=== PATIENT | male | born 1935 | race Caucasian/White ===

== ENCOUNTER → 2017-09-14 09:08 | Outpatient (CLI) | payer MEDICARE, OTHER, SELFPAY ==
[2017-09-14 12:32] LABS: Absolute Lymphocyte Count 1.02 X10^3/ul (0.83-4.51); Absolute Neutrophil Count 4.7 X10^3/uL (2.0-7.7); Basophil# 0.04 X10^3/uL; Basophil% 0.6 % (0-1); Eosinophils% 4.5 % (0-5); Hemoglobin 13.1 g/dl (13.0-16.5); Lymphocyte # 1.02 X10^3/ul (4.0); Lymphocyte % 15.4 % (19-41); Mean Corpuscular Hgb 29.2 pg (27.0-32.0); Mean Corpuscular Volume 91.5 fL (80-94); Mean Platelet Vol. 11.8 fl (6.2-12.0); Monocyte# 0.57 X10^3/uL; Monocyte% 8.6 % (0-10); Neutrophil # 4.66 X10^3/uL (2.7-7.7); Neutrophil % 70.4 % (47-70); Platelet Count 164 K/mm3 (150-450); RBC Distribution Width CV 13.8 % (11.6-14.6); RBC Distribution Width SD 45.5 fl (35.1-43.9); Red Blood Count 4.48 M/mm3 (4.6-6.2); White Blood Count 6.6 K/mm3 (4.4-11.0)
[2017-09-14 12:39] LABS: POSITIVE COUNT NO; POSITIVE DIFFERENTIAL NO; POSITIVE MORPHOLOGY NO
[2017-09-14 12:58] LABS: ALB/GLOB Ratio 0.7 RATIO (0.9-2.4); AST(SGOT) 35 U/L (15-37); Alanine Aminotransfer ALT/SGPT 51 U/L (16-61); Albumin, Serum 2.9 g/dL (3.2-5.0); Alkaline Phosphatase 106 U/L (45-117); Anion Gap 9 (5-15); BUN 34 mg/dL (7-18); BUN/Creat Ratio 14.2 RATIO (10-20); Calcium,Total 8.3 mg/dL (8.5-10.1); Chloride 104 mmol/L (98-107); EST Glomerular Filtration Rate 28 mL/min (>60); Est Glom Filt Rate - Afr Amer 34 mL/min (>60); Glucose 252 mg/dL (70-110); Potassium 4.8 mmol/L (3.5-5.1); Protein, Total 6.9 g/dL (6.4-8.2); Sodium Level 138 mmol/L (136-145); Thyroid Stim Hormone (TSH) 2.48 uIU/mL (0.358-3.74)
== END ==
PROVIDERS: Family Provider Family Medicine Geriatric Medicine; PCP Family Medicine Geriatric Medicine; Visit Provider Family Medicine Geriatric Medicine
DX: I10 Essential (primary) hypertension (principal); E11.9 Type 2 diabetes mellitus without complications
CPT/HCPCS: 36415; 80053; 84443; 85025

== ENCOUNTER → 2017-09-30 10:36 | Outpatient (CLI) | payer MEDICARE, OTHER, SELFPAY ==
[2017-09-30 11:53] LABS: Hematocrit 41.4 % (40-54); Hemoglobin 13.2 g/dl (13.0-16.5); Mean Corp Hgb Conc 31.9 g/gl (32-36); Mean Corpuscular Hgb 29.3 pg (27.0-32.0); Mean Platelet Vol. 11.4 fl (6.2-12.0); Platelet Count 185 K/mm3 (150-450); RBC Distribution Width CV 14.2 % (11.6-14.6); RBC Distribution Width SD 47.1 fl (35.1-43.9); White Blood Count 9.8 K/mm3 (4.4-11.0)
[2017-09-30 11:54] LABS: Scan Indicated on CBC? Y/N NO
[2017-09-30 12:10] LABS: Protein, Urine (Random) 325.9 mg/dL (<11.9); Protein:Creat Ratio 4227 mg/g CRE (0-200)
[2017-09-30 12:18] LABS: BUN 33 mg/dL (7-18); BUN/Creat Ratio 12.2 RATIO (10-20); Calcium,Total 8.9 mg/dL (8.5-10.1); Creatinine, Serum 2.71 mg/dL (0.70-1.30); EST Glomerular Filtration Rate 24 mL/min (>60); Est Glom Filt Rate - Afr Amer 29 mL/min (>60); Glucose 94 mg/dL (74-106); Phosphorus 3.7 mg/dL (2.5-4.9); Potassium 4.6 mmol/L (3.5-5.1); Sodium Level 140 mmol/L (136-145)
[2017-09-30 12:19] LABS: Chloride 106 mmol/L (98-107)
[2017-09-30 12:26] LABS: PTHIN 159.9 pg/mL (18.4-80.1)
== END ==
PROVIDERS: Family Provider Family Medicine Geriatric Medicine; PCP Family Medicine Geriatric Medicine; Visit Provider Internal Medicine Nephrology
DX: E11.22 Type 2 diabetes mellitus with diabetic chronic kidney disease (principal); N18.3 Chronic kidney disease, stage 3 (moderate); N25.81 Secondary hyperparathyroidism of renal origin
CPT/HCPCS: 36415; 80069; 82570; 83970; 84156; 85027

== ENCOUNTER → 2017-10-26 13:15 | Outpatient (CLI) | payer MEDICARE, OTHER, SELFPAY ==
--- NOTE | 2017-10-26 13:17 | CT_ITS ---
STUDY: CT ABDOMEN AND PELVIS WITHOUT CONTRAST REASON FOR EXAM: Male, 81 years old. KIDNEY CA-PARTIAL NEPHRECTOMY, CHECK UP, NOT HAVING ANY PROBLEMS, SURG-CARLITO, APPY,DB RADIATION DOSAGE (If Supplied By Facility): CTDIvol = ( 14.21 ) mGy, DLP = ( 700.56 ) mGycm TECHNIQUE: Transaxial images were obtained from the dome of the diaphragm to the symphysis pubis without oral contrast, and without intravenous contrast. Sagittal and coronal images were reconstructed. COMPARISON: 01/23/2017 FINDINGS: Right calcified pleural plaques. The visualized portions of the heart are within normal limits. Normal liver. There are surgical clips in the gallbladder fossa consistent with a prior cholecystectomy. Normal spleen. Normal pancreas. Stable partially calcified right adrenal mass. Stable hypodensity of the inferior and mid right kidney. Stable hypodensity of the left kidney. There is an isodense exophytic mass of the mid right kidney. This measures 24 x 19 mm the image demonstrates mild peripheral hyperdensity. There is a small hiatal hernia. Normal small intestine. There are multiple colonic diverticula consistent with diverticulosis. There is non-visualization of the appendix. There are calcifications of the abdominal aorta and vascular structures. This is consistent for atherosclerotic disease. There is no abdominal aortic aneurysm. There is an IVC filter in place. Subcentimeter mesenteric lymph nodes. There is a urinary bladder diverticulum on the right side. There are prostatic calcifications. Degenerative findings of the hips. Loss of intervertebral disc height at L5-S1. Vacuum disc phenomenon at L5-S1. There are bilateral inguinal hernias containing fat. There is no bowel involvement. There is no incarceration. There is no findings suggesting that this is causing a bowel obstruction. There are degenerative changes of the osseous structures. CT/Abdomen/Pelvis without Cont IMPRESSION: Stable bilateral renal cysts. Stable exophytic mass of the right kidney. Cholecystectomy. There are multiple diverticuli of the colon. There is diverticulosis but no radiographic signs for diverticulitis. Stable urinary bladder diverticula. Other findings as above. Electronically Signed: Jesu Cullen MD at 19:04 EDT , Service support ,
== END ==
PROVIDERS: Family Provider Family Medicine Geriatric Medicine; PCP Family Medicine Geriatric Medicine; Visit Provider Internal Medicine Medical Oncology
DX: Z85.528 Personal history of other malignant neoplasm of kidney (principal)
CPT/HCPCS: 74176

== ENCOUNTER → 2017-12-03 10:35 | Outpatient (CLI) | payer MEDICARE, OTHER, SELFPAY ==
--- NOTE | 2017-12-03 11:00 | RAD_ITS ---
STUDY: X-RAY - ABDOMEN/PELVIS REASON FOR EXAM: Male, 82 years old. Abdominal distention. TECHNIQUE: AP supine and upright views of the abdomen and pelvis. COMPARISON: Comparison is made with prior CT scan and abdomen dated October 26, 2017. FINDINGS: Blunting of the right costophrenic angle with the right basilar infiltrate. Increased markings at the left lung base. There is an unremarkable bowel gas pattern. There is no demonstrated free abdominal air. Surgical clips are seen in the right upper quadrant most likely centered to prior cholecystectomy. A filter is seen within the inferior vena cava. Normal soft tissue structures. There are diffuse degenerative changes of the visualized lumbar spine. RAD/Abd Inc Decub and/or Erect IMPRESSION: No acute abdominal findings. Electronically Signed: Yg Martinez MD at 12:36 EDT Tel [phone], Service support ,
[2017-12-03 13:57] LABS: Absolute Lymphocyte Count 1.04 X10^3/ul (0.83-4.51); Absolute Neutrophil Count 6.4 X10^3/uL (2.0-7.7); Basophil# 0.03 X10^3/uL; Basophil% 0.4 % (0-1); Eosinophil# 0.26 X10^3/uL; Eosinophils% 3.1 % (0-5); Hematocrit 40.5 % (40-54); Hemoglobin 12.5 g/dl (13.0-16.5); Lymphocyte # 1.04 X10^3/ul (4.0); Lymphocyte % 12.2 % (19-41); Mean Corp Hgb Conc 30.9 g/gl (32-36); Mean Corpuscular Hgb 29.3 pg (27.0-32.0); Mean Corpuscular Volume 94.8 fL (80-94); Mean Platelet Vol. 12.1 fl (6.2-12.0); Monocyte# 0.72 X10^3/uL; Monocyte% 8.5 % (0-10); Neutrophil # 6.43 X10^3/uL (2.7-7.7); Neutrophil % 75.4 % (47-70); Platelet Count 183 K/mm3 (150-450); RBC Distribution Width CV 15.4 % (11.6-14.6); RBC Distribution Width SD 51.7 fl (35.1-43.9); Red Blood Count 4.27 M/mm3 (4.6-6.2); White Blood Count 8.5 K/mm3 (4.4-11.0)
[2017-12-03 13:58] LABS: POSITIVE COUNT NO; POSITIVE DIFFERENTIAL NO; POSITIVE MORPHOLOGY NO
[2017-12-03 14:18] LABS: ALB/GLOB Ratio 0.6 RATIO (0.9-2.4); AST(SGOT) 36 U/L (15-37); Alanine Aminotransfer ALT/SGPT 42 U/L (16-61); Albumin, Serum 2.8 g/dL (3.2-5.0); Alkaline Phosphatase 102 U/L (45-117); Anion Gap 7 (5-15); BUN 28 mg/dL (7-18); BUN/Creat Ratio 10.5 RATIO (10-20); Calcium,Total 8.5 mg/dL (8.5-10.1); Chloride 106 mmol/L (98-107); Creatinine, Serum 2.66 mg/dL (0.70-1.30); EST Glomerular Filtration Rate 25 mL/min (>60); Est Glom Filt Rate - Afr Amer 30 mL/min (>60); Globulin 4.5 g/dL (2.2-4.2); Glucose 146 mg/dL (74-106); Potassium 5.7 mmol/L (3.5-5.1); Protein, Total 7.3 g/dL (6.4-8.2); Sodium Level 141 mmol/L (136-145); Thyroid Stim Hormone (TSH) 2.24 uIU/mL (0.358-3.74)
[2017-12-04 10:03] LABS: Vitamin D,25 Hydroxy 22.3 ng/mL (29.95-100.01)
== END ==
LOC: POLAB3 10:37 → RAD 10:59
PROVIDERS: Family Provider Family Medicine Geriatric Medicine; PCP Family Medicine Geriatric Medicine; Visit Provider Family Medicine Geriatric Medicine
DX: E11.9 Type 2 diabetes mellitus without complications (principal); E55.9 Vitamin D deficiency, unspecified; I10 Essential (primary) hypertension; K59.00 Constipation, unspecified
CPT/HCPCS: 36415; 74019; 80053; 82306; 84443; 85025

== ENCOUNTER → 2017-12-04 14:32 | Outpatient (CLI) | payer MEDICARE, OTHER, SELFPAY ==
--- NOTE | 2017-12-04 14:33 | RAD_ITS ---
STUDY: X-RAY CHEST REASON FOR EXAM: Male, 82 years old. Shortness of breath one month TECHNIQUE: PA and lateral views of the chest. COMPARISON: July 22, 2017 chest x-ray CTs chest January 29, 2018. FINDINGS: Is an overall pattern of lucency or air trapping and areas of interseptal thickening similar to the prior study. There is no demonstrated pleural abnormality. There is left apical scarring and/or thickening stable since prior study. Sternal cerclage wires are present from a prior sternotomy. Is mild cardiac enlargement. Normal mediastinum and cass. Normal visualized pulmonary arteries. There is atherosclerotic calcification of the aortic arch with tortuosity. There are diffuse degenerative changes of the visualized thoracic spine. Normal visualized ribs, clavicles, and shoulders. There is no demonstrated abnormality of the visualized soft tissue structures of the upper abdomen. RAD/Chest PA and Lateral IMPRESSION: There is increased AP diameter of the chest, probable air trapping and interstitial prominence suggesting possible underlying chronic lung disease. There is left apical thickening similar to prior studies. Recommend consideration for follow-up dedicated CT scan of the chest without contrast for calcification. Status post sternotomy. Electronically Signed: Ifeoma Mcgarry MD at 16:54 EDT Tel , Service support ,
== END ==
PROVIDERS: Family Provider Family Medicine Geriatric Medicine; PCP Family Medicine Geriatric Medicine; Visit Provider Family Medicine Geriatric Medicine
DX: R06.02 Shortness of breath (principal)
CPT/HCPCS: 71046

== ENCOUNTER → 2017-12-07 11:08 | Outpatient (CLI) | payer MEDICARE, OTHER, SELFPAY ==
[2017-12-07 12:17] LABS: Anion Gap 8 (5-15); BUN 31 mg/dL (7-18); BUN/Creat Ratio 10.4 RATIO (10-20); Calcium,Total 8.1 mg/dL (8.5-10.1); Chloride 106 mmol/L (98-107); Creatinine, Serum 2.98 mg/dL (0.70-1.30); EST Glomerular Filtration Rate 22 mL/min (>60); Est Glom Filt Rate - Afr Amer 26 mL/min (>60); Glucose 195 mg/dL (74-106); Potassium 4.7 mmol/L (3.5-5.1); Sodium Level 142 mmol/L (136-145)
== END ==
PROVIDERS: Family Provider Family Medicine Geriatric Medicine; PCP Family Medicine Geriatric Medicine; Visit Provider Family Medicine Geriatric Medicine
DX: E87.6 Hypokalemia (principal)
CPT/HCPCS: 36415; 80048

== ENCOUNTER → 2017-12-14 12:20 | Outpatient (CLI) | payer MEDICARE, OTHER, SELFPAY ==
[2017-12-14 13:59] LABS: BNP,B-Type NATRIURETIC PEPTIDE 305.9 pg/mL (0-100)
== END ==
PROVIDERS: Family Provider Family Medicine Geriatric Medicine; PCP Family Medicine Geriatric Medicine; Visit Provider Nurse Practitioner Family
DX: R06.02 Shortness of breath (principal); I48.92 Unspecified atrial flutter
CPT/HCPCS: 36415; 83880

== ENCOUNTER → 2018-01-07 10:36 | Outpatient (CLI) | payer MEDICARE, OTHER, SELFPAY ==
[2018-01-07 13:04] LABS: Hematocrit 38.2 % (40-54); Hemoglobin 12.2 g/dl (13.0-16.5); Mean Corp Hgb Conc 31.9 g/gl (32-36); Mean Corpuscular Hgb 29.5 pg (27.0-32.0); Mean Corpuscular Volume 92.5 fL (80-94); Mean Platelet Vol. 12.3 fl (6.2-12.0); Platelet Count 164 K/mm3 (150-450); RBC Distribution Width CV 14.9 % (11.6-14.6); RBC Distribution Width SD 48.6 fl (35.1-43.9); Red Blood Count 4.13 M/mm3 (4.6-6.2); White Blood Count 7.2 K/mm3 (4.4-11.0)
[2018-01-07 13:05] LABS: Scan Indicated on CBC? Y/N NO
[2018-01-07 13:09] LABS: Albumin, Serum 2.9 g/dL (3.2-5.0); BUN 39 mg/dL (7-18); BUN/Creat Ratio 14.2 RATIO (10-20); Calcium,Total 8.2 mg/dL (8.5-10.1); Chloride 107 mmol/L (98-107); Creatinine, Serum 2.74 mg/dL (0.70-1.30); EST Glomerular Filtration Rate 24 mL/min (>60); Est Glom Filt Rate - Afr Amer 29 mL/min (>60); Glucose 90 mg/dL (74-106); Phosphorus 3.5 mg/dL (2.5-4.9); Potassium 4.5 mmol/L (3.5-5.1); Sodium Level 141 mmol/L (136-145)
[2018-01-08 10:40] LABS: PTHIN 156.9 pg/mL (18.4-80.1)
== END ==
PROVIDERS: Family Provider Family Medicine Geriatric Medicine; PCP Family Medicine Geriatric Medicine; Visit Provider Internal Medicine Nephrology
DX: N18.4 Chronic kidney disease, stage 4 (severe) (principal); N25.81 Secondary hyperparathyroidism of renal origin
CPT/HCPCS: 36415; 80069; 83970; 85027

== ENCOUNTER → 2018-02-02 10:30 | Outpatient (CLI) | payer MEDICARE, OTHER, SELFPAY ==
[2018-02-02 12:41] LABS: BUN 50 mg/dL (7-18); BUN/Creat Ratio 16.1 RATIO (10-20); Calcium,Total 8.7 mg/dL (8.5-10.1); Chloride 108 mmol/L (98-107); Creatinine, Serum 3.11 mg/dL (0.70-1.30); EST Glomerular Filtration Rate 21 mL/min (>60); Est Glom Filt Rate - Afr Amer 25 mL/min (>60); Glucose 161 mg/dL (74-106); Phosphorus 3.8 mg/dL (2.5-4.9); Sodium Level 141 mmol/L (136-145)
== END ==
PROVIDERS: Family Provider Family Medicine Geriatric Medicine; PCP Family Medicine Geriatric Medicine; Visit Provider Internal Medicine Nephrology
DX: I12.9 Hypertensive chronic kidney disease with stage 1 through stage 4 chronic kidney disease, or unspecified chronic kidney disease (principal); N18.4 Chronic kidney disease, stage 4 (severe); N25.81 Secondary hyperparathyroidism of renal origin
CPT/HCPCS: 36415; 80069

== ENCOUNTER 2018-02-10 12:44 | Emergency (ER) | payer MEDICARE, OTHER, SELFPAY ==
[2018-02-10 12:47] VITALS: BP 164/74; PULSE 55; RESP 18; TEMP 35.9; O2SAT 95; O2SAT 99; BMI 27.3
[2018-02-10 13:10] LABS: Bedside Glucose 61 mg/dL (70-110)
--- NOTE | 2018-02-10 13:16 | EKG12_ITS ---
Test Reason : FALL Blood Pressure : / mmHG Vent. Rate : 057 BPM Atrial Rate : 060 BPM P-R Int : 000 ms QRS Dur : 150 ms QT Int : 504 ms P-R-T Axes : 000 -05 012 degrees QTc Int : 490 ms Sinus Bradycardia Right bundle branch block Abnormal ECG Confirmed by PRERNA SANCHEZ, ZULAY ([id number]), assistant film editor FRANKO DANIEL ([id number]) on 02/12/2018 9:16:23 AM Referred By: Sandy Lopez Confirmed By:ZULAY GRAFF MD
--- NOTE | 2018-02-10 13:16 | CT_ITS ---
STUDY: CT BRAIN WITHOUT CONTRAST REASON FOR EXAM: Male, 82 years old. Headache, syncope after a fall RADIATION DOSAGE (If Supplied By Facility): CTDIvol = ( 44.99 ) mGy, DLP = ( 796.11 ) mGycm TECHNIQUE: Transaxial CT imaging of the brain was performed without administration of intravenous contrast material. Individualized dose optimization techniques were used for this CT. COMPARISON: 04/16/2017 FINDINGS: Normal soft tissue structures. Normal calvarium. There is mild cerebral atrophy with widening of the extra-axial spaces and ventricular dilatation. There are areas of decreased attenuation within the white matter tracts of the supratentorial brain, consistent with microvascular disease changes. Normal basal ganglia and thalami. Normal brainstem. Normal cerebellum. There is no intracranial hemorrhage. There are no findings of an acute ischemic infarction. Normal visualized paranasal sinuses. CT/Brain/Head without Contrast IMPRESSION: Chronic involutional changes of the brain. No acute hemorrhage or significant interval change Electronically Signed: José Miguel Clarke MD at 14:25 EDT , Service support ,
--- NOTE | 2018-02-10 13:16 | RAD_ITS ---
STUDY: X-RAY CHEST REASON FOR EXAM: Male, 82 years old. Chest pain after a fall TECHNIQUE: Single AP portable view of the chest. COMPARISON: 12/04/2017 FINDINGS: EKG leads overlie the chest Lungs are hyperexpanded with chronic interstitial changes, no superimposed acute pulmonary process. There is no demonstrated pleural abnormality. Sternal cerclage wires and vascular clips are present from a prior sternotomy and coronary artery bypass graft procedure (CABG). Normal mediastinum and cass. Normal visualized pulmonary arteries. Normal visualized aortic arch and descending thoracic aorta. There are diffuse degenerative changes of the visualized thoracic spine. There is degenerative osteoarthritis of the bilateral shoulders. There is no demonstrated abnormality of the visualized soft tissue structures of the upper abdomen. RAD/Chest 1 View (Portable) IMPRESSION: Hyperexpanded lungs with chronic interstitial changes, no superimposed acute pulmonary process Electronically Signed: José Miguel Clarke MD at 14:29 EDT , Service support ,
--- NOTE | 2018-02-10 13:18 | RAD_ITS ---
STUDY: X-RAY - LEFT KNEE REASON FOR EXAM: Male, 82 years old. Pain after a fall TECHNIQUE: 4 view(s) of the knee. COMPARISON: None. FINDINGS: Normal visualized distal femur. Normal visualized proximal tibia and fibula. Normal proximal tibiofibular articulation. There is mild degenerative arthrosis of the medial femorotibial compartment. There is mild degenerative arthrosis of the lateral femorotibial compartment. There is mild degenerative arthrosis of the patellofemoral articulation. There is a lucency at the junction of the patellar tendon spur and the patella but no associated soft tissue swelling to suspect this is acute injury. There are atherosclerotic calcifications. RAD/Knee 4 or More Views IMPRESSION: Degenerative arthrosis. Electronically Signed: José Miguel Clarke MD at 14:31 EDT , Service support ,
--- NOTE | 2018-02-10 13:18 | CT_ITS ---
STUDY: CT CERVICAL SPINE WITHOUT CONTRAST REASON FOR EXAM: Male, 82 years old. Headache and neck pain after a fall RADIATION DOSAGE (If Supplied By Facility): CTDIvol = ( 12.32 ) mGy, DLP = ( 231.78 ) mGycm TECHNIQUE: High resolution transaxial imaging was performed without contrast material. Sagittal and coronal images were reconstructed. Individualized dose optimization techniques were used for this CT. COMPARISON: None FINDINGS: Normal craniovertebral junction. Normal anterior atlantoaxial articulation. Normal odontoid process. Normal cervical lordosis. Bones are demineralized with sclerotic, spondylitic endplate changes. There is anatomic alignment of the cervical spine. No demonstrated fracture. There is intervertebral disc space narrowing throughout the C-spine, most pronounced at C5-6. No central canal stenosis, there is bilateral foraminal narrowing throughout the C-spine. Normal visualized soft tissue structures. No upper rib fracture or pneumothorax. CT/Spine Cervical without Contras IMPRESSION: Multilevel degenerative changes, as described above. Electronically Signed: José Miguel Clarke MD at 14:24 EDT , Service support ,
--- NOTE | 2018-02-10 13:22 | ED.VISSUMM ---
- ER Visit Summary Date of Service: 02/10/18 Chief Complaint: Fall History of Present Illness: The patient is a 82 M who fell yesterday at home and early this morning. He thinks he falls because his blood sugar gets too low. Patient does not remember the fall. He is not sure if he lost consciousness. His daughter brings him in today after he called her this morning. Patient denies headache. His only pain complaint is mild left knee pain. He is currently on Coumadin. Physical Examination: Blood pressure is 164/74, temperature 96.6, heart rate 55, respiratory rate 18, pulse ox 99% on room air. Patient sitting upright in bed. He is alert and talkative. Head neck examination reveals an abrasion on the nasal bridge. He has ecchymosis to the right maxilla without bony tenderness. There is no C-spine tenderness. Heart is regular rate and rhythm with a 3/6 murmur. Lung sounds are clear. Chest wall is nontender. Abdomen is soft and nontender. Upper extremity examination was multiple skin tears to the bilateral forearms. There is no bony tenderness he has full range of motion. Lower extremity examination reveals mild tenderness around the left knee with early ecchymosis. No significant joint effusion is noted. Neuro exam is appropriate. Test Results: Chest x-ray reveals hyperexpansion with no acute process. Left knee x-ray show degenerative arthrosis. CT the head shows chronic involutional changes. CT the C-spine shows multilevel degenerative changes. EKG is sinus at 57 with a right bundle branch block. No acute ST change. CBC is normal. Chemistry studies reveal a potassium of 5.3 with moderate hemolysis. BUN is 37 and creatinine is 2.72 which is consistent with his baseline. Glucose is 67. INR is 2.8. CK is 252. Emergency Department Course and Treatment: His fingerstick blood sugar was 61 on his arrival here. He was given half amp of D50. Wounds were cleansed and dressed. At this time patient is refusing hospital admission. I spoke with his primary care physician. Patient is to cut his Levemir in half at bedtime, from 32 units down to 16 units. He is to stop the sliding scale NovoLog. Dr. Garcia would like to see him in the office at 9:00 tomorrow morning. Treatment Plan: [] Disposition: Discharge Impression: 1. Falls 2. Skin tears This note was generated with [employer] dictation software. It may contain incorrect words, spelling, and punctuation that were not noted in review of the chart prior to signing ED Disposition - Plan for ED Patient: Chief Complaint: Fall Referrals: Jose Raul Garcia Chi, MD [Primary Care Provider] -
[2018-02-10] MEDS: Dextrose 50%-Water 25 GM/50 ML DISP.SYRIN IV (13:37)
[2018-02-10] MEDS: 0.9% Normal Saline 1,000 ML 15 ML IV (13:37)
[2018-02-10 13:39] LABS: Absolute Lymphocyte Count 1.02 X10^3/ul (0.83-4.51); Absolute Neutrophil Count 9.1 X10^3/uL (2.0-7.7); Basophil# 0.02 X10^3/uL; Basophil% 0.2 % (0-1); Eosinophil# 0.03 X10^3/uL; Eosinophils% 0.3 % (0-5); Hematocrit 44.1 % (40-54); Hemoglobin 14.1 g/dl (13.0-16.5); Lymphocyte # 1.02 X10^3/ul (4.0); Lymphocyte % 9.5 % (19-41); Mean Corpuscular Volume 90.7 fL (80-94); Mean Platelet Vol. 11.4 fl (6.2-12.0); Monocyte# 0.55 X10^3/uL; Monocyte% 5.1 % (0-10); Neutrophil # 9.12 X10^3/uL (2.7-7.7); Neutrophil % 84.7 % (47-70); Platelet Count 211 K/mm3 (150-450); RBC Distribution Width CV 14.6 % (11.6-14.6); RBC Distribution Width SD 48.4 fl (35.1-43.9); Red Blood Count 4.86 M/mm3 (4.6-6.2); White Blood Count 10.8 K/mm3 (4.4-11.0)
[2018-02-10 13:41] LABS: POSITIVE COUNT NO; POSITIVE DIFFERENTIAL NO; POSITIVE MORPHOLOGY NO
[2018-02-10 13:42] LABS: International Normalized Ratio 2.8; Prothrombin Time (Protime)PT. 29.3 SECONDS (11.7-14.9)
[2018-02-10 13:57] LABS: CPK Total, Creatine Kinase 252 U/L (39-308)
[2018-02-10 14:07] LABS: Anion Gap 8 (5-15); BUN 37 mg/dL (7-18); BUN/Creat Ratio 13.6 RATIO (10-20); Chloride 107 mmol/L (98-107); Creatinine, Serum 2.72 mg/dL (0.70-1.30); EST Glomerular Filtration Rate 24 mL/min (>60); Est Glom Filt Rate - Afr Amer 29 mL/min (>60); Estimated Creatinine Clearance 20.26 ml/min; Glucose 67 mg/dL (74-106); Potassium 5.3 mmol/L (3.5-5.1); Sodium Level 142 mmol/L (136-145)
[2018-02-10 14:51] LABS: Bedside Glucose 124 mg/dL (70-110)
[2018-02-10 15:24] VITALS: BP 152/66; PULSE 58; RESP 24; O2SAT 94
--- NOTE | 2018-02-10 15:40 | ED.DEP ---
ED Disposition - Plan for ED Patient: Disposition: Home or Assisted Living Chief Complaint: Fall Instructions: ED Mechanical Fall, ED Avulsion Dermal Referrals: Jose Raul Garcia Chi, MD [Primary Care Provider] - Additional Instructions: Decrease your Levemir from 32u to 16u. Stop your NovaLog. Dr Garcia would like to see you in the office at 9am tomorrow morning.
== END 2018-02-10 15:56 | disposition home or self-care (01) ==
PROVIDERS: Emergency Provider Emergency Medicine; Family Provider Family Medicine Geriatric Medicine; PCP Family Medicine Geriatric Medicine
DX: S51.812A Laceration without foreign body of left forearm, initial encounter (principal); S51.811A Laceration without foreign body of right forearm, initial encounter; W19.XXXA Unspecified fall, initial encounter; Y92.009 Unspecified place in unspecified non-institutional (private) residence as the place of occurrence of the external cause; Y93.9 Activity, unspecified; M25.562 Pain in left knee; E11.649 Type 2 diabetes mellitus with hypoglycemia without coma; K21.9 Gastro-esophageal reflux disease without esophagitis; I10 Essential (primary) hypertension; E78.00 Pure hypercholesterolemia, unspecified; I47.1 Supraventricular tachycardia; I48.0 Paroxysmal atrial fibrillation; I45.10 Unspecified right bundle-branch block; Z79.4 Long term (current) use of insulin; Z79.01 Long term (current) use of anticoagulants; Z79.899 Other long term (current) drug therapy; Z86.718 Personal history of other venous thrombosis and embolism
CPT/HCPCS: 70450; 71045; 72125; 73564; 80048; 82550; 82962; 85025; 85610; 93005; 96374; 99284; J7030; A4216

== ENCOUNTER → 2018-03-30 07:09 | Outpatient (CLI) | payer MEDICARE, OTHER, SELFPAY ==
[2018-03-30 09:01] LABS: Hematocrit 42.5 % (40-54); Hemoglobin 13.3 g/dl (13.0-16.5); Mean Corp Hgb Conc 31.3 g/gl (32-36); Mean Corpuscular Hgb 28.5 pg (27.0-32.0); Mean Corpuscular Volume 91.2 fL (80-94); Mean Platelet Vol. 11.7 fl (6.2-12.0); Platelet Count 196 K/mm3 (150-450); RBC Distribution Width SD 50.1 fl (35.1-43.9); Red Blood Count 4.66 M/mm3 (4.6-6.2)
[2018-03-30 09:02] LABS: Scan Indicated on CBC? Y/N NO
[2018-03-30 09:23] LABS: Albumin, Serum 2.9 g/dL (3.2-5.0); BUN 53 mg/dL (7-18); BUN/Creat Ratio 17.1 RATIO (10-20); Calcium,Total 8.7 mg/dL (8.5-10.1); Chloride 106 mmol/L (98-107); EST Glomerular Filtration Rate 21 mL/min (>60); Est Glom Filt Rate - Afr Amer 25 mL/min (>60); Glucose 90 mg/dL (74-106); Phosphorus 3.8 mg/dL (2.5-4.9); Potassium 4.9 mmol/L (3.5-5.1); Sodium Level 140 mmol/L (136-145)
--- NOTE | 2018-03-30 10:54 | PFT ---
INTRODUCTION: The patient is an 82-year-old male that presents for pulmonary function testing secondary to a diagnosis of dyspnea. Respiratory therapy reports good patient effort. Bronchodilators were used during testing. INTERPRETATION: Forced expiration spirometry demonstrates the presence of a moderately severe large airways obstructive ventilatory defect. There was no significant response to aerosolized bronchodilators. Spirograms of good quality and do not plateau indicating slow emptying of the lungs. The respiratory flow volume loop reveals decreased expiratory flow rates at all lung volumes consistent with airways obstruction. Body plethysmography was performed and reveals a decreased TLC to 3.45 L, 61% of predicted, indicative of a moderate restrictive ventilatory impairment. The remainder of the lung volumes are symmetrically reduced. Diffusing capacity by single breath CO is moderately reduced at 52% of predicted. When compared to previous pulmonary function studies dated January 2017, there has been a 13% reduction in the patient's FEV1, along with a significant decline in TLC and DLCO. IMPRESSION: These pulmonary function studies demonstrate the presence of an irreversible moderately severe mixed ventilatory defect with an associated moderate reduction in diffusing capacity. There has been worsening in the patient's PFTs since they were last completed in January 2017, as noted above. Clinical correlation is recommended.
[2018-03-31 08:31] LABS: PTHIN 137.5 pg/mL (18.4-80.1)
== END ==
PROVIDERS: Internal Medicine Nephrology; Family Provider Family Medicine Geriatric Medicine; PCP Family Medicine Geriatric Medicine; Visit Provider Physician Assistant Medical
DX: I48.0 Paroxysmal atrial fibrillation (principal); R06.00 Dyspnea, unspecified; I12.9 Hypertensive chronic kidney disease with stage 1 through stage 4 chronic kidney disease, or unspecified chronic kidney disease; N18.4 Chronic kidney disease, stage 4 (severe); N25.81 Secondary hyperparathyroidism of renal origin
CPT/HCPCS: 36415; 80069; 83970; 85027; 94060; 94726; 94729

== ENCOUNTER → 2018-04-28 13:52 | Outpatient (CLI) | payer MEDICARE, OTHER, SELFPAY ==
[2018-04-01 14:26] VITALS: BP 153/70; PULSE 62; RESP 18; TEMP 36.8; O2SAT 93; BMI 27.3
== END ==
PROVIDERS: Family Provider Family Medicine Geriatric Medicine; PCP Family Medicine Geriatric Medicine; Visit Provider Surgery
DX: Z01.810 Encounter for preprocedural cardiovascular examination (principal)
CPT/HCPCS: 93005

== ENCOUNTER → 2018-06-02 12:02 | Outpatient (CLI) | payer MEDICARE, OTHER, SELFPAY ==
[2018-06-02 17:05] LABS: Hematocrit 39.7 % (40-54); Hemoglobin 12.4 g/dl (13.0-16.5); Mean Corp Hgb Conc 31.2 g/gl (32-36); Mean Corpuscular Hgb 29.3 pg (27.0-32.0); Mean Corpuscular Volume 93.9 fL (80-94); Mean Platelet Vol. 12.3 fl (6.2-12.0); Platelet Count 196 K/mm3 (150-450); RBC Distribution Width CV 15.9 % (11.6-14.6); RBC Distribution Width SD 53.2 fl (35.1-43.9); Red Blood Count 4.23 M/mm3 (4.6-6.2); White Blood Count 8.9 K/mm3 (4.4-11.0)
[2018-06-02 17:07] LABS: Albumin, Serum 2.7 g/dL (3.2-5.0); BUN 38 mg/dL (7-18); BUN/Creat Ratio 12.8 RATIO (10-20); Calcium,Total 8.6 mg/dL (8.5-10.1); Chloride 107 mmol/L (98-107); Creatinine, Serum 2.97 mg/dL (0.70-1.30); EST Glomerular Filtration Rate 22 mL/min (>60); Est Glom Filt Rate - Afr Amer 26 mL/min (>60); Glucose 99 mg/dL (74-106); Phosphorus 3.8 mg/dL (2.5-4.9); Potassium 4.5 mmol/L (3.5-5.1); Sodium Level 142 mmol/L (136-145)
[2018-06-02 17:17] LABS: PTHIN 141.9 pg/mL (18.4-80.1)
[2018-06-02 17:24] LABS: Scan Indicated on CBC? Y/N NO
== END ==
PROVIDERS: Family Provider Family Medicine Geriatric Medicine; PCP Family Medicine Geriatric Medicine; Visit Provider Internal Medicine Nephrology
DX: N18.4 Chronic kidney disease, stage 4 (severe) (principal); D63.8 Anemia in other chronic diseases classified elsewhere; N25.81 Secondary hyperparathyroidism of renal origin
CPT/HCPCS: 36415; 80069; 83970; 85027

== ENCOUNTER → 2018-06-10 07:51 | Outpatient (CLI) | payer MEDICARE, OTHER, SELFPAY ==
--- NOTE | 2018-06-10 07:54 | US_ITS ---
STUDY: RENAL ULTRASOUND - COMPLETE REASON FOR EXAM: Male, 82 years old. Right flank pain. History of right renal cancer. TECHNIQUE: Ultrasound evaluation of the kidneys was performed with real-time and static june-scale imaging. COMPARISON: CT scan 10/26/2017. FINDINGS: RIGHT KIDNEY: Normal location of the right kidney, which is normal in size. The right kidney measures 10.7 x 4.5 x 5.5 cm. There is a normal cortex of the right kidney. The renal cortex measures 1.5 cm. There is a 2 cm lateral cyst. There is a 2.3 cm inferior pole cyst. There is a mid renal irregular area of heterogeneous density with a few calcifications. This corresponds to the abnormality on CT scan and could be residual or recurrent neoplasm. Better evaluation with contrast CT scan recommended. There is no right hydronephrosis. DISTAL RIGHT URETER: There is non-visualization of the distal right ureter. There is no demonstrated right ureterovesical junction calculus. There is no demonstrated right ureteral jet. LEFT KIDNEY: Normal location of the left kidney, which is normal in size. The left kidney measures 12.5 x 5.0 x 5.8 cm. There is a normal cortex of the left kidney. The renal cortex measures 1.3 cm. There is a 4.6 cm upper pole cyst. There is a 1.3 cm lower pole cyst. There are no left renal calculi. There is no left hydronephrosis. DISTAL LEFT URETER: There is non-visualization of the distal left ureter. There is no demonstrated left ureterovesical junction calculus. There is a visualized left ureteral jet. BLADDER: The distended urinary bladder has a volume of 156 ml. There is a normal wall thickness of the distended urinary bladder. There is no demonstrated mass within the urinary bladder. There are no demonstrated bladder calculi. Mass effect in the undersurface of the bladder is most likely from enlarged prostate. US/Kidney and Bladder IMPRESSION: Several bilateral renal cysts. Abnormal appearance of the kidney where there is a previous cancer. Cannot exclude recurrent or residual neoplasm. Contrast CT would be better evaluation of this patient. Prostate enlarged. Electronically Signed: Wes Oakes MD at 17:08 EDT , Service support ,
== END ==
PROVIDERS: Family Provider Family Medicine Geriatric Medicine; PCP Family Medicine Geriatric Medicine; Referring Provider Internal Medicine Nephrology; Visit Provider Internal Medicine Nephrology
DX: R10.9 Unspecified abdominal pain (principal)
CPT/HCPCS: 76770

== ENCOUNTER 2018-06-14 10:32 | Emergency (ER) | payer MEDICARE, OTHER, SELFPAY ==
[2018-06-14 10:33] VITALS: BP 207/82; PULSE 62; RESP 18; TEMP 36.6; O2SAT 95; BMI 27.3
--- NOTE | 2018-06-14 10:50 | ED.VISSUMM ---
- ER Visit Summary Date of Service: 06/14/18 Chief Complaint: Hypoglycemia History of Present Illness: The patient is a 82 M who states that last night his blood sugar was elevated so he took extra Levemir. Reportedly this morning he was wandering around his house can used which caused his house alarm to go off and the police were dispatched to his house. They called EMS. Prior to EMS arrival it had some orange juice. Their initial PTT was 45. They gave oral glucose and a half amp of D50. Now his blood sugars over 200 and he is feeling better. He did not take his morning blood pressure medications. He has not yet had any breakfast and states he is otherwise feeling okay. Physical Examination: otherwise vital signs are stable Gen: Well-nourished well-developed Head: Normocephalic atraumatic Eyes: Perrl EOMI right eye conjunctiva injected with matting of eyelids and weeping (this is chronic for the patient close ( ENT: TMs clear no rhinorrhea moist mucous membranes Neck: Supple no lymphadenopathy no JVD nontender CVS: Regular rate rhythm no murmurs normal S1-S2 Respiratory: No distress clear to auscultation bilaterally chest nontender Abdomen: Soft nontender nondistended normal bowel sounds no masses Back: Nontender Extremity: Nontender no edema Skin: Normal color no rash Neuro: alert orientated ?3 CN II-XII intact normal strength sensation reflexes gait cerebellar Psych: Normal affect normal mood Test Results: Basic labs show no acute. Creatinine 2.66 unchanged from baseline. Emergency Department Course and Treatment: Patient had every hour blood sugars have remained stable. He has eaten and feels at his baseline. He will be discharged home to follow-up with his doctor monitoring of blood sugar closely today. Impression: 1. Diabetic hypoglycemia This note was generated with [employer] dictation software. It may contain incorrect words, spelling, and punctuation that were not noted in review of the chart prior to signing ED Disposition - Plan for ED Patient: Disposition: Home or Assisted Living Chief Complaint: Hypoglycemia Instructions: ED Diabetes Hypoglycemia Insulin React Referrals: Jose Raul Garcia Chi, MD [Primary Care Provider] - 1 Week Additional Instructions: Please closely monitor your blood sugar today.
[2018-06-14 10:56] LABS: Bedside Glucose 138 mg/dL (70-110)
[2018-06-14 11:09] LABS: Absolute Lymphocyte Count 0.95 X10^3/ul (0.83-4.51); Absolute Neutrophil Count 8.1 X10^3/uL (2.0-7.7); Basophil# 0.06 X10^3/uL; Basophil% 0.6 % (0-1); Eosinophil# 0.11 X10^3/uL; Eosinophils% 1.1 % (0-5); Hematocrit 41.4 % (40-54); Hemoglobin 13.4 g/dl (13.0-16.5); Lymphocyte # 0.95 X10^3/ul (4.0); Lymphocyte % 9.8 % (19-41); Mean Corp Hgb Conc 32.4 g/gl (32-36); Mean Corpuscular Hgb 29.9 pg (27.0-32.0); Mean Corpuscular Volume 92.4 fL (80-94); Mean Platelet Vol. 11.3 fl (6.2-12.0); Monocyte# 0.52 X10^3/uL; Monocyte% 5.3 % (0-10); Neutrophil # 8.06 X10^3/uL (2.7-7.7); Neutrophil % 82.9 % (47-70); POSITIVE COUNT NO; POSITIVE DIFFERENTIAL NO; POSITIVE MORPHOLOGY NO; Platelet Count 169 K/mm3 (150-450); RBC Distribution Width CV 15.1 % (11.6-14.6); RBC Distribution Width SD 49.3 fl (35.1-43.9); Red Blood Count 4.48 M/mm3 (4.6-6.2); White Blood Count 9.7 K/mm3 (4.4-11.0)
[2018-06-14 11:14] LABS: International Normalized Ratio 1.8; Prothrombin Time (Protime)PT. 21.3 SECONDS (11.7-14.9)
[2018-06-14 11:23] LABS: ALB/GLOB Ratio 0.6 RATIO (0.9-2.4); AST(SGOT) 52 U/L (15-37); Alanine Aminotransfer ALT/SGPT 52 U/L (16-61); Albumin, Serum 2.8 g/dL (3.2-5.0); Alkaline Phosphatase 121 U/L (45-117); Anion Gap 5 (5-15); BUN 39 mg/dL (7-18); BUN/Creat Ratio 14.7 RATIO (10-20); Calcium,Total 8.6 mg/dL (8.5-10.1); Chloride 107 mmol/L (98-107); Creatinine, Serum 2.66 mg/dL (0.70-1.30); EST Glomerular Filtration Rate 25 mL/min (>60); Est Glom Filt Rate - Afr Amer 30 mL/min (>60); Estimated Creatinine Clearance 20.02 ml/min; Globulin 4.6 g/dL (2.2-4.2); Glucose 130 mg/dL (74-106); Lipase 189 U/L (73-393); Potassium 4.3 mmol/L (3.5-5.1); Protein, Total 7.4 g/dL (6.4-8.2); Sodium Level 139 mmol/L (136-145)
[2018-06-14] MEDS: Isosorbide Mononitrate 30 MG Tablet PO (11:27)
[2018-06-14] MEDS: Metoprolol Tartrate 100 MG Tablet 150 MG PO (11:27)
[2018-06-14 11:44] VITALS: BP 183/52; PULSE 61; RESP 18; O2SAT 92
[2018-06-14 12:25] LABS: Bedside Glucose 126 mg/dL (70-110)
[2018-06-14 12:53] VITALS: BP 108/77; PULSE 59; RESP 16; O2SAT 97
== END 2018-06-14 12:54 | disposition home or self-care (01) ==
PROVIDERS: Emergency Provider Emergency Medicine; Family Provider Family Medicine Geriatric Medicine; PCP Family Medicine Geriatric Medicine
DX: E11.649 Type 2 diabetes mellitus with hypoglycemia without coma (principal); I12.9 Hypertensive chronic kidney disease with stage 1 through stage 4 chronic kidney disease, or unspecified chronic kidney disease; E11.22 Type 2 diabetes mellitus with diabetic chronic kidney disease; N18.4 Chronic kidney disease, stage 4 (severe); E78.00 Pure hypercholesterolemia, unspecified; I48.91 Unspecified atrial fibrillation; Z79.4 Long term (current) use of insulin; Z79.01 Long term (current) use of anticoagulants; Z79.899 Other long term (current) drug therapy
CPT/HCPCS: 80053; 82962; 83690; 85025; 85610; 99285; A4216

== ENCOUNTER → 2018-06-23 11:19 | Outpatient (CLI) | payer MEDICARE, OTHER, SELFPAY ==
[2018-06-23 12:37] LABS: Absolute Lymphocyte Count 1.17 X10^3/ul (0.83-4.51); Absolute Neutrophil Count 5.8 X10^3/uL (2.0-7.7); Basophil# 0.06 X10^3/uL; Basophil% 0.8 % (0-1); Eosinophil# 0.24 X10^3/uL; Hematocrit 40.6 % (40-54); Hemoglobin 12.5 g/dl (13.0-16.5); Lymphocyte # 1.17 X10^3/ul (4.0); Lymphocyte % 14.8 % (19-41); Mean Corp Hgb Conc 30.8 g/gl (32-36); Mean Corpuscular Hgb 29.3 pg (27.0-32.0); Mean Corpuscular Volume 95.1 fL (80-94); Mean Platelet Vol. 12.2 fl (6.2-12.0); Monocyte% 7.6 % (0-10); Neutrophil # 5.81 X10^3/uL (2.7-7.7); Neutrophil % 73.5 % (47-70); Platelet Count 184 K/mm3 (150-450); RBC Distribution Width CV 14.9 % (11.6-14.6); RBC Distribution Width SD 50.1 fl (35.1-43.9); Red Blood Count 4.27 M/mm3 (4.6-6.2); White Blood Count 7.9 K/mm3 (4.4-11.0)
[2018-06-23 12:38] LABS: POSITIVE COUNT NO; POSITIVE DIFFERENTIAL NO; POSITIVE MORPHOLOGY NO
[2018-06-23 12:55] LABS: Vitamin D,25 Hydroxy 23.8 ng/mL (29.95-100.01)
[2018-06-23 13:10] LABS: ALB/GLOB Ratio 0.6 RATIO (0.9-2.4); AST(SGOT) 45 U/L (15-37); Alanine Aminotransfer ALT/SGPT 50 U/L (16-61); Albumin, Serum 2.6 g/dL (3.2-5.0); Alkaline Phosphatase 110 U/L (45-117); Anion Gap 8 (5-15); BUN 40 mg/dL (7-18); BUN/Creat Ratio 13.4 RATIO (10-20); Calcium,Total 8.6 mg/dL (8.5-10.1); Chloride 106 mmol/L (98-107); Creatinine, Serum 2.98 mg/dL (0.70-1.30); EST Glomerular Filtration Rate 22 mL/min (>60); Est Glom Filt Rate - Afr Amer 26 mL/min (>60); Globulin 4.2 g/dL (2.2-4.2); Glucose 144 mg/dL (74-106); Protein, Total 6.8 g/dL (6.4-8.2); Sodium Level 140 mmol/L (136-145); Thyroid Stim Hormone (TSH) 3.38 uIU/mL (0.358-3.74)
== END ==
PROVIDERS: Family Provider Family Medicine Geriatric Medicine; PCP Family Medicine Geriatric Medicine; Visit Provider Family Medicine Geriatric Medicine
DX: E11.9 Type 2 diabetes mellitus without complications (principal); E55.9 Vitamin D deficiency, unspecified; I10 Essential (primary) hypertension
CPT/HCPCS: 36415; 80053; 82306; 84443; 85025

== ENCOUNTER → 2018-06-25 10:33 | Outpatient (CLI) | payer MEDICARE, OTHER, SELFPAY ==
[2018-06-25 12:33] LABS: Anion Gap 7 (5-15); BUN 39 mg/dL (7-18); Calcium,Total 8.3 mg/dL (8.5-10.1); Chloride 105 mmol/L (98-107); EST Glomerular Filtration Rate 21 mL/min (>60); Est Glom Filt Rate - Afr Amer 26 mL/min (>60); Glucose 139 mg/dL (74-106); Potassium 4.4 mmol/L (3.5-5.1); Sodium Level 140 mmol/L (136-145)
== END ==
PROVIDERS: Family Provider Family Medicine Geriatric Medicine; PCP Family Medicine Geriatric Medicine; Visit Provider Family Medicine Geriatric Medicine
DX: E87.5 Hyperkalemia (principal)
CPT/HCPCS: 36415; 80048

== ENCOUNTER → 2018-08-04 10:55 | Outpatient (CLI) | payer MEDICARE, OTHER, SELFPAY ==
[2018-07-06 11:03] VITALS: BMI 28.0
[2018-08-04 11:29] LABS: Hematocrit 38.4 % (40-54); Hemoglobin 12.1 g/dl (13.0-16.5); Mean Corp Hgb Conc 31.5 g/gl (32-36); Mean Platelet Vol. 11.8 fl (6.2-12.0); Platelet Count 169 K/mm3 (150-450); RBC Distribution Width CV 14.2 % (11.6-14.6); RBC Distribution Width SD 47.4 fl (35.1-43.9); Red Blood Count 4.04 M/mm3 (4.6-6.2); White Blood Count 8.1 K/mm3 (4.4-11.0)
[2018-08-04 11:36] LABS: Scan Indicated on CBC? Y/N NO
[2018-08-04 12:01] LABS: Albumin, Serum 2.6 g/dL (3.2-5.0); BUN 35 mg/dL (7-18); BUN/Creat Ratio 12.1 RATIO (10-20); Calcium,Total 8.3 mg/dL (8.5-10.1); Chloride 105 mmol/L (98-107); Creatinine, Serum 2.89 mg/dL (0.70-1.30); EST Glomerular Filtration Rate 22 mL/min (>60); Est Glom Filt Rate - Afr Amer 27 mL/min (>60); Glucose 268 mg/dL (74-106); Phosphorus 3.3 mg/dL (2.5-4.9); Sodium Level 138 mmol/L (136-145)
[2018-08-04 12:08] LABS: PTHIN 146.2 pg/mL (18.4-80.1)
--- OUTSIDE RECORDS SUMMARY | 2018-11-05 14:59 | XMS RPT_ITS ---
:1935 Author Organization [place] Support Name Relationship Address Phone OLIVA WILSON Unavailable [address] + [address] [place] [address] R Unavailable Unavailable Unavailable SHINSKY, KEVIN Unavailable [address] + [address] OLIVA Unavailable [address] + [address] [place] [address] R Unavailable Unavailable Unavailable SHINSKY, KEVIN Unavailable [address] + [address] OL[address] Unavailable [address] + [address] [facility] [address] R Unavailable Unavailable Unavailable SHINSKY, KEVIN Unavailable [address] + [place] [address] ROSMERY OLIVA Unavailable [address] + [address] [facility] [address] R Unavailable Unavailable Unavailable SHINSKY, KEVIN Unavailable [address] + [place] [address] KATIE OLIVA Unavailable [address] + [address] [facility] [address] R Unavailable Unavailable Unavailable SHINSKY, KEVIN Unavailable [address] + [place] [address] KATIE OLIVA Unavailable [address] + [address] [facility] [address] R Unavailable Unavailable Unavailable SHINSKY, KEVIN Unavailable [address] + [place] [id number] KATIE OLIVA Unavailable [address] + [address] [facility] [address] R Unavailable Unavailable Unavailable SHINSKY, KEVIN Unavailable [address] + [place] [address] GEIB, OLIVA Unavailable [address] + [address] [place] [address] R Unavailable Unavailable Unavailable SHINSKY, KEVIN Unavailable [address] + [place] [address] R Unavailable Unavailable Unavailable SHINSKY, KEVIN Unavailable [address] + [place] [address] R Unavailable Unavailable Unavailable SHINSKY, KEVIN Unavailable [address] + [place] [address] GEIB, ANNA Unavailable Unavailable + R Unavailable Unavailable Unavailable SHINSKY, KEVIN Unavailable [address] + [place] [address] R Unavailable Unavailable Unavailable SHINSKY, KEVIN Unavailable [address] + [place] [address] R Unavailable Unavailable Unavailable SHINSKY, KEVIN Unavailable [address] + [place] [address] R Unavailable Unavailable Unavailable SHINSKY, KEVIN Unavailable [address] + [place] [address] R Unavailable Unavailable Unavailable SHINSKY, KEVIN Unavailable [address] + [place] [address] GEIB, ANNA Unavailable Unavailable + GEIB, OLIVA Unavailable Unavailable + GEIB, OLIVA Unavailable Unavailable + R Unavailable Unavailable Unavailable SHINSKY, KEVIN Unavailable [address] + [place] [address] R Unavailable Unavailable Unavailable SHINSKY, KEVIN Unavailable [address] + [place] [address] R Unavailable Unavailable Unavailable SHINSKY, KEVIN Unavailable [address] + [place] [address] R Unavailable Unavailable Unavailable SHINSKY, KEVIN Unavailable [address] + [place] [address] R Unavailable Unavailable Unavailable SHINSKY, KEVIN Unavailable [address] + [place] [address] R Unavailable Unavailable Unavailable SHINSKY, KEVIN Unavailable [address] + [facility] [place] [address] R Unavailable Unavailable Unavailable SHINSKY, KEVIN Unavailable Unavailable + [facility] [place] [address] R Unavailable Unavailable Unavailable SHINSKY, KEVIN Unavailable . + [place] [address] R Unavailable Unavailable Unavailable SHINSKY, KEVIN Unavailable . + [place] [address] R Unavailable Unavailable Unavailable SHINSKY, KEVIN Unavailable . + [place] [address] R Unavailable Unavailable Unavailable SHINSKY, KEVIN Unavailable . + [place] [address] R Unavailable Unavailable Unavailable SHINSKY, KEVIN Unavailable Unavailable + [place] [address] R Unavailable Unavailable Unavailable SHINSKY, KEVIN Unavailable Unavailable + [place] [address] R Unavailable Unavailable Unavailable SHINSKY, KEVIN Unavailable Unavailable + [place] [address] R Unavailable Unavailable Unavailable SHINSKY, KEVIN Unavailable Unavailable + [place] [address] R Unavailable Unavailable Unavailable SHINSKY, KEVIN Unavailable Unavailable + [place] [address] R Unavailable Unavailable Unavailable SHINSKY, KEVIN Unavailable Unavailable + [facility] [place] [address] R Unavailable Unavailable Unavailable SHINSKY, KEVIN Unavailable Unavailable + [facility] [place] [address] R Unavailable Unavailable Unavailable SHINSKY, KEVIN Unavailable Unavailable + R Unavailable Unavailable Unavailable SHINSKY, KEVIN Unavailable Unavailable + R Unavailable Unavailable Unavailable SHINSKY, KEVIN Unavailable NA + [place], [place] R Unavailable Unavailable Unavailable SHINSKY, KEVIN Unavailable NA + [place], [place] Care Team Providers Name Role Phone [facility]), Jose Raul Chi Primary Care Unavailable Sandy Lopez Attending Unavailable Sandy Lopez Attending Unavailable Jose, Jose Raul Chi Primary Care Unavailable Florencia Smith Attending Unavailable Zia Salas Attending Unavailable Jose, Jose Raul Chi Primary Care Unavailable PraZia goodman Referring Unavailable Jose, Jose Raul Chi Attending Unavailable Jose, Jose Raul Chi Primary Care Unavailable Sandy Lopez Attending Unavailable John, Sandy Referring Unavailable Jose, Jose Raul Chi Primary Care Unavailable Sandy Lopez Attending Unavailable Jose, Jose Raul Chi Primary Care Unavailable Pramaxine, Zia Attending Unavailable Prah, Zia Referring Unavailable Jose, Jose Raul Chi Primary Care Unavailable Zia Salas Consulting Unavailable Florencia Smith Attending Unavailable Pramaxine, Zia Attending Unavailable Prah, Zia Referring Unavailable Jose, Jose Raul Chi Primary Care Unavailable Pramaxine, Zia Attending Unavailable Jose, Jose Raul Chi Primary Care Unavailable Prah, Zia Consulting Unavailable Jose, Jose Raul Chi Attending Unavailable Jose, Jose Raul Chi Primary Care Unavailable Jose, Jose Raul Chi Attending Unavailable Jose, Jose Raul Chi Primary Care Unavailable Jose, Jose Raul Chi Attending Unavailable Jose, Jose Raul Chi Referring Unavailable Jose, Jose Raul Chi Primary Care Unavailable Shelley Sanchez Attending Unavailable RoofTorsten H Attending Unavailable Jose, Jose Raul Chi Referring Unavailable Jose, Jose Raul Chi Primary Care Unavailable RoofTorsten H Attending Unavailable Roof, Otrsten H Referring Unavailable Jose, Jose Raul Chi Primary Care Unavailable Sandy Lopez Attending Unavailable Jose, Jose Raul Chi Primary Care Unavailable JohnSandy Attending Unavailable Jose, Jose Raul Chi Primary Care Unavailable John, Sandy Referring Unavailable Jose, Jose Raul Chi Primary Care Unavailable Leanne Genao Attending Unavailable Florencia Smith Attending Unavailable Florencia Ro Attending Unavailable Jose, Jose Raul Chi Referring Unavailable Jose, Jose Raul Chi Primary Care Unavailable Florencia Ro Attending Unavailable Florencia Ro Referring Unavailable Jose, Jose Raul Chi Primary Care Unavailable John Sandy Consulting Unavailable Carolbul Anthony Attending Unavailable Jose, Jose Raul Chi Referring Unavailable Jose, Jose Raul Chi Primary Care Unavailable Cebul Anthony Attending Unavailable Cebul, Anthony Referring Unavailable Jose, Jose Raul Chi Primary Care Unavailable Cebul Anthony Attending Unavailable Cebul, Anthony Referring Unavailable Jose, Jose Raul Chi Primary Care Unavailable Florencia Ro Attending Unavailable Jose, Jose Raul Chi Referring Unavailable Jose, Jose Raul Chi Primary Care Unavailable Mekhi Lopezine Attending Unavailable Jose, Jose Raul Chi Primary Care Unavailable Laurie Robertson PA-C Attending Unavailable Jose, Jose Raul Chi Referring Unavailable Genaro Nichole D.O. Attending Unavailable Florencia Ro Referring Unavailable Paco Proctor Attending Unavailable Cebul, Anthony Referring Unavailable Sandy Lopez Attending Unavailable Jose, Jose Raul Chi Primary Care Unavailable Sandy Lopez Attending Unavailable John, Sandy Referring Unavailable Jose, Jose Raul Chi Primary Care Unavailable Jose, Jose Raul Chi Primary Care Unavailable Ronen De La Vega Attending Unavailable Jose, Jose Raul Chi Attending Unavailable Jose, Jose Raul Chi Primary Care Unavailable Jose, Jose Raul Chi Attending Unavailable Jose, Jose Raul Chi Primary Care Unavailable Florencia Ro Attending Unavailable Jose, Jose Raul Chi Referring Unavailable Sujata Shaw Admitting Unavailable Sujata Shaw Attending Unavailable SUJATA SHAW RAVEN Attending Unavailable HICKEY SUJATA RAVEN Referring Unavailable JOSE, JOSE RAUL CHI Primary Care Unavailable SUMIT CARDOZO Attending Unavailable JOSE, JOSE RAUL-CHI Referring Unavailable JOSE, JOSE RAUL-CHI Primary Care Unavailable HISTORICAL, PROVIDER Attending Unavailable JOSE, JOSE RAUL-CHI Primary Care Unavailable PROBLEMS PROBLEMS DATE TYPE CONDITION / CODE ATTENDING STATUS SOURCE Unknown R06.02 - Shortness of Ro, Active [place] [facility] breath / R06.02(ICD-10) [facility] Repository Unknown I48.0 - Paroxysmal Ro, Active [facility] [facility] atrial fibrillation / [facility] I48.0(ICD-10) Hospital Repository Unknown E87.5 - Hyperkalemia / Jose, Jose Raul Chi Active [place] [facility] E87.5(ICD-10) [facility] Hospital Repository Unknown I45.10 - Unspecified Esthela, Paco Active [place] [facility] right bundle-branch Community block / I45.10(ICD-10) Hospital Repository Unknown R94.31 - Abnormal Esthela, Dunnell Active [place] [facility] electrocardiogram [ECG] [facility] [EKG] / R94.31(ICD-10) Hospital Repository Admitting Tetralogy of Fallot / SUJATA SHAW Active [facility] 8 diagnosis Q21.3(ICD-10) [facility] Repository Unknown N25.81 - 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 Community R06.00(ICD-10) Hospital Repository Unknown Z01.818 - Encounter for Anthony Gloria Active [place] [facility] other preprocedural Community examination / Hospital Z01.818(ICD-10) Repository Unknown N18.4 - Chronic kidney Sandy Lopez Active [place] 8 disease, stage 4 Community (severe) / N18.4(ICD-10) Hospital Repository Unknown I12.9 - Hypertensive Sandy Lopez Active [place] [facility] chronic kidney disease Community with stage 1 through Hospital stage 4 chronic kidney Repository disease, or unspecified chronic kidney disease / I12.9(ICD-10) Unknown I48.92 - Unspecified Torsten Tsai Active [place] [facility] atrial flutter / [facility] I48.92(ICD-10) Hospital Repository Unknown E87.6 - Hypokalemia / Jose, Jose Raul Chi Active [place] [facility] E87.6(ICD-10) [facility] Hospital Repository Unknown E11.9 - Type 2 diabetes Jose, Jose Raul Chi Active [place] 8 mellitus without Community complications / Hospital E11.9(ICD-10) Repository Unknown E55.9 - Vitamin D Jose, Jose Raul Chi Active [place] 8 deficiency, unspecified Community / E55.9(ICD-10) Hospital Repository Unknown Z85.528 - Personal Zia Salas Active [place] [facility] history of other Community malignant neoplasm of Hospital kidney / Z85.528(ICD-10) Repository Unknown N18.3 - Chronic kidney Sandy Lopez Active [place] 8 disease, stage 3 Community (moderate) / Hospital N18.3(ICD-10) Repository Unknown E11.22 - Type 2 diabetes Sandy Lopez Active [place] 8 mellitus with diabetic Community chronic kidney disease / Hospital E11.22(ICD-10) Repository Unknown I10 - Essential Jose, Jose Raul Chi Active [place] [facility] (primary) hypertension / Community I10(ICD-10) Hospital Repository PROCEDURES PROCEDURES No Procedure Records FoundRESULTS RESULTS CBC-COMPLETE BLOOD CNT Collected: 08/04/2018 Status: F Source: [facility] NO DIFF 10:58 AM [facility] HOSPITAL REPOSITORY TYPE CODE TESTS RESULT OUT OF RANGE REFERENCE UNITS LAB L100.1000 4.4-11.0 K/mm3 Normal WBC 8.1 LAB L100.1200 4.6-6.2 M/mm3 Low RBC 4.04 LAB L100.1300 13.0-16.5 g/dl Low HGB 12.1 LAB L100.1400 40-54 % Low HCT 38.4 LAB L100.1500 80-94 fL High MCV 95.0 LAB L100.1600 27.0-32.0 pg Normal MCH 30.0 LAB L100.1700 32-36 g/gl Low MCHC 31.5 LAB L100.1810 11.6-14.6 % Normal RDW CV 14.2 LAB L100.1820 35.1-43.9 fl High RDW SD 47.4 LAB L100.1900 150-450 K/mm3 Normal PLT 169 LAB L100.2000 6.2-12.0 fl Normal MPV 11.8 Performed By: #### L100.0500 #### [facility] [address] [place], [address] RENAL PROFILE Collected: 08/04/2018 Status: F Source: [place] 10:58 AM [facility] REPOSITORY TYPE CODE TESTS RESULT OUT OF RANGE REFERENCE UNITS LAB L501.0100 74-106 mg/dL High GLU 268 Result Comment: Glucose result greater than or equal to 200 mg/dL suggests DIABETES MELLITUS per A.D.A. criteria. Please note revised GLUCOSE reference range effective 2017. LAB L501.1000 7-18 mg/dL High BUN 35 LAB L501.1100 0.70-1.30 mg/dL High CREAT,SERUM 2.89 Result Comment: The validity of the calculated GFR AND GFRAA in patients over 70 years has not been determined. Clinical correlation is essential. LAB L501.1110 >60 mL/min Low EST GFR 22 Result Comment: Non- GFR Calc LAB L501.1115 >60 mL/min Low EST GFR - AA 27 Result Comment: GFR Calc LAB L501.1300 10-20 RATIO Normal BUN/CRE 12.1 LAB L501.1800 3.2-5.0 g/dL Low ALB 2.6 LAB L501.2200 8.5-10.1 mg/dL Low CA 8.3 LAB L501.2300 2.5-4.9 mg/dL Normal PHOS 3.3 LAB L501.5300 136-145 mmol/L NA Normal 138 LAB L501.5600 3.5-5.1 mmol/L K Normal 5.0 LAB L501.5900 98-107 mmol/L CL Normal 105 LAB L501.6100 21.0-32.0 mmol/L Normal CO2 24.0 Performed By: #### L500.3600 #### [facility] [address] [place], [address] PTHIN Collected: 08/04/2018 Status: F Source: [facility] 10:58 AM [facility] REPOSITORY TYPE CODE TESTS RESULT OUT OF RANGE REFERENCE UNITS LAB L509.1000 18.4-80.1 pg/mL High PTHIN 146.2 Performed By: #### L509.1000 #### [facility] [address] [place], [address] CARDIOLOGY VISIT Observed: 07/06/2018 Status: F Source: [facility] REPORT 2:28 PM [facility] REPOSITORY [facility] [address] [place] [address] OFFICE VISIT Date of Service: 07/06/18 MR#: [id number] Acct: [id number] Name: EVERETTE WILSON Rep #: [id number] : 1935 Provider: Florencia Ro Age/Sex: 82/M Location: [facility] Status: Signed HPI HPI Details: EVERETTE WILSON, is a 82 M who presents to the office today for a cardiovascular outpatient follow-up. He has a history of tetralogy of Fallot status post repair, atrial fibrillation/flutter status post synchronized biphasic DC cardioversion, hypertension, and a history of underlying thrombo-embolic disease with DVT. Over the summer he was concerned about his shortness of breath and fatigue. He was started on isosorbide. Isosorbide did help with his shortness of breath. Pulmonary function tests did demonstrate the presence of an irreversible moderately severe mixed ventilatory defect with an associated moderate reduction in diffusing capacity. There has been worsening in the patient's PFTs since they were last completed in January 2017, as noted above. Patient was also recently at the cyber security analyst's office at [facility] which follows his tetralogy of flow. The cyber security analyst down there stated that he could follow-up with him on an as- needed basis. He is also in the process of talking about dialysis. He does have an upcoming appointment for an AV fistula however 1 he was at his surgeon's office at [facility] that follows him for his tetralogy of flow had recommended that he undergo peritoneal dialysis instead of hemodialysis. His welding equipment repairer is currently following his renal function closely. Pt feels that since being on the Imdur this has helped his SOB. He does not have any chest pain/heaviness. He does not have any palpitations. He does not have any lightheadedness/dizziness. He does not have any near syncope/syncope. He does not have any palpitations that he is aware of. He does occasionally have edema. Intake Vital Signs07/06/18 Height 5 ft 7 in 07/06/18 Weight: 179 lb 07/06/18 Body Mass Index (BMI) 28.0 07/06/18 Blood Pressure 162/60 H Intake Visit Reasons: 3 M Ride Mechanic Required: No Accompanied by: None Is patient in pain?: No Allergies No Known Allergies Allergy (Verified 07/06/18 11:09) Medications Cholecalciferol (Vitamin D3) [Vitamin D3] 2,000 unit PO DAILY 04/01/17 [History Confirmed 07/06/18] Magnesium Oxide [Magnesium] 400 mg PO DAILY 04/01/17 [History Confirmed 07/06/18] lactobacillus combination no.8 3 billion cell capsule 3,000 mmu cells PO QDAY 08/27/17 [History Confirmed 07/06/18] psyllium husk 0.52 gram capsule 0.52 g PO QDAY 08/27/17 [History Confirmed 07/06/18] amlodipine 5 mg tablet 5 mg PO QDAY #30 tab 08/31/17 [Rx Confirmed 07/06/18] coenzyme Q10 100 mg capsule 100 mg PO .3Xweek cap 10/08/17 [History Confirmed 07/06/18] linagliptin 5 mg tablet 5 mg PO QDAY 10/08/17 [History Confirmed 07/06/18] metoprolol tartrate 100 mg tablet 150 mg PO BID #270 tab 10/26/17 [Rx Confirmed 07/06/18] Insulin Detemir [Levemir] 16 unit SQ QHS 04/01/18 [History Confirmed 07/06/18] amiodarone 200 mg tablet 200 mg PO QDAY tab 04/01/18 [History Confirmed 07/06/18] Isosorbide Mononitrate [Isosorbide Mononitrate ER] 30 mg PO DAILY 06/14/18 [History Confirmed 07/06/18] warfarin 4 mg tablet 4 mg PO DAILY tab 07/06/18 [History Confirmed 07/06/18] Ejection fraction %: 55 to 59 PFSH Medical History Chronic renal insufficiency, stage IV (severe) (Acute) SVT (supraventricular tachycardia) (Acute) Right bundle branch block (Acute) Aortic root dilatation (Acute) Paroxysmal atrial fibrillation (Acute) Type II diabetes mellitus (Chronic) Hyperlipidemia (Chronic) Hypertension (Chronic) Fallot tetralogy (Chronic) Atrial fibrillation and flutter (Acute) History of DVT (deep vein thrombosis) (Acute) Hyperkalemia (Acute) Palpitations (Acute) GERD (gastroesophageal reflux disease) (Chronic) Neuropathy (Chronic) Renal cell carcinoma (Chronic) Renal insufficiency (Chronic) Vitamin D deficiency (Chronic) Anemia (Inactive) Hypomagnesemia (Inactive) Surgical History History of partial nephrectomy (Chronic) H/O superior vena cava filter placement (Resolved) History of cholecystectomy (Resolved) History of ventricular septal defect repair (Resolved) Hx of appendectomy (Resolved) Family History Brother Cancer Sister Cancer Sister Hypertension Diabetes Brother Cancer Social History Smoking Status: Never smoker alcohol intake: never substance use type: does not use caffeine: Yes Type: coffee Number of servings: 2 what type of physical activity do you participate in: none seatbelt use: always do you feel safe at home: Yes ROS Const Const: Positive for fatigue (improved); negative for weakness, fever(s) or headache(s) Eyes Eyes: Negative for blind spots, loss of peripheral vision or transient loss of vision ENT ENT: Negative for headache(s) Cardio Chest Pain: No Edema: Bilateral Muscle aches with walking: None Resp Respiratory: Positive for SOB with activity (improved); negative for SOB at rest or SOB orthopnea\SOB lying down GI GI: Negative nausea, vomiting, heartburn or vomiting blood/hematemesis : Negative for hematuria Musc Musc: Negative for muscle aches/ myalgia Neuro Neuro: Negative for weakness or headache(s) Anup Hematologic/Lymphatic: Negative for easy bleeding Endo Endo: Positive for fatigue (improved) Cardiology Exam Const Appearance: cooperative, healthy appearing, comfortable, no acute distress, well developed and well groomed Nutritional Appearance: overweight Orientation: alert, awake and oriented x3 Head Head: normal to inspection, normocephalic and atraumatic Ears: hearing grossly normal bilaterally Nose: external nose normal Face and Sinus: face symmetric Mouth: oral mucosae normal Eyes General: appearance normal, both eyes and all related structures Eyelids: eyelids normal Conjunctivae: conjunctivae normal Pupils: PERRL EOM: EOM intact bilaterally Neck Neck: normal visual inspection and full ROM Carotids: normal carotid upstroke Chest Chest inspection: normal inspection of the chest and symmetric chest movement Auscultation: Bilateral: Clear to Auscultation Cardio Palpation: normal PMI Rate: regular rate Rhythm: regular rhythm Heart sounds: S1 normal and S2 normal Murmur: Grade 2/6, soft, mid systolic, LLSB, LVOT and mid diastolic GI GI: normal to inspection, soft, no hepatosplenomegaly and bowel sounds present Skin Skin: no rashes or lesions noted Extremities Pulses: Normal: Right Radial Pulse, Left Radial Pulse Bruits: Positive: Right Radial Bruit, Left Radial Bruit Lower Extremity Edema: +2: Bilateral Psych Psychological: normal affect Supplemental Info Echocardiogram was performed on 01/01/2017 at [facility]. His LVEF was normal at 55%, there was mildly dilated right ventricle with mild global right ventricular systolic dysfunction, mild left atrial enlargement, mild MR, mild to moderate TR, mild AI, mild TR, borderline enlarged aortic root, and an estimated RV systolic pressure of 33 mmHg. He also had an area near the basal interventricular septum appearing compatible with an overriding aorta compatible with Tetralogy of Fallot repair. His last stress test available for review was from 11/27/2001 at [facility]. At that time his myocardial perfusion study demonstrated no evidence of myocardial ischemia. His gated LVEF was 55%. Assessment AND Plan 1. Fallot tetralogy Q21.3 S/P repair; Plan We will continue to follow closely. He is established with specialist at [facility] that he follows up with an as-needed basis 2. Essential hypertension I10 Plan Blood pressure is well controlled on current medications, we do not recommend any changes at this time. 3. Paroxysmal atrial fibrillation I48.0 Plan Patient's pulmonary function test did demonstrate a decrease in his DLCO. Patient is on amiodarone. However hesitant to decrease or discontinue his amiodarone as patient was very symptomatic when he was in atrial fibrillation. For now will not make any adjustments. He will continue with his amiodarone, beta-mandy and Coumadin. Would like to repeat his pulmonary function test in 6 months. If his pulmonary function tests have worsened will then reconsider decreasing his amiodarone. Orders Orders: 4. Chronic renal insufficiency, stage IV (severe) N18.4 Plan Patient is in the process of being considered for dialysis. He is either considering an AV fistula or peritoneal dialysis. This is being discussed closely with Dr. Nicole, specialist at [facility], primary care doctor and welding equipment repairer. Plan Detail Other Orders Orders: Additional Comments Thank you for allowing us to participate in patient's plan of care, if you have any questions please do not hesitate to call. This note was generated using a voice recognition system and there may be incorrect words, spelling or punctuation errors that were not noted when reviewing the office note prior to saving. Follow Up 3 Months (MMM) Coding Level of Care Code Off vis,est,level 3 Diagnoses Fallot tetralogy Q21.3 Essential hypertension I10 Hypertension type: essential hypertension Paroxysmal atrial fibrillation I48.0 Chronic renal insufficiency, stage IV (severe) N18.4 Coding Level of Care Code Off vis,est,level 3 Diagnoses Fallot tetralogy Q21.3 Essential hypertension I10 Hypertension type: essential hypertension Paroxysmal atrial fibrillation I48.0 Chronic renal insufficiency, stage IV (severe) N18.4 07/06/18 1888 <Electronically signed by Florencia WAYNE> Date Florencia WAYNE Cosigner Signature: Date (if applicable) CC: Jose Raul Garcia MD BASIC METABOLIC Collected: 06/25/2018 Status: F Source: [facility] PROFILE (BMP) 10:34 AM [facility] REPOSITORY TYPE CODE TESTS RESULT OUT OF RANGE REFERENCE UNITS LAB L501.0100 74-106 mg/dL High GLU 139 Result Comment: Fasting Glucose result greater than or equal to 126 mg/dL suggests DIABETES MELLITUS per A.D.A. criteria. Please note revised GLUCOSE reference range effective 2017. LAB L501.1000 7-18 mg/dL High BUN 39 LAB L501.1100 0.70-1.30 mg/dL High CREAT,SERUM 3.00 Result Comment: The validity of the calculated GFR AND GFRAA in patients over 70 years has not been determined. Clinical correlation is essential. LAB L501.1110 >60 mL/min Low EST GFR 21 Result Comment: Non- GFR Calc LAB L501.1115 >60 mL/min Low EST GFR - AA 26 Result Comment: GFR Calc LAB L501.1300 10-20 RATIO Normal BUN/CRE 13.0 LAB L501.2200 8.5-10.1 mg/dL Low CA 8.3 LAB L501.5300 136-145 mmol/L NA Normal 140 LAB L501.5600 3.5-5.1 mmol/L K Normal 4.4 LAB L501.5900 98-107 mmol/L CL Normal 105 LAB L501.6100 21.0-32.0 mmol/L Normal CO2 28.0 LAB L501.6200 5-15 Normal GAP 7 Performed By: #### L500.2500 #### [facility] [address] [place], [address] CBC W/DIFF, AUTOMATED Collected: 06/23/2018 Status: F Source: INEZ 11:20 AM [facility] REPOSITORY TYPE CODE TESTS RESULT OUT OF RANGE REFERENCE UNITS LAB L100.1000 4.4-11.0 K/mm3 Normal WBC 7.9 LAB L100.1200 4.6-6.2 M/mm3 Low RBC 4.27 LAB L100.1300 13.0-16.5 g/dl Low HGB 12.5 LAB L100.1400 40-54 % Normal HCT 40.6 LAB L100.1500 80-94 fL High MCV 95.1 LAB L100.1600 27.0-32.0 pg Normal MCH 29.3 LAB L100.1700 32-36 g/gl Low MCHC 30.8 LAB L100.1810 11.6-14.6 % High RDW CV 14.9 LAB L100.1820 35.1-43.9 fl High RDW SD 50.1 LAB L100.1900 150-450 K/mm3 Normal PLT 184 LAB L100.2000 6.2-12.0 fl High MPV 12.2 LAB L100.2100 47-70 % High NEUT% 73.5 LAB L100.2200 19-41 % Low LY% 14.8 LAB L100.2300 0-10 % Normal MONO% 7.6 LAB L100.2400 0-5 % Normal EO% 3.0 LAB L100.2500 0-1 % Normal BASO% 0.8 LAB L100.2550 0.0-0.9 % Normal IM GRAN % 0.300 Result Comment: IG% - Immature Granulocytes (promyelocytes, myelocytes and metamyelocytes) > 1% indicates that a LEFT SHIFT is Present. LAB L100.2620 2.0-7.7 X10 3/uL Normal Absolute Neut 5.8 LAB L100.2720 0.83-4.51 X10 3/ul Normal Absolute Lymph 1.17 Performed By: #### L100.0100 #### [facility] [address] [place] [address], [id number] VITAMIN D,25 HYDROXY Collected: 06/23/2018 Status: F Source: INEZ 11:20 AM [facility] REPOSITORY TYPE CODE TESTS RESULT OUT OF REFERENCE UNITS RANGE LAB L506.1000 29.95-100.01 ng/mL Low Vitamin D 23.8 25-OH Result Comment: Vitamin D 25(OH) Status Range Deficiency <20 ng/mL (50nmol/L) Insuffciency 20 - 30 ng/mL (50 - 75 nmol/L) Sufficiency 30 - 100 ng/mL (75 - 250 nmol/L) Toxicity >100 ng/mL (>250 nmol/L) Performed By: #### L506.1000 #### [facility] [place], [address] COMPREHENSIVE METABOLIC Collected: 06/23/2018 Status: F Source: INEZ [facility] 11:20 AM [facility] REPOSITORY TYPE CODE TESTS RESULT OUT OF RANGE REFERENCE UNITS LAB L501.0100 74-106 mg/dL High GLU 144 Result Comment: Fasting Glucose result greater than or equal to 126 mg/dL suggests DIABETES MELLITUS per A.D.A. criteria. Please note revised GLUCOSE reference range effective 2017. LAB L501.1000 7-18 mg/dL High BUN 40 LAB L501.1100 0.70-1.30 mg/dL High CREAT,SERUM 2.98 Result Comment: The validity of the calculated GFR AND GFRAA in patients over 70 years has not been determined. Clinical correlation is essential. LAB L501.1110 >60 mL/min Low EST GFR 22 Result Comment: Non- GFR Calc LAB L501.1115 >60 mL/min Low EST GFR - AA 26 Result Comment: GFR Calc LAB L501.1300 10-20 RATIO Normal BUN/CRE 13.4 LAB L501.1500 6.4-8.2 g/dL T Normal PROT 6.8 LAB L501.1800 3.2-5.0 g/dL Low ALB 2.6 LAB L501.1950 2.2-4.2 g/dL Normal GLOB 4.2 LAB L501.2000 0.9-2.4 RATIO Low A/G 0.6 LAB L501.2200 8.5-10.1 mg/dL CA Normal 8.6 LAB L501.4100 15-37 U/L High AST 45 LAB L501.4305 45-117 U/L Normal ALK P 110 LAB L501.4405 16-61 U/L Normal ALT 50 LAB L501.4600 0.20-1.00 mg/dL T Normal BILI 0.60 LAB L501.5300 136-145 mmol/L NA Normal 140 LAB L501.5600 3.5-5.1 mmol/L High K alert 6.0 LAB L501.5900 98-107 mmol/L CL Normal 106 LAB L501.6100 21.0-32.0 mmol/L Normal CO2 26.0 LAB L501.6200 5-15 Normal GAP 8 Performed By: #### L500.4050, L501.9520 #### [facility] [address] [place], [address] THYROID STIM HORMONE Collected: 06/23/2018 Status: F Source: INEZ (TSH) 11:20 AM [facility] REPOSITORY TYPE CODE TESTS RESULT OUT OF RANGE REFERENCE UNITS LAB L501.9520 0.358-3.74 uIU/mL Normal TSH 3.38 Performed By: #### L500.4050, L501.9520 #### [facility] [address] [place], [address] EMERGENCY DEPARTMENT Observed: 06/14/2018 Status: F Source: INEZ SUMMARY 3:58 PM [facility] REPOSITORY [facility] Medical Records Department [address] [facility] [place] [address] Emergency Department Summary 06/14/18 1050 MR#: [id number] Acct: [id number] Name: EVERETTE WILSON Rep #: [id number] : 1935 82 From: Ronen De La Vega DO PCP: Jose SANCHEZ,Jose Raul [facility] Status: DEP ER - ER Visit Summary Date of Service: 06/14/18 Chief Complaint: Hypoglycemia History of Present Illness: The patient is a 82 M who states that last night his blood sugar was elevated so he took extra Levemir. Reportedly this morning he was wandering around his house can used which caused his house alarm to go off and the police were dispatched to his house. They called EMS. Prior to EMS arrival it had some orange juice. Their initial PTT was 45. They gave oral glucose and a half amp of D50. Now his blood sugars over 200 and he is feeling better. He did not take his morning blood pressure medications. He has not yet had any breakfast and states he is otherwise feeling okay. Physical Examination: otherwise vital signs are stable Gen: Well-nourished well-developed Head: Normocephalic atraumatic Eyes: Perrl EOMI right eye conjunctiva injected with matting of eyelids and weeping (this is chronic for the patient close ( ENT: TMs clear no rhinorrhea moist mucous membranes Neck: Supple no lymphadenopathy no JVD nontender CVS: Regular rate rhythm no murmurs normal S1-S2 Respiratory: No distress clear to auscultation bilaterally chest nontender Abdomen: Soft nontender nondistended normal bowel sounds no masses Back: Nontender Extremity: Nontender no edema Skin: Normal color no rash Neuro: alert orientated 3 CN II-XII intact normal strength sensation reflexes gait cerebellar Psych: Normal affect normal mood Test Results: Basic labs show no acute. Creatinine 2.66 unchanged from baseline. Emergency Department Course and Treatment: Patient had every hour blood sugars have remained stable. He has eaten and feels at his baseline. He will be discharged home to follow-up with his doctor monitoring of blood sugar closely today. Impression: 1. Diabetic hypoglycemia This note was generated with Mowdo dictation software. It may contain incorrect words, spelling, and punctuation that were not noted in review of the chart prior to signing ED Disposition - Plan for ED Patient: Disposition: Home or Assisted Living Chief Complaint: Hypoglycemia Instructions: ED Diabetes Hypoglycemia Insulin React Referrals: Jose Raul Garcia Chi, MD [Primary Care Provider] - 1 Week Additional Instructions: Please closely monitor your blood sugar today. What to do if you have Problems For any increased pain, shortness of breath, bleeding, nausea or vomiting, chest pain, or any unexpected problems, contact your Primary Care Provider. Call [facility] ([phone]) or report to the closest Emergency Room. Call 911 if necessary. 06/14/18 0500 <Electronically signed by Ronen De La Vega DO> Date Ronen De La Vega DO Cosigner Signature (If Indicated): Date CC: Jose Raul Garcia MD BEDSIDE GLUCOSE Collected: 06/14/2018 Status: F Source: INEZ 12:22 PM [facility] REPOSITORY TYPE CODE TESTS RESULT OUT OF REFERENCE UNITS RANGE LAB L501.080 70-110 mg/dL High BEDSIDE GLU 126 Result Comment: MANAGEMENT OF PATIENT CARE PER NURSING PROTOCOL Performed By: #### L501.080 #### [facility] Point of Care [address] [place] [address] CBC W/DIFF, AUTOMATED Collected: 06/14/2018 Status: F Source: OLEAN 10:58 AM [facility] REPOSITORY TYPE CODE TESTS RESULT OUT OF RANGE REFERENCE UNITS LAB L100.1000 4.4-11.0 K/mm3 Normal WBC 9.7 LAB L100.1200 4.6-6.2 M/mm3 Low RBC 4.48 LAB L100.1300 13.0-16.5 g/dl Normal HGB 13.4 LAB L100.1400 40-54 % Normal HCT 41.4 LAB L100.1500 80-94 fL Normal MCV 92.4 LAB L100.1600 27.0-32.0 pg Normal MCH 29.9 LAB L100.1700 32-36 g/gl Normal MCHC 32.4 LAB L100.1810 11.6-14.6 % High RDW CV 15.1 LAB L100.1820 35.1-43.9 fl High RDW SD 49.3 LAB L100.1900 150-450 K/mm3 Normal PLT 169 LAB L100.2000 6.2-12.0 fl Normal MPV 11.3 LAB L100.2100 47-70 % High NEUT% 82.9 LAB L100.2200 19-41 % Low LY% 9.8 LAB L100.2300 0-10 % Normal MONO% 5.3 LAB L100.2400 0-5 % Normal EO% 1.1 LAB L100.2500 0-1 % Normal BASO% 0.6 LAB L100.2550 0.0-0.9 % Normal IM GRAN % 0.300 Result Comment: IG% - Immature Granulocytes (promyelocytes, myelocytes and metamyelocytes) > 1% indicates that a LEFT SHIFT is Present. LAB L100.2620 2.0-7.7 X10 3/uL High Absolute Neut 8.1 LAB L100.2720 0.83-4.51 X10 3/ul Normal Absolute Lymph 0.95 Performed By: #### L100.0100 #### [facility] [address] [place], [address] PROTHROMBIN TIME W/INR Collected: 06/14/2018 Status: F Source: INEZ 10:58 AM [facility] REPOSITORY TYPE CODE TESTS RESULT OUT OF RANGE REFERENCE UNITS LAB L300.4150 11.7-14.9 SECONDS High PROTIME 21.3 LAB L300.4200 Normal INR 1.8 Performed By: #### L300.3900 #### [facility] [address] [place], [address] COMPREHENSIVE METABOLIC Collected: 06/14/2018 Status: F Source: INEZ [facility] 10:58 AM [facility] REPOSITORY TYPE CODE TESTS RESULT OUT OF RANGE REFERENCE UNITS LAB L501.0100 74-106 mg/dL High GLU 130 Result Comment: Fasting Glucose result greater than or equal to 126 mg/dL suggests DIABETES MELLITUS per A.D.A. criteria. Please note revised GLUCOSE reference range effective 2017. LAB L501.1000 7-18 mg/dL High BUN 39 LAB L501.1100 0.70-1.30 mg/dL High CREAT,SERUM 2.66 Result Comment: The validity of the calculated GFR AND GFRAA in patients over 70 years has not been determined. Clinical correlation is essential. LAB L501.1110 >60 mL/min Low EST GFR 25 Result Comment: Non- GFR Calc LAB L501.1115 >60 mL/min Low EST GFR - AA 30 Result Comment: GFR Calc LAB L501.1255 ml/min Normal Estimated CRCL 20.02 LAB L501.1300 10-20 RATIO Normal BUN/CRE 14.7 LAB L501.1500 6.4-8. g/dL Normal 2 T PROT 7.4 LAB L501.1800 3.2-5. g/dL Low 0 ALB 2.8 LAB L501.1950 2.2-4. g/dL High 2 GLOB 4.6 LAB L501.2000 0.9-2. RATIO Low 4 A/G 0.6 LAB L501.2200 8.5-10 mg/dL Normal .1 CA 8.6 LAB L501.4100 15-37 U/L High AST 52 LAB L501.4305 45-117 U/L High ALK P 121 LAB L501.4405 16-61 U/L Normal ALT 52 LAB L501.4600 0.20-1 mg/dL Normal .00 T BILI 0.40 LAB L501.5300 136-14 mmol/L Normal 5 NA 139 LAB L501.5600 3.5-5. mmol/L Normal 1 K 4.3 LAB L501.5900 98-107 mmol/L Normal CL 107 LAB L501.6100 21.0-3 mmol/L Normal 2.0 CO2 27.0 LAB L501.6200 5-15 Normal GAP 5 Performed By: #### L500.4050, L501.2450 #### [facility] [address] [place], [address] LIPASE Collected: 06/14/2018 Status: F Source: OLEAN 10:58 AM [facility] REPOSITORY TYPE CODE TESTS RESULT OUT OF RANGE REFERENCE UNITS LAB L501.2450 73-393 U/L Normal LIPASE 189 Performed By: #### L500.4050, L501.2450 #### [facility] [address] [place], [address] BEDSIDE GLUCOSE Collected: 06/14/2018 Status: F Source: OLEAN 10:47 AM [facility] REPOSITORY TYPE CODE TESTS RESULT OUT OF REFERENCE UNITS RANGE LAB L501.080 70-110 mg/dL High BEDSIDE GLU 138 Result Comment: MANAGEMENT OF PATIENT CARE PER NURSING PROTOCOL Performed By: #### L501.080 #### [facility] Point of Care [address] [facility] [place] [address] KIDNEY AND BLADDER Observed: 06/10/2018 Status: F Source: OLEAN 7:54 AM [facility] REPOSITORY [facility] Imaging Services [address] [place] [address] Kidney and Bladder MR#: [id number] Acct: [id number] Name: EVERETTE WILSON Rep #: [id number] : 1935 M 82 From: Wes Oakes MD PCP: Jose SANCHEZ,Jose Raul Aponte Status: REG CLI Study: Kidney and Bladder Date of Exam: 06/10/18 Exam# [id number] Ordering Dr: Sandy Lopez DO STUDY: RENAL ULTRASOUND - COMPLETE REASON FOR EXAM: Male, 82 years old. Right flank pain. History of right renal cancer. TECHNIQUE: Ultrasound evaluation of the kidneys was performed with real-time and static june-scale imaging. COMPARISON: CT scan 10/26/2017. FINDINGS: RIGHT KIDNEY: Normal location of the right kidney, which is normal in size. The right kidney measures 10.7 x 4.5 x 5.5 cm. There is a normal cortex of the right kidney. The renal cortex measures 1.5 cm. There is a 2 cm lateral cyst. There is a 2.3 cm inferior pole cyst. There is a mid renal irregular area of heterogeneous density with a few calcifications. This corresponds to the abnormality on CT scan and could be residual or recurrent neoplasm. Better evaluation with contrast CT scan recommended. There is no right hydronephrosis. DISTAL RIGHT URETER: There is non-visualization of the distal right ureter. There is no demonstrated right ureterovesical junction calculus. There is no demonstrated right ureteral jet. LEFT KIDNEY: Normal location of the left kidney, which is normal in size. The left kidney measures 12.5 x 5.0 x 5.8 cm. There is a normal cortex of the left kidney. The renal cortex measures 1.3 cm. There is a 4.6 cm upper pole cyst. There is a 1.3 cm lower pole cyst. There are no left renal calculi. There is no left hydronephrosis. DISTAL LEFT URETER: There is non-visualization of the distal left ureter. There is no demonstrated left ureterovesical junction calculus. There is a visualized left ureteral jet. BLADDER: The distended urinary bladder has a volume of 156 ml. There is a normal wall thickness of the distended urinary bladder. There is no demonstrated mass within the urinary bladder. There are no demonstrated bladder calculi. Mass effect in the undersurface of the bladder is most likely from enlarged prostate. US/Kidney and Bladder IMPRESSION: Several bilateral renal cysts. Abnormal appearance of the kidney where there is a previous cancer. Cannot exclude recurrent or residual neoplasm. Contrast CT would be better evaluation of this patient. Prostate enlarged. Electronically Signed: Wes Oakes MD at 17:08 EDT , Service support , CC: Sandy Lopez DO; Jose Raul Garcia MD City Planning Teacher: Signed RENAL PROFILE Collected: 06/02/2018 Status: F Source: INEZ 12:04 PM [facility] REPOSITORY TYPE CODE TESTS RESULT OUT OF RANGE REFERENCE UNITS LAB L501.0100 74-106 mg/dL Normal GLU 99 Result Comment: Please note revised GLUCOSE reference range effective 2017. LAB L501.1000 7-18 mg/dL High BUN 38 LAB L501.1100 0.70-1.30 mg/dL High CREAT,SERUM 2.97 Result Comment: The validity of the calculated GFR AND GFRAA in patients over 70 years has not been determined. Clinical correlation is essential. LAB L501.1110 >60 mL/min Low EST GFR 22 Result Comment: Non- GFR Calc LAB L501.1115 >60 mL/min Low EST GFR - AA 26 Result Comment: GFR Calc LAB L501.1300 10-20 RATIO Normal BUN/CRE 12.8 LAB L501.1800 3.2-5.0 g/dL Low ALB 2.7 LAB L501.2200 8.5-10.1 mg/dL CA Normal 8.6 LAB L501.2300 2.5-4.9 mg/dL Normal PHOS 3.8 LAB L501.5300 136-145 mmol/L NA Normal 142 LAB L501.5600 3.5-5.1 mmol/L K Normal 4.5 LAB L501.5900 98-107 mmol/L CL Normal 107 LAB L501.6100 21.0-32.0 mmol/L Normal CO2 25.0 Performed By: #### L500.3600 #### [facility] [address] [place], [place], [address] PTHIN Collected: 06/02/2018 Status: F Source: INEZ 12:04 PM [facility] REPOSITORY TYPE CODE TESTS RESULT OUT OF RANGE REFERENCE UNITS LAB L509.1000 18.4-80.1 pg/mL High PTHIN 141.9 Performed By: #### L509.1000 #### [facility] [address] [place], [address] CBC-COMPLETE BLOOD CNT Collected: 06/02/2018 Status: F Source: INEZ NO DIFF 12:04 PM [facility] REPOSITORY TYPE CODE TESTS RESULT OUT OF RANGE REFERENCE UNITS LAB L100.1000 4.4-11.0 K/mm3 Normal WBC 8.9 LAB L100.1200 4.6-6.2 M/mm3 Low RBC 4.23 LAB L100.1300 13.0-16.5 g/dl Low HGB 12.4 LAB L100.1400 40-54 % Low HCT 39.7 LAB L100.1500 80-94 fL Normal MCV 93.9 LAB L100.1600 27.0-32.0 pg Normal MCH 29.3 LAB L100.1700 32-36 g/gl Low MCHC 31.2 LAB L100.1810 11.6-14.6 % High RDW CV 15.9 LAB L100.1820 35.1-43.9 fl High RDW SD 53.2 LAB L100.1900 150-450 K/mm3 Normal PLT 196 LAB L100.2000 6.2-12.0 fl High MPV 12.3 Performed By: #### L100.0500 #### [facility] [address] [place], [address] SURGERY VISIT REPORT Observed: 04/07/2018 Status: F Source: INEZ 1:32 PM [facility] REPOSITORY [facility] [address] [place] [address] OFFICE VISIT Date of Service: 04/06/18 MR#: [id number] Acct: [id number] Name: EVERETTE WILSON Rep #: [id number] : 1935 Provider: Laurie Robertson PA-C Age/Sex: 82/M Location: [facility] Status: Signed Intake Vital Signs04/06/18 Height 5 ft 7 in 04/06/18 Weight: 175 lb Intake Visit Reasons: Discuss PD caths Chief Complaint: fistula placement Ride Mechanic Required: No Is patient in pain?: No Allergies No Known Allergies Allergy (Verified 04/06/18 15:02) Medications Warfarin [Coumadin (PBKC)] 4 mg PO DAILY 12/10/16 [History Confirmed 04/06/18] Cholecalciferol (Vitamin D3) [Vitamin D3] 2,000 unit PO DAILY 04/01/17 [History Confirmed 04/06/18] Magnesium Oxide [Magnesium] 400 mg PO DAILY 04/01/17 [History Confirmed 04/06/18] calcitriol 0.25 mcg capsule 0.25 mcg PO QDAY 08/06/17 [History Confirmed 04/06/18] lactobacillus combination no.8 3 billion cell capsule 3,000 mmu cells PO QDAY 08/27/17 [History Confirmed 04/06/18] psyllium husk 0.52 gram capsule 0.52 g PO QDAY 08/27/17 [History Confirmed 04/06/18] vit C,E,zinc,copper-gajrd2i 250 mg-lutein 5 mg-zeaxanthin 1 mg capsule 1 cap PO QDAY ea 08/27/17 [History Confirmed 04/06/18] amlodipine 5 mg tablet 5 mg PO QDAY #30 tab 08/31/17 [Rx Confirmed 04/06/18] coenzyme Q10 100 mg capsule 100 mg PO .3Xweek cap 10/08/17 [History Confirmed 04/06/18] linagliptin 5 mg tablet 5 mg PO QDAY 10/08/17 [History Confirmed 04/06/18] metoprolol tartrate 100 mg tablet 150 mg PO BID #270 tab 10/26/17 [Rx Confirmed 04/06/18] Furosemide [Lasix] 20 mg PO QODAY 02/10/18 [History Confirmed 04/06/18] Insulin Detemir [Levemir] 16 unit SQ QHS 04/01/18 [History Confirmed 04/06/18] amiodarone 200 mg tablet 200 mg PO QDAY tab 04/01/18 [History Confirmed 04/06/18] [facility] Medical History Chronic renal insufficiency, stage IV (severe) (Acute) SVT (supraventricular tachycardia) (Acute) Right bundle branch block (Acute) Aortic root dilatation (Acute) Paroxysmal atrial fibrillation (Acute) Type II diabetes mellitus (Chronic) Hyperlipidemia (Chronic) Hypertension (Chronic) Fallot tetralogy (Chronic) Atrial fibrillation and flutter (Acute) History of DVT (deep vein thrombosis) (Acute) Hyperkalemia (Acute) Palpitations (Acute) GERD (gastroesophageal reflux disease) (Chronic) Neuropathy (Chronic) Renal cell carcinoma (Chronic) Renal insufficiency (Chronic) Vitamin D deficiency (Chronic) Anemia (Inactive) Hypomagnesemia (Inactive) Surgical History History of partial nephrectomy (Chronic) H/O superior vena cava filter placement (Resolved) History of cholecystectomy (Resolved) History of ventricular septal defect repair (Resolved) Hx of appendectomy (Resolved) Family History Brother Cancer Sister Cancer Sister Hypertension Diabetes Social History Smoking Status: Never smoker alcohol intake: never substance use type: does not use caffeine: Yes Type: coffee Number of servings: 2 what type of physical activity do you participate in: none seatbelt use: always do you feel safe at home: Yes HPI HPI HPI: EVERETTE WILSON, is a 82 M I am following for stage IV renal failure. Patient is electively scheduled for a right radial to cephalic arteriovenous fistula creation with Dr. Gloria on 04/08. Patient had an appointment with his construction driller who has recommended peritoneal dialysis catheters would be of better benefit with patient's current cardiac condition. Patient does have a history of Fallot tetralogy. Patient also has a history of renal cell carcinoma for which he has had a right partial nephrectomy by Dr. Whitfield. Other abdominal surgeries include appendectomy and cholecystectomy. Patient stated he has had home dialysis education for which he is interested in pursuing. Patient has also discussed this decision with Dr. Lopez, nephrology and Dr. Nicole, cyber security analyst. Patient is currently on Coumadin. His INR is 1.4 today. Patient's previous history per Dr. Gloria: EVERETTE WILSON, is a 82 M who presents to the office today for surgical consultation regarding arterial venous hemodialysis fistula placement for hemodialysis. Very complex individual. He states that he has had repair of tetralogy of flow. He has had problems with diabetes and atrial fibrillation and diverticulosis and GERD and hypertension hyperlipidemia. He has undergone cardiac surgery there has been involvement according to him of his left subclavian vessels. He is right arm dominant. He has had coronary bypass surgery as well. He has got an IVC filter in place. He is on chronic Coumadin anticoagulation. Antihypertensives as well as amiodarone. He has not yet had a upper extremity venous duplex exam. However he does enjoy a satisfying quality of life. Drs include Megan Garcia, John, and Corey The patient is referred for surgical consultation by Dr. Sandy Lopez and a written copy of my surgical consult recommendations will be returned to her ROS General General: Yes fatigue; no weight change, appetite, colon cancer, breast cancer or weakness HEENT HEENT: No difficulty swallowing, eye injury, eye surgery, swollen glands or hoarseness Endo Endocrine: Yes diabetes mellitus; no thyroid disease, thyroid cancer, Hair loss, heat intolerance or cold intolerance Skin Skin: No rash or changing moles Breast Breast: No left breast lump, right breast lump, nipple discharge, breast pain, abnormal mammogram, abnormal US or breast enlargement Musc Musculoskeletal: No back problems, arthritis, rheumatoid arthritis, gout or joint pain Cardio Cardiovascular: Yes murmur, heart disease, atrial fibrillation and high blood pressure; no pacemaker, heart attack, heart stent, palpitations, shortness of breat with exertion or chest pain Psych Psychiatric: No depression, anxiety or hearing voices Resp Respiratory: Yes shortness of breath, No sleep apnea, No cough, No COPD, No asthma, No emphysema, No wheezing Gastro Gastrointestinal: No abdominal pain, No nausea or vomiting, No diarrhea, No constipation, No blood in stool, No acid reflux, No hemorrhoids, No ulcers, No gallbladder problem, No black,tarry stools Anup Hematologic: Yes blood thinners, No blood disorders, No bleeding, No anemia, Yes blood clots Neuro Neurologic: No system reviewed and no additional complaints, except as docu, No as per HPI, No abnormal walking, No abnormal hearing, No abnormal movements, No abnormal speech, No behavioral changes, No burning sensations, No confusion, No seizure-like activity, No unsteadiness, No dizziness, No localized weakness, No frequent falls, No headache(s), No lack of coordination, No loss of vision, No memory loss, No numbness, No other visual disturbances, No radiating pain, No restless legs, No sensory deficit, No fainting, No tingling, No tremor(s), No weakness, No other Exam Const General: cooperative, healthy appearing, comfortable, no acute distress HENMT Head: normal to inspection Eyes General: appearance normal, both eyes and all related structures Neck Neck mass: No Chest Breast Palpation: No nipple discharge Resp Effort AND Inspection: normal respiratory effort Auscultation: clear to auscultation bilaterally Cardio Rate: regular rate Rhythm: regular rhythm Heart Sounds: murmur GI Inspection: normal to inspection, obesity Palpation: soft Auscultation: normal bowel sounds Other: Multiple incisions from previous laparoscopic surgeries, chest tubes and partial nephrectomy noted on the abdomen. Sternal incision noted. Skin General: no rashes or lesions noted Neuro General: no focal motor deficits, CN's II-XI intact bilaterally Extrem General: normal to inspection Psych Appearance: grossly normal Affect: normal affect Assessment AND Plan Problems 1. Chronic renal insufficiency, stage IV (severe) N18.[address] Gloria will plan to perform a laparoscopic peritoneal dialysis placement. Patient will hold his Coumadin today and tomorrow. Procedure details, risks and benefits have been explained to the patient. Patient verbally understands and agrees with the plan. Coding Level of Care Code No Charge Diagnoses Chronic renal insufficiency, stage IV (severe) N18.4 Comment Update history and physical 04/07/18 1332 <Electronically signed by Laurie Robertson PA-C> Date Laurie Robertson PA-C Cosigner Signature: Date (if applicable) CC: 12 LEAD ELECTROCARDIOGRAM Observed: 04/06/2018 Status: F Source: OLEAN 1:40 PM [facility] REPOSITORY [facility] Cardiovascular Services [address] [place] [address] 12 Lead EKG 04/01/18 1338 MR#: [id number] Acct: [id number] Name: EVERETTE WILSON Rep #: [id number] : 1935 82 From: Paco Proctor MD Attending Dr: Anthony Gloria MD Status: PRE SDC Ordering Dr: Anthony Gloria MD Date: 04/01/18 Location: [facility] Sex: M C Admitted: Test Reason : Blood Pressure : / mmHG Vent. Rate : 065 BPM Atrial Rate : 065 BPM P-R Int : 142 ms QRS Dur : 158 ms QT Int : 454 ms P-R-T Axes : 082 -20 029 degrees QTc Int : 472 ms Sinus rhythm with Premature atrial complexes Right bundle branch block Abnormal ECG Confirmed by PACO PROCTOR MD ([id number]), industrial editor BAUTISTA BROWNLEE ([id number]) on 04/06/2018 1:39:44 PM Referred By: Anthony Gloria Confirmed By:PACO PROCTOR MD 04/06/18 1339 Date Paco Proctor MD CC: Anthony Gloria MD; Jose Raul Garcia MD Signed CARDIOLOGY VISIT Observed: 04/05/2018 Status: F Source: OLEAN REPORT 10:00 AM [facility] REPOSITORY [facility] [address] [place] [address] OFFICE VISIT Date of Service: 04/01/18 MR#: [id number] Acct: [id number] Name: EVERETTE WILSON Rep #: [id number] : 1935 Provider: Florencia Ro Age/Sex: 82/M Location: [facility] Status: Signed HPI HPI Details: EVERETTE WILSON, is a 82 M who presents to the office today for a cardiovascular outpatient follow-up. He has a history of tetralogy of Fallot status post repair, atrial fibrillation/flutter status post synchronized biphasic DC cardioversion, hypertension, and a history of underlying thrombo-embolic disease with DVT. Patient was in our office recently and had was concerned about his shortness of breath. He was started on isosorbide. He does feel that his shortness of breath improved with the addition of this medication however we obtained a pulmonary function test. This demonstrated the presence of an irreversible moderately severe mixed ventilatory defect with an associated moderate reduction in diffusing capacity. There has been worsening in the patient's PFTs since they were last completed in January 2017, as noted above. Patient was also recently at the cyber security analyst's office at [facility] which follows his tetralogy of flow. The cyber security analyst down there stated that he could follow-up with him on an as-needed basis. Patient continues to complain of fatigue. He has a difficult time walking long distances. He does feel that his shortness of breath with exertion has improved with the addition of isosorbide. He does not have any chest discomfort or heaviness. He does not have any lightheadedness or dizziness. He does not have any irregular heartbeats. He does occasionally have lower extremity edema but this is not new. He is also in the process of talking about dialysis. He does have an upcoming appointment for an AV fistula however 1 he was at his surgeon's office at [facility] that follows him for his tetralogy of flow had recommended that he undergo peritoneal dialysis instead of hemodialysis. Patient has an upcoming appointment with the dialysis center to further discuss this. Intake Vital Signs04/01/18 Height 5 ft 7 in 04/01/18 Weight: 174 lb 04/01/18 Body Mass Index (BMI) 27.2 04/01/18 Blood Pressure 146/60 04/01/18 Blood Pressure Location Rt brachial Intake Visit Reasons: 6 wk FU Ride Mechanic Required: No Accompanied by: None Is patient in pain?: No Allergies No Known Allergies Allergy (Verified 04/01/18 14:06) Medications Warfarin [Coumadin (PBKC)] 4 mg PO DAILY 12/10/16 [History Confirmed 04/01/18] Cholecalciferol (Vitamin D3) [Vitamin D3] 2,000 unit PO DAILY 04/01/17 [History Confirmed 04/01/18] Magnesium Oxide [Magnesium] 400 mg PO DAILY 04/01/17 [History Confirmed 04/01/18] calcitriol 0.25 mcg capsule 0.25 mcg PO QDAY 08/06/17 [History Confirmed 04/01/18] lactobacillus combination no.8 3 billion cell capsule 3,000 mmu cells PO QDAY 08/27/17 [History Confirmed 04/01/18] psyllium husk 0.52 gram capsule 0.52 g PO QDAY 08/27/17 [History Confirmed 04/01/18] vit C,E,zinc,copper-fpngl2n 250 mg-lutein 5 mg-zeaxanthin 1 mg capsule 1 cap PO QDAY ea 08/27/17 [History Confirmed 04/01/18] amlodipine 5 mg tablet 5 mg PO QDAY #30 tab 08/31/17 [Rx Confirmed 04/01/18] coenzyme Q10 100 mg capsule 100 mg PO .3Xweek cap 10/08/17 [History Confirmed 04/01/18] linagliptin 5 mg tablet 5 mg PO QDAY 10/08/17 [History Confirmed 04/01/18] metoprolol tartrate 100 mg tablet 150 mg PO BID #270 tab 10/26/17 [Rx Confirmed 04/01/18] Furosemide [Lasix] 20 mg PO QODAY 02/10/18 [History Confirmed 04/01/18] Insulin Detemir [Levemir] 16 unit SQ QHS 04/01/18 [History Confirmed 04/01/18] amiodarone 200 mg tablet 200 mg PO QDAY tab 04/01/18 [History Confirmed 04/01/18] Ejection fraction %: 55 to 59 PFSH Medical History Chronic renal insufficiency, stage IV (severe) (Acute) SVT (supraventricular tachycardia) (Acute) Right bundle branch block (Acute) Aortic root dilatation (Acute) Paroxysmal atrial fibrillation (Acute) Type II diabetes mellitus (Chronic) Hyperlipidemia (Chronic) Hypertension (Chronic) Fallot tetralogy (Chronic) Atrial fibrillation and flutter (Acute) History of DVT (deep vein thrombosis) (Acute) Hyperkalemia (Acute) Palpitations (Acute) GERD (gastroesophageal reflux disease) (Chronic) Neuropathy (Chronic) Renal cell carcinoma (Chronic) Renal insufficiency (Chronic) Vitamin D deficiency (Chronic) Anemia (Inactive) Hypomagnesemia (Inactive) Surgical History History of partial nephrectomy (Chronic) H/O superior vena cava filter placement (Resolved) History of cholecystectomy (Resolved) History of ventricular septal defect repair (Resolved) Hx of appendectomy (Resolved) Family History Brother Cancer Sister Cancer Sister Hypertension Diabetes Social History Smoking Status: Never smoker alcohol intake: never substance use type: does not use caffeine: Yes Type: coffee Number of servings: 2 what type of physical activity do you participate in: none seatbelt use: always do you feel safe at home: Yes ROS Const Const: Positive for fatigue; negative for weakness, fever(s) or headache(s) Eyes Eyes: Negative for blind spots, loss of peripheral vision or transient loss of vision ENT ENT: Negative for headache(s) Cardio Chest Pain: No Edema: Bilateral Muscle aches with walking: None Resp Respiratory: Positive for SOB with activity; negative for SOB at rest or SOB orthopnea\SOB lying down GI GI: Negative nausea, vomiting, heartburn or vomiting blood/hematemesis : Negative for hematuria Musc Musc: Negative for muscle aches/ myalgia Neuro Neuro: Negative for weakness or headache(s) Anup Hematologic/Lymphatic: Negative for easy bleeding Endo Endo: Positive for fatigue Cardiology Exam Const Appearance: cooperative, healthy appearing, comfortable, no acute distress, well developed and well groomed Nutritional Appearance: overweight Orientation: alert, awake and oriented x3 Head Head: normal to inspection, normocephalic and atraumatic Ears: hearing grossly normal bilaterally Nose: external nose normal Face and Sinus: face symmetric Mouth: oral mucosae normal Eyes General: appearance normal, both eyes and all related structures Eyelids: eyelids normal Conjunctivae: conjunctivae normal Pupils: PERRL EOM: EOM intact bilaterally Neck Neck: normal visual inspection and full ROM Carotids: normal carotid upstroke Chest Chest inspection: normal inspection of the chest and symmetric chest movement Auscultation: Bilateral: Clear to Auscultation Cardio Palpation: normal PMI Rate: regular rate Rhythm: regular rhythm Heart sounds: S1 normal and S2 normal Murmur: Grade 2/6, soft, mid systolic, LLSB, LVOT and mid diastolic GI GI: normal to inspection, soft, no hepatosplenomegaly and bowel sounds present Skin Skin: no rashes or lesions noted Extremities Pulses: Normal: Right Radial Pulse, Left Radial Pulse Bruits: Positive: Right Radial Bruit, Left Radial Bruit Lower Extremity Edema: +2: Bilateral Psych Psychological: normal affect Supplemental Info Echocardiogram was performed on 01/01/2017 at [facility]. His LVEF was normal at 55%, there was mildly dilated right ventricle with mild global right ventricular systolic dysfunction, mild left atrial enlargement, mild MR, mild to moderate TR, mild AI, mild TR, borderline enlarged aortic root, and an estimated RV systolic pressure of 33 mmHg. He also had an area near the basal interventricular septum appearing compatible with an overriding aorta compatible with Tetralogy of Fallot repair. His last stress test available for review was from 11/27/2001 at [facility]. At that time his myocardial perfusion study demonstrated no evidence of myocardial ischemia. His gated LVEF was 55%. Assessment AND Plan 1. Fallot tetralogy Q21.3 S/P repair; Plan - ROSANA Gillis We will continue to follow closely. He is established with specialist at [facility] that he follows up with an as-needed basis 2. Essential hypertension I10 Plan - ROSANA Gillis Blood pressure is well controlled on current medications, we do not recommend any changes at this time. 3. Paroxysmal atrial fibrillation I48.0 Julia - ROSANA Gillis Patient's pulmonary function test did demonstrate a decrease in his DLCO. Patient is on amiodarone. However hesitant to decrease or discontinue his amiodarone as patient was very symptomatic when he was in atrial fibrillation. For now will not make any adjustments. He will continue with his amiodarone, beta-mandy and Coumadin. Would like to repeat his pulmonary function test in 6 months. If his pulmonary function tests have worsened will then reconsider decreasing his amiodarone. 4. Chronic renal insufficiency, stage IV (severe) N18.4 Plan - ROSANA Gillis Patient is in the process of being considered for dialysis. He is either considering an AV fistula or peritoneal dialysis. This is being discussed closely with Dr. Nicole, specialist at [facility], primary care doctor and welding equipment repairer. 5. Dyspnea on exertion R06.09 Plan - ROSANA Gillis Patient's shortness of breath has significantly improved with addition of isosorbide. For now we will continue to monitor. Had considered that his shortness of breath could possibly be related to coronary artery disease however hesitant to proceed with any testing as with patient's renal function it would be difficult to pursue a heart catheterization as inevitably this would likely lead to dialysis. For now we will continue with medical management, as it has improved. He was advised to let us know if his shortness of breath returns. Plan Detail Additional Comments - ROSANA Gillis The above patient was discussed with Dr. Nicole, he agrees with plan of care. Thank you for allowing us to participate in patient's plan of care, if you have any questions please do not hesitate to call. This note was generated using a voice recognition system and there may be incorrect words, spelling or punctuation errors that were not noted when reviewing the office note prior to saving. Follow Up 3 Months (MMM) Coding Level of Care Code Off vis,est,level 3 Diagnoses Fallot tetralogy Q21.3 Essential hypertension I10 Hypertension type: essential hypertension Paroxysmal atrial fibrillation I48.0 Chronic renal insufficiency, stage IV (severe) N18.4 Dyspnea on exertion R06.09 Coding Level of Care Code Off vis,est,level 3 Diagnoses Fallot tetralogy Q21.3 Essential hypertension I10 Hypertension type: essential hypertension Paroxysmal atrial fibrillation I48.0 Chronic renal insufficiency, stage IV (severe) N18.4 Dyspnea on exertion R06.09 04/04/18 0857 <Electronically signed by Florencia WAYNE> Date Florencia WAYNE 04/05/18 1000<Electronically signed by Cristo Nicole MD> Cosigner Signature: Date (if applicable) Cristo Nicole MD CC: Jose Raul Garcia MD ECHOCARDIOGRAM COMPLETE W Observed: 03/31/2018 Status: F Source: [facility] 9:16 AM THREE REPOSITORY Transthoracic Echocardiogram Patient: KATIE Cassidy Rec#: [id number] (Age): 1935(82y) Height: 170.18(cm)/66(i Study Date: 03/31/2018 Weight: 81.65(kg)/180(l Room#: BSA: [id number] Type: Outpatient Loc: Sex: M Reading: Jo Street MD, RVPI Referring: BRI Principal Systems Engineer: Sheila Ge RN, [facility] History: Congenital heart disease. TOF s/p shunt at 20yr followed by raul in 1979 at 44yr. Study Quality The study quality is good. Summary: Patient identity verified (pause and confirm). Current HP present on patient chart. Procedure explained and patient verified understanding. Consent obtained for procedure. Definity explained to patient. Patient verbalizes understanding and agrees to proceed. Definity 1.3ml/8.7ml normal sterile saline 2 ml total given IV over 30-60 seconds. Conclusions: Ventricular septal wall motion has a post-operative appearance. There is otherwise normal left ventricular systolic function.The ejection fraction is calculated to be 59% using the Method of Disks. No ventricular septal defect is visualized s/p repair.. The right ventricle is moderate to severely dilated. There is no pulmonic stenosis, mild eccentric insufficiency Findings Reason For Study: Congenital heart disease. (Definity Study) Left Ventricle: The left ventricular chamber size is normal. Global left ventricular wall motion and contractility are within normal limits. There is normal left ventricular systolic function. Ventricular septal wall motion has a post-operative appearance. The ejection fraction is calculated to be 59% using the Method of Disks. indeterminate diastolic function No ventricular septal defect is visualized. Left Atrium: The left atrial chamber size is normal. Right Ventricle: The right ventricle is moderate to severely dilated. The right ventricular global systolic function is grossly normal. Right Atrium: The right atrium is mildly dilated. Aortic Valve: The aortic valve is trileaflet. There is mild dilatation of the aortic root. Systolic excursion of the aortic valve is normal. There is a trace of aortic regurgitation. Mitral Valve: The mitral valve leaflets appear normal. No significant insufficiency. Tricuspid Valve: The tricuspid valve leaflets are normal. There is trivial physiological regurgitation of the tricuspid valve. The right ventricular systolic pressure is 30.37 mmHg. Pulmonic Valve: The pulmonic valve appears normal. There is no pulmonic stenosis. mild eccentric insufficiency Pericardium: A trivial pericardial effusion is visualized. Aorta: There is no dilatation of the aortic arch. There is plaque visualized in the ascending aorta. Venous: The inferior vena cava appears normal in size. There is a greater than 50% respiratory change in the inferior vena cava dimension. The flow pattern of the pulmonary veins appear normal. HR BP 164/68 Measurements Chambers 2D Name Value Normal Range RVIDd (AP) 5.4 cm none RVIDd (AP) 2D 5.04 cm none RVIDd (2D) index 2.61 cm/m2 none IVSd (2D) 1.14 cm none LVPWd (2D) 1.12 cm none IVS:LVPW ratio (2D) 1.02 ratio none LVIDd (2D) 4.91 cm none LVIDs (2D) 3.42 cm none LVIDd (2D) index 2.54 cm/m2 none LVIDs (2D) index 1.77 cm/m2 none LV FS (2D) 30.24 % none LV EF (2D) 59 % (60 - 100) EF Teichholz (2D) 57.4 % none Ao root diameter (2D) 4.02 cm none Aortic root diameter (2D) inde2.08 cm/m2 none Volumes/Mass Name Value Normal Range LA ESV SP 4CH (A/L) 57 ml none LA ESV SP 2CH (A/L) 67.71 ml none LA ESV BP (A/L) 63.69 ml none LA ESV BP (A/L) index 32.94 ml/m2 none LA ESV SP 4CH (MOD) 53.6 ml none LA ESV SP 2CH (MOD) 63.54 ml none LV EDV SP 4CH (MOD) 118.84 ml none LV ESV SP 4CH (MOD) 45.99 ml none EF SP 4CH (MOD) 61.3 % none LV EDV SP 2CH (MOD) 78.05 ml none LV ESV SP 2CH (MOD) 32.53 ml none EF SP 2CH (MOD) 58.32 % none LV EDV BP 100.98 ml none LV ESV BP 40.81 ml none BP EF (MOD) 59.59 % none LV EDV BP index 52.22 ml/m2 none LV ESV BP index 21.1 ml/m2 none LV mass (2D) 209.16 g none LV mass (2D) index 108.17 g/m2 none RWT 0.46 ratio none Diastolic/Systolic Function Name Value Normal Range MV E-wave Vmax 0.84 m/sec none MV deceleration time 255.56 msec none MV A-wave Vmax 0.74 m/sec none MV E:A ratio 1.14 ratio (1.1 - 1.5) LV septal e' Vmax 0.05 m/sec none LV lateral e' Vmax 0.08 m/sec none LV average e' Vmax 0.06 m/sec none LV E:e' septal ratio 16.84 ratio none LV E:e' lateral ratio 10.53 ratio none LV average E:e' ratio 12.96 ratio none TAPSE 1.9 cm none Aortic Valve Name Value Normal Range AV Vmax 1.04 m/sec (1 - 1.7) AV VTI 26.65 cm none AV peak gradient 4.35 mmHg (Less Than 36) AV mean gradient 2.12 mmHg (Less Than 20) LVOT diameter 2.52 cm (1.7 - 2.5) LVOT Vmax 0.86 m/sec (0.7 - 1.1) LVOT VTI 22.79 cm none LVOT peak gradient 2.99 mmHg none LVOT mean gradient 1.59 mmHg none DOI (VTI) 0.86 ratio none DOI (Vmax) 0.83 ratio none SV LVOT 113.48 ml none JULIO (continuity Vmax) 4.13 cm2 none JULIO (continuity Vmax) index 2.14 cm2/m2 none JULIO (continuity VTI) 4.26 cm2 none JULIO (continuity VTI) index 2.2 cm2/m2 none AR PHT 772.22 msec none AR peak gradient 24.73 mmHg none Ascending Ao 3.28 cm none Mitral Valve Name Value Normal Range MV Vmax 1 m/sec (0.6 - 1.3) MV VTI 32.99 cm none MV peak gradient 4.04 mmHg none MV mean gradient 1.19 mmHg none MV PHT 84.69 msec none MVA (PHT) 2.6 cm2 none MVA (continuity VTI) 3.44 cm2 none Tricuspid Valve Name Value Normal Range TV Vmax 0.87 m/sec (0.3 - 0.7) TV VTI 27.14 cm none TV peak gradient 3.03 mmHg none TV mean gradient 0.99 mmHg none TR Vmax 2.62 m/sec none TR peak gradient 27.37 mmHg none RAP 3 mmHg none RVSP 30.37 mmHg none IVC diameter 1.86 cm none Pulmonic Valve/Qp:Qs Name Value Normal Range PV Vmax 0.89 m/sec (0.6 - 0.9) PV VTI 22.19 cm none PV peak gradient 3.16 mmHg none PV mean gradient 1.62 mmHg none OR end-diastolic Vmax 0.93 m/sec none PA end-diastolic pressure 6.5 mmHg none RVOT diameter 2.63 cm none Electronically Signed at 03/31/2018 09:16:14 by: Jo Street MD, RVPI PULMONARY FUNCTION Observed: 03/30/2018 Status: F Source: OLEAN TEST 10:58 AM [facility] REPOSITORY [facility] Pulmonary Services/Neurology [address] [place] [address] MR#: [id number] Acct: [id number] Name: EVERETTE WILSON Rep #: [id number] : 1935 82 From: Genaro Nichole DO Referring Dr: Florencia Ro Status: REG CLI Ordering Dr: Date: Location: [facility] Sex: M C INTRODUCTION: The patient is an 82-year-old male that presents for pulmonary function testing secondary to a diagnosis of dyspnea. Respiratory therapy reports good patient effort. Bronchodilators were used during testing. INTERPRETATION: Forced expiration spirometry demonstrates the presence of a moderately severe large airways obstructive ventilatory defect. There was no significant response to aerosolized bronchodilators. Spirograms of good quality and do not plateau indicating slow emptying of the lungs. The respiratory flow volume loop reveals decreased expiratory flow rates at all lung volumes consistent with airways obstruction. Body plethysmography was performed and reveals a decreased TLC to 3.45 L, 61% of predicted, indicative of a moderate restrictive ventilatory impairment. The remainder of the lung volumes are symmetrically reduced. Diffusing capacity by single breath CO is moderately reduced at 52% of predicted. When compared to previous pulmonary function studies dated January 2017, there has been a 13% reduction in the patient's FEV1, along with a significant decline in TLC and DLCO. IMPRESSION: These pulmonary function studies demonstrate the presence of an irreversible moderately severe mixed ventilatory defect with an associated moderate reduction in diffusing capacity. There has been worsening in the patient's PFTs since they were last completed in January 2017, as noted above. Clinical correlation is recommended. 03/30/181057 <Electronically signed by Genaro Nichole DO> Date Genaro Nichole DO CC: Florencia Ro; Jose Raul Garcia MD Date Dictated: 03/30/181053 Date Transcribed: 03/30/181053 City Planning Teacher: DB Signed CBC-COMPLETE BLOOD CNT Collected: 03/30/2018 Status: F Source: INEZ NO DIFF 8:06 AM [facility] REPOSITORY TYPE CODE TESTS RESULT OUT OF RANGE REFERENCE UNITS LAB L100.1000 4.4-11.0 K/mm3 Normal WBC 10.0 LAB L100.1200 4.6-6.2 M/mm3 Normal RBC 4.66 LAB L100.1300 13.0-16.5 g/dl Normal HGB 13.3 LAB L100.1400 40-54 % Normal HCT 42.5 LAB L100.1500 80-94 fL Normal MCV 91.2 LAB L100.1600 27.0-32.0 pg Normal MCH 28.5 LAB L100.1700 32-36 g/gl Low MCHC 31.3 LAB L100.1810 11.6-14.6 % High RDW CV 15.0 LAB L100.1820 35.1-43.9 fl High RDW SD 50.1 LAB L100.1900 150-450 K/mm3 Normal PLT 196 LAB L100.2000 6.2-12.0 fl Normal MPV 11.7 Performed By: #### L100.0500 #### [facility] [address] [place], [place], [address] RENAL PROFILE Collected: 03/30/2018 Status: F Source: INEZ 8:06 AM [facility] REPOSITORY TYPE CODE TESTS RESULT OUT OF RANGE REFERENCE UNITS LAB L501.0100 74-106 mg/dL Normal GLU 90 Result Comment: Please note revised GLUCOSE reference range effective 2017. LAB L501.1000 7-18 mg/dL High BUN 53 LAB L501.1100 0.70-1.30 mg/dL High CREAT,SERUM 3.10 Result Comment: The validity of the calculated GFR AND GFRAA in patients over 70 years has not been determined. Clinical correlation is essential. LAB L501.1110 >60 mL/min Low EST GFR 21 Result Comment: Non- GFR Calc LAB L501.1115 >60 mL/min Low EST GFR - AA 25 Result Comment: GFR Calc LAB L501.1300 10-20 RATIO Normal BUN/CRE 17.1 LAB L501.1800 3.2-5.0 g/dL Low ALB 2.9 LAB L501.2200 8.5-10.1 mg/dL CA Normal 8.7 LAB L501.2300 2.5-4.9 mg/dL Normal PHOS 3.8 LAB L501.5300 136-145 mmol/L NA Normal 140 LAB L501.5600 3.5-5.1 mmol/L K Normal 4.9 LAB L501.5900 98-107 mmol/L CL Normal 106 LAB L501.6100 21.0-32.0 mmol/L Normal CO2 29.0 Performed By: #### L500.3600 #### [facility] [address] [place], [address] PTHIN Collected: 03/30/2018 Status: F Source: OLEAN 8:06 AM [facility] REPOSITORY TYPE CODE TESTS RESULT OUT OF RANGE REFERENCE UNITS LAB L509.1000 18.4-80.1 pg/mL High PTHIN 137.5 Performed By: #### L509.1000 #### [facility] [address] [place], [address] SURGERY VISIT REPORT Observed: 03/22/2018 Status: F Source: OLEAN 6:56 PM [facility] REPOSITORY [facility] [address] [place] [address] OFFICE VISIT Date of Service: 03/22/18 MR#: [id number] Acct: [id number] Name: EVERETTE WILSON Rep #: [id number] : 1935 Provider: Anthony Gloria MD Age/Sex: 82/M Location: [facility] Status: Signed Intake Vital Signs03/22/18 Height 5 ft 7 in 03/22/18 Weight: 180 lb 9 oz 03/22/18 Body Mass Index (BMI) 28.3 Intake Visit Reasons: VEIN MAP AND CONSULT Chief Complaint: fistula placement Ride Mechanic Required: No Is patient in pain?: No Allergies No Known Allergies Allergy (Verified 03/22/18 14:44) Medications Warfarin [Coumadin (PBKC)] 4 mg PO DAILY 12/10/16 [History Confirmed 03/22/18] Cholecalciferol (Vitamin D3) [Vitamin D3] 2,000 unit PO DAILY 04/01/17 [History Confirmed 03/22/18] Magnesium Oxide [Magnesium] 400 mg PO DAILY 04/01/17 [History Confirmed 03/22/18] calcitriol 0.25 mcg capsule 0.25 mcg PO QDAY 08/06/17 [History Confirmed 03/22/18] lactobacillus combination no.8 3 billion cell capsule 3,000 mmu cells PO QDAY 08/27/17 [History Confirmed 03/22/18] psyllium husk 0.52 gram capsule 0.52 g PO QDAY 08/27/17 [History Confirmed 02/18/18] vit C,E,zinc,copper-tpsfy4m 250 mg-lutein 5 mg-zeaxanthin 1 mg capsule 1 cap PO QDAY ea 08/27/17 [History Confirmed 03/22/18] amlodipine 5 mg tablet 5 mg PO QDAY #30 tab 08/31/17 [Rx Confirmed 03/22/18] amiodarone 200 mg tablet 200 mg PO QDAY tab 10/08/17 [History Confirmed 03/22/18] coenzyme Q10 100 mg capsule 100 mg PO .3Xweek cap 10/08/17 [History Confirmed 03/22/18] linagliptin 5 mg tablet 5 mg PO QDAY 10/08/17 [History Confirmed 03/22/18] metoprolol tartrate 100 mg tablet 150 mg PO BID #270 tab 10/26/17 [Rx Confirmed 03/22/18] Furosemide [Lasix] 20 mg PO QODAY 02/10/18 [History Confirmed 02/18/18] isosorbide mononitrate ER 30 mg tablet,extended release 24 hr 30 mg PO QAM #30 tab 02/18/18 [Rx Confirmed 03/22/18] [facility] Medical History SVT (supraventricular tachycardia) (Acute) Right bundle branch block (Acute) Aortic root dilatation (Acute) Paroxysmal atrial fibrillation (Acute) Type II diabetes mellitus (Chronic) Hyperlipidemia (Chronic) Hypertension (Chronic) Fallot tetralogy (Chronic) Atrial fibrillation and flutter (Acute) History of DVT (deep vein thrombosis) (Acute) Hyperkalemia (Acute) Palpitations (Acute) GERD (gastroesophageal reflux disease) (Chronic) Neuropathy (Chronic) Renal cell carcinoma (Chronic) Renal insufficiency (Chronic) Vitamin D deficiency (Chronic) Anemia (Inactive) Hypomagnesemia (Inactive) Surgical History History of partial nephrectomy (Chronic) H/O superior vena cava filter placement (Resolved) History of cholecystectomy (Resolved) History of ventricular septal defect repair (Resolved) Hx of appendectomy (Resolved) Family History Brother CAD (coronary artery disease) Sister CAD (coronary artery disease) Sister Hypertension Diabetes Social History Smoking Status: Never smoker alcohol intake: never substance use type: does not use caffeine: Yes Type: coffee Number of servings: 2 what type of physical activity do you participate in: none seatbelt use: always do you feel safe at home: Yes HPI HPI HPI: EVERETTE WILSON, is a 82 M who presents to the office today for surgical consultation regarding arterial venous hemodialysis fistula placement for hemodialysis. Very complex individual. He states that he has had repair of tetralogy of flow. He has had problems with diabetes and atrial fibrillation and diverticulosis and GERD and hypertension hyperlipidemia. He has undergone cardiac surgery there has been involvement according to him of his left subclavian vessels. He is right arm dominant. He has had coronary bypass surgery as well. He has got an IVC filter in place. He is on chronic Coumadin anticoagulation. Antihypertensives as well as amiodarone. He has not yet had a upper extremity venous duplex exam. However he does enjoy a satisfying quality of life. Drs include Megan Garcia, John, and Corey The patient is referred for surgical consultation by Dr. Sandy Lopez and a written copy of my surgical consult recommendations will be returned to her ROS General General: No weight change, appetite, fatigue, colon cancer, breast cancer or weakness HEENT HEENT: No difficulty swallowing, eye injury, eye surgery, swollen glands or hoarseness Endo Endocrine: Yes thyroid disease and diabetes mellitus; no thyroid cancer, Hair loss, heat intolerance or cold intolerance Cardio Cardiovascular: Yes murmur, heart disease, atrial fibrillation and high blood pressure; no pacemaker, heart attack, heart stent, palpitations, shortness of breat with exertion or chest pain Resp Respiratory: No shortness of breath, No sleep apnea, No cough, No COPD, No asthma, No emphysema, No wheezing Gastro Gastrointestinal: No abdominal pain, No nausea or vomiting, No diarrhea, No constipation, No blood in stool, Yes acid reflux, No hemorrhoids, No ulcers, No gallbladder problem, No black,tarry stools Anup Hematologic: Yes blood thinners, Yes blood disorders, No bleeding, No anemia, Yes blood clots Additional Details: DVT x3, bleeding disorder unsure of name, Coumadin. filter in place Neuro Neurologic: No weakness Exam Const General: cooperative, comfortable, no acute distress Nutritional Appearance: average body habitus Orientation: alert, awake [facility] Head: normal to inspection Eyes General: appearance normal, both eyes and all related structures Neck Other: Supple, nontender, carotids are 3+, I do not detect a bruit Chest Other: Well-healed left anterior lateral thoracotomy and well- healed median sternotomy Resp Effort AND Inspection: normal respiratory effort Auscultation: clear to auscultation bilaterally Cardio Rate: regular rate Rhythm: regular rhythm Heart Sounds: murmur GI Palpation: soft, no hepatosplenomegaly Musc Cervical Spine: normal cervical lordosis Skin Other: Multiple areas of superficial skin abrasion and ecchymosis Neuro General: CN's II-XI intact bilaterally Extrem Other: Left upper extremity not interrogated secondary to the extensive surgery Right upper extremity demonstrates a 3+ radial artery. Jhonny test demonstrates good ulnar flow. I performed ultrasound inspection demonstrating borderline cephalic vein at the wrist but otherwise generally adequate throughout the forearm. Right upper arm cephalic vein is patent compressible and adequate. Psych Affect: normal affect Assessment AND Plan Problems 1. Chronic renal insufficiency, stage IV (severe) N18.4 Plan I think it is very reasonable to offer the patient a right radial to cephalic arteriovenous fistula creation and I discussed technique, benefits, risks, alternatives. I recommend that we get a more detailed right upper extremity vein mapping. He has had an opportunity to ask and have questions answered. He is agreeable. We will hold his Coumadin only 1 day preprocedure. I can accomplish this under monitored anesthesia care and local anesthetic. He is aware that there are no guarantees of success and that further intervention may be required. I very much appreciate the kind opportunity of assisting with his surgical care. Cc: Dr. John Gloria M.D., F.A.C.S. Orders Orders: Coding Level of Care Code Detailed, Low Diagnoses Chronic renal insufficiency, stage IV (severe) N18.4 03/22/18 1856 <Electronically signed by Anthony Gloria MD> Date Anthony Gloria MD Cosigner Signature: Date (if applicable) CC: Sandy Lopez DO; Jose Raul Garcia MD CARDIOLOGY VISIT Observed: 02/18/2018 Status: F Source: INEZ REPORT 11:14 AM [facility] REPOSITORY [facility] [address] [place] [address]. [address] [place] [address] OFFICE VISIT Date of Service: 02/18/18 MR#: [id number] Acct: [id number] Name: EVERETTE WILSON Rep #: [id number] : 1935 Provider: Florencia Ro Age/Sex: 82/M Location: [facility] Status: Signed HPI HPI Details: EVERETTE WILSON, is a 82 M who presents to the office today for a cardiovascular outpatient follow-up. He has a history of tetralogy of Fallot status post repair, atrial fibrillation/flutter status post synchronized biphasic DC cardioversion, hypertension, and a history of underlying thrombo-embolic disease with DVT. Pt biggest complaint is fatigue. He has a difficult time walking distances. He does not have any chest pain/heaviness/tightness. He does feels that he is SOB with exertion. This has been on going. He feels that the addition of lasix has helped. He does not have any orthopnea. He does not have any palpitations. He does not have any syncope. He has had issues with lightheadedness but this was related to his BS. He does have edema in his ankles, this is not new. He does not have any claudication. Intake Intake Visit Reasons: 6 M FU Allergies No Known Allergies Allergy (Verified 02/18/18 10:08) Medications Insulin Detemir [Levemir (BKC)] 16 units SC QHS 12/10/16 [History Confirmed 02/18/18] Warfarin [Coumadin (PBKC)] 4 mg PO DAILY 12/10/16 [History Confirmed 02/18/18] Cholecalciferol (Vitamin D3) [Vitamin D3] 2,000 unit PO DAILY 04/01/17 [History Confirmed 02/18/18] Magnesium Oxide [Magnesium] 400 mg PO DAILY 04/01/17 [History Confirmed 02/18/18] calcitriol 0.25 mcg capsule 0.25 mcg PO QDAY 08/06/17 [History Confirmed 02/18/18] lactobacillus combination no.8 3 billion cell capsule 3,000 mmu cells PO QDAY 08/27/17 [History Confirmed 02/18/18] psyllium husk 0.52 gram capsule 0.52 g PO QDAY 08/27/17 [History Confirmed 02/18/18] vit C,E,zinc,copper-mctqv0p 250 mg-lutein 5 mg-zeaxanthin 1 mg capsule 1 cap PO QDAY ea 08/27/17 [History Confirmed 02/18/18] amlodipine 5 mg tablet 5 mg PO QDAY #30 tab 08/31/17 [Rx Confirmed 02/18/18] amiodarone 200 mg tablet 200 mg PO QDAY tab 10/08/17 [History Confirmed 02/18/18] coenzyme Q10 100 mg capsule 100 mg PO .3Xweek cap 10/08/17 [History Confirmed 02/18/18] linagliptin 5 mg tablet 5 mg PO QDAY 10/08/17 [History Confirmed 02/18/18] metoprolol tartrate 100 mg tablet 150 mg PO BID #270 tab 10/26/17 [Rx Confirmed 02/18/18] Furosemide [Lasix] 20 mg PO QODAY 02/10/18 [History Confirmed 02/18/18] isosorbide mononitrate ER 30 mg tablet,extended release 24 hr 30 mg PO QAM #30 tab 02/18/18 [Rx Confirmed 02/18/18] Ejection fraction %: 55 to 59 PFSH Medical History SVT (supraventricular tachycardia) (Acute) Right bundle branch block (Acute) Aortic root dilatation (Acute) Paroxysmal atrial fibrillation (Acute) Type II diabetes mellitus (Chronic) Hyperlipidemia (Chronic) Hypertension (Chronic) Fallot tetralogy (Chronic) Atrial fibrillation and flutter (Acute) History of DVT (deep vein thrombosis) (Acute) Hyperkalemia (Acute) Palpitations (Acute) GERD (gastroesophageal reflux disease) (Chronic) Neuropathy (Chronic) Renal cell carcinoma (Chronic) Renal insufficiency (Chronic) Vitamin D deficiency (Chronic) Anemia (Inactive) Hypomagnesemia (Inactive) Surgical History History of partial nephrectomy (Chronic) H/O superior vena cava filter placement (Resolved) History of cholecystectomy (Resolved) History of ventricular septal defect repair (Resolved) Hx of appendectomy (Resolved) Family History Brother CAD (coronary artery disease) Sister CAD (coronary artery disease) Sister Hypertension Diabetes Social History Smoking Status: Never smoker alcohol intake: never substance use type: does not use caffeine: Yes Type: coffee Number of servings: 2 what type of physical activity do you participate in: none seatbelt use: always do you feel safe at home: Yes ROS Const Const: Positive for fatigue; negative for weakness, fever(s) or headache(s) Eyes Eyes: Negative for blind spots, loss of peripheral vision or transient loss of vision ENT ENT: Negative for headache(s), dizziness, tinnitus or Nosebleed/epistaxis Cardio Chest Pain: No Edema: Bilateral Muscle aches with walking: None Resp Respiratory: Positive for SOB with activity; negative for SOB at rest or SOB orthopnea\SOB lying down GI GI: Negative nausea, vomiting, heartburn or vomiting blood/hematemesis : Negative for hematuria Musc Musc: Negative for muscle aches/ myalgia Neuro Neuro: Negative for weakness, headache(s), dizziness, near syncope, syncope or lightheadedness Anup Hematologic/Lymphatic: Negative for easy bleeding Endo Endo: Positive for fatigue Cardiology Exam Const Appearance: cooperative, healthy appearing, comfortable, no acute distress, well developed and well groomed Nutritional Appearance: overweight Orientation: alert, awake and oriented x3 Head Head: normal to inspection, normocephalic and atraumatic Ears: hearing grossly normal bilaterally Nose: external nose normal Face and Sinus: face symmetric Mouth: oral mucosae normal Eyes General: appearance normal, both eyes and all related structures Eyelids: eyelids normal Conjunctivae: conjunctivae normal Pupils: PERRL EOM: EOM intact bilaterally Neck Neck: normal visual inspection and full ROM Carotids: normal carotid upstroke Chest Chest inspection: normal inspection of the chest and symmetric chest movement Auscultation: Bilateral: Clear to Auscultation Cardio Palpation: normal PMI Rate: regular rate Rhythm: regular rhythm Heart sounds: S1 normal and S2 normal Murmur: Grade 2/6, soft, mid systolic, LLSB and LVOT GI GI: normal to inspection, soft, no hepatosplenomegaly and bowel sounds present Skin Skin: no rashes or lesions noted Extremities Pulses: Normal: Right Radial Pulse, Left Radial Pulse Bruits: Positive: Right Radial Bruit, Left Radial Bruit Lower Extremity Edema: +2: Bilateral Psych Psychological: normal affect Supplemental Info Echocardiogram was performed on 01/01/2017 at [facility]. His LVEF was normal at 55%, there was mildly dilated right ventricle with mild global right ventricular systolic dysfunction, mild left atrial enlargement, mild MR, mild to moderate TR, mild AI, mild TR, borderline enlarged aortic root, and an estimated RV systolic pressure of 33 mmHg. He also had an area near the basal interventricular septum appearing compatible with an overriding aorta compatible with Tetralogy of Fallot repair. His last stress test available for review was from 11/27/2001 at [facility]. At that time his myocardial perfusion study demonstrated no evidence of myocardial ischemia. His gated LVEF was 55%. Assessment AND Plan 1. Paroxysmal atrial fibrillation I48.0 Plan Patient has not had any symptomatic recurrence. He will continue with his amiodarone. Because he does complain of shortness of breath will obtain a pulmonary function test. He will also continue with his Coumadin with a therapeutic INR goal of 2-3. He will remain on his beta-mandy. Orders Orders: 2. Essential hypertension I10 Plan Blood pressure is slightly elevated. Will add isosorbide. Will follow up closely. 3. Fallot tetralogy Q21.3 S/P repair; Plan Patient has an upcoming appointment to follow-up with this. 4. Dyspnea on exertion R06.09 Plan Patient does have dyspnea. This could be multifactorial. As mentioned above we are adding isosorbide. Considered obtaining a stress test however with his renal function would be difficult to pursue a heart catheterization if need be. Will try medical management first. We will also obtain a pulmonary function test. Plan Detail Other Orders Orders: Other Medications New: Additional Comments Thank you for allowing us to participate in the patients plan of care, if you have any questions please do not hesitate to call. This note was generated using a voice recognition system and there may be incorrect words, spelling or punctuation that were not noted when reviewing the office note prior to saving. Follow Up 6 Weeks (MMM) 1 Year (PFM) Coding Level of Care Code Off vis,est,level 4 Diagnoses Paroxysmal atrial fibrillation I48.0 Essential hypertension I10 Hypertension type: essential hypertension Fallot tetralogy Q21.3 Dyspnea on exertion R06.09 Dyspnea type: dyspnea on exertion Coding Level of Care Code Off vis,est,level 4 Diagnoses Paroxysmal atrial fibrillation I48.0 Essential hypertension I10 Hypertension type: essential hypertension Fallot tetralogy Q21.3 Dyspnea on exertion R06.09 Dyspnea type: dyspnea on exertion 18 1114 <Electronically signed by Florencia WAYNE> Date Florencia WAYNE Cosigner Signature: Date (if applicable) CC: Jose Raul Garcia MD 12 LEAD ELECTROCARDIOGRAM Observed: 02/12/2018 Status: F Source: INEZ 9:17 AM [facility] REPOSITORY [facility] Cardiovascular Services [address] [place] [address] 12 Lead EKG 02/10/18 1324 MR#: [id number] Acct: [id number] Name: EVERETTE WILSON O Rep #: [id number] : 1935 82 From: Paco Proctor MD Attending Dr: Status: DEP ER Ordering Dr: Leanne Genao MD Date: 02/10/18 Location: ED Sex: M C Admitted: Test Reason : FALL Blood Pressure : / mmHG Vent. Rate : 057 BPM Atrial Rate : 060 BPM P-R Int : 000 ms QRS Dur : 150 ms QT Int : 504 ms P-R-T Axes : 000 -05 012 degrees QTc Int : 490 ms Sinus Bradycardia Right bundle branch block Abnormal ECG Confirmed by PACO PROCTOR MD ([id number]), industrial editor FRNAKO DANIEL ([id number]) on 02/12/2018 9:16:23 AM Referred By: Sandy Lopez Confirmed By:PACO PROCTOR MD 02/12/18 0916 Date Paco Proctor MD CC: Leanne Genao MD; Jose Raul Garcia MD Signed EMERGENCY DEPARTMENT Observed: 02/10/2018 Status: F Source: OLEAN SUMMARY 5:06 PM [facility] REPOSITORY [facility] Medical Records Department [address] [place] [address] Emergency Department Summary 02/10/18 1322 MR#: [id number] Acct: [id number] Name: EVERETTE WILSON Rep #: [id number] : 1935 82 From: Leanne Genao MD PCP: Jose Raul Garcia MD, Chi Status: DEP ER - ER Visit Summary Date of Service: 02/10/18 Chief Complaint: Fall History of Present Illness: The patient is a 82 M who fell yesterday at home and early this morning. He thinks he falls because his blood sugar gets too low. Patient does not remember the fall. He is not sure if he lost consciousness. His daughter brings him in today after he called her this morning. Patient denies headache. His only pain complaint is mild left knee pain. He is currently on Coumadin. Physical Examination: Blood pressure is 164/74, temperature 96.6, heart rate 55, respiratory rate 18, pulse ox 99% on room air. Patient sitting upright in bed. He is alert and talkative. Head neck examination reveals an abrasion on the nasal bridge. He has ecchymosis to the right maxilla without bony tenderness. There is no C-spine tenderness. Heart is regular rate and rhythm with a 3/6 murmur. Lung sounds are clear. Chest wall is nontender. Abdomen is soft and nontender. Upper extremity examination was multiple skin tears to the bilateral forearms. There is no bony tenderness he has full range of motion. Lower extremity examination reveals mild tenderness around the left knee with early ecchymosis. No significant joint effusion is noted. Neuro exam is appropriate. Test Results: Chest x-ray reveals hyperexpansion with no acute process. Left knee x-ray show degenerative arthrosis. CT the head shows chronic involutional changes. CT the C-spine shows multilevel degenerative changes. EKG is sinus at 57 with a right bundle branch block. No acute ST change. CBC is normal. Chemistry studies reveal a potassium of 5.3 with moderate hemolysis. BUN is 37 and creatinine is 2.72 which is consistent with his baseline. Glucose is 67. INR is 2.8. CK is 252. Emergency Department Course and Treatment: His fingerstick blood sugar was 61 on his arrival here. He was given half amp of D50. Wounds were cleansed and dressed. At this time patient is refusing hospital admission. I spoke with his primary care physician. Patient is to cut his Levemir in half at bedtime, from 32 units down to 16 units. He is to stop the sliding scale NovoLog. Dr. Garcia would like to see him in the office at 9:00 tomorrow morning. Treatment Plan: [] Disposition: Discharge Impression: 1. Falls 2. Skin tears This note was generated with Mowdo dictation software. It may contain incorrect words, spelling, and punctuation that were not noted in review of the chart prior to signing ED Disposition - Plan for ED Patient: Chief Complaint: Fall Referrals: Jose Raul Garcia Chi, MD [Primary Care Provider] - What to do if you have Problems For any increased pain, shortness of breath, bleeding, nausea or vomiting, chest pain, or any unexpected problems, contact your Primary Care Provider. Call [facility] ([phone]) or report to the closest Emergency Room. Call 911 if necessary. 02/10/18 1706 <Electronically signed by Leanne Genao MD> Date Leanne Genao MD Cosigner Signature (If Indicated): Date ___ CC: Jose Raul Garcia MD DISCHARGE INSTRUCTION Observed: 02/10/2018 Status: F Source: OLEAN 3:41 PM [facility] REPOSITORY [facility] Medical Records Department [address] [place] [address] Discharge Instruction 02/10/18 1540 MR#: [id number] Acct: [id number] Name: EVERETTE WILSON Rep #: [id number] : 1935 82 From: Leanne Genao MD PCP: Jose Raul Garcia MD, Chi Status: REG ER ED Disposition - Plan for ED Patient: Disposition: Home or Assisted Living Chief Complaint: Fall Instructions: ED Mechanical Fall, ED Avulsion Dermal Referrals: Jose Raul Garcia Chi, MD [Primary Care Provider] - Additional Instructions: Decrease your Levemir from 32u to 16u. Stop your NovaLog. Dr Garcia would like to see you in the office at 9am tomorrow morning. What to do if you have Problems For any increased pain, shortness of breath, bleeding, nausea or vomiting, chest pain, or any unexpected problems, contact your Primary Care Provider. Call [facility] ([phone]) or report to the closest Emergency Room. Call 911 if necessary. 02/10/18 1541 <Electronically signed by Leanne Genao MD> Date Leanne Genao MD Cosigner Signature (If Indicated): Date CC: Jos eRaul Garcia MD BEDSIDE GLUCOSE Collected: 02/10/2018 Status: F Source: INEZ 2:17 PM [facility] REPOSITORY TYPE CODE TESTS RESULT OUT OF REFERENCE UNITS RANGE LAB L501.080 70-110 mg/dL High BEDSIDE GLU 124 Result Comment: MANAGEMENT OF PATIENT CARE PER NURSING PROTOCOL Performed By: #### L501.080 #### [facility] Laboratory Point of Care [place], [place] [address] CBC W/DIFF, AUTOMATED Collected: 02/10/2018 Status: F Source: INEZ 1:30 PM [facility] REPOSITORY TYPE CODE TESTS RESULT OUT OF RANGE REFERENCE UNITS LAB L100.1000 4.4-11.0 K/mm3 Normal WBC 10.8 LAB L100.1200 4.6-6.2 M/mm3 Normal RBC 4.86 LAB L100.1300 13.0-16.5 g/dl Normal HGB 14.1 LAB L100.1400 40-54 % Normal HCT 44.1 LAB L100.1500 80-94 fL Normal MCV 90.7 LAB L100.1600 27.0-32.0 pg Normal MCH 29.0 LAB L100.1700 32-36 g/gl Normal MCHC 32.0 LAB L100.1810 11.6-14.6 % Normal RDW CV 14.6 LAB L100.1820 35.1-43.9 fl High RDW SD 48.4 LAB L100.1900 150-450 K/mm3 Normal PLT 211 LAB L100.2000 6.2-12.0 fl Normal MPV 11.4 LAB L100.2100 47-70 % High NEUT% 84.7 LAB L100.2200 19-41 % Low LY% 9.5 LAB L100.2300 0-10 % Normal MONO% 5.1 LAB L100.2400 0-5 % Normal EO% 0.3 LAB L100.2500 0-1 % Normal BASO% 0.2 LAB L100.2550 0.0-0.9 % Normal IM GRAN % 0.200 Result Comment: IG% - Immature Granulocytes (promyelocytes, myelocytes and metamyelocytes) > 1% indicates that a LEFT SHIFT is Present. LAB L100.2620 2.0-7.7 X10 3/uL High Absolute Neut 9.1 LAB L100.2720 0.83-4.51 X10 3/ul Normal Absolute Lymph 1.02 Performed By: #### L100.0100 #### [facility] Laboratory [address] [place], [address] PROTHROMBIN TIME W/INR Collected: 02/10/2018 Status: F Source: INEZ 1:30 PM [facility] REPOSITORY TYPE CODE TESTS RESULT OUT OF RANGE REFERENCE UNITS LAB L300.4150 11.7-14.9 SECONDS High PROTIME 29.3 LAB L300.4200 Normal INR 2.8 Performed By: #### L300.3900 #### [facility] Laboratory [address] [place], [address] CPK TOTAL, CREATINE Collected: 02/10/2018 Status: F Source: OLEAN KINASE 1:30 PM [facility] REPOSITORY TYPE CODE TESTS RESULT OUT OF RANGE REFERENCE UNITS LAB L501.3620 39-308 U/L Normal CPK TOTAL 252 Result Comment: Moderate Hemolysis, Result may be falsely increased. Performed By: #### L501.3620 #### [facility] Laboratory [address] [place], [address] BASIC METABOLIC Collected: 02/10/2018 Status: F Source: INEZ PROFILE (BMP) 1:30 PM [facility] REPOSITORY TYPE CODE TESTS RESULT OUT OF RANGE REFERENCE UNITS LAB L501.0100 74-106 mg/dL Low GLU 67 Result Comment: Please note revised GLUCOSE reference range effective 2017. LAB L501.1000 7-18 mg/dL High BUN 37 LAB L501.1100 0.70-1.30 mg/dL High CREAT,SERUM 2.72 Result Comment: The validity of the calculated GFR AND GFRAA in patients over 70 years has not been determined. Clinical correlation is essential. LAB L501.1110 >60 mL/min Low EST GFR 24 Result Comment: Non- GFR Calc LAB L501.1115 >60 mL/min Low EST GFR - AA 29 Result Comment: GFR Calc LAB L501.1255 ml/min Normal Estimated CRCL 20.26 LAB L501.1300 10-20 RATIO Normal BUN/CRE 13.6 LAB L501.2200 8.5-10 mg/dL Normal .1 CA 9.0 LAB L501.5300 136-14 mmol/L Normal 5 NA 142 LAB L501.5600 3.5-5. mmol/L High 1 K 5.3 Result Comment: Moderate Hemolysis, Result may be falsely increased. LAB L501.5900 98-107 mmol/L Normal CL 107 LAB L501.6100 21.0-32.0 mmol/L Normal CO2 27.0 LAB L501.6200 5-15 Normal 8 GAP Performed By: #### L500.2500 #### [facility] [address] [facility] [place], [address] SPINE CERVICAL Observed: 02/10/2018 Status: F Source: OLEAN WITHOUT CONTRAS 1:19 PM [facility] REPOSITORY [facility] Imaging Services [address] [facility] [place] [address] Spine Cervical without Contras MR#: [id number] Acct: [id number] Name: EVERETTE WILSON Rep #: [id number] : 1935 M 82 From: Juan M Clarke MD PCP: Jose SANCHEZ,Jose Raul Aponte Status: REG ER Study: Spine Cervical without Contras Date of Exam: 02/10/18 Exam# [id number] Ordering Dr: Leanne Genao MD STUDY: CT CERVICAL SPINE WITHOUT CONTRAST REASON FOR EXAM: Male, 82 years old. Headache and neck pain after a fall RADIATION DOSAGE (If Supplied By Facility): CTDIvol = ( 12.32 ) mGy, DLP = ( 231.78 ) mGycm TECHNIQUE: High resolution transaxial imaging was performed without contrast material. Sagittal and coronal images were reconstructed. Individualized dose optimization techniques were used for this CT. COMPARISON: None FINDINGS: Normal craniovertebral junction. Normal anterior atlantoaxial articulation. Normal odontoid process. Normal cervical lordosis. Bones are demineralized with sclerotic, spondylitic endplate changes. There is anatomic alignment of the cervical spine. No demonstrated fracture. There is intervertebral disc space narrowing throughout the C-spine, most pronounced at C5-6. No central canal stenosis, there is bilateral foraminal narrowing throughout the C-spine. Normal visualized soft tissue structures. No upper rib fracture or pneumothorax. CT/Spine Cervical without Contras IMPRESSION: Multilevel degenerative changes, as described above. Electronically Signed: José Miguel Clarke MD at 14:24 EDT , Service support , CC: Leanne Genao MD; Jose Raul Garcia MD City Planning Teacher: Signed BRAIN/HEAD WITHOUT Observed: 02/10/2018 Status: F Source: OLEAN CONTRAST 1:19 PM [facility] REPOSITORY [facility] Imaging Services [address] [place] [address] Brain/Head without Contrast MR#: [id number] Acct: [id number] Name: EVERETTE WILSON Rep #: [id number] : 1935 M 82 From: Juan M Clarke MD PCP: Jose Raul Garcia MD, Chi Status: REG ER Study: Brain/Head without Contrast Date of Exam: 02/10/18 Exam# [id number] Ordering Dr: Leanne Genao MD STUDY: CT BRAIN WITHOUT CONTRAST REASON FOR EXAM: Male, 82 years old. Headache, syncope after a fall RADIATION DOSAGE (If Supplied By Facility): CTDIvol = ( 44.99 ) mGy, DLP = ( 796.11 ) mGycm TECHNIQUE: Transaxial CT imaging of the brain was performed without administration of intravenous contrast material. Individualized dose optimization techniques were used for this CT. COMPARISON: 04/16/2017 FINDINGS: Normal soft tissue structures. Normal calvarium. There is mild cerebral atrophy with widening of the extra- axial spaces and ventricular dilatation. There are areas of decreased attenuation within the white matter tracts of the supratentorial brain, consistent with microvascular disease changes. Normal basal ganglia and thalami. Normal brainstem. Normal cerebellum. There is no intracranial hemorrhage. There are no findings of an acute ischemic infarction. Normal visualized paranasal sinuses. CT/Brain/Head without Contrast IMPRESSION: Chronic involutional changes of the brain. No acute hemorrhage or significant interval change Electronically Signed: José Miguel Clarke MD at 14:25 EDT , Service support , CC: Leanne Genao MD; Jose Raul Garcia MD City Planning Teacher: Signed CHEST 1 VIEW Observed: 02/10/2018 Status: F Source: INEZ (PORTABLE) 1:19 PM [facility] REPOSITORY [facility] Imaging Services [address] [place] [address] Chest 1 View (Portable) MR#: [id number] Acct: [id number] Name: EVERETTE WILSON Rep #: [id number] : 1935 M 82 From: Juan M Clarke MD PCP: Jose Raul Garcia MD, Chi Status: REG ER Study: Chest 1 View (Portable) Date of Exam: 02/10/18 Exam# [id number] Ordering Dr: Leanne Genao MD STUDY: X-RAY CHEST REASON FOR EXAM: Male, 82 years old. Chest pain after a fall TECHNIQUE: Single AP portable view of the chest. COMPARISON: 12/04/2017 FINDINGS: EKG leads overlie the chest Lungs are hyperexpanded with chronic interstitial changes, no superimposed acute pulmonary process. There is no demonstrated pleural abnormality. Sternal cerclage wires and vascular clips are present from a prior sternotomy and coronary artery bypass graft procedure (CABG). Normal mediastinum and cass. Normal visualized pulmonary arteries. Normal visualized aortic arch and descending thoracic aorta. There are diffuse degenerative changes of the visualized thoracic spine. There is degenerative osteoarthritis of the bilateral shoulders. There is no demonstrated abnormality of the visualized soft tissue structures of the upper abdomen. RAD/Chest 1 View (Portable) IMPRESSION: Hyperexpanded lungs with chronic interstitial changes, no superimposed acute pulmonary process Electronically Signed: José Miguel Clarke MD at 14:29 EDT , Service support , CC: Leanne Genao MD; Jose Raul Garcia MD City Planning Teacher: Signed KNEE 4 OR MORE Observed: 02/10/2018 Status: F Source: OLEAN VIEWS 1:19 PM [facility] REPOSITORY [facility] Imaging Services [address] [place] [address] Knee 4 or More Views MR#: [id number] Acct: [id number] Name: EVERETTE WILSON Rep #: [id number] : 1935 82 From: Juan M Clarke MD PCP: Jose Raul Garcia MD, Chi Status: REG ER Study: Knee 4 or More Views Date of Exam: 02/10/18 Exam# [id number] Ordering Dr: Leanne Genao MD STUDY: X-RAY - LEFT KNEE REASON FOR EXAM: Male, 82 years old. Pain after a fall TECHNIQUE: 4 view(s) of the knee. COMPARISON: None. FINDINGS: Normal visualized distal femur. Normal visualized proximal tibia and fibula. Normal proximal tibiofibular articulation. There is mild degenerative arthrosis of the medial femorotibial compartment. There is mild degenerative arthrosis of the lateral femorotibial compartment. There is mild degenerative arthrosis of the patellofemoral articulation. There is a lucency at the junction of the patellar tendon spur and the patella but no associated soft tissue swelling to suspect this is acute injury. There are atherosclerotic calcifications. RAD/Knee 4 or More Views IMPRESSION: Degenerative arthrosis. Electronically Signed: José Miguel Clarke MD at 14:31 EDT , Service support , CC: Leanne Genao MD; Jose Raul Garcia MD City Planning Teacher: Signed BEDSIDE GLUCOSE Collected: 02/10/2018 Status: F Source: INEZ 1:04 PM [facility] REPOSITORY TYPE CODE TESTS RESULT OUT OF REFERENCE UNITS RANGE LAB L501.080 70-110 mg/dL Low BEDSIDE GLU 61 Result Comment: MANAGEMENT OF PATIENT CARE PER NURSING PROTOCOL Performed By: #### L501.080 #### [facility] Laboratory Point of Care Bekah Hughes [place], [place] [address] RENAL PROFILE Collected: 02/02/2018 Status: F Source: OLEAN 10:34 AM [facility] REPOSITORY TYPE CODE TESTS RESULT OUT OF RANGE REFERENCE UNITS LAB L501.0100 74-106 mg/dL High GLU 161 Result Comment: Fasting Glucose result greater than or equal to 126 mg/dL suggests DIABETES MELLITUS per A.D.A. criteria. Please note revised GLUCOSE reference range effective 2017. LAB L501.1000 7-18 mg/dL High BUN 50 LAB L501.1100 0.70-1.30 mg/dL High CREAT,SERUM 3.11 Result Comment: The validity of the calculated GFR AND GFRAA in patients over 70 years has not been determined. Clinical correlation is essential. LAB L501.1110 >60 mL/min Low EST GFR 21 Result Comment: Non- GFR Calc LAB L501.1115 >60 mL/min Low EST GFR - AA 25 Result Comment: GFR Calc LAB L501.1300 10-20 RATIO Normal BUN/CRE 16.1 LAB L501.1800 3.2-5.0 g/dL Low ALB 3.0 LAB L501.2200 8.5-10.1 mg/dL CA Normal 8.7 LAB L501.2300 2.5-4.9 mg/dL Normal PHOS 3.8 LAB L501.5300 136-145 mmol/L NA Normal 141 LAB L501.5600 3.5-5.1 mmol/L K Normal 5.0 LAB L501.5900 98-107 mmol/L High CL 108 LAB L501.6100 21.0-32.0 mmol/L Normal CO2 25.0 Performed By: #### L500.3600 #### [facility] [address] [place], [place], [address] CBC-COMPLETE BLOOD CNT Collected: 01/07/2018 Status: F Source: OLEAN NO DIFF 10:50 AM [facility] REPOSITORY TYPE CODE TESTS RESULT OUT OF RANGE REFERENCE UNITS LAB L100.1000 4.4-11.0 K/mm3 Normal WBC 7.2 LAB L100.1200 4.6-6.2 M/mm3 Low RBC 4.13 LAB L100.1300 13.0-16.5 g/dl Low HGB 12.2 LAB L100.1400 40-54 % Low HCT 38.2 LAB L100.1500 80-94 fL Normal MCV 92.5 LAB L100.1600 27.0-32.0 pg Normal MCH 29.5 LAB L100.1700 32-36 g/gl Low MCHC 31.9 LAB L100.1810 11.6-14.6 % High RDW CV 14.9 LAB L100.1820 35.1-43.9 fl High RDW SD 48.6 LAB L100.1900 150-450 K/mm3 Normal PLT 164 LAB L100.2000 6.2-12.0 fl High MPV 12.3 Performed By: #### L100.0500 #### [facility] [address] [facility] [place], [place], [address] RENAL PROFILE Collected: 01/07/2018 Status: F Source: INEZ 10:50 AM [facility] REPOSITORY TYPE CODE TESTS RESULT OUT OF RANGE REFERENCE UNITS LAB L501.0100 74-106 mg/dL Normal GLU 90 Result Comment: Please note revised GLUCOSE reference range effective 2017. LAB L501.1000 7-18 mg/dL High BUN 39 LAB L501.1100 0.70-1.30 mg/dL High CREAT,SERUM 2.74 Result Comment: The validity of the calculated GFR AND GFRAA in patients over 70 years has not been determined. Clinical correlation is essential. LAB L501.1110 >60 mL/min Low EST GFR 24 Result Comment: Non- GFR Calc LAB L501.1115 >60 mL/min Low EST GFR - AA 29 Result Comment: GFR Calc LAB L501.1300 10-20 RATIO Normal BUN/CRE 14.2 LAB L501.1800 3.2-5.0 g/dL Low ALB 2.9 LAB L501.2200 8.5-10.1 mg/dL Low CA 8.2 LAB L501.2300 2.5-4.9 mg/dL Normal PHOS 3.5 LAB L501.5300 136-145 mmol/L NA Normal 141 LAB L501.5600 3.5-5.1 mmol/L K Normal 4.5 LAB L501.5900 98-107 mmol/L CL Normal 107 LAB L501.6100 21.0-32.0 mmol/L Normal CO2 26.0 Performed By: #### L500.3600 #### [facility] [address] [facility] [place], [address] PTHIN Collected: 01/07/2018 Status: F Source: INEZ 10:50 AM [facility] REPOSITORY TYPE CODE TESTS RESULT OUT OF RANGE REFERENCE UNITS LAB L509.1000 18.4-80.1 pg/mL High PTHIN 156.9 Performed By: #### L509.1000 #### [facility] [address] [facility] [place], [address] BASIC METABOLIC Collected: 12/17/2017 Status: F Source: INEZ PROFILE (BMP) 10:35 AM [facility] REPOSITORY TYPE CODE TESTS RESULT OUT OF RANGE REFERENCE UNITS LAB L501.0100 74-106 mg/dL High GLU 116 Result Comment: Fasting Glucose result from 100 to 125 mg/dL suggests IMPAIRED HOMEOSTASIS per A.D.A. criteria. Please note revised GLUCOSE reference range effective 2017. LAB L501.1000 7-18 mg/dL High BUN 35 LAB L501.1100 0.70-1.30 mg/dL High CREAT,SERUM 2.83 Result Comment: The validity of the calculated GFR AND GFRAA in patients over 70 years has not been determined. Clinical correlation is essential. LAB L501.1110 >60 mL/min Low EST GFR 23 Result Comment: Non- GFR Calc LAB L501.1115 >60 mL/min Low EST GFR - AA 28 Result Comment: GFR Calc LAB L501.1255 ml/min Normal Estimated CRCL 18.82 LAB L501.1300 10-20 RATIO Normal BUN/CRE 12.4 LAB L501.2200 8.5-10 mg/dL Low .1 CA 8.2 LAB L501.5300 136-14 mmol/L Normal 5 NA 139 LAB L501.5600 3.5-5. mmol/L Normal 1 K 4.7 LAB L501.5900 98-107 mmol/L High CL 108 LAB L501.6100 21.0-3 mmol/L Normal 2.0 CO2 25.0 LAB L501.6200 5-15 Normal GAP 6 Performed By: #### L500.2500 #### [facility] [address] [place], [address] CARDIOLOGY VISIT Observed: 12/14/2017 Status: F Source: OLEAN REPORT 5:29 PM [facility] REPOSITORY [facility] [address] [place] [address] OFFICE VISIT Date of Service: 12/14/17 MR#: [id number] Acct: [id number] Name: EVERETTE WILSON Rep #: [id number] : 1935 Provider: MARINE Tsai Age/Sex: 82/M Location: [facility] Status: Signed HPI HPI Details: EVERETTE WILSON, is a 82 M who presents to the office today for a cardiovascular outpatient follow-up. He has a history of tetralogy of Fallot status post repair, atrial fibrillation/flutter status post synchronized biphasic DC cardioversion, hypertension, and a history of underlying thrombo-embolic disease with DVT. Pt. states since October he has noticed an increase in fatigue that has limited his activity. This has slowly improved over the last six weeks. He states SOB with exertion since October, this too has improved over last six weeks. This resolves with rest. He states when he breaths too hard he notices a discomfort in his chest. He denies nausea or diaphoresis. This sensation improves with rest. He rates this pain a 3-4/10 and at its worse he rates it a 9/10. Pt. states swelling in both legs with left greater than right that has worsened since October as well. Pt. denies arm, jaw, or neck discomfort. His exercise tolerance is stable, though minimal of late. Pt. denies symptoms of palpitations, lightheadedness, dizziness, near syncope, or syncopal episodes. Pt. claudication issues. Pt. denies orthopnea, PND, fever, chills, blood in urine, blood in stool, or myalgia. Intake Vital Signs12/14/17 Height 5 ft 7 in 12/14/17 Weight: 185 lb 12/14/17 Body Mass Index (BMI) 29.0 12/14/17 Blood Pressure 152/64 Intake Visit Reasons: Shortness of breath Ride Mechanic Required: No Accompanied by: none Is patient in pain?: No Allergies No Known Allergies Allergy (Verified 12/14/17 11:07) Medications Insulin Aspart [Novolog Flexpen ([facility])] 8 - 10 units SC UD 12/10/16 [History Confirmed 12/14/17] Insulin Detemir [Levemir ([facility])] 34 units SC QHS 12/10/16 [History Confirmed 12/14/17] Warfarin [Coumadin (PB)] 4 mg PO DAILY 12/10/16 [History Confirmed 12/14/17] Cholecalciferol (Vitamin D3) [Vitamin D3] 2,000 unit PO DAILY 04/01/17 [History Confirmed 12/14/17] Magnesium Oxide [Magnesium] 400 mg PO DAILY 04/01/17 [History Confirmed 12/14/17] calcitriol 0.25 mcg capsule 0.25 mcg PO QDAY 08/06/17 [History Confirmed 12/14/17] glipizide ER 10 mg tablet, extended release 24 hr 10 mg PO BID tab 08/27/17 [History Confirmed 12/14/17] lactobacillus combination no.8 3 billion cell capsule 3,000 mmu cells PO QDAY 08/27/17 [History Confirmed 12/14/17] psyllium husk 0.52 gram capsule 0.52 g PO QDAY 08/27/17 [History Confirmed 12/14/17] vit C,E,zinc,copper-ygzgn0x 250 mg-lutein 5 mg-zeaxanthin 1 mg capsule 1 cap PO QDAY ea 08/27/17 [History Confirmed 12/14/17] amlodipine 5 mg tablet 5 mg PO QDAY #30 tab 08/31/17 [Rx Confirmed 12/14/17] amiodarone 200 mg tablet 100 mg PO QDAY tab 10/08/17 [History Confirmed 12/14/17] coenzyme Q10 100 mg capsule 100 mg PO .3Xweek cap 10/08/17 [History Confirmed 12/14/17] linagliptin 5 mg tablet 5 mg PO QDAY 10/08/17 [History Confirmed 12/14/17] metoprolol tartrate 100 mg tablet 150 mg PO BID #270 tab 10/26/17 [Rx Confirmed 12/14/17] sodium polystyrene sulfonate 15 gram-sorbitol 19.3 g/60 mL oral susp 120 ml PO QDAY PRN 12/14/17 [History Confirmed 12/14/17] Ejection fraction %: 55 to 59 PFSH Medical History SVT (supraventricular tachycardia) (Acute) Right bundle branch block (Acute) Aortic root dilatation (Acute) Paroxysmal atrial fibrillation (Acute) Type II diabetes mellitus (Chronic) Hyperlipidemia (Chronic) Hypertension (Chronic) Gastroesophageal reflux disease (Chronic) Fallot tetralogy (Chronic) Anemia (Acute) Hypomagnesemia (Acute) Renal insufficiency (Chronic) Renal cell carcinoma (Acute) Vitamin D deficiency (Chronic) Atrial fibrillation and flutter (Acute) 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 (Chronic) History of DVT (deep vein thrombosis) (Acute) Hyperkalemia (Acute) Palpitations (Acute) Surgical History History of partial nephrectomy (Resolved) H/O superior vena cava filter placement (Resolved) History of cholecystectomy (Resolved) History of ventricular septal defect repair (Resolved) Hx of appendectomy (Resolved) Family History Brother CAD (coronary artery disease) Sister CAD (coronary artery disease) Sister Hypertension Diabetes Social History Smoking Status: Never smoker alcohol intake: never substance use type: does not use caffeine: Yes Type: coffee Number of servings: 2 what type of physical activity do you participate in: none seatbelt use: always do you feel safe at home: Yes ROS Const Const: Positive for weakness and fatigue; negative for body ache, fever(s) or chills ENT ENT: Negative for dizziness Cardio Chest Pain: Yes Palpitations: No Edema: Bilateral Muscle aches with walking: None Resp Respiratory: Positive for SOB with activity; negative for SOB at rest, SOB orthopnea\SOB lying down or paroxysmal nocturnal dyspnea GI GI: Negative nausea, black,tarry stools, bright, red blood in stools or vomiting blood/hematemesis : Negative for hematuria or frequent nighttime urination/ nocturia Musc Musc: Negative for muscle aches/ myalgia Neuro Neuro: Positive for weakness; negative for lightheadedness, near syncope, syncope, orthostatic symptoms or dizziness Endo Endo: Positive for fatigue Cardiology Exam Const Appearance: cooperative, healthy appearing, comfortable, no acute distress, well developed and well groomed Nutritional Appearance: overweight Orientation: alert, awake and oriented x3 Head Head: normal to inspection, normocephalic and atraumatic Ears: hearing grossly normal bilaterally Nose: external nose normal Face and Sinus: face symmetric Mouth: oral mucosae normal Eyes General: appearance normal, both eyes and all related structures Eyelids: eyelids normal Conjunctivae: conjunctivae normal Pupils: PERRL EOM: EOM intact bilaterally Neck Neck: normal visual inspection and full ROM Carotids: normal carotid upstroke Chest Chest inspection: normal inspection of the chest and symmetric chest movement Auscultation: Bilateral: Clear to Auscultation Cardio Palpation: normal PMI Rate: regular rate Rhythm: regular rhythm Heart sounds: S1 normal and S2 normal Murmur: Grade 2/6, soft, mid systolic, LLSB and LVOT GI GI: normal to inspection, soft, no hepatosplenomegaly and bowel sounds present Skin Skin: no rashes or lesions noted Extremities Pulses: Normal: Right Radial Pulse, Left Radial Pulse Bruits: Positive: Right Radial Bruit, Left Radial Bruit Lower Extremity Edema: +2: Bilateral Psych Psychological: normal affect Supplemental Info Echocardiogram was performed on 01/01/2017 at [facility]. His LVEF was normal at 55%, there was mildly dilated right ventricle with mild global right ventricular systolic dysfunction, mild left atrial enlargement, mild MR, mild to moderate TR, mild AI, mild TR, borderline enlarged aortic root, and an estimated RV systolic pressure of 33 mmHg. He also had an area near the basal interventricular septum appearing compatible with an overriding aorta compatible with Tetralogy of Fallot repair. His last stress test available for review was from 11/27/2001 at [facility]. At that time his myocardial perfusion study demonstrated no evidence of myocardial ischemia. His gated LVEF was 55%. Assessment AND Plan 1. Shortness of breath R06.02 RADHA Preston Patient does describe some some symptoms concerning for fluid volume overload. He will undergo further evaluation with BTNP. Based on these results further recommendation will be made. Patient's most recent creatinine level was elevated at 2.98 with a estimated GFR of 26 mL/min. If the patient's BTNP is elevated this will be discussed further with patient's welding equipment repairer, Dr. Lopez, for further recommendation regarding diuresis. Patient's chest x-ray revealed air trapping. It was recommended he continue follow-up with primary care physician, who ordered chest x-ray, for ongoing evaluation or further pulmonary evaluation. Orders Orders: 2. Chest pain on exertion R07.9 RADHA Preston Patient does state some chest discomfort with exertion that improves with rest. It was recommended that he undergo further evaluation with a non- treadmill nuclear stress test since he feels too weak to undergo treadmill stress test. At this time the patient declines and would like to wait for results of other testing before proceeding. 3. Right bundle branch block I45.10 RADHA Preston Patient's EKG in office showed ectopic atrial bradycardia at a rate of 56 bpm. His right bundle branch block pattern is not new. We will continue to monitor this. 4. Paroxysmal atrial fibrillation I48.0 RADHA Preston Patient's EKG does not reveal any atrial fibrillation or atrial flutter. We will continue to monitor this over time. He will continue current medications. 5. Essential hypertension I10 RADHA Preston Patient's blood pressure is slightly elevated today in office. We will continue to monitor this. Depending on patient's overall course his medications may need to be further adjusted. 6. Fallot tetralogy Q21.3 S/P repair; RADHA Preston This appears stable patient, patient's most recent echocardiogram in December 2016. His most recent ejection fraction was noted to be 55%. We will continue to monitor this through history, exam, and repeat echocardiogram Plan Detail Other Orders Orders: Additional Comments - RADHA Albright He will keep February [address] Nicole for further evaluation. Discussed the above patient with Dr. Nicole, he agrees with the plan of care. Thank you for allowing us to participate in the patients plan of care, if you have any questions please do not hesitate to call. This note was generated using a voice recognition system and there may be incorrect words, spelling or punctuation that were not noted when reviewing the office note prior to saving. Coding Level of Care Code Off vis,est,level 4 Diagnoses Shortness of breath R06.02 Chest pain on exertion R07.9 Right bundle branch block I45.10 Paroxysmal atrial fibrillation I48.0 Essential hypertension I10 Hypertension type: essential hypertension Fallot tetralogy Q21.3 Coding Level of Care Code Off vis,est,level 4 Diagnoses Shortness of breath R06.02 Chest pain on exertion R07.9 Right bundle branch block I45.10 Paroxysmal atrial fibrillation I48.0 Essential hypertension I10 Hypertension type: essential hypertension Fallot tetralogy Q21.3 12/14/17 1326 <Electronically signed by Torsten CARSONC> Date Torsten Tsai NP-C 12/14/17 1729<Electronically signed by Cristo Nicole MD> Cosigner Signature: Date (if applicable) Cristo Nicole MD CC: Jose Raul Garcia MD BNP,B-TYPE NATRIURETIC Collected: 12/14/2017 Status: F Source: INEZ PEPTIDE 12:27 PM [facility] REPOSITORY TYPE CODE TESTS RESULT OUT OF RANGE REFERENCE UNITS LAB L503.6620 0-100 pg/mL High B-TYPE 305.9 ALFONSO PEP Performed By: #### L503.6620 #### [facility] [address] [place], [address] 12 LEAD EKG PERFORMED Observed: 12/14/2017 Status: F Source: INEZ BY BMS 11:58 AM [facility] REPOSITORY [facility] [address] [place] [address] 12 Lead EKG performed by [facility] 12/14/17 1151 MR#: [id number] Acct: [id number] Name: EVERETTE WILSON Rep #: [id number] : 1935 82 From: Torsten Tsai EPIC DIRECTOR-C Attending Dr: Torsten Tsai EPIC DIRECTOR Status: DEP AMB Ordering Dr: Torsten Tsai EPIC DIRECTOR-C Date: 12/14/17 Location: [facility] Sex: M C Admitted: BMS/12 Lead EKG performed by [facility] ECG Report Interpretation Ectopic Atrial Bradycardia -First degree A-V block Right bundle branch blockInferior MO, age undetermined, cannot be excludedAbnormalElectronically signed on 12/14/2017 at 12:35 by Cristo Nicole 12/14/17 1238 Date Torsten Tsai EPIC DIRECTOROjC CC: Jose Raul Garcia MD Date Dictated: 12/14/17 1151 Date Transcribed: 12/14/17 115 City Planning Teacher: BENI Signed BASIC METABOLIC Collected: 12/07/2017 Status: F Source: INEZ PROFILE (BMP) 11:10 AM [facility] REPOSITORY TYPE CODE TESTS RESULT OUT OF RANGE REFERENCE UNITS LAB L501.0100 74-106 mg/dL High GLU 195 Result Comment: Fasting Glucose result greater than or equal to 126 mg/dL suggests DIABETES MELLITUS per A.D.A. criteria. Please note revised GLUCOSE reference range effective 2017. LAB L501.1000 7-18 mg/dL High BUN 31 LAB L501.1100 0.70-1.30 mg/dL High CREAT,SERUM 2.98 Result Comment: The validity of the calculated GFR AND GFRAA in patients over 70 years has not been determined. Clinical correlation is essential. LAB L501.1110 >60 mL/min Low EST GFR 22 Result Comment: Non- GFR Calc LAB L501.1115 >60 mL/min Low EST GFR - AA 26 Result Comment: GFR Calc LAB L501.1300 10-20 RATIO Normal BUN/CRE 10.4 LAB L501.2200 8.5-10.1 mg/dL Low CA 8.1 LAB L501.5300 136-145 mmol/L NA Normal 142 LAB L501.5600 3.5-5.1 mmol/L K Normal 4.7 LAB L501.5900 98-107 mmol/L CL Normal 106 LAB L501.6100 21.0-32.0 mmol/L Normal CO2 28.0 LAB L501.6200 5-15 Normal GAP 8 Performed By: #### L500.2500 #### [facility] [address] [facility] [place], [address] CHEST PA AND LATERAL Observed: 12/04/2017 Status: F Source: OLEAN 2:33 PM [facility] REPOSITORY [facility] [address] [place] [address] Chest PA and Lateral MR#: [id number] Acct: [id number] Name: EVERETTE WILSON Rep #: [id number] : 1935 M 82 From: Ifeoma Mcgarry MD PCP: Jose Raul Garcia MD, Chi Status: REG CLI Study: Chest PA and Lateral Date of Exam: 12/04/17 Exam# [id number] Ordering Dr: Jose Raul Garcia MD STUDY: X-RAY CHEST REASON FOR EXAM: Male, 82 years old. Shortness of breath one month TECHNIQUE: PA and lateral views of the chest. COMPARISON: July 22, 2017 chest x-ray CTs chest January 29, 2018. FINDINGS: Is an overall pattern of lucency or air trapping and areas of interseptal thickening similar to the prior study. There is no demonstrated pleural abnormality. There is left apical scarring and/or thickening stable since prior study. Sternal cerclage wires are present from a prior sternotomy. Is mild cardiac enlargement. Normal mediastinum and cass. Normal visualized pulmonary arteries. There is atherosclerotic calcification of the aortic arch with tortuosity. There are diffuse degenerative changes of the visualized thoracic spine. Normal visualized ribs, clavicles, and shoulders. There is no demonstrated abnormality of the visualized soft tissue structures of the upper abdomen. RAD/Chest PA and Lateral IMPRESSION: There is increased AP diameter of the chest, probable air trapping and interstitial prominence suggesting possible underlying chronic lung disease. There is left apical thickening similar to prior studies. Recommend consideration for follow-up dedicated CT scan of the chest without contrast for calcification. Status post sternotomy. Electronically Signed: Ifeoma Mcgarry MD at 16:54 EDT Tel , Service support , CC: Jose Raul Garcia MD City Planning Teacher: Signed ABD INC DECUB Observed: 12/03/2017 Status: F Source: INEZ AND/OR ERECT 11:00 AM [facility] REPOSITORY [facility] Imaging Services [address] [place] [address] Abd Inc Decub and/or Erect MR#: [id number] Acct: [id number] Name: EVERETTE WILSON Rep #: [id number] : 1935 M 82 From: Yg Martinez MD PCP: Jose Raul Garcia MD, Chi Status: REG CLI Study: Abd Inc Decub and/or Erect Date of Exam: 12/03/17 Exam# [id number] Ordering Dr: Jose Raul Garcia MD STUDY: X-RAY - ABDOMEN/PELVIS REASON FOR EXAM: Male, 82 years old. Abdominal distention. TECHNIQUE: AP supine and upright views of the abdomen and pelvis. COMPARISON: Comparison is made with prior CT scan and abdomen dated October 26, 2017. FINDINGS: Blunting of the right costophrenic angle with the right basilar infiltrate. Increased markings at the left lung base. There is an unremarkable bowel gas pattern. There is no demonstrated free abdominal air. Surgical clips are seen in the right upper quadrant most likely centered to prior cholecystectomy. A filter is seen within the inferior vena cava. Normal soft tissue structures. There are diffuse degenerative changes of the visualized lumbar spine. RAD/Abd Inc Decub and/or Erect IMPRESSION: No acute abdominal findings. Electronically Signed: Yg Martinez MD at 12:36 EDT Tel [phone], Service support , CC: Jose Raul Garcia MD City Planning Teacher: Signed CBC W/DIFF, AUTOMATED Collected: 12/03/2017 Status: F Source: INEZ 10:38 AM [facility] REPOSITORY TYPE CODE TESTS RESULT OUT OF RANGE REFERENCE UNITS LAB L100.1000 4.4-11.0 K/mm3 Normal WBC 8.5 LAB L100.1200 4.6-6.2 M/mm3 Low RBC 4.27 LAB L100.1300 13.0-16.5 g/dl Low HGB 12.5 LAB L100.1400 40-54 % Normal HCT 40.5 LAB L100.1500 80-94 fL High MCV 94.8 LAB L100.1600 27.0-32.0 pg Normal MCH 29.3 LAB L100.1700 32-36 g/gl Low MCHC 30.9 LAB L100.1810 11.6-14.6 % High RDW CV 15.4 LAB L100.1820 35.1-43.9 fl High RDW SD 51.7 LAB L100.1900 150-450 K/mm3 Normal PLT 183 LAB L100.2000 6.2-12.0 fl High MPV 12.1 LAB L100.2100 47-70 % High NEUT% 75.4 LAB L100.2200 19-41 % Low LY% 12.2 LAB L100.2300 0-10 % Normal MONO% 8.5 LAB L100.2400 0-5 % Normal EO% 3.1 LAB L100.2500 0-1 % Normal BASO% 0.4 LAB L100.2550 0.0-0.9 % Normal IM GRAN % 0.400 Result Comment: IG% - Immature Granulocytes (promyelocytes, myelocytes and metamyelocytes) > 1% indicates that a LEFT SHIFT is Present. LAB L100.2620 2.0-7.7 X10 3/uL Normal Absolute Neut 6.4 LAB L100.2720 0.83-4.51 X10 3/ul Normal Absolute Lymph 1.04 Performed By: #### L100.0100 #### [facility] [place], [address] COMPREHENSIVE METABOLIC Collected: 12/03/2017 Status: F Source: [facility] 10:38 AM [facility] REPOSITORY TYPE CODE TESTS RESULT OUT OF RANGE REFERENCE UNITS LAB L501.0100 74-106 mg/dL High GLU 146 Result Comment: Fasting Glucose result greater than or equal to 126 mg/dL suggests DIABETES MELLITUS per A.D.A. criteria. Please note revised GLUCOSE reference range effective 2017. LAB L501.1000 7-18 mg/dL High BUN 28 LAB L501.1100 0.70-1.30 mg/dL High CREAT,SERUM 2.66 Result Comment: The validity of the calculated GFR AND GFRAA in patients over 70 years has not been determined. Clinical correlation is essential. LAB L501.1110 >60 mL/min Low EST GFR 25 Result Comment: Non- GFR Calc LAB L501.1115 >60 mL/min Low EST GFR - AA 30 Result Comment: GFR Calc LAB L501.1300 10-20 RATIO Normal BUN/CRE 10.5 LAB L501.1500 6.4-8.2 g/dL T Normal PROT 7.3 LAB L501.1800 3.2-5.0 g/dL Low ALB 2.8 LAB L501.1950 2.2-4.2 g/dL High GLOB 4.5 LAB L501.2000 0.9-2.4 RATIO Low A/G 0.6 LAB L501.2200 8.5-10.1 mg/dL CA Normal 8.5 LAB L501.4100 15-37 U/L Normal AST 36 LAB L501.4305 45-117 U/L Normal ALK P 102 LAB L501.4405 16-61 U/L Normal ALT 42 LAB L501.4600 0.20-1.00 mg/dL T Normal BILI 0.60 LAB L501.5300 136-145 mmol/L NA Normal 141 LAB L501.5600 3.5-5.1 mmol/L High K 5.7 LAB L501.5900 98-107 mmol/L CL Normal 106 LAB L501.6100 21.0-32.0 mmol/L Normal CO2 28.0 LAB L501.6200 5-15 Normal GAP 7 Performed By: #### L500.4050, L501.9520 #### [facility] [address] [place], [address] THYROID STIM HORMONE Collected: 12/03/2017 Status: F Source: INEZ (TSH) 10:38 AM [facility] REPOSITORY TYPE CODE TESTS RESULT OUT OF RANGE REFERENCE UNITS LAB L501.9520 0.358-3.74 uIU/mL Normal TSH 2.24 Performed By: #### L500.4050, L501.9520 #### [facility] [address] [place], [address] VITAMIN D,25 HYDROXY Collected: 12/03/2017 Status: F Source: INEZ 10:38 AM [facility] REPOSITORY TYPE CODE TESTS RESULT OUT OF REFERENCE UNITS RANGE LAB L506.1000 29.95-100.01 ng/mL Low Vitamin D 22.3 25-OH Result Comment: Vitamin D 25(OH) Status Range Deficiency <20 ng/mL (50nmol/L) Insuffciency 20 - 30 ng/mL (50 - 75 nmol/L) Sufficiency 30 - 100 ng/mL (75 - 250 nmol/L) Toxicity >100 ng/mL (>250 nmol/L) Performed By: #### L506.1000 #### [facility] [address] [facility] [place], [address] ONCOLOGY VISIT REPORT Observed: 11/02/2017 Status: F Source: INEZ 2:29 PM [facility] REPOSITORY [facility] [address] [place], [place] [address]. [place] [address] OFFICE VISIT Date of Service: 11/02/17 1420 MR#: [id number] Acct: [id number] Name: EVERETTE WILSON Rep #: [id number] : 1935 From: Zia Salas MD Age/Sex: 82/M Location: OMD Status: Signed Subjective - Date of Service Date of Service:: 11/02/17 - Chief Complaint F/u for Metastatic Renal Cell Cancer. - History of Present Illness 82-year-old man was found to have a right kidney mass, had right partial nephrectomy on 09/19/2015. He subsequently was found to have lesion between the right kidney and liver, CT-guided biopsy was done on February 01, 2016 which was negative. He worried about persistent cancer so PET CT scan was ordered on February 27, 2017 which showed hypermetabolic activity at the junction of the liver and right kidney so he was referred for further management. Reviewed imaging studies which showed that biopsy was from the center of the where the liver has become attached to the kidney, so pt elected observation. Comes in for follow up after CT scan. He feels well, denies pain. - Past Medical/Social History Past Medical History Past Medical History: Diabetes mellitus,GERD,Hypertension,Kidney disease Other Past Medical History: A-FIB Cancer: Lung cancer,Renal cancer Past Surgical History Surgical: Appendectomy,Cholecystectomy Other Surgical History: HEART kidney Family History Paternal Past Medical History: Unknown Paternal History of Cancer Lung cancer Maternal Past Medical History: Unknown Social History Smoking Status Never smoker Review of Systems Constitutional:: Denies: Fever, Sweats, Weight loss, Appetite change, Chills Cardiovascular:: Denies: Chest pain, Palpitations, Dyspnea on exertion, Orthopnea, PND, Shortness of breath Respiratory: Denies: Cough, Hemoptysis, Shortness of Breath, Wheezing Gastrointestinal:: Denies: Abdominal pain, Nausea, Vomiting, Diarrhea, Constipation, Hematochezia Genitourinary: Denies: Dysuria, Hematuria, 15, Flank pain Musculoskeletal:: Denies: Back pain, Myalgia, Arthralgia Skin: Denies: Rash, Skin Changes, Wounds Neurological:: Denies: Headache, Dizziness, Visual changes, Tinnitus, Hearing loss Psychiatric: Denies: Anxiety, Depression, Homicidal Ideations, Suicidal Ideations Vital Signs Height 5 ft 7 in Weight: 84.822 kg Weight in Pounds 187.0 lbs Pulse Ox 93 - Physical Exam General: Alert, Oriented x3, No apparent distress Laboratory Data: 10/26/2017 CT abd/pelvis reviewed, stable mass R kidney with attachment to the liver, stable bilateral kidney cysts. Assessment and Plan Right Renal cancer s/p partial nephrectomy, fibrous tissue between liver and residual Right kidney. Stable with no evidence of progressive disease. On observation. Plan is to continue observation and surveillance. RTC 12 months with CBC,CMP AND CT A/P. Medications: Prescriptions This Visit Medication Instructions Recorded Cholecalciferol (Vitamin D3) 2,000 unit PO DAILY 04/01/17 [Vitamin D3] Magnesium Oxide [Magnesium] 400 mg PO DAILY 04/01/17 Primary Care Provider: Jose Raul Garcia Referring Provider: - Problem List (1) 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 Status: Chronic Code Visit Office Visits / Consults: 47728 OV L3 Est 11/02/17 1429 <Electronically signed by Zia Salas MD> Date Zia Salas MD Cosigner Signature: Date (if applicable) CC: ABDOMEN/PELVIS WITHOUT Observed: 10/26/2017 Status: F Source: OLEAN CONT 1:17 PM [facility] REPOSITORY [facility] Imaging Services [address] [place] [address] Abdomen/Pelvis without Cont MR#: [id number] Acct: [id number] Name: EVERETTE WILSON Rep #: [id number] : 1935 M 81 From: Jesu Cullen MD PCP: Jose Raul Garcia MD, Chi Status: REG CLI Study: Abdomen/Pelvis without Cont Date of Exam: 10/26/17 Exam# [id number] Ordering Dr: Zia Salas MD STUDY: CT ABDOMEN AND PELVIS WITHOUT CONTRAST REASON FOR EXAM: Male, 81 years old. KIDNEY CA-PARTIAL NEPHRECTOMY, CHECK UP, NOT HAVING ANY PROBLEMS, SURG-CARLITO, APPY,DB RADIATION DOSAGE (If Supplied By Facility): CTDIvol = ( 14.21 ) mGy, DLP = ( 700.56 ) mGycm TECHNIQUE: Transaxial images were obtained from the dome of the diaphragm to the symphysis pubis without oral contrast, and without intravenous contrast. Sagittal and coronal images were reconstructed. COMPARISON: 01/23/2017 FINDINGS: Right calcified pleural plaques. The visualized portions of the heart are within normal limits. Normal liver. There are surgical clips in the gallbladder fossa consistent with a prior cholecystectomy. Normal spleen. Normal pancreas. Stable partially calcified right adrenal mass. Stable hypodensity of the inferior and mid right kidney. Stable hypodensity of the left kidney. There is an isodense exophytic mass of the mid right kidney. This measures 24 x 19 mm the image demonstrates mild peripheral hyperdensity. There is a small hiatal hernia. Normal small intestine. There are multiple colonic diverticula consistent with diverticulosis. There is non-visualization of the appendix. There are calcifications of the abdominal aorta and vascular structures. This is consistent for atherosclerotic disease. There is no abdominal aortic aneurysm. There is an IVC filter in place. Subcentimeter mesenteric lymph nodes. There is a urinary bladder diverticulum on the right side. There are prostatic calcifications. Degenerative findings of the hips. Loss of intervertebral disc height at L5-S1. Vacuum disc phenomenon at L5-S1. There are bilateral inguinal hernias containing fat. There is no bowel involvement. There is no incarceration. There is no findings suggesting that this is causing a bowel obstruction. There are degenerative changes of the osseous structures. CT/Abdomen/Pelvis without Cont IMPRESSION: Stable bilateral renal cysts. Stable exophytic mass of the right kidney. Cholecystectomy. There are multiple diverticuli of the colon. There is diverticulosis but no radiographic signs for diverticulitis. Stable urinary bladder diverticula. Other findings as above. Electronically Signed: Jesu Cullen MD at 19:04 EDT , Service support , CC: Zia Salas MD; Jose Raul Garcia MD City Planning Teacher: Signed CBC-COMPLETE BLOOD CNT Collected: 09/30/2017 Status: F Source: INEZ NO DIFF 10:42 AM [facility] REPOSITORY TYPE CODE TESTS RESULT OUT OF RANGE REFERENCE UNITS LAB L100.1000 4.4-11.0 K/mm3 Normal WBC 9.8 LAB L100.1200 4.6-6.2 M/mm3 Low RBC 4.50 LAB L100.1300 13.0-16.5 g/dl Normal HGB 13.2 LAB L100.1400 40-54 % Normal HCT 41.4 LAB L100.1500 80-94 fL Normal MCV 92.0 LAB L100.1600 27.0-32.0 pg Normal MCH 29.3 LAB L100.1700 32-36 g/gl Low MCHC 31.9 LAB L100.1810 11.6-14.6 % Normal RDW CV 14.2 LAB L100.1820 35.1-43.9 fl High RDW SD 47.1 LAB L100.1900 150-450 K/mm3 Normal PLT 185 LAB L100.2000 6.2-12.0 fl Normal MPV 11.4 Performed By: #### L100.0500 #### [facility] [address] [place], [place], [address] PROTEIN+CREATININE Collected: Status: F Source: INEZ THIBODEAUX,URINE 09/30/2017 10:42 AM [facility] REPOSITORY TYPE CODE TESTS RESULT OUT OF RANGE REFERENCE UNITS LAB L501.1200 NO RANGE EST. mg/dL Normal UR CREAT 77.10 LAB L501.1930 <11.9 mg/dL High 325.9 PROTEIN,UR.R AN. LAB L501.1940 0-200 mg/g CRE High PROT:CRE 4227 RATIO Performed By: #### L501.0900 #### [facility] [address] [place], [address] RENAL PROFILE Collected: 09/30/2017 Status: F Source: INEZ 10:42 AM [facility] REPOSITORY TYPE CODE TESTS RESULT OUT OF RANGE REFERENCE UNITS LAB L501.0100 74-106 mg/dL Normal GLU 94 Result Comment: Please note revised GLUCOSE reference range effective 2017. LAB L501.1000 7-18 mg/dL High BUN 33 LAB L501.1100 0.70-1.30 mg/dL High CREAT,SERUM 2.71 Result Comment: The validity of the calculated GFR AND GFRAA in patients over 70 years has not been determined. Clinical correlation is essential. LAB L501.1110 >60 mL/min Low EST GFR 24 Result Comment: Non- GFR Calc LAB L501.1115 >60 mL/min Low EST GFR - AA 29 Result Comment: GFR Calc LAB L501.1300 10-20 RATIO Normal BUN/CRE 12.2 LAB L501.1800 3.2-5.0 g/dL Low ALB 3.0 LAB L501.2200 8.5-10.1 mg/dL CA Normal 8.9 LAB L501.2300 2.5-4.9 mg/dL Normal PHOS 3.7 LAB L501.5300 136-145 mmol/L NA Normal 140 LAB L501.5600 3.5-5.1 mmol/L K Normal 4.6 LAB L501.5900 98-107 mmol/L CL Normal 106 LAB L501.6100 21.0-32.0 mmol/L Normal CO2 25.0 Performed By: #### L500.3600 #### [facility] [address] [place], [place], [address] PTHIN Collected: 09/30/2017 Status: F Source: INEZ 10:42 AM [facility] REPOSITORY TYPE CODE TESTS RESULT OUT OF RANGE REFERENCE UNITS LAB L509.1000 18.4-80.1 pg/mL High PTHIN 159.9 Result Comment: Please Note: PTH INTACT METHOD AND REFERENCE RANGE CHANGE Effective 08/05/2017. Performed By: #### L509.1000 #### [facility] [address] [place], [address] CBC W/DIFF, AUTOMATED Collected: 09/14/2017 Status: F Source: INEZ 9:10 AM [facility] REPOSITORY TYPE CODE TESTS RESULT OUT OF RANGE REFERENCE UNITS LAB L100.1000 4.4-11.0 K/mm3 Normal WBC 6.6 LAB L100.1200 4.6-6.2 M/mm3 Low RBC 4.48 LAB L100.1300 13.0-16.5 g/dl Normal HGB 13.1 LAB L100.1400 40-54 % Normal HCT 41.0 LAB L100.1500 80-94 fL Normal MCV 91.5 LAB L100.1600 27.0-32.0 pg Normal MCH 29.2 LAB L100.1700 32-36 g/gl Normal MCHC 32.0 LAB L100.1810 11.6-14.6 % Normal RDW CV 13.8 LAB L100.1820 35.1-43.9 fl High RDW SD 45.5 LAB L100.1900 150-450 K/mm3 Normal PLT 164 LAB L100.2000 6.2-12.0 fl Normal MPV 11.8 LAB L100.2100 47-70 % High NEUT% 70.4 LAB L100.2200 19-41 % Low LY% 15.4 LAB L100.2300 0-10 % Normal MONO% 8.6 LAB L100.2400 0-5 % Normal EO% 4.5 LAB L100.2500 0-1 % Normal BASO% 0.6 LAB L100.2550 0.0-0.9 % Normal IM GRAN % 0.500 Result Comment: IG% - Immature Granulocytes (promyelocytes, myelocytes and metamyelocytes) > 1% indicates that a LEFT SHIFT is Present. LAB L100.2620 2.0-7.7 X10 3/uL Normal Absolute Neut 4.7 LAB L100.2720 0.83-4.51 X10 3/ul Normal Absolute Lymph 1.02 Performed By: #### L100.0100 #### [facility] [address] [place], [address] COMPREHENSIVE METABOLIC Collected: 09/14/2017 Status: F Source: [facility] 9:10 AM [facility] REPOSITORY TYPE CODE TESTS RESULT OUT OF RANGE REFERENCE UNITS LAB L501.0100 70-110 mg/dL High GLU 252 Result Comment: Glucose result greater than or equal to 200 mg/dL suggests DIABETES MELLITUS per A.D.A. criteria. LAB L501.1000 7-18 mg/dL High BUN 34 LAB L501.1100 0.70-1.30 mg/dL High CREAT,SERUM 2.40 Result Comment: The validity of the calculated GFR AND GFRAA in patients over 70 years has not been determined. Clinical correlation is essential. LAB L501.1110 >60 mL/min Low EST GFR 28 Result Comment: Non- GFR Calc LAB L501.1115 >60 mL/min Low EST GFR - AA 34 Result Comment: GFR Calc LAB L501.1300 10-20 RATIO Normal BUN/CRE 14.2 LAB L501.1500 6.4-8.2 g/dL T Normal PROT 6.9 LAB L501.1800 3.2-5.0 g/dL Low ALB 2.9 LAB L501.1950 2.2-4.2 g/dL Normal GLOB 4.0 LAB L501.2000 0.9-2.4 RATIO Low A/G 0.7 LAB L501.2200 8.5-10.1 mg/dL Low CA 8.3 LAB L501.4100 15-37 U/L Normal AST 35 LAB L501.4305 45-117 U/L Normal ALK P 106 LAB L501.4405 16-61 U/L Normal ALT 51 Result Comment: Please note revised ALT reference range effective 2017. LAB L501.4600 0.20-1.00 mg/dL Normal T BILI 0.50 LAB L501.5300 136-145 mmol/L Normal NA 138 LAB L501.5600 3.5-5.1 mmol/L Normal K 4.8 LAB L501.5900 98-107 mmol/L Normal CL 104 LAB L501.6100 21.0-32.0 mmol/L Normal CO2 25.0 LAB L501.6200 5-15 Normal GAP 9 Performed By: #### L500.4050, L501.9520 #### [facility] [address] [facility] [place], [address] THYROID STIM HORMONE Collected: 09/14/2017 Status: F Source: INEZ (TSH) 9:10 AM [facility] REPOSITORY TYPE CODE TESTS RESULT OUT OF RANGE REFERENCE UNITS LAB L501.9520 0.358-3.74 uIU/mL Normal TSH 2.48 Performed By: #### L500.4050, L501.9520 #### [facility] [address] [place], [address] ALLERGIES ALLERGIES DATE TYPE / CODE NAME / CODE REACTION SEVERITY SOURCE 07/06/2018 Drug No Known Unknown [facility] Allergy/416 Allergies/W11094 Hospital 353441(SNOM 0388(RXNORM) Repository ED CT) Drug NO KNOWN [facility] Class/46802 ALLERGIES Repository 1003(SNOMED CT) ENCOUNTERS ENCOUNTERS ADMIT/DISCHARGE ACCOUNT NUMBER ADMITTING ENCOUNTER LOCATION SOURCE CLASS 08/19/2018 [id number] Ambulatory [facility]: [place] [facility] Repository 08/11/2018 [id number] Ambulatory [facility] ding:LAB.FUT Repository URE 08/04/2018 [id number] Ambulatory [facility] ding:POLAB3 Repository 07/06/2018/07/06/20 [id number] Ambulatory BMSBuilding: [place] 18 BMS[facility] Repository 06/25/2018 [id number] Ambulatory [facility] ding:POLAB3 Repository 06/23/2018 [id number] Ambulatory [facility] ding:POLAB3 Repository 06/14/2018/06/14/20 [id number] Emergency [address] ding:ED Repository 06/10/2018 [id number] Ambulatory [facility] ding:US Repository 06/02/2018 [id number] Ambulatory [facility] ding:POLAB3 Repository 04/28/2018 [id number] Ambulatory [facility] ding:PAT Repository 04/12/2018 [id number] Ambulatory [facility] Repository 04/06/2018/04/06/20 [id number] Ambulatory BMSBuilding: [place] 18 BMS.[facility] Repository 04/05/2018 [id number] Ambulatory [facility] ding:LAB.FUT Repository URE 04/01/2018 [id number] Ambulatory [facility] ding:[facility] Repository 04/01/2018 [id number] Ambulatory BMSBuilding: [place] [facility] Repository 04/01/2018/04/01/20 [id number] Ambulatory BMSBuilding: [place] 18 BMS[facility] Repository 03/31/2018/03/31/20 [id number] Ambulatory [address] Repository 03/31/2018/03/31/20 [id number] Ambulatory Building:[place] [address] [address] Repository 03/31/2018 [id number] Sujata Shaw Ambulatory [facility] Repository 03/30/2018 [id number] Ambulatory [facility] ding:PSN Repository 03/30/2018 [id number] Ambulatory BMSBuilding: [facility] Repository 03/22/2018/03/22/20 [id number] Ambulatory BMSBuilding: [place] 18 BMS.[facility] Repository 02/18/2018/02/19/20 [id number] Ambulatory BMSBuilding: [place] 18 BMS[facility] Repository 02/15/2018 [id number] Ambulatory BMSBuilding: [place] [facility]MS[facility] Repository 02/10/2018/02/11/20 [id number] Emergency [address] ding:ED Repository 02/02/2018 [id number] Ambulatory [facility] ding:LAB.FUT Repository URE 01/25/2018 [id number] Ambulatory [facility] ding:LAB.FUT Repository URE 01/07/2018 [id number] Ambulatory [facility] ding:POLAB3 Repository 12/14/2017 [id number] Ambulatory [facility] ding:LAB Repository 12/14/2017/12/15/19 [id number] Ambulatory BMSBuilding: [place] [facility] BMS[facility] Repository 12/08/2017 [id number] Ambulatory [facility] Repository 12/07/2017 [id number] Ambulatory [facility] ding:POLAB3 Repository 12/04/2017 [id number] Ambulatory [facility] ding:RAD Repository 12/03/2017 [id number] Ambulatory [facility] ding:RAD Repository 11/02/2017 [id number] Ambulatory [facility] ding:OMD Repository 11/02/2017 [id number] Ambulatory BMSBuilding: [place] BMS.[facility] Repository 10/26/2017 [id number] Ambulatory [facility] ding:CT Repository 10/08/2017 [id number] Ambulatory BMSBuilding: [place] BMS[facility] Repository 10/05/2017 [id number] Ambulatory BMSBuilding: [place] BMS.[facility] Repository 09/30/2017 [id number] Ambulatory [facility] ding:LAB Repository 09/14/2017 [id number] [facility] ding:POLAB3 Repository PAYERS PAYERS ENCOUNTER GUARANTOR PAYER SUBSCRIBER SOURCE 08/19/2018 [place] O [id number] Primary [place] O [place] [address] Insurance:MEDICARE [address], PART A BPolicy Number: [id number] [address]Pjm: [id number] Repository Date:2018-08-19 () 08/19/2018 Secondary [place] O [place] Insurance:HUMANA GEIBDOB: [facility] [id number] Hospital Number: Repository [id number] Date:3347-15-37Yd[address] [address]TL: 08/19/2018 Tertiary NOT GIVENUNK [place] Insurance:SELF PAY [facility] Number: Effective Repository Date:2018-08-19 08/11/2018 [place]TE O [id number] Primary [place] O [place] E [address] Insurance:MEDICARE GEIBDOB: [address], PART A olicy Number: [id number] Cancer Center [address]1186Dzx: [id number] Repository Date:2018-08-11 () 08/11/2018 Secondary [place] O [place] Insurance:HUMANA GEIBDOB: [facility] [id number] Hospital Number: Repository [id number] Date:9122-95-44Cl[address] [address]II: 08/11/2018 Tertiary NOT GIVENUNK [place] Insurance:SELF PAY [facility] Number: Effective Repository Date:2018-08-11 08/04/2018 EVERETTE O [id number] Primary [place] O [place] [address] Insurance:MEDICARE GEIBDOB: [place] [address] AGDAAGUX, PART A BPolicy Number: [id number] Cancer Center [address]122Otm: [id number] Repository Date:2018-08-04 () 08/04/2018 Secondary [place] O [place] Insurance:HUMANA GEIBDOB: [facility] [id number] Hospital Number: Repository [id number] Date:5247-69-09Be [address] [address]OR: 08/04/2018 Tertiary NOT GIVENUNK [place] Insurance:SELF PAY [facility] Number: Effective Repository Date:2018-08-04 07/06/2018 EVERETTE O [id number] Primary [place] O [place] E [address] Insurance:MEDICARE GEIBDOB: [facility] [address] AGDAAGUX, PART A BPolicy Number: [id number] Cancer Center [address]Svr: [id number] Repository Date:2018-04-01 () 07/06/2018 Secondary [place] O [place] Insurance:HUMANA GEIBDOB: [facility] [id number] Hospital Number: Repository [id number] Date:1615-78-06Ag[address] [address]DY: 07/06/2018 Tertiary NOT GIVENUNK [place] Insurance:SELF PAY [facility] Number: Effective Repository Date:2018-07-06 06/25/2018 EVERETTE O [id number] Primary [place] O [place] E [address] Insurance:MEDICARE GEIBDOB: [place] [address] AGDAAGUX, PART A BPolicy Number: [id number] Cancer Center [address]Tdn: [id number] Repository Date:2018-06-24 () 06/25/2018 Secondary [place] O [place] Insurance:HUMANA GEIBDOB: [facility] [id number] Hospital Number: Repository [id number] Date:6592-43-03Wl [address] [place] [address]TE: 06/25/2018 Tertiary NOT GIVENUNK [place] Insurance:SELF PAY [facility] Number: Effective Repository Date:2018-06-24 06/23/2018 EVERETTE O [id number] Primary [place] O [place] [address] Insurance:MEDICARE GEIBDOB: [facility] [address] AGDAAGUX, PART A BPolicy Number: [id number] [facility] [address]Rhj: [id number] Repository Date:2018-06-23 () 06/23/2018 Secondary [place] O [place] Insurance:HUMANA GEIBDOB: [facility] [id number] Hospital Number: Repository [id number] Date:9312-63-89Li[address] [address]HR: 06/23/2018 Tertiary NOT GIVENUNK [place] Insurance:SELF PAY [facility] Number: Effective Repository Date:2018-06-23 06/14/2018 EVERETTE O [id number] Primary [place] O [place] [address] Insurance:MEDICARE GEIBDOB: [facility] [address] AGDAAGUX, PART A olicy Number: [id number] Cancer Center [address]Ufl: [id number] Repository Date:2018-06-14 () 06/14/2018 Secondary [place] O [place] Insurance:HUMANA GEIBDOB: [facility] [id number] Hospital Number: Repository [id number] Date:5604-38-13Ll [address] [place] [address]TN: 06/14/2018 Tertiary NOT GIVENUNK [place] Insurance:SELF PAY [facility] Number: Effective Repository Date:2018-06-14 06/10/2018 EVERETTE O [id number] Primary [place] O [place] [address] Insurance:MEDICARE GEIBDOB: [place] [address] AGDAAGUX, PART A BPolicy Number: [id number] Cancer Center [address]Fcp: [id number] Repository Date:2018-06-09 () 06/10/2018 Secondary [place] O [place] Insurance:HUMANA GEIBDOB: [facility] [id number] Hospital Number: Repository [id number] Date:7539-18-37Uq [address] [place] [address]TA: 06/10/2018 Tertiary NOT GIVENUNK [place] Insurance:SELF PAY [facility] Number: Effective Repository Date:2018-06-09 06/02/2018 EVER[place]TE O [id number] Primary [place] [address] Insurance:MEDICARE GEIBDOB: [facility] [address] AGDAAGUX, PART A BPolicy Number: [id number] Cancer Center [address]Ceq: [id number] Repository Date:2018-05-31 () 06/02/2018 Secondary [place] O [place] Insurance:HUMANA GEIBDOB: [facility] [id number] Hospital Number: Repository [id number] Date:0232-26-35Zm [address] [place] [address]FN: 06/02/2018 Tertiary NOT GIVENUNK [place] Insurance:SELF PAY [facility] Number: Effective Repository Date:2018-05-31 04/28/2018 EVERETTE O [id number] Primary [place] O [place] E [address] Insurance:MEDICARE GEIBDOB: [place] [address] AGDAAGUX, PART A BPolicy Number: [id number] Cancer Center [address]306Gqd: [id number] Repository Date:2018-03-23 (HP) 04/28/2018 Secondary [place]TE O [place] Insurance:HUMANA GEIBDOB: [facility] [id number] Hospital Number: Repository [id number] Date:0718-85-93[address] [address]jcv[place]w [place] [address]NK: 04/28/2018 Tertiary NOT GIVENUNK [place] Insurance:SELF PAY [facility] Number: Effective Repository Date:2018-03-23 04/12/2018 [place]ETTE GEIBDOB: Primary [place] GEIBDOB: [employer] [id number] BOX Insurance:HUMANAPolicy [id number] [facility] [address] [place] [address], Number: [address] [address]Akk: [id number] [place], [place] Repository Date:2015-08-17 11989Cyr: [phone]) (HP) [phone] (HP) 04/12/2018 Secondary [place]ET[place] GEIBDOB: [employer] Insurance:MEDICAREPoli [id number] Children[facility] Number: [address] [id number] [place] Repository Date:2000-10-15 99122Ojr: () 04/06/2018 [place] O [id number] Primary [place] O [place] E [address] Insurance:MEDICARE GEIBDOB: [address], PART A BPolicy Number: [id number] Cancer Center [address]Sap: [id number] Repository Date:2018-04-06 (HP) 04/06/2018 Secondary [place] O [place] Insurance:HUMANA GEIBDOB: [facility] [id number] Hospital Number: Repository [id number] Date:7427-63-56[address] [address], [place] [address]IK: 04/06/2018 Tertiary NOT GIVENUNK [place] Insurance:SELF PAY [facility] Hospital Number: Effective Repository Date:2018-04-06 04/05/2018 EVER[place]TE O [id number] Primary [place] O [place] E [address] Insurance:MEDICARE GEIBDOB: [place] [address] AGDAAGUX, PART A BPolicy Number: [id number] Cancer Center [address]365Xiy: [id number] Repository Date:2018-04-05 () 04/05/2018 Secondary [place] O [place] Insurance:HUMANA GEIBDOB: [facility] [id number] Hospital Number: Repository [id number] Date:6098-83-81Fa [address] [address]LU: 04/05/2018 Tertiary NOT GIVENUNK [place] Insurance:SELF PAY [facility] Number: Effective Repository Date:2018-04-05 04/01/2018 EV[place]TE O [id number] Primary [place] O [place] E [address] Insurance:MEDICARE GEIBDOB: [facility] [address] AGDAAGUX, PART A BPolicy Number: [id number] Cancer Center [address]Qxo: [id number] Repository Date:2018-03-22 () 04/01/2018 Secondary [place] O [place] Insurance:HUMANA GEIBDOB: [facility] [id number] Hospital Number: Repository [id number] Date:6002-24-85Ht [address] [place] [address]CQ: 04/01/2018 Tertiary NOT GIVENUNK [place] Insurance:SELF PAY [facility] Number: Effective Repository Date:2018-03-22 04/01/2018 EVERETTE O [id number] Primary [place] O [place] [address] Insurance:MEDICARE GEIBDOB: Community [address] AGDAAGUX, PART A BPolicy Number: [id number] Cancer Center [address]Nls: [id number] Repository Date:2018-03-22 () 04/01/2018 Secondary [place] Insurance:HUMANA GEIBDOB: [facility] [id number] Hospital Number: Repository [id number] Date:0951-69-64Un [address] [address]ZT: 04/01/2018 Tertiary NOT GIVENUNK [place] Insurance:SELF PAY [facility] Hospital Number: Effective Repository Date:2018-04-01 04/01/2018 [place] O [id number] Primary [place] E [address] Insurance:MEDICARE GEIBDOB: [address], PART A BPolicy Number: [id number] Cancer Center [address]Ida: [id number] Repository Date:2018-02-18 () 04/01/2018 Secondary [place] O [place] Insurance:HUMANA GEIBDOB: [facility] [id number] Hospital Number: Repository [id number] Date:6256-51-50Gb [address] [address]QR: 04/01/2018 Tertiary NOT GIVENUNK [place] Insurance:SELF PAY [facility] Number: Effective Repository Date:2018-04-01 03/31/2018 [place] GEIBDOB: Primary [place] GEIBDOB: [employer] [id number] BOX Insurance:MEDICAREPoli [id number] [facility] [place] Number: [address] [address]Emx: [id number] [place], [place] Repository Date:2000-10-15 19218Fgq: [phone] ([phone] (HP) 03/31/2018 Secondary [place] GEIBDOB: [employer] Insurance:HUMANAPolicy [id number] Children's Number: [address] [id number] [place], [place] Repository Date:2015-08-17 87519Oyb: (HP) 03/31/2018 [place] GEIBDOB: Primary [place] GEIBDOB: [facility] [id number] BOX Insurance:MEDICAREPoli [id number] Number: [id number]ETAPP [id number] [place], [place] Date:4524-42-28VLU[address] [address]Mio: 330 PART A CLAIMSPO [address] [address]Psy: (HP) [address]CDVZYYPHJ, [place] [phone] (HP) [address]FN: 03/31/2018 Secondary [place] GEIBDOB: [facility] [id number] Three Number: [id number] [facility] Repository [id number] [facility] Date:4741-02-88HV[address] [address]Rzp: (070) [address]WP: (HP) [phone] 03/31/2018 Primary [place]ETTE GEIBDOB: [facility] Insurance:MedicarePoli [id number] [place] Number: [address] [place] [id number] Health [facility] Date:Plan Name:Mcare A [address]Avf: (330) Repository [phone] () 03/31/2018 Secondary [place] GEIBDOB: [facility] Insurance:MedicarePoli [id number] [place] Number: [address] [place] [id number] Regional Medical Center Date:Plan Name:Mcare B [address]Hvu: (330) Repository [phone] (HP) 03/31/2018 Tertiary [place] GEIBDOB: [facility] Insurance:Humana [id number] [place] [facility] Number: [address] [place] [id number] Date:Plan Name:Health [address]Nov: (330) Repository [phone] (HP) 03/30/2018 [place] O [id number] Primary [place] [address] Insurance:MEDICARE GEIBDOB: Community [address] AGDAAGUX, PART A BPolicy Number: [id number] Cancer Center [address]Mqi: [id number] Repository Date:2018-02-18 () 03/30/2018 Secondary [place] Insurance:HUMANA GEIBDOB: [facility] [id number] Hospital Number: Repository [id number] Date:8319-91-28Ao[address] [address]TH: 03/30/2018 Tertiary NOT GIVENUNK [place] Insurance:SELF PAY [facility] Number: Effective Repository Date:2018-02-18 03/30/2018 [place] O [id number] Primary [place] [address] Insurance:MEDICARE GEIBDOB: [place] [address] AGDAAGUX, PART A BPolicy Number: [id number] [facility] Center [address]Ovr: [id number] Repository Date:2018-02-18 () 03/30/2018 Secondary [place] O [place] Insurance:HUMANA GEIBDOB: [facility] [id number] Hospital Number: Repository [id number] Date:1198-51-05Qp[address] [address]BT: 03/30/2018 Tertiary NOT GIVENUNK [place] Insurance:SELF PAY [facility] Number: Effective Repository Date:2018-03-30 03/22/2018 [place] O [id number] Primary [place] [address] Insurance:MEDICARE GEIBDOB: [facility] [address] AGDAAGUX, PART A BPolicy Number: [id number] Cancer Center [address]Lbv: [id number] Repository Date:2018-02-19 () 03/22/2018 Secondary [place] Insurance:HUMANA GEIBDOB: [facility] [id number] Hospital Number: Repository [id number] Date:2266-42-78Yj[address] [address]RR: 03/22/2018 Tertiary NOT GIVENUNK [place] Insurance:SELF PAY [facility] Number: Effective Repository Date:2018-03-22 02/18/2018 [place] O [id number] Primary [place] [address] Insurance:MEDICARE GEIBDOB: [place] [address] AGDAAGUX, PART A BPolicy Number: [id number] Cancer Center [address]Fmx: [id number] Repository Date:2017-08-27 () 02/18/2018 Secondary [place] Insurance:HUMANA GEIBDOB: [facility] [id number] Hospital Number: Repository [id number] Date:9104-44-57Bh[address] [address]SW: 02/18/2018 Tertiary NOT GIVENUNK [place] Insurance:SELF PAY [facility] Number: Effective Repository Date:2018-02-15 02/15/2018 [place] O [id number] Primary [place] [address] Insurance:MEDICARE GEIBDOB: [place] [address] AGDAAGUX, PART A [facility] Number: [id number] Cancer Center [address]Naw: [id number] Repository Date:2018-02-15 () 02/15/2018 Secondary [place] Insurance:HUMANA GEIBDOB: [facility] [id number] Hospital Number: Repository [id number] Date:3860-81-51Qp [address] [place] [address]XB: 02/15/2018 Tertiary NOT GIVENUNK [place] Insurance:SELF PAY [facility] Number: Effective Repository Date:2018-02-15 02/10/2018 [place] O [id number] Primary [place] E [address] Insurance:MEDICARE GEIBDOB: [place] [address] AGDAAGUX, PART A BPolicy Number: [id number] Cancer Center [address]Ffv: [id number] Repository Date:2018-02-10 () 02/10/2018 Secondary [place] Insurance:HUMANA GEIBDOB: [facility] [id number] Hospital Number: Repository [id number] Date:5292-94-13Ae [address] [place] [address]CX: 02/10/2018 Tertiary NOT GIVENUNK [place] Insurance:SELF PAY [facility] Hospital Number: Effective Repository Date:2018-02-10 02/02/2018 [place] O [id number] Primary [place] [address] Insurance:MEDICARE GEIBDOB: [place] [address] AGDAAGUX, PART A BPolicy Number: [id number] Cancer Center [address]Wmd: [id number] Repository Date:2018-02-02 () 02/02/2018 Secondary [place] Insurance:HUMANA GEIBDOB: [facility] [id number] Hospital Number: Repository [id number] Date:4047-69-45Sk [address] [address]QG: 02/02/2018 Tertiary NOT GIVENUNK [place] Insurance:SELF PAY [facility] Number: Effective Repository Date:2018-02-02 01/25/2018 [place] O [id number] Primary [place] E [address] Insurance:MEDICARE GEIBDOB: [place] [address] AGDAAGUX, PART A BPolicy Number: [id number] Cancer Center [address]Kzl: [id number] Repository Date:2018-01-25 () 01/25/2018 Secondary [place] Insurance:HUMANA GEIBDOB: [facility] [id number] Hospital Number: Repository [id number] Date:0788-80-38Iy [address] [place] [address]ZX: 01/25/2018 Tertiary NOT GIVENUNK [place] Insurance:SELF PAY [facility] Number: Effective Repository Date:2018-01-25 01/07/2018 [place] O [id number] Primary [place] E [address] Insurance:MEDICARE GEIBDOB: [place] [address] AGDAAGUX, PART A olicy Number: [id number] Cancer Center [address]Wbm: [id number] Repository Date:2017-10-05 () 01/07/2018 Secondary [place] Insurance:HUMANA GEIBDOB: [facility] [id number] Hospital Number: Repository [id number] Date:1955-39-61Hp [address] [place] [address]LK: 01/07/2018 Tertiary NOT GIVENUNK [place] Insurance:SELF PAY [facility] Number: Effective Repository Date:2017-10-05 12/14/2017 [place] O [id number] Primary [place] E [address] Insurance:MEDICARE GEIBDOB: [address], PART A olicy Number: [id number] Cancer Center [address]Iic: [id number] Repository Date:2017-12-14 () 12/14/2017 Secondary [place] Insurance:HUMANA GEIBDOB: [facility] [id number] Hospital Number: Repository [id number] Date:8370-41-66Ev [address] [place] [address]VJ: 12/14/2017 Tertiary NOT GIVENUNK [place] Insurance:SELF PAY [facility] Number: Effective Repository Date:2017-12-14 12/14/2017 [place] O [id number] Primary [place] [address] Insurance:MEDICARE GEIBDOB: Community [address] AGDAAGUX, PART A olicy Number: [id number] Cancer Center [address]Udy: [id number] Repository Date:2017-11-16 () 12/14/2017 Secondary [place] Insurance:HUMANA GEIBDOB: [facility] [id number] Hospital Number: Repository [id number] Date:1662-71-54Jz [address] [place] [address]QQ: 12/14/2017 Tertiary NOT GIVENUNK [place] Insurance:SELF PAY [facility] Hospital Number: Effective Repository Date:2017-12-14 12/08/2017 [place] O [id number] Primary [place] [address] Insurance:MEDICARE GEIBDOB: [facility] [address] AGDAAGUX, PART A BPolicy Number: [id number] Cancer Center [address]228Kuk: [id number] Repository Date:2017-12-08 () 12/08/2017 Secondary [place] Insurance:HUMANA GEIBDOB: [facility] [id number] Hospital Number: Repository [id number] Date:6860-70-00Io[address] [address]DP: 12/08/2017 Tertiary NOT GIVENUNK [place] Insurance:SELF PAY [facility] Number: Effective Repository Date:2017-12-08 12/07/2017 [place] O [id number] Primary [place] [address] Insurance:MEDICARE GEIBDOB: [facility] [address] AGDAAGUX, PART A BPolicy Number: [id number] Cancer Center [address]Pug: [id number] Repository Date:2017-12-04 () 12/07/2017 Secondary [place] Insurance:HUMANA GEIBDOB: [facility] [id number] Hospital Number: Repository [id number] Date:7015-02-92Zd [address] [place] [address]VG: 12/07/2017 Tertiary NOT GIVENUNK [place] Insurance:SELF PAY [facility] Number: Effective Repository Date:2017-12-04 12/04/2017 [place]ER[place] O [id number] Primary [place] [address] Insurance:MEDICARE GEIBDOB: Community [address] AGDAAGUX, PART A BPolicy Number: [id number] Cancer Center [address]Gmm: [id number] Repository Date:2017-12-04 () 12/04/2017 Secondary [place] Insurance:HUMANA GEIBDOB: [facility] [id number] Hospital Number: Repository [id number] Date:9231-63-88Yr [address] [place] [address]JU: 12/04/2017 Tertiary NOT GIV[place]UNK [place] Insurance:SELF PAY [facility] Number: Effective Repository Date:2017-12-04 12/03/2017 [place] O [id number] Primary [place] [address] Insurance:MEDICARE GEIBDOB: [facility] [address] AGDAAGUX, PART A BPolicy Number: [id number] Cancer Center 135[address]Gxg: [id number] Repository Date:2017-12-03 () 12/03/2017 Secondary [place] Insurance:HUMANA GEIBDOB: [facility] [id number] Hospital Number: Repository [id number] Date:8598-03-27Sy[address] [address]PK: 12/03/2017 Tertiary NOT GIVENUNK [place] Insurance:SELF PAY [facility] Number: Effective Repository Date:2017-12-03 11/02/2017 [place] O [id number] Primary [place] [address] Insurance:MEDICARE GEIBDOB: [place] [address] AGDAAGUX, PART A BPolicy Number: [id number] [address]Ohv: [id number] Repository Date:2017-03-19 () 11/02/2017 Secondary [place] Insurance:HUMANA GEIBDOB: [facility] [id number] Hospital Number: Repository [id number] Date:0731-59-10Yy [address] [place] [address]BT: 11/02/2017 Tertiary NOT GIVENUNK [place] Insurance:SELF PAY [facility] Number: Effective Repository Date:2017-03-19 11/02/2017 [place]ETTE O [id number] Primary [place] [address] Insurance:MEDICARE GEIBDOB: Community 506APPLE AGDAAGUX, PART A BPolicy Number: [id number] [address]Wzu: [id number] Repository Date:2017-03-19 () 11/02/2017 Secondary [place] Insurance:HUMANA GEIBDOB: [facility] [id number] Hospital Number: Repository [id number] Date:[id number] [address]PO: 11/02/2017 Tertiary NOT GIVENUNK [place] Insurance:SELF PAY [facility] Number: Effective Repository Date:2017-11-02 10/26/2017 EV[place]ETTE O [id number] Primary [place] [address] Insurance:MEDICARE GEIBDOB: Community 506APPLE AGDAAGUX, PART A olicy Number: [id number] [facility] [address]Ehe: [id number] Repository Date:2017-10-05 () 10/26/2017 Secondary [place] Insurance:HUMANA GEIBDOB: [facility] [id number] Hospital Number: Repository [id number] Date:[id number] [address]GM: 10/26/2017 Tertiary NOT GIVENUNK [place] Insurance:SELF PAY [facility] Number: Effective Repository Date:2017-10-05 10/08/2017 [place]TE O [id number] Primary [place] [address] Insurance:MEDICARE GEIBDOB: Community 506APPLE AGDAAGUX, PART A BPolicy Number: [id number] [facility] [address]Jsx: [id number] Repository Date:2017-10-08 () 10/08/2017 Secondary [place] Insurance:HUMANA GEIBDOB: [facility] COMMERCIALPoly [id number] Hospital Number: Repository [id number] Date:3599-96-81Pa [address] [place] [id number]: 10/08/2017 Tertiary NOT GIVENUNK [place] Insurance:SELF PAY [facility] Number: Effective Repository Date:2017-10-08 10/05/2017 [place] O [id number] Primary [place] [address] Insurance:MEDICARE GEIBDOB: Community 506APPLE AGDAAGUX, PART A BPolicy Number: [id number] [facility] [address]Zfz: [id number] Repository Date:2017-03-19 () 10/05/2017 Secondary [place] Insurance:HUMANA GEIBDOB: [facility] COMMERCIALPolicy [id number] Hospital Number: Repository [id number] Date:0425-66-91Py [address] [place] [address]BW: 10/05/2017 Tertiary NOT [place]UNK [place] Insurance:SELF PAY [facility] Number: Effective Repository Date:2017-10-05 09/30/2017 [place]TE O [id number] Primary [place] [address] Insurance:MEDICARE GEIBDOB: Community 506APPLE AGDAAGUX, PART A BPolicy Number: [id number] [facility] [address]Wda: [id number] Repository Date:2017-09-30 () 09/30/2017 Secondary [place] Insurance:HUMANA GEIBDOB: [facility] [id number] Hospital Number: Repository [id number] Date:7563-48-13SL [address] [place] [id number]: 09/30/2017 Tertiary NOT [place]K [place] Insurance:SELF PAY [facility] Number: Effective Repository Date:2017-09-30 09/14/2017 [place] O [id number] Primary [place] [address] Insurance:MEDICARE GEIBDOB: Community 506APPLE AGDAAGUX, PART A BPolicy Number: [id number] Cancer Center [address]Xej: [id number] Repository Date:2017-09-14 () 09/14/2017 Secondary [place] Insurance:HUMANA GEIBDOB: Community COMMERCIALPoly [id number] Hospital Number: Repository [id number] Date:[id number] [address]XJ: 09/14/2017 Tertiary NOT [place]UNK [place] Insurance:SELF PAY [facility] Number: Effective Repository Date:2017-09-14
== END ==
PROVIDERS: Family Provider Family Medicine Geriatric Medicine; PCP Family Medicine Geriatric Medicine; Visit Provider Internal Medicine Nephrology
DX: N18.4 Chronic kidney disease, stage 4 (severe) (principal); D63.1 Anemia in chronic kidney disease; N25.81 Secondary hyperparathyroidism of renal origin
CPT/HCPCS: 36415; 80069; 83970; 85027

== ENCOUNTER → 2018-09-22 12:23 | Outpatient (CLI) | payer MEDICARE, OTHER, SELFPAY ==
[2018-07-06 11:03] VITALS: BMI 28.0
--- NOTE | 2018-09-23 12:37 | PFTCOMP ---
COMPLETE PULMONARY FUNCTION TEST INTERPRETATION Brief HPI: Patient is an 82 year old male, currently under the care of Dr. Nicole, who presents to [facility] for complete pulmonary function tests secondary to diagnosis of dyspnea. Respiratory therapist reports good effort and reproducible results. Interpretation: Forced expiration spirometry shows a severe large airways obstructive ventilatory defect with an FEV1 of 48% predicted. There is no significant bronchodilator response by strict ATS criteria. Spirograms are of good quality and plateau slowly, indicating slowly emptying areas of the lungs. The respiratory flow volume loop shows decreased expiratory flow rates at all lung volumes consistent with airway obstruction. Lung volumes by body plethysmography show a decreased total lung capacity at 4.02 L, 72% predicted. All other lung volumes are reduced symmetrically. Diffusion capacity by carbon monoxide is decreased at 47% predicted. The airway resistance is elevated. Compared to previous pulmonary function tests from 03/30/2018, there has been a significant decrease in FEV1 by 17%. 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 There has been some worsening compared to previous testing.
--- NOTE | 2018-09-23 12:42 | PFTCOMP_ITS ---
COMPLETE PULMONARY FUNCTION TEST INTERPRETATION Brief HPI: Patient is an 82 year old male, currently under the care of Dr. Nicole, who presents to [facility] for complete pulmonary function tests secondary to diagnosis of dyspnea. Respiratory therapist reports good effort and reproducible results. Interpretation: Forced expiration spirometry shows a severe large airways obstructive ventilatory defect with an FEV1 of 48% predicted. There is no significant bronchodilator response by strict ATS criteria. Spirograms are of good quality and plateau slowly, indicating slowly emptying areas of the lungs. The respiratory flow volume loop shows decreased expiratory flow rates at all lung volumes consistent with airway obstruction. Lung volumes by body plethysmography show a decreased total lung capacity at 4.02 L, 72% predicted. All other lung volumes are reduced symmetrically. Diffusion capacity by carbon monoxide is decreased at 47% predicted. The airway resistance is elevated. Compared to previous pulmonary function tests from 03/30/2018, there has been a significant decrease in FEV1 by 17%. 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 There has been some worsening compared to previous testing.
== END ==
PROVIDERS: Family Provider Family Medicine Geriatric Medicine; PCP Family Medicine Geriatric Medicine; Referring Provider Physician Assistant Medical; Visit Provider Physician Assistant Medical
DX: R06.02 Shortness of breath (principal)
CPT/HCPCS: 94060; 94726; 94729

== ENCOUNTER → 2018-09-23 11:53 | Outpatient (CLI) | payer MEDICARE, OTHER, SELFPAY ==
[2018-07-06 11:03] VITALS: BMI 28.0
[2018-09-23 13:38] LABS: Basophil# 0.09 X10^3/uL; Basophil% 1.3 % (0-1); Eosinophil# 0.22 X10^3/uL; Eosinophils% 3.1 % (0-5); Hematocrit 36.5 % (40-54); Hemoglobin 11.4 g/dl (13.0-16.5); Lymphocyte % 15.7 % (19-41); Mean Corp Hgb Conc 31.2 g/gl (32-36); Mean Corpuscular Hgb 29.6 pg (27.0-32.0); Mean Corpuscular Volume 94.8 fL (80-94); Mean Platelet Vol. 12.1 fl (6.2-12.0); Monocyte# 0.61 X10^3/uL; Monocyte% 8.7 % (0-10); Neutrophil # 4.96 X10^3/uL (2.7-7.7); Neutrophil % 70.9 % (47-70); Platelet Count 157 K/mm3 (150-450); RBC Distribution Width CV 14.5 % (11.6-14.6); RBC Distribution Width SD 49.7 fl (35.1-43.9); Red Blood Count 3.85 M/mm3 (4.6-6.2)
[2018-09-23 13:49] LABS: POSITIVE COUNT NO; POSITIVE DIFFERENTIAL NO; POSITIVE MORPHOLOGY NO
[2018-09-23 13:57] LABS: Albumin, Serum 2.8 g/dL (3.2-5.0); BUN 43 mg/dL (7-18); BUN/Creat Ratio 12.9 RATIO (10-20); Calcium,Total 8.1 mg/dL (8.5-10.1); Chloride 107 mmol/L (98-107); Creatinine, Serum 3.34 mg/dL (0.70-1.30); EST Glomerular Filtration Rate 19 mL/min (>60); Est Glom Filt Rate - Afr Amer 23 mL/min (>60); Glucose 201 mg/dL (74-106); Phosphorus 3.5 mg/dL (2.5-4.9); Potassium 4.8 mmol/L (3.5-5.1); Sodium Level 142 mmol/L (136-145); Thyroid Stim Hormone (TSH) 4.69 uIU/mL (0.358-3.74)
[2018-09-23 14:00] LABS: Protein, Urine (Random) 220.1 mg/dL (<11.9); Protein:Creat Ratio 3345 mg/g CRE (0-200)
[2018-09-24 10:16] LABS: Vitamin D,25 Hydroxy 24.7 ng/mL (29.95-100.01)
[2018-09-24 10:17] LABS: PTHIN 176.8 pg/mL (18.4-80.1)
== END ==
PROVIDERS: Family Provider Family Medicine Geriatric Medicine; PCP Family Medicine Geriatric Medicine; Visit Provider Internal Medicine Nephrology
DX: I12.9 Hypertensive chronic kidney disease with stage 1 through stage 4 chronic kidney disease, or unspecified chronic kidney disease (principal); E11.22 Type 2 diabetes mellitus with diabetic chronic kidney disease; N18.4 Chronic kidney disease, stage 4 (severe); N25.81 Secondary hyperparathyroidism of renal origin; E55.9 Vitamin D deficiency, unspecified
CPT/HCPCS: 36415; 80069; 82306; 82570; 83970; 84156; 84443; 85025

== ENCOUNTER → 2018-10-08 14:40 | Outpatient (CLI) | payer MEDICARE, OTHER, SELFPAY ==
[2018-10-07 09:55] VITALS: BMI 29.2
[2018-10-08 15:27] LABS: International Normalized Ratio 1.9; Prothrombin Time (Protime)PT. 21.9 SECONDS (11.7-14.9)
== END ==
PROVIDERS: Family Provider Family Medicine Geriatric Medicine; PCP Family Medicine Geriatric Medicine; Referring Provider Physician Assistant Medical; Visit Provider Physician Assistant Medical
DX: I50.9 Heart failure, unspecified (principal)
CPT/HCPCS: 36415; 85610

== ENCOUNTER 2018-10-15 14:42 | Outpatient (RCR) | payer MEDICARE, OTHER, SELFPAY ==
[2018-10-07 09:55] VITALS: BMI 29.2
[2018-10-15 15:28] LABS: International Normalized Ratio 2.3; Prothrombin Time (Protime)PT. 25.3 SECONDS (11.7-14.9)
== END 2018-10-15 15:42 | disposition home or self-care (01) ==
LOC: LAB 14:42
PROVIDERS: Family Provider Family Medicine Geriatric Medicine; PCP Family Medicine Geriatric Medicine; Referring Provider Physician Assistant Medical; Visit Provider Physician Assistant Medical
DX: I50.9 Heart failure, unspecified (principal)
CPT/HCPCS: 36415; 85610

== ENCOUNTER → 2018-10-21 12:16 | Outpatient (CLI) | payer MEDICARE, OTHER, SELFPAY ==
[2018-10-21 11:30] VITALS: BMI 28.1
[2018-10-21 13:34] LABS: Anion Gap 5 (5-15); BUN 39 mg/dL (7-18); Calcium,Total 8.5 mg/dL (8.5-10.1); Chloride 108 mmol/L (98-107); Creatinine, Serum 2.99 mg/dL (0.70-1.30); EST Glomerular Filtration Rate 21 mL/min (>60); Est Glom Filt Rate - Afr Amer 26 mL/min (>60); Glucose 182 mg/dL (74-106); Potassium 5.3 mmol/L (3.5-5.1); Sodium Level 138 mmol/L (136-145)
== END ==
PROVIDERS: Family Provider Family Medicine Geriatric Medicine; PCP Family Medicine Geriatric Medicine; Referring Provider Physician Assistant Medical; Visit Provider Physician Assistant Medical
DX: N18.4 Chronic kidney disease, stage 4 (severe) (principal); I48.0 Paroxysmal atrial fibrillation
CPT/HCPCS: 36415; 80048

== ENCOUNTER → 2018-10-26 07:54 | Outpatient (CLI) | payer MEDICARE, OTHER, SELFPAY ==
[2018-07-06 11:03] VITALS: BMI 28.0
[2018-10-21 11:30] VITALS: BMI 28.1
--- NOTE | 2018-10-26 07:55 | CT_ITS ---
STUDY: CT ABDOMEN AND PELVIS WITHOUT CONTRAST REASON FOR EXAM: Male, 83 years old. The patient has a history of metastatic renal cell carcinoma. RADIATION DOSAGE (If Supplied By Facility): CTDIvol = ( 9.74 ) mGy, DLP = ( 518.31 ) mGycm TECHNIQUE: Transaxial images were obtained from the dome of the diaphragm to the symphysis pubis without oral contrast, and without intravenous contrast. Sagittal and coronal images were reconstructed. Individualized dose optimization techniques were used for this CT. COMPARISON: Comparison is made with prior study dated October 26, 2017. FINDINGS: Stable calcific pleural plaques at the right lung base with underlying scarring and/or atelectasis. There is calcification of the mitral valve annulus as well as coronary artery calcification. Small amount of perihepatic fluid. There are surgical clips in the gallbladder fossa consistent with a prior cholecystectomy. Normal spleen. There is diffuse atrophy of the pancreas. Stable partially calcified 1.7 cm nodule in the right adrenal gland. Stable postoperative changes along the upper midportion of the right kidney. Persistent 2.2 cm x 1.5 cm irregular soft tissue density in the superior lateral aspect of the right kidney. Stable right renal cyst. Stable 4.1 cm x 2.9 cm cyst in the upper posterior aspect of the left kidney. There is a small hiatal hernia. Normal small intestine. There are multiple colonic diverticula consistent with diverticulosis. There are surgical clips in the region of the appendix consistent with a prior appendectomy. There is diffuse atherosclerotic calcification of the abdominal aorta and its major visceral branches, without a demonstrated aneurysm. There is an IVC filter in place. There is borderline retroperitoneal lymphadenopathy with enlarged nodes no greater than 10mm in the short axis diameter. There is a 3.4 cm x 2.6 cm diverticulum along the posterior lateral aspect of the right side of the bladder. Mild degree of diffuse bladder wall thickening. There are prostatic calcifications. Small bilateral inguinal hernias containing fat. There are mild degenerative changes of the visualized lumbar spine. CT/Abdomen/Pelvis without Cont IMPRESSION: Stable pleural parenchymal changes at the right lung base with a calcific plaques. Small amount of perihepatic fluid. Stable appearance of the slightly irregular solid nodule in the upper lateral aspect of the right kidney. Stable bilateral renal cysts. Stable right-sided urinary bladder diverticulum. Electronically Signed: Yg Martinez, at 11:04 EDT , Service support ,
== END ==
PROVIDERS: Family Provider Family Medicine Geriatric Medicine; PCP Family Medicine Geriatric Medicine; Referring Provider Internal Medicine Medical Oncology; Visit Provider Internal Medicine Medical Oncology
DX: C64.1 Malignant neoplasm of right kidney, except renal pelvis (principal)
CPT/HCPCS: 74176

== ENCOUNTER → 2018-10-28 11:39 | Outpatient (CLI) | payer MEDICARE, OTHER, SELFPAY ==
[2018-10-07 09:55] VITALS: BMI 29.2
[2018-10-21 11:30] VITALS: BMI 28.1
[2018-10-28 12:45] LABS: Absolute Lymphocyte Count 0.87 X10^3/ul (0.83-4.51); Absolute Neutrophil Count 4.3 X10^3/uL (2.0-7.7); Basophil# 0.04 X10^3/uL; Basophil% 0.7 % (0-1); Eosinophil# 0.27 X10^3/uL; Eosinophils% 4.5 % (0-5); Hemoglobin 11.4 g/dl (13.0-16.5); Lymphocyte # 0.87 X10^3/ul (4.0); Lymphocyte % 14.5 % (19-41); Mean Corp Hgb Conc 31.7 g/gl (32-36); Mean Corpuscular Hgb 29.5 pg (27.0-32.0); Mean Corpuscular Volume 93.3 fL (80-94); Mean Platelet Vol. 11.9 fl (6.2-12.0); Monocyte# 0.46 X10^3/uL; Monocyte% 7.7 % (0-10); Neutrophil # 4.32 X10^3/uL (2.7-7.7); Neutrophil % 72.3 % (47-70); POSITIVE COUNT NO; POSITIVE DIFFERENTIAL NO; POSITIVE MORPHOLOGY NO; Platelet Count 156 K/mm3 (150-450); RBC Distribution Width CV 14.5 % (11.6-14.6); Red Blood Count 3.86 M/mm3 (4.6-6.2)
[2018-10-28 12:57] LABS: Protein:Creat Ratio 4196 mg/g CRE (0-200)
[2018-10-28 13:12] LABS: Albumin, Serum 2.7 g/dL (3.2-5.0); BUN 45 mg/dL (7-18); BUN/Creat Ratio 15.1 RATIO (10-20); Calcium,Total 8.1 mg/dL (8.5-10.1); Chloride 110 mmol/L (98-107); Creatinine, Serum 2.99 mg/dL (0.70-1.30); EST Glomerular Filtration Rate 21 mL/min (>60); Est Glom Filt Rate - Afr Amer 26 mL/min (>60); Glucose 116 mg/dL (74-106); Potassium 4.7 mmol/L (3.5-5.1); Sodium Level 142 mmol/L (136-145)
[2018-10-28 13:13] LABS: LDH 238 U/L (87-241)
[2018-10-28 13:21] LABS: ALB/GLOB Ratio 0.8 RATIO (0.9-2.4); AST(SGOT) 35 U/L (15-37); Alanine Aminotransfer ALT/SGPT 33 U/L (16-61); Albumin, Serum 2.8 g/dL (3.2-5.0); Alkaline Phosphatase 102 U/L (45-117); Anion Gap 7 (5-15); BUN 45 mg/dL (7-18); Calcium,Total 8.1 mg/dL (8.5-10.1); Chloride 111 mmol/L (98-107); Creatinine, Serum 3.01 mg/dL (0.70-1.30); EST Glomerular Filtration Rate 21 mL/min (>60); Est Glom Filt Rate - Afr Amer 26 mL/min (>60); Globulin 3.7 g/dL (2.2-4.2); Glucose 119 mg/dL (74-106); Potassium 4.9 mmol/L (3.5-5.1); Protein, Total 6.5 g/dL (6.4-8.2); Sodium Level 143 mmol/L (136-145)
[2018-10-28 13:22] LABS: PTHIN 149.2 pg/mL (18.4-80.1)
[2018-10-28 19:55] LABS: Xtra Tube EP Lab EXTRA TUBE
[2018-10-28 19:55] LABS: Xtra Tube EP Lab EXTRA TUBE
== END ==
PROVIDERS: Internal Medicine Medical Oncology; Family Provider Family Medicine Geriatric Medicine; PCP Family Medicine Geriatric Medicine; Referring Provider Internal Medicine Nephrology; Visit Provider Internal Medicine Nephrology
DX: C64.1 Malignant neoplasm of right kidney, except renal pelvis (principal); N18.4 Chronic kidney disease, stage 4 (severe)
CPT/HCPCS: 36415; 80053; 80069; 82570; 83615; 83970; 84156; 85025

== ENCOUNTER 2018-11-17 09:11 | Outpatient (RCR) | payer MEDICARE, OTHER, SELFPAY ==
[2018-11-12 12:45] VITALS: BMI 29.2
[2018-11-17 10:28] LABS: International Normalized Ratio 2.8; Prothrombin Time (Protime)PT. 29.5 SECONDS (11.7-14.9)
== END 2018-12-14 16:00 | disposition home or self-care (01) ==
LOC: LAB 09:11
PROVIDERS: Family Provider Family Medicine Geriatric Medicine; PCP Family Medicine Geriatric Medicine; Referring Provider Physician Assistant Medical; Visit Provider Physician Assistant Medical
DX: I50.9 Heart failure, unspecified (principal)
CPT/HCPCS: 36415; 85610

== ENCOUNTER → 2018-12-23 14:19 | Outpatient (CLI) | payer MEDICARE, OTHER, SELFPAY ==
[2018-12-16 11:04] VITALS: BMI 29.0
[2018-12-23 17:31] LABS: International Normalized Ratio 1.8
[2018-12-23 17:36] LABS: Absolute Lymphocyte Count 1.07 X10^3/ul (0.83-4.51); Absolute Neutrophil Count 4.9 X10^3/uL (2.0-7.7); Basophil# 0.07 X10^3/uL; Eosinophil# 0.28 X10^3/uL; Hematocrit 36.9 % (40-54); Hemoglobin 11.2 g/dl (13.0-16.5); Lymphocyte # 1.07 X10^3/ul (4.0); Lymphocyte % 15.4 % (19-41); Mean Corp Hgb Conc 30.4 g/gl (32-36); Mean Corpuscular Hgb 28.2 pg (27.0-32.0); Mean Corpuscular Volume 92.9 fL (80-94); Mean Platelet Vol. 12.4 fl (6.2-12.0); Monocyte# 0.58 X10^3/uL; Monocyte% 8.3 % (0-10); Neutrophil # 4.94 X10^3/uL (2.7-7.7); Neutrophil % 71.2 % (47-70); POSITIVE COUNT NO; POSITIVE DIFFERENTIAL NO; POSITIVE MORPHOLOGY NO; Platelet Count 139 K/mm3 (150-450); RBC Distribution Width CV 15.2 % (11.6-14.6); RBC Distribution Width SD 50.5 fl (35.1-43.9); Red Blood Count 3.97 M/mm3 (4.6-6.2)
[2018-12-23 18:10] LABS: Vitamin D,25 Hydroxy 22.2 ng/mL (29.95-100.01)
[2018-12-23 18:29] LABS: ALB/GLOB Ratio 0.8 RATIO (0.9-2.4); AST(SGOT) 33 U/L (15-37); Alanine Aminotransfer ALT/SGPT 32 U/L (16-61); Albumin, Serum 2.9 g/dL (3.2-5.0); Alkaline Phosphatase 119 U/L (45-117); Anion Gap 8 (5-15); BUN 45 mg/dL (7-18); BUN/Creat Ratio 12.7 RATIO (10-20); Calcium,Total 8.5 mg/dL (8.5-10.1); Chloride 106 mmol/L (98-107); Creatinine, Serum 3.54 mg/dL (0.70-1.30); EST Glomerular Filtration Rate 18 mL/min (>60); Est Glom Filt Rate - Afr Amer 21 mL/min (>60); Globulin 3.7 g/dL (2.2-4.2); Glucose 136 mg/dL (74-106); Potassium 5.4 mmol/L (3.5-5.1); Protein, Total 6.6 g/dL (6.4-8.2); Sodium Level 139 mmol/L (136-145)
== END ==
PROVIDERS: Family Provider Family Medicine Geriatric Medicine; PCP Family Medicine Geriatric Medicine; Visit Provider Family Medicine Geriatric Medicine
DX: I11.9 Hypertensive heart disease without heart failure (principal); E55.9 Vitamin D deficiency, unspecified; I11.0 Hypertensive heart disease with heart failure; I50.33 Acute on chronic diastolic (congestive) heart failure
CPT/HCPCS: 36415; 80053; 82306; 84443; 85025; 85610

== ENCOUNTER 2019-01-14 11:20 | Outpatient (RCR) | payer MEDICARE, OTHER, SELFPAY ==
[2018-12-15 11:30] VITALS: BMI 28.5
[2018-12-16 11:04] VITALS: BMI 29.0
[2019-01-14 10:29] VITALS: BMI 26.3
[2019-01-14 12:26] LABS: International Normalized Ratio 1.7; Prothrombin Time (Protime)PT. 19.4 SECONDS (11.7-14.9)
[2019-01-14 12:54] LABS: Anion Gap 6 (5-15); BUN 53 mg/dL (7-18); BUN/Creat Ratio 13.2 RATIO (10-20); Calcium,Total 8.5 mg/dL (8.5-10.1); Chloride 105 mmol/L (98-107); EST Glomerular Filtration Rate 15 mL/min (>60); Est Glom Filt Rate - Afr Amer 19 mL/min (>60); Glucose 178 mg/dL (74-106); Potassium 5.1 mmol/L (3.5-5.1); Sodium Level 141 mmol/L (136-145); T4 Free Direct 1.71 ng/dL (0.76-1.46); Thyroid Stim Hormone (TSH) 3.75 uIU/mL (0.358-3.74)
== END 2019-01-14 12:45 | disposition home or self-care (01) ==
LOC: LAB 11:20
PROVIDERS: Family Provider Family Medicine Geriatric Medicine; PCP Family Medicine Geriatric Medicine; Referring Provider Physician Assistant Medical; Visit Provider Physician Assistant Medical
DX: E78.5 Hyperlipidemia, unspecified (principal); I48.0 Paroxysmal atrial fibrillation; I12.9 Hypertensive chronic kidney disease with stage 1 through stage 4 chronic kidney disease, or unspecified chronic kidney disease; N18.4 Chronic kidney disease, stage 4 (severe); Q21.3 Tetralogy of Fallot
CPT/HCPCS: 36415; 80048; 84439; 84443; 85610

== ENCOUNTER 2019-01-27 09:33 | Outpatient (RCR) | payer MEDICARE, OTHER, SELFPAY ==
[2019-01-27 09:59] LABS: International Normalized Ratio 1.8; Prothrombin Time (Protime)PT. 20.9 SECONDS (11.7-14.9)
[2019-01-27 10:38] LABS: BUN 58 mg/dL (7-18); BUN/Creat Ratio 16.1 RATIO (10-20); Calcium,Total 8.6 mg/dL (8.5-10.1); Chloride 108 mmol/L (98-107); Creatinine, Serum 3.61 mg/dL (0.70-1.30); EST Glomerular Filtration Rate 17 mL/min (>60); Est Glom Filt Rate - Afr Amer 21 mL/min (>60); Glucose 153 mg/dL (74-106); Phosphorus 4.1 mg/dL (2.5-4.9); Potassium 5.1 mmol/L (3.5-5.1); Sodium Level 137 mmol/L (136-145)
== END 2019-01-27 10:00 | disposition home or self-care (01) ==
LOC: LAB 09:33
PROVIDERS: Family Provider Family Medicine Geriatric Medicine; PCP Family Medicine Geriatric Medicine; Referring Provider Physician Assistant Medical; Visit Provider Physician Assistant Medical
DX: I50.9 Heart failure, unspecified (principal)
CPT/HCPCS: 36415; 80069; 85610

== ENCOUNTER 2019-02-16 10:40 | Outpatient (RCR) | payer MEDICARE, OTHER, SELFPAY ==
[2019-02-15 15:54] LABS: International Normalized Ratio 2.1; Prothrombin Time (Protime)PT. 23.4 SECONDS (11.7-14.9)
[2019-02-16 11:53] LABS: International Normalized Ratio 2.2; Prothrombin Time (Protime)PT. 24.5 SECONDS (11.7-14.9)
[2019-02-16 11:54] LABS: Thyroid Stim Hormone (TSH) 3.98 uIU/mL (0.358-3.74)
== END 2019-02-16 16:20 | disposition home or self-care (01) ==
LOC: LAB 10:40
PROVIDERS: Family Provider Family Medicine Geriatric Medicine; PCP Family Medicine Geriatric Medicine; Referring Provider Physician Assistant Medical; Visit Provider Physician Assistant Medical
DX: I50.9 Heart failure, unspecified (principal); E03.9 Hypothyroidism, unspecified
CPT/HCPCS: 36415; 84443; 85610

== ENCOUNTER → 2019-02-22 | Outpatient (CLI) | payer MEDICARE, OTHER, SELFPAY ==
[2019-02-22 12:44] LABS: International Normalized Ratio 2.1; Prothrombin Time (Protime)PT. 23.6 SECONDS (11.7-14.9)
[2019-02-22 13:00] LABS: Anion Gap 5 (5-15); BUN 51 mg/dL (7-18); BUN/Creat Ratio 15.2 RATIO (10-20); Calcium,Total 8.7 mg/dL (8.5-10.1); Chloride 103 mmol/L (98-107); Creatinine, Serum 3.36 mg/dL (0.70-1.30); EST Glomerular Filtration Rate 19 mL/min (>60); Est Glom Filt Rate - Afr Amer 23 mL/min (>60); Glucose 165 mg/dL (74-106); Potassium 5.1 mmol/L (3.5-5.1); Sodium Level 135 mmol/L (136-145)
== END | disposition home or self-care (01) ==
LOC: POLAB3 10:11
PROVIDERS: Physician Assistant Medical; Family Provider Family Medicine Geriatric Medicine; PCP Family Medicine Geriatric Medicine; Visit Provider Family Medicine Geriatric Medicine
DX: I50.9 Heart failure, unspecified (principal); N18.3 Chronic kidney disease, stage 3 (moderate)
CPT/HCPCS: 36415; 80048; 85610

== ENCOUNTER → 2019-03-09 | Outpatient (CLI) | payer MEDICARE, OTHER, SELFPAY ==
[2019-03-09 12:55] LABS: International Normalized Ratio 1.8; Prothrombin Time (Protime)PT. 21.1 SECONDS (11.7-14.9)
== END | disposition home or self-care (01) ==
LOC: LAB 12:10
PROVIDERS: Family Provider Family Medicine Geriatric Medicine; PCP Family Medicine Geriatric Medicine; Referring Provider Internal Medicine Nephrology; Visit Provider Internal Medicine Nephrology
DX: I50.9 Heart failure, unspecified (principal)
CPT/HCPCS: 36415; 85610

== ENCOUNTER → 2019-03-15 | Outpatient (CLI) | payer MEDICARE, OTHER, SELFPAY ==
[2019-03-15 13:10] LABS: Hematocrit 36.6 % (40-54); Hemoglobin 11.6 g/dL (13.0-16.5); Mean Corp Hgb Conc 31.7 g/dL (32-36); Mean Corpuscular Hgb 30.1 pg (27.0-32.0); Mean Corpuscular Volume 94.8 fL (80-94); Mean Platelet Vol. 11.3 fl (6.2-12.0); Platelet Count 159 K/mm3 (150-450); RBC Distribution Width SD 52.2 fl (35.1-43.9); Red Blood Count 3.86 M/mm3 (4.6-6.2); White Blood Count 8.3 K/mm3 (4.4-11.0)
[2019-03-15 13:44] LABS: BUN 55 mg/dL (7-18); BUN/Creat Ratio 14.3 RATIO (10-20); Calcium,Total 8.8 mg/dL (8.5-10.1); Chloride 110 mmol/L (98-107); Creatinine, Serum 3.85 mg/dL (0.70-1.30); EST Glomerular Filtration Rate 16 mL/min (>60); Est Glom Filt Rate - Afr Amer 19 mL/min (>60); Glucose 137 mg/dL (74-106); Phosphorus 4.1 mg/dL (2.5-4.9); Potassium 5.1 mmol/L (3.5-5.1); Sodium Level 141 mmol/L (136-145)
== END | disposition home or self-care (01) ==
LOC: LAB.FUTURE 11:42
PROVIDERS: Family Provider Family Medicine Geriatric Medicine; PCP Family Medicine Geriatric Medicine; Referring Provider Internal Medicine Nephrology; Visit Provider Internal Medicine Nephrology
DX: N18.4 Chronic kidney disease, stage 4 (severe) (principal); D63.8 Anemia in other chronic diseases classified elsewhere
CPT/HCPCS: 36415; 80069; 83970; 85027

== ENCOUNTER → 2019-03-23 13:26 | Outpatient (CLI) | payer MEDICARE, OTHER, SELFPAY ==
[2019-03-23 15:15] LABS: BUN 64 mg/dL (7-18); BUN/Creat Ratio 14.8 RATIO (10-20); Calcium,Total 8.4 mg/dL (8.5-10.1); Chloride 106 mmol/L (98-107); Creatinine, Serum 4.32 mg/dL (0.70-1.30); EST Glomerular Filtration Rate 14 mL/min (>60); Est Glom Filt Rate - Afr Amer 17 mL/min (>60); Glucose 194 mg/dL (74-106); Phosphorus 4.4 mg/dL (2.5-4.9); Potassium 5.2 mmol/L (3.5-5.1); Sodium Level 137 mmol/L (136-145)
== END ==
PROVIDERS: Family Provider Family Medicine Geriatric Medicine; PCP Family Medicine Geriatric Medicine; Referring Provider Internal Medicine Nephrology; Visit Provider Internal Medicine Nephrology
DX: N18.4 Chronic kidney disease, stage 4 (severe) (principal)
CPT/HCPCS: 36415; 80069

== ENCOUNTER → 2019-03-25 09:40 | Outpatient (CLI) | payer MEDICARE, OTHER, SELFPAY ==
[2019-03-25 18:36] LABS: Absolute Lymphocyte Count 0.85 X10^3/uL (0.83-4.51); Absolute Neutrophil Count 5.8 X10^3/uL (2.0-7.7); Basophil# 0.08 X10^3/uL; Eosinophil# 0.37 X10^3/uL; Eosinophils% 4.8 % (0-5); Hematocrit 35.9 % (40-54); Hemoglobin 11.1 g/dL (13.0-16.5); Lymphocyte # 0.85 X10^3/ul (4.0); Lymphocyte % 11.1 % (19-41); Mean Corp Hgb Conc 30.9 g/dL (32-36); Mean Corpuscular Hgb 29.4 pg (27.0-32.0); Mean Platelet Vol. 11.8 fl (6.2-12.0); Monocyte# 0.55 X10^3/uL; Monocyte% 7.2 % (0-10); NRBC Flagged by Analyzer 0 % (0-5); Neutrophil # 5.76 X10^3/uL (2.7-7.7); Neutrophil % 75.4 % (47-70); Platelet Count 146 K/mm3 (150-450); RBC Distribution Width CV 15.3 % (11.6-14.6); RBC Distribution Width SD 52.9 fl (35.1-43.9); Red Blood Count 3.78 M/mm3 (4.6-6.2); White Blood Count 7.7 K/mm3 (4.4-11.0)
[2019-03-25 19:04] LABS: Vitamin D,25 Hydroxy 23.8 ng/mL (29.95-100.01)
[2019-03-25 19:11] LABS: ALB/GLOB Ratio 0.8 RATIO (0.9-2.4); AST(SGOT) 38 U/L (15-37); Alanine Aminotransfer ALT/SGPT 35 U/L (16-61); Albumin, Serum 3.1 g/dL (3.2-5.0); Alkaline Phosphatase 98 U/L (45-117); Anion Gap 6 (5-15); BUN 69 mg/dL (7-18); BUN/Creat Ratio 16.3 RATIO (10-20); Calcium,Total 8.7 mg/dL (8.5-10.1); Chloride 107 mmol/L (98-107); Creatinine, Serum 4.24 mg/dL (0.70-1.30); EST Glomerular Filtration Rate 14 mL/min (>60); Est Glom Filt Rate - Afr Amer 17 mL/min (>60); Globulin 3.8 g/dL (2.2-4.2); Glucose 198 mg/dL (74-106); Potassium 4.9 mmol/L (3.5-5.1); Protein, Total 6.9 g/dL (6.4-8.2); Sodium Level 137 mmol/L (136-145); Thyroid Stim Hormone (TSH) 4.15 uIU/mL (0.358-3.74)
== END ==
PROVIDERS: Family Provider Family Medicine Geriatric Medicine; PCP Family Medicine Geriatric Medicine; Visit Provider Family Medicine Geriatric Medicine
DX: E11.9 Type 2 diabetes mellitus without complications (principal); I10 Essential (primary) hypertension; E55.9 Vitamin D deficiency, unspecified
CPT/HCPCS: 36415; 80053; 82306; 84443; 85025

== ENCOUNTER 2019-03-26 08:00 | Outpatient (RCR) | payer MEDICARE, OTHER, SELFPAY ==
[2019-04-12 17:32] LABS: Albumin, Serum 3.1 g/dL (3.2-5.0); BUN 56 mg/dL (7-18); BUN/Creat Ratio 15.4 RATIO (10-20); Calcium,Total 8.8 mg/dL (8.5-10.1); Chloride 111 mmol/L (98-107); Creatinine, Serum 3.63 mg/dL (0.70-1.30); EST Glomerular Filtration Rate 17 mL/min (>60); Est Glom Filt Rate - Afr Amer 21 mL/min (>60); Glucose 179 mg/dL (74-106); International Normalized Ratio 2.6; Phosphorus 3.8 mg/dL (2.5-4.9); Potassium 5.7 mmol/L (3.5-5.1); Prothrombin Time (Protime)PT. 28.2 SECONDS (11.7-14.9); Sodium Level 142 mmol/L (136-145)
== END 2019-03-26 10:00 | disposition home or self-care (01) ==
LOC: LAB 08:00
PROVIDERS: Internal Medicine Nephrology; Family Provider Family Medicine Geriatric Medicine; PCP Family Medicine Geriatric Medicine; Referring Provider Physician Assistant Medical; Visit Provider Physician Assistant Medical
DX: I50.9 Heart failure, unspecified (principal); N18.4 Chronic kidney disease, stage 4 (severe)
CPT/HCPCS: 36415; 80069; 85610

== ENCOUNTER → 2019-04-12 | Outpatient (CLI) | payer MEDICARE, OTHER, SELFPAY ==
[2019-04-06 12:44] VITALS: BMI 26.2
== END | disposition home or self-care (01) ==
LOC: POLAB3 14:25
PROVIDERS: Family Provider Family Medicine Geriatric Medicine; PCP Family Medicine Geriatric Medicine; Visit Provider Internal Medicine Nephrology
DX: I50.9 Heart failure, unspecified (principal); N18.4 Chronic kidney disease, stage 4 (severe)

== ENCOUNTER → 2019-04-27 | Outpatient (CLI) | payer MEDICARE, OTHER, SELFPAY ==
[2019-04-06 12:44] VITALS: BMI 26.2
[2019-04-27 12:35] LABS: Basophil# 0.09 X10^3/uL; Basophil% 1.2 % (0-1); Eosinophil# 0.58 X10^3/uL; Eosinophils% 7.7 % (0-5); Lymphocyte % 17.2 % (19-41); Mean Corp Hgb Conc 30.6 g/dL (32-36); Mean Platelet Vol. 11.9 fl (6.2-12.0); Monocyte# 0.55 X10^3/uL; Monocyte% 7.3 % (0-10); NRBC Flagged by Analyzer 0 % (0-5); Neutrophil # 5.01 X10^3/uL (2.7-7.7); Neutrophil % 66.2 % (47-70); Platelet Count 132 K/mm3 (150-450); RBC Distribution Width CV 14.6 % (11.6-14.6); RBC Distribution Width SD 50.7 fl (35.1-43.9); Red Blood Count 3.79 M/mm3 (4.6-6.2); White Blood Count 7.6 K/mm3 (4.4-11.0)
== END | disposition home or self-care (01) ==
LOC: POLAB3 10:07
PROVIDERS: Family Provider Family Medicine Geriatric Medicine; PCP Family Medicine Geriatric Medicine; Visit Provider Family Medicine Geriatric Medicine
DX: L03.119 Cellulitis of unspecified part of limb (principal)
CPT/HCPCS: 36415; 85025

== ENCOUNTER 2019-04-28 15:18 | Emergency (ER) | payer MEDICARE, OTHER, SELFPAY ==
[2019-04-06 12:44] VITALS: BMI 26.2
[2019-04-28 15:19] VITALS: BP 152/121; PULSE 69; RESP 16; TEMP 36.6; O2SAT 96; BMI 26.3
--- NOTE | 2019-04-28 15:33 | RAD_ITS ---
STUDY: X-RAY - LEFT RADIUS AND ULNA REASON FOR EXAM: Male, 83 years old. Mid forearm wound. Open wound, bleeding. Evaluate for foreign body. TECHNIQUE: 2 view(s) of the forearm. COMPARISON: None. FINDINGS: Bones are demineralized. Bones are demineralized. No fracture or dislocation. Mild osteoarthrosis of the first carpometacarpal joint. Joint spaces are otherwise well-maintained. There is atherosclerotic vascular calcification. Soft tissues are otherwise unremarkable. No evidence of foreign body. RAD/Forearm 2 Views IMPRESSION: 1. Bone demineralization. 2. Mild osteoarthrosis of the lateral wrist. 3. No demonstrated foreign body. Electronically Signed: Rox Russell MD at 16:51 EDT Tel , Service support ,
--- NOTE | 2019-04-28 15:36 | ED.DCSUM_ITS ---
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 Status: Acute (2) Chronic renal insufficiency, stage IV (severe) Status: Chronic (3) 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 Status: Chronic (4) Hyperlipidemia Status: Chronic (5) Hypertension Status: Chronic (6) Paroxysmal atrial fibrillation Status: Chronic (7) Right bundle branch block Status: Chronic (8) Type II diabetes mellitus Status: Chronic Past Medical History - Allergies and Home Meds Allergies/Adverse Reactions: Allergies No Known Allergies Allergy (Verified 04/28/19 11:00) Primary Care Physician: Jose Raul Garcia Chi, MD [Primary Care Provider] - Prior records reviewed: Yes Surgical History: appendectomy, cholecystectomy, - - Surgery for tetralogy of Fallot, Lives: Alone Smoking Status: Never smoker Alcohol: None Drugs: None - Family History Maternal Family History: Family History (Last Reviewed 03/31/19 @ 09:41 by Yvonne Schaefer) Brother Cancer Sister Cancer Sister Hypertension Diabetes Brother Cancer Family History: Reports: No pertinent history Paternal Family History: Family History (Last Reviewed 03/31/19 @ 09:41 by Yvonne Schaefer) Brother Cancer Sister Cancer Sister Hypertension Diabetes Brother Cancer Family History: Reports: No pertinent history Review of Systems General: Denies: Chills, Fever, Malaise, Subjective, Sweats Eyes: Denies: Visual changes - bilaterally, Blurred Vision - bilaterally Cardiovascular: Denies: Chest pain, Palpitations Respiratory: Denies: Dyspnea, Cough, Dyspnea on exertion Gastrointestinal: Denies: Nausea, Vomiting Musculoskeletal: Reports: Extremity Pain. Denies: Myalgias, Arthralgias, Neck pain, Back pain, Swelling Skin: Reports: Wounds Neurological: Denies: Weakness, Parasthesia, Numbness Endocrine: Denies: Polyuria, Polydipsia Hematologic: Reports: Easy bruising, Easy bleeding Allergy: Denies: Uticaria, Swelling of the mouth Physical Exam Vital Signs/Narrative: Vital Signs Temp Pulse Resp BP Pulse Ox 04/28/19 15:19 97.8 F 69 16 152/121 H 96 Inital Vital Signs reviewed: Yes General: Well nourished, Well developed Head: Normocephalic, Atraumatic Eyes: Perrl, EOMI ENT: TM's clear, No hemotympanum or drainage, No trauma Neck: Nontender, Full ROM Cardiovascular: Regular rate, No murmurs, Normal S1, Normal S2, Irregular Respiratory: No distress, CTA bilaterally, Chest nontender Abdomen: Soft, Nontender, Nondistended, Normal bowel sounds Back: Nontender Skin: Normal color, No rash, Trauma - There is a 2 x 3 cm wound mid dorsal left forearm with devitalized skin. The wound has possibly violated the fascia. There is pain to palpation. The subcutaneous tissue appears infected. The tissue is brown there is murky drainage noted. There is no epitrochlear axillary lymphadenopathy noted.. Negative for: Cyanosis, Diaphoresis, Jaundice Neurological: Alert, Oriented x3, Cranial nerves II-XII grossly intact, Normal Strength, Normal Sensation Psychological: Normal affect - Glascow Coma Scale Eye Opening: Spontaneous Motor: Obeys Commands Verbal: Oriented Coma Scale Total: 15 Diagnostic/Tx/Re-eval Chest X-Ray - ED: 2 View, Read by ED Physician, - - View x-ray of the forearm reveals no foreign body. There is a slight soft tissue defect noted. There is calcification of his vessels noted. There is no subcutaneous air noted. Time of my interpretation 1628 04/28/19 15:33 Forearm 2 Views [RAD] Stat Laboratory Results 04/28/19 15:45 PT 27.6 H INR 2.6 - Medical Decision Making X-ray was obtained to evaluate for retained wooden foreign body. He states injury occurred on Thursday. He was seen by his primary care physician yesterday and treated with vitamin K for an INR of 8. He is on Coumadin because of paroxysmal H fibrillation. He denies antibiotic allergies. Since he is not tachycardic and afebrile blood work was not obtained. The devitalized tissue was removed. The wound was cleansed. Patient was instructed to take half a dose of Coumadin though he completes his course of antibiotics. ED Disposition - Plan for ED Patient: Disposition: Home or Assisted Living Diagnosis: Infected laceration of skin Instructions: LACERATION, Infected (Not Sutured) Prescriptions: Clindamycin HCl [Cleocin] 300 mg PO Q6H #28 cap Transmission Status: Pending to [facility]/pharmacy #[id number] Referrals: Jose Raul Garcia Chi, MD [Primary Care Provider] - 2 Days for wound check Additional Instructions: If you are unable to follow-up with Dr. Garcia for wound check in 2 days please return to the emergency department for reevaluation. Your prescription was electronically transmitted to [facility] pharmacy located on [facility]. Take half of your normal dose of Coumadin for the next 7 days while you are on clindamycin. Then resume normal dose.
[2019-04-28 16:39] LABS: International Normalized Ratio 2.6; Prothrombin Time (Protime)PT. 27.6 SECONDS (11.7-14.9)
[2019-04-28 17:22] VITALS: BP 137/59; RESP 18
== END 2019-04-28 17:24 | disposition home or self-care (01) ==
PROVIDERS: Emergency Provider Emergency Medicine; Family Provider Family Medicine Geriatric Medicine; PCP Family Medicine Geriatric Medicine
DX: S51.812A Laceration without foreign body of left forearm, initial encounter (principal); L08.9 Local infection of the skin and subcutaneous tissue, unspecified; E11.22 Type 2 diabetes mellitus with diabetic chronic kidney disease; I48.0 Paroxysmal atrial fibrillation; I12.9 Hypertensive chronic kidney disease with stage 1 through stage 4 chronic kidney disease, or unspecified chronic kidney disease; N18.4 Chronic kidney disease, stage 4 (severe); Z85.528 Personal history of other malignant neoplasm of kidney; Z79.01 Long term (current) use of anticoagulants; W26.9XXA Contact with unspecified sharp object(s), initial encounter; Y93.89 Activity, other specified; Y92.89 Other specified places as the place of occurrence of the external cause; Y99.8 Other external cause status
CPT/HCPCS: 73090; 85610; 96365; 99284; J7050; A4216

== ENCOUNTER 2019-05-05 10:45 | Day surgery (SDC) | payer MEDICARE, OTHER, SELFPAY ==
[2019-03-31 10:21] VITALS: BMI 26.3
--- NOTE | 2019-04-05 12:49 | HP_ITS ---
Intake Vital Signs 03/31/19 Body Mass Index (BMI) 26.3 03/31/19 Height 5 ft 7 in 03/31/19 Weight: 176 lb 03/31/19 Body Mass Index (BMI) 27.6 03/31/19 Blood Pressure 184/71 H 03/31/19 Blood Pressure Location Rt brachial 03/31/19 Respiratory Rate 16 03/31/19 Pulse Rate 58 L 03/31/19 Pulse Source Monitor 03/31/19 Temperature 97.2 F L 03/31/19 Pulse Ox 94 03/31/19 Oxygen Delivery Method room air Intake Visit Reasons: Update H & P/Pd Cath Placement needed Chief Complaint: fistula placement Molding Sander Required: No Is patient in pain?: No Allergies No Known Allergies Allergy (Verified 03/31/19 09:42) Medications Magnesium Oxide [Magnesium] 400 mg PO DAILY 04/01/17 [History Confirmed 03/31/19] coenzyme Q10 100 mg capsule 100 mg PO .3Xweek cap 10/08/17 [History Confirmed 03/31/19] linagliptin 5 mg tablet 5 mg PO QDAY 10/08/17 [History Confirmed 03/31/19] warfarin 4 mg tablet 4 mg PO DAILY tab 07/06/18 [History Confirmed 03/31/19] amiodarone 200 mg tablet 200 mg PO QDAY #30 tab 08/02/18 [Rx Confirmed 03/31/19] calcitriol 0.25 mcg capsule 0.25 mcg PO DAILY cap 08/19/18 [History Confirmed 03/31/19] tamsulosin 0.4 mg capsule 0.4 mg PO DAILY 08/19/18 [History Confirmed 03/31/19] insulin detemir (U-100) 100 unit/mL subcutaneous solution 30 unit SC DAILY ml 10/07/18 [History Confirmed 03/31/19] metoprolol tartrate 100 mg tablet 150 mg PO BID #270 tab 10/13/18 [Rx Confirmed 03/31/19] sodium polystyrene sulfonate 15 gram-sorbitol 19.3 g/60 mL oral susp 120 ml PO DAILY 11/12/18 [History Confirmed 03/31/19] amlodipine 5 mg tablet 5 mg PO QDAY #30 tab 12/09/18 [Rx Confirmed 03/31/19] glipizide 5 mg tablet 5 mg PO BID 03/16/19 [History Confirmed 03/31/19] torsemide 20 mg tablet 10 mg PO DAILY #30 tab 03/16/19 [Rx Confirmed 03/31/19] isosorbide mononitrate ER 30 mg tablet,extended release 24 hr 30 mg PO DAILY #90 tab 03/18/19 [Rx Confirmed 03/31/19] levothyroxine PO 03/31/19 [History Confirmed 03/31/19] milk thistle 150 mg capsule 150 mg PO BID 03/31/19 [History Confirmed 03/31/19] turmeric 400 mg capsule mg PO cap 03/31/19 [History Confirmed 03/31/19] [facility] Medical History 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 (Chronic) Chronic renal insufficiency, stage IV (severe) (Acute) SVT (supraventricular tachycardia) (Acute) Right bundle branch block (Acute) Aortic root dilatation (Acute) Paroxysmal atrial fibrillation (Acute) Type II diabetes mellitus (Chronic) Hyperlipidemia (Chronic) Hypertension (Chronic) Fallot tetralogy (Chronic) Atrial fibrillation and flutter (Acute) History of DVT (deep vein thrombosis) (Acute) Hyperkalemia (Acute) Palpitations (Acute) GERD (gastroesophageal reflux disease) (Chronic) Neuropathy (Chronic) Renal cell carcinoma (Chronic) Renal insufficiency (Chronic) Vitamin D deficiency (Chronic) Anemia (Inactive) Hypomagnesemia (Inactive) Surgical History (Updated 03/31/19 @ 10:21 by Jenn Roach) History of partial nephrectomy (Chronic ~02/2019) H/O superior vena cava filter placement (Resolved) History of cholecystectomy (Resolved) History of ventricular septal defect repair (Resolved) Hx of appendectomy (Resolved) Family History Brother Cancer Sister Cancer Sister Hypertension Diabetes Brother Cancer Social History (Updated 03/31/19 @ 12:51 by Laurie Robertson PA-C) Smoking Status: Never smoker alcohol intake: never substance use type: does not use caffeine: Yes Type: coffee Number of servings: 2 what type of physical activity do you participate in: none seatbelt use: always do you feel safe at home: Yes HPI HPI HPI: EVERETTE WILSON is a 83 M who presents to the office today for HPI HPI Surgical H&P: Yes HPI: EVERETTE WILSON is a 82 M I am following for stage IV renal failure. Patient was electively scheduled for a right radial to cephalic arteriovenous fistula creation with Dr. Gloria on 04/08/18. Patient had an appointment with his pediatric critical care nurse who has recommended peritoneal dialysis catheters would be of better benefit with patient's current cardiac condition. Patient does have a history of Fallot tetralogy. Patient also has a history of renal cell carcinoma for which he has had a right partial nephrectomy by Dr. Whitfield. Other abdominal surgeries include appendectomy and cholecystectomy. Patient stated he has had home dialysis education for which he is interested in pursuing. Patient has also discussed this decision with Dr. Lopez, nephrology and Dr. Nicole, meatcutter. Patient is currently on Coumadin. His INR is 1.4 today. It was noted a year ago the patient did not qualify for dialysis right away and his procedure was canceled. He returns today for an update history and physical for peritoneal dialysis catheter placement due to worsening creatinine. Patient's previous history per Dr. Gloria: EVERETTE WILSON is a 82 M who presents to the office today for surgical consultation regarding arterial venous hemodialysis fistula placement for hemodialysis. Very complex individual. He states that he has had repair of tetralogy of flow. He has had problems with diabetes and atrial fibrillation and diverticulosis and GERD and hypertension hyperlipidemia. He has undergone cardiac surgery there has been involvement according to him of his left subclavian vessels. He is right arm dominant. He has had coronary bypass surgery as well. He has got an IVC filter in place. He is on chronic Coumadin anticoagulation. Antihypertensives as well as amiodarone. He has not yet had a upper extremity venous duplex exam. However he does enjoy a satisfying quality of life. Drs include Megan Garcia, John, and Corey The patient is referred for surgical consultation by Dr. Sandy Lopez and a written copy of my surgical consult recommendations will be returned to her ROS General General: Yes fatigue; no weight change, appetite, colon cancer, breast cancer or weakness HEENT HEENT: No difficulty swallowing, eye injury, eye surgery, swollen glands or hoarseness Endo Endocrine: Yes diabetes mellitus; no thyroid disease, thyroid cancer, Hair loss, heat intolerance or cold intolerance Skin Skin: No rash or changing moles Breast Breast: No left breast lump, right breast lump, nipple discharge, breast pain, abnormal mammogram, abnormal US or breast enlargement Musc Musculoskeletal: No back problems, arthritis, rheumatoid arthritis, gout or joint pain Cardio Cardiovascular: Yes murmur, heart disease, atrial fibrillation and high blood pressure; no pacemaker, heart attack, heart stent, palpitations, shortness of breat with exertion or chest pain Psych Psychiatric: No depression, anxiety or hearing voices Resp Respiratory: Yes shortness of breath, No sleep apnea, No cough, No COPD, No asthma, No emphysema, No wheezing Gastro Gastrointestinal: No abdominal pain, No nausea or vomiting, No diarrhea, No constipation, No blood in stool, No acid reflux, No hemorrhoids, No ulcers, No gallbladder problem, No black,tarry stools Anup Hematologic: Yes blood thinners, No blood disorders, No bleeding, No anemia, Yes blood clots Neuro Neurologic: No weakness Exam Const General: cooperative, healthy appearing, comfortable, no acute distress HENMT Head: normal to inspection Eyes General: appearance normal, both eyes and all related structures Neck Neck: normal visual inspection Neck mass: No Chest Breast Palpation: No nipple discharge Resp Effort & Inspection: normal respiratory effort Auscultation: clear to auscultation bilaterally Cardio Rate: regular rate Rhythm: regular rhythm Heart Sounds: murmur GI Inspection: normal to inspection Palpation: soft Auscultation: normal bowel sounds Skin General: no rashes or lesions noted Neuro General: no focal motor deficits, CN's II-XI intact bilaterally Extrem General: normal to inspection Psych Appearance: grossly normal Affect: normal affect Assessment & Plan Problems 1. Chronic renal insufficiency, stage IV (severe) N18.[address] Gloria will plan to perform a laparoscopic peritoneal dialysis placement. Patient will hold his Coumadin 3 days prior to the procedure. Patient will see cardiology next week for cardiac clearance. Procedure details, risks and benefits have been explained to the patient. Patient has had the opportunity to ask and have questions answered. Patient verbally understands and agrees with the plan. Medications New: turmeric mg PO milk thistle 150 mg PO BID levothyroxine PO Coding Level of Care Code No Charge Diagnoses Chronic renal insufficiency, stage IV (severe) N18.4 Comment update H&P 03/31/19 9254 <Electronically signed by Laurie casanova PA-C> Date _ Laurie Robertson PA-C I have re-examined the patient. There are no clinical changes since date of exam.
--- NOTE | 2019-04-29 09:49 | EKG12_ITS ---
Test Reason : PRE OP Blood Pressure : / mmHG Vent. Rate : 065 BPM Atrial Rate : 046 BPM P-R Int : 000 ms QRS Dur : 162 ms QT Int : 474 ms P-R-T Axes : 000 010 008 degrees QTc Int : 492 ms Sinus rhythm with 1st degree AV block or junctional rhythm Right bundle branch block Cannot rule out Inferior infarct , age undetermined Abnormal ECG Confirmed by HERBERT SANCHEZ, FAUZIA ([id number]), mapping editor BAUTISTA BROWNLEE ([id number]) on 05/02/2019 3:42:08 PM Referred By: Anthony Gloria Confirmed By:JUDAH GODINEZ MD
[2019-04-29 10:46] LABS: Hematocrit 33.4 % (40-54); Hemoglobin 10.6 g/dL (13.0-16.5); Mean Corp Hgb Conc 31.7 g/dL (32-36); Mean Corpuscular Hgb 30.2 pg (27.0-32.0); Mean Corpuscular Volume 95.2 fL (80-94); Mean Platelet Vol. 11.5 fl (6.2-12.0); Platelet Count 135 K/mm3 (150-450); RBC Distribution Width CV 14.4 % (11.6-14.6); RBC Distribution Width SD 49.8 fl (35.1-43.9); Red Blood Count 3.51 M/mm3 (4.6-6.2); White Blood Count 7.8 K/mm3 (4.4-11.0)
[2019-04-29 10:49] LABS: Scan Indicated on CBC? Y/N NO
[2019-04-29 11:18] LABS: Anion Gap 8 (5-15); BUN 50 mg/dL (7-18); BUN/Creat Ratio 13.1 RATIO (10-20); Calcium,Total 8.4 mg/dL (8.5-10.1); Chloride 109 mmol/L (98-107); Creatinine, Serum 3.82 mg/dL (0.70-1.30); EST Glomerular Filtration Rate 16 mL/min (>60); Est Glom Filt Rate - Afr Amer 20 mL/min (>60); Glucose 218 mg/dL (74-106); Potassium 4.6 mmol/L (3.5-5.1); Sodium Level 140 mmol/L (136-145)
[2019-05-05 11:11] VITALS: BP 161/51; PULSE 52; RESP 16; TEMP 36.2; O2SAT 100; BMI 25.7
[2019-05-05] MEDS: 0.45% Normal Saline 1,000 ML 30 ML IV (11:28)
[2019-05-05 11:46] LABS: Bedside Glucose 146 mg/dL (70-110)
--- NOTE | 2019-05-05 12:18 | HP.PCM_ITS ---
Problem List (1) Chronic renal insufficiency, stage IV (severe) Status: Chronic History and Physical Date of Admission: 05/05/19 [facility] [address] [place] [address] OFFICE VISIT Date of Service: 03/31/19 MR#:[id number] Name: EVERETTE WILSON #:[id number] : 1935 Provider:Laurie Robertson PA-C Age/Sex: 83/M Location:[facility] Status:Signed Intake Vital Signs 05/05/19 Height 5 ft 7 in 05/05/19 Weight: 167 lb 05/05/19 Body Mass Index (BMI) 27.6 05/05/19 Blood Pressure 161/51 H 05/05/19 Blood Pressure Location Rt brachial 05/05/19 Respiratory Rate 16 05/05/19 Pulse Rate 52 L 05/05/19 Pulse Source Monitor 05/05/19 Temperature 97.1 F L 05/05/19 Pulse Ox 100 05/05/19 Oxygen Delivery Method room air Intake Visit Reasons: Update H & P/Pd Cath Placement needed Chief Complaint: fistula placement Patient Account Liaison Required: No Is patient in pain?: No Allergies No Known Allergies Allergy (Verified 03/31/19 09:42) Medications Magnesium Oxide [Magnesium] 400 mg PO DAILY 04/01/17 [History Confirmed 03/31/19] coenzyme Q10 100 mg capsule 100 mg PO .3Xweek cap 10/08/17 [History Confirmed 03/31/19] linagliptin 5 mg tablet 5 mg PO QDAY 10/08/17 [History Confirmed 03/31/19] warfarin 4 mg tablet 4 mg PO DAILY tab 07/06/18 [History Confirmed 03/31/19] amiodarone 200 mg tablet 200 mg PO QDAY #30 tab 08/02/18 [Rx Confirmed 03/31/19] calcitriol 0.25 mcg capsule 0.25 mcg PO DAILY cap 08/19/18 [History Confirmed 03/31/19] tamsulosin 0.4 mg capsule 0.4 mg PO DAILY 08/19/18 [History Confirmed 03/31/19] insulin detemir (U-100) 100 unit/mL subcutaneous solution 30 unit SC DAILY ml 10/07/18 [History Confirmed 03/31/19] metoprolol tartrate 100 mg tablet 150 mg PO BID #270 tab 10/13/18 [Rx Confirmed 03/31/19] sodium polystyrene sulfonate 15 gram-sorbitol 19.3 g/60 mL oral susp 120 ml PO DAILY 11/12/18 [History Confirmed 03/31/19] amlodipine 5 mg tablet 5 mg PO QDAY #30 tab 12/09/18 [Rx Confirmed 03/31/19] glipizide 5 mg tablet 5 mg PO BID 03/16/19 [History Confirmed 03/31/19] torsemide 20 mg tablet 10 mg PO DAILY #30 tab 03/16/19 [Rx Confirmed 03/31/19] isosorbide mononitrate ER 30 mg tablet,extended release 24 hr 30 mg PO DAILY #90 tab 03/18/19 [Rx Confirmed 03/31/19] levothyroxine PO 03/31/19 [History Confirmed 03/31/19] milk thistle 150 mg capsule 150 mg PO BID 03/31/19 [History Confirmed 03/31/19] turmeric 400 mg capsule mg PO cap 03/31/19 [History Confirmed 03/31/19] [facility] Medical History 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 (Chronic) Chronic renal insufficiency, stage IV (severe) (Acute) SVT (supraventricular tachycardia) (Acute) Right bundle branch block (Acute) Aortic root dilatation (Acute) Paroxysmal atrial fibrillation (Acute) Type II diabetes mellitus (Chronic) Hyperlipidemia (Chronic) Hypertension (Chronic) Fallot tetralogy (Chronic) Atrial fibrillation and flutter (Acute) History of DVT (deep vein thrombosis) (Acute) Hyperkalemia (Acute) Palpitations (Acute) GERD (gastroesophageal reflux disease) (Chronic) Neuropathy (Chronic) Renal cell carcinoma (Chronic) Renal insufficiency (Chronic) Vitamin D deficiency (Chronic) Anemia (Inactive) Hypomagnesemia (Inactive) Surgical History (Updated 03/31/19 @ 10:21 by Jenn Roach) History of partial nephrectomy (Chronic ~02/2019) H/O superior vena cava filter placement (Resolved) History of cholecystectomy (Resolved) History of ventricular septal defect repair (Resolved) Hx of appendectomy (Resolved) Family History Brother Cancer Sister Cancer Sister Hypertension Diabetes Brother Cancer Social History Smoking Status: Never smoker alcohol intake: never substance use type: does not use caffeine: Yes Type: coffee Number of servings: 2 what type of physical activity do you participate in: none seatbelt use: always do you feel safe at home: Yes HPI Surgical H&P: Yes HPI: EVERETTE WILSON, is a 82 M I am following for stage IV renal failure. Patient was electively scheduled for a right radial to cephalic arteriovenous fistula creation with Dr. Gloria on 04/08/18. Patient had an appointment with his pediatric dermatologist who has recommended peritoneal dialysis catheters would be of better benefit with patient's current cardiac condition. Patient does have a history of Fallot tetralogy. Patient also has a history of renal cell carcinoma for which he has had a right partial nephrectomy by Dr. Whitfield. Other abdominal surgeries include appendectomy and cholecystectomy. Patient stated he has had home dialysis education for which he is interested in pursuing. Patient has also discussed this decision with Dr. Lopez, nephrology and Dr. Nicole, sulfuric acid plant supervisor. Patient is currently on Coumadin. His INR is 1.4 today. It was noted a year ago the patient did not qualify for dialysis right away and his procedure was canceled. He returns today for an update history and physical for peritoneal dialysis catheter placement due to worsening creatinine. Patient's previous history per Dr. Gloria: EVERETTE WILSON, is a 82 M who presents to the office today for surgical consultation regarding arterial venous hemodialysis fistula placement for hemodialysis. Very complex individual. He states that he has had repair of tetralogy of flow. He has had problems with diabetes and atrial fibrillation and diverticulosis and GERD and hypertension hyperlipidemia. He has undergone cardiac surgery there has been involvement according to him of his left subclavian vessels. He is right arm dominant. He has had coronary bypass surgery as well. He has got an IVC filter in place. He is on chronic Coumadin anticoagulation. Antihypertensives as well as amiodarone. He has not yet had a upper extremity venous duplex exam. However he does enjoy a satisfying quality of life. Drs include Megan Garcia, John, and Corey The patient is referred for surgical consultation by Dr. Sandy Lopez and a written copy of my surgical consult recommendations will be returned to her ROS General General: Yes fatigue; no weight change, appetite, colon cancer, breast cancer or weakness HEENT HEENT: No difficulty swallowing, eye injury, eye surgery, swollen glands or hoarseness Endo Endocrine: Yes diabetes mellitus; no thyroid disease, thyroid cancer, Hair loss, heat intolerance or cold intolerance Skin Skin: No rash or changing moles Breast Breast: No left breast lump, right breast lump, nipple discharge, breast pain, abnormal mammogram, abnormal US or breast enlargement Musc Musculoskeletal: No back problems, arthritis, rheumatoid arthritis, gout or joint pain Cardio Cardiovascular: Yes murmur, heart disease, atrial fibrillation and high blood pressure; no pacemaker, heart attack, heart stent, palpitations, shortness of breat with exertion or chest pain Psych Psychiatric: No depression, anxiety or hearing voices Resp Respiratory: Yes shortness of breath, No sleep apnea, No cough, No COPD, No asthma, No emphysema, No wheezing Gastro Gastrointestinal: No abdominal pain, No nausea or vomiting, No diarrhea, No constipation, No blood in stool, No acid reflux, No hemorrhoids, No ulcers, No gallbladder problem, No black,tarry stools Anup Hematologic: Yes blood thinners, No blood disorders, No bleeding, No anemia, Yes blood clots Neuro Neurologic: No weakness Exam Const General: cooperative, healthy appearing, comfortable, no acute distress [facility] Head: normal to inspection Eyes General: appearance normal, both eyes and all related structures Neck Neck: normal visual inspection Neck mass: No Chest Breast Palpation: No nipple discharge Resp Effort & Inspection: normal respiratory effort Auscultation: clear to auscultation bilaterally Cardio Rate: regular rate Rhythm: regular rhythm Heart Sounds: murmur GI Inspection: normal to inspection Palpation: soft Auscultation: normal bowel sounds Skin General: no rashes or lesions noted Neuro General: no focal motor deficits, CN's II-XI intact bilaterally Extrem General: normal to inspection Psych Appearance: grossly normal Affect: normal affect Assessment & Plan Problems 1. Chronic renal insufficiency, stage IV (severe) N18.[address] Gloria will plan to perform a laparoscopic peritoneal dialysis placement. Patient will hold his Coumadin 3 days prior to the procedure. Patient will see cardiology next week for cardiac clearance. Procedure details, risks and benefits have been explained to the patient. Patient has had the opportunity to ask and have questions answered. Patient verbally understands and agrees with the plan. Coding Level of Care Code No Charge Diagnoses Chronic renal insufficiency, stage IV (severe) N18.4 Code Visit Inpatient E&M: 84858 Subs Hosp L1 - No charge
[2019-05-05] MEDS: Cefazolin 2 GM in 0.9% Normal Saline 100 ML IV (13:26)
--- NOTE | 2019-05-05 13:32 | DCINST_ITS ---
Discharge Diet: Renal Diet Discharge Activity: May Not Shower May shower in (days): 1 Lifting Restrictions: 10 pounds Call your doctor if your incision/area has: Continuous Slow Oozing, Sudden Increased Bleeding, Increased Pain/ Swelling, Increased Redness, Foul Smelling Discharge Call your doctor if you observe: Fever of 101 or Higher Suture Line Care: Avoid Pulling/Pushing, Avoid Pinching/Bending Additional Dressing/Incision Instructions:: Please leave your abdominal dressings clean dry and intact. Please contact your dialysis center to be seen within 1 week. They will initiate the dressing change and initiate irrigation of your dialysis catheter Allergies/Adverse Reactions: Allergies No Known Allergies Allergy (Verified 05/05/19 10:51) Medications to take at Discharge Magnesium Oxide [Magnesium] 400 mg PO DAILY 04/01/17 coenzyme Q10 100 mg capsule 100 mg PO .3Xweek cap 10/08/17 warfarin 4 mg tablet 4.5 mg PO .4XWEEK tab 07/06/18 amiodarone 200 mg tablet 200 mg PO QDAY #30 tab 08/02/18 calcitriol 0.25 mcg capsule 0.25 mcg PO DAILY cap 08/19/18 tamsulosin 0.4 mg capsule 0.4 mg PO DAILY 08/19/18 metoprolol tartrate 100 mg tablet 150 mg PO BID #270 tab 10/13/18 amlodipine 5 mg tablet 5 mg PO QDAY #30 tab 12/09/18 torsemide 20 mg tablet 10 mg PO DAILY #30 tab 03/16/19 isosorbide mononitrate ER 30 mg tablet,extended release 24 hr 30 mg PO DAILY #90 tab 03/18/19 milk thistle 150 mg capsule 150 mg PO .2XWEEK 03/31/19 turmeric 400 mg capsule 400 mg PO .2XWEEK cap 03/31/19 levothyroxine 50 mcg capsule 50 mcg PO DAILY 04/06/19 Cephalexin [Keflex] 250 mg PO Q12 04/28/19 Clindamycin HCl [Cleocin] 300 mg PO Q6H #28 cap 04/28/19 Clotrimazole [Lotrimin] 1 applicatio TOPICAL BID 04/28/19 Insulin Detemir [Levemir] 0 unit SQ TID 04/28/19 Linagliptin [Tradjenta] 5 mg PO DAILY 04/28/19 Triamcinolone Ointment [Kenalog Ointment] 1 applic TOPICAL BID 04/28/19 Warfarin Sodium [Coumadin] 5.5 mg PO .3XWEEK 04/28/19 Primary Care Physician: Jose Raul Garcia Chi, MD [Primary Care Provider] - Test Results: Test results from this visit will be discussed in further detail at your follow- up appointment, if applicable. Please Follow Up With: Anthony Gloria MD - [phone] When: Call to make an appointment to be seen in about 10 days.
[2019-05-05] MEDS: Heparin Injection (Vial) 5,000 UNIT/ML VIAL 5000 UNIT (14:20)
--- NOTE | 2019-05-05 14:28 | PCM.OPRPT ---
Problem List (1) Chronic renal insufficiency, stage IV (severe) Status: Chronic Report of Operation Date of Procedure: 05/05/19 Pre-Operative Diagnosis: Stage IV chronic renal insufficiency Post-Operative Diagnosis: Same Surgery/Procedure Performed:: Laparoscopic peritoneal dialysis catheter placement. Laparoscopic omentopexy. Lot #[id number]. Expiry date 09/07/2023. Ovarian [place] curl cath double-cuff peritoneal dialysis catheter. Reference #[id number] Description of Surgical Findings:: Timeout and informed consent was obtained. 83-year-old gent was taken out from placement table underwent general endotracheal intubation anesthesia. Ancef 2 g given intravenous preoperatively. The abdomen sterilely prepped draped. Ioban draping was utilized as well. Superior and slightly to the right of the umbilicus local was instilled and a 5 mm Visiport technology was used to gain access to the abdomen. Clean access was achieved. The abdomen was insufflated with CO2 to pressure of 10 minutes mercury pressure. 5-minute trocar inserted. Additional 5-minute trochars placed in the right lower quadrant. Inspection revealed some adhesions to the anterior abdominal wall these were transected with electrocautery to allow for visualization of the pelvis. The patient was placed in Trendelenburg position and in the suprapubic position there was some very mild adhesions involving the sigmoid colon I sharply lysed those. The pelvic hollow was not very deep with further deeper placed adhesions sigmoid colon but I felt there was an adequate space to allow for placement of the catheter. Appropriate measurements were made. Inferior to the left the umbilicus transverse incision was created sharply second down to the rectus fascia at the dilating varies needle was inserted and then an 8 mm trocar dilator was inserted through it this was tunneled for at least 6 cm from the left lower quadrant periumbilical area down straight to the suprapubic area. The [place] cuff catheter was placed on a straight insert inserting stylette was placed through the trocar and advanced to the pelvis. He was placed at that the internal cuff was just beneath that he retroperitoneum it appeared to be in good position. Externally then the external cuff was tunneled so that it exited in the left lower quadrant at a 30 degree angle. The skin site was closed with interrupted 4-0 Monocryl. Inspection revealed that the greater omentum could potentially reach the pelvis showed omental pexy was performed. A stab incision was made in the left abdomen and using a 0 Prolene the omentum was parachuted upon the grainy needle and then that suture was secured in the left midabdomen securing the omentum so as prohibiting it from being able to reach the pelvis. Hemostasis was nicely intact. A liter of fluid was insufflated insufflated well at least a good 500 cc returned. I felt that it was in good position and functioning adequately. 100 cc of heparinized saline was injected through the tubing after the titanium connection device was applied. Then a Betadine Was placed. The rest of the wounds were closed with interrupted 4 Monocryl subdermal stitches. Steri-Strips Telfa dressings applied. A silver impregnated dressing was placed at the catheter exit site. Generous dressings were applied completely occluding access to the catheter with a oversized OpSite dressing. Sponge and instrument and needle counts were reported the surgeon be correct. Blood loss minimal. He tolerated the procedure well was taken to the recovery area in satisfactory condition. 0.55% Marcaine was used as local anesthetic. Throughout the procedure a 4 cc was used. Specimens none. Drains none. Blood loss minimal. Anthony Gloria M.D., F.A.C.S. Type of Anesthesia:: General Anesthesiologist: Elysia Adkins
[2019-05-05] MEDS: Bupivacaine Mpf 0.5% 30 ML VIAL (14:30)
[2019-05-05 14:48] VITALS: BP 149/60; BP 161/51; PULSE 62; RESP 16; TEMP 36.1; O2SAT 91
[2019-05-05 15:00] VITALS: BP 150/64; BP 161/51; PULSE 59; RESP 16; TEMP 36.3; O2SAT 99
[2019-05-05 15:15] VITALS: BP 152/55; BP 161/51; PULSE 54; RESP 16; O2SAT 97
[2019-05-05 15:33] VITALS: BP 146/55; BP 161/51; PULSE 55; RESP 16; TEMP 36.1; O2SAT 97
[2019-05-05 15:46] LABS: Bedside Glucose 156 mg/dL (70-110)
[2019-05-05] MEDS: HYDROcodone Bitartrate/Apap 5/325 Tablet PO (16:29)
[2019-05-05 17:15] VITALS: BP 133/48; BP 161/51; PULSE 59; RESP 18; TEMP 36.1; O2SAT 94
== END 2019-05-05 17:30 | disposition home or self-care (01) ==
LOC: SDC 10:47 → AC 10:47
PROVIDERS: Family Provider Family Medicine Geriatric Medicine; PCP Family Medicine Geriatric Medicine; Referring Provider Surgery; Visit Provider Surgery
PROC: 0WHG43Z Insertion of Infusion Device into Peritoneal Cavity, Percutaneous Endoscopic Approach (ICD-10-PCS; CPT 49324; principal; 2019-05-05 12:45)
DX: I12.9 Hypertensive chronic kidney disease with stage 1 through stage 4 chronic kidney disease, or unspecified chronic kidney disease (principal); N18.4 Chronic kidney disease, stage 4 (severe); E11.22 Type 2 diabetes mellitus with diabetic chronic kidney disease; I48.0 Paroxysmal atrial fibrillation; E78.5 Hyperlipidemia, unspecified; K21.9 Gastro-esophageal reflux disease without esophagitis; E55.9 Vitamin D deficiency, unspecified; Z90.5 Acquired absence of kidney; Z85.528 Personal history of other malignant neoplasm of kidney; Z95.1 Presence of aortocoronary bypass graft; Z86.718 Personal history of other venous thrombosis and embolism; Z79.01 Long term (current) use of anticoagulants; Z79.4 Long term (current) use of insulin; Z79.899 Other long term (current) drug therapy; E06.9 Thyroiditis, unspecified
CPT/HCPCS: 00840; 49324; 49326; 36415; 80048; 82962; 85027; 93005; J2405

== ENCOUNTER 2019-05-11 13:26 | Day surgery (SDC) | payer MEDICARE, OTHER, SELFPAY ==
[2019-05-11] VITALS (11 sets, daily range): BP systolic 136–151; BP diastolic 43–65; PULSE 53–57; RESP 16; TEMP 36.1–36.2; O2SAT 92–96; BMI 25.7; BMI 26.1
--- NOTE | 2019-05-11 12:23 | PCM.HP.BLA ---
Problem List (1) Ascites Status: Acute (2) Chronic renal insufficiency, stage IV (severe) Status: Chronic History and Physical Date of Admission: 05/11/19 [facility] 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 Is patient in pain?: No Allergies No Known Allergies Allergy (Verified 05/11/19 11:12) Medications Magnesium Oxide [Magnesium] 400 mg PO DAILY 04/01/17 [History Confirmed 05/11/19] coenzyme Q10 100 mg capsule 100 mg PO .3Xweek cap 10/08/17 [History Confirmed 05/11/19] warfarin 4 mg tablet 4.5 mg PO .4XWEEK tab 07/06/18 [History Confirmed 05/11/19] amiodarone 200 mg tablet 200 mg PO QDAY #30 tab 08/02/18 [Rx Confirmed 05/11/19] calcitriol 0.25 mcg capsule 0.25 mcg PO DAILY cap 08/19/18 [History Confirmed 05/11/19] tamsulosin 0.4 mg capsule 0.4 mg PO DAILY 08/19/18 [History Confirmed 05/11/19] metoprolol tartrate 100 mg tablet 150 mg PO BID #270 tab 10/13/18 [Rx Confirmed 05/11/19] amlodipine 5 mg tablet 5 mg PO QDAY #30 tab 12/09/18 [Rx Confirmed 05/11/19] torsemide 20 mg tablet 10 mg PO DAILY #30 tab 03/16/19 [Rx Confirmed 05/11/19] isosorbide mononitrate ER 30 mg tablet,extended release 24 hr 30 mg PO DAILY #90 tab 03/18/19 [Rx Confirmed 05/11/19] milk thistle 150 mg capsule 150 mg PO .2XWEEK 03/31/19 [History Confirmed 05/11/19] turmeric 400 mg capsule 400 mg PO .2XWEEK cap 03/31/19 [History Confirmed 05/11/19] levothyroxine 50 mcg capsule 50 mcg PO DAILY 04/06/19 [History Confirmed 05/11/19] Clotrimazole [Lotrimin] 1 applicatio TOPICAL BID 04/28/19 [History Confirmed 05/11/19] Insulin Detemir [Levemir] 0 unit SQ TID 04/28/19 [History Confirmed 05/11/19] Linagliptin [Tradjenta] 5 mg PO DAILY 04/28/19 [History Confirmed 05/11/19] Warfarin Sodium [Coumadin] 5.5 mg PO .3XWEEK 04/28/19 [History Confirmed 05/11/19] [facility] Medical History 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 (Chronic) Chronic renal insufficiency, stage IV (severe) (Chronic) SVT (supraventricular tachycardia) (Chronic) Right bundle branch block (Chronic) Aortic root dilatation (Chronic) Paroxysmal atrial fibrillation (Chronic) Type II diabetes mellitus (Chronic) Hyperlipidemia (Chronic) Hypertension (Chronic) Fallot tetralogy (Chronic) Hyperkalemia (Acute) GERD (gastroesophageal reflux disease) (Chronic) Neuropathy (Chronic) Renal cell carcinoma (Chronic) Renal insufficiency (Chronic) Vitamin D deficiency (Chronic) History of DVT (deep vein thrombosis) (Resolved) Palpitations (Resolved) Anemia (Inactive) Atrial fibrillation and flutter (Inactive) Hypomagnesemia (Inactive) Surgical History History of partial nephrectomy (Chronic ~02/2019) H/O superior vena cava filter placement (Resolved) History of cholecystectomy (Resolved) History of ventricular septal defect repair (Resolved) Hx of appendectomy (Resolved) Family History Brother Cancer Sister Cancer Sister Hypertension Diabetes Brother Cancer Social History (Updated 05/11/19 @ 12:22 by Laurie Robertson PA-C) Smoking Status: Never smoker alcohol intake: never substance use type: does not use caffeine: Yes Type: coffee Number of servings: 2 what type of physical activity do you participate in: none seatbelt use: always do you feel safe at home: Yes HPI HPI Surgical H&P: Yes HPI: EVERETTE WILSON, is a 83 M who presents to the office today for continued leaking around his peritoneal dialysis catheter. Dr. Gloria placed peritoneal dialysis catheters on 05/05/19. Patient had urinary retention following the procedure and had a catheter placed. Patient noted last Thursday he was leaking for which he thought may have been urine. Patient came into the office and was noted to be leaking ascites around the peritoneal dialysis catheter. Dr. Gloria placed two sutures. Patient called into our office today noting increased leaking despite the sutures being placed. Patient has returned to taking his Coumadin. ROS General General: Yes fatigue; no weight change, appetite, colon cancer, breast cancer or weakness HEENT HEENT: No difficulty swallowing, eye injury, eye surgery, swollen glands or hoarseness Endo Endocrine: Yes diabetes mellitus; no thyroid disease, thyroid cancer, Hair loss, heat intolerance or cold intolerance Skin Skin: No rash or changing moles Breast Breast: No left breast lump, right breast lump, nipple discharge, breast pain, abnormal mammogram, abnormal US or breast enlargement Musc Musculoskeletal: No back problems, arthritis, rheumatoid arthritis, gout or joint pain Cardio Cardiovascular: Yes murmur, heart disease, atrial fibrillation and high blood pressure; no pacemaker, heart attack, heart stent, palpitations, shortness of breat with exertion or chest pain Psych Psychiatric: No depression, anxiety or hearing voices Resp Respiratory: Yes shortness of breath, No sleep apnea, No cough, No COPD, No asthma, No emphysema, No wheezing Gastro Gastrointestinal: No abdominal pain, No nausea or vomiting, No diarrhea, No constipation, No blood in stool, No acid reflux, No hemorrhoids, No ulcers, No gallbladder problem, No black,tarry stools Anup Hematologic: Yes blood thinners, No blood disorders, No bleeding, No anemia, Yes blood clots Neuro Neurologic: No weakness Exam Const General: cooperative, healthy appearing, comfortable, no acute distress HENTN Head: normal to inspection Eyes General: appearance normal, both eyes and all related structures Neck Neck: normal visual inspection Neck mass: No Chest Breast Palpation: No nipple discharge Resp Effort & Inspection: normal respiratory effort Auscultation: clear to auscultation bilaterally Cardio Heart Sounds: murmur GI Inspection: distended Palpation: soft Auscultation: normal bowel sounds Other: Peritoneal dialysis catheters with slow active draining from around the dialysis catheter. He has not utilized the catheter yet. ABD dressing was applied. Skin General: no rashes or lesions noted Neuro General: no focal motor deficits, CN's II-XI intact bilaterally Extrem General: normal to inspection Psych Appearance: grossly normal Affect: normal affect Assessment & Plan Problems 1. Chronic renal insufficiency, stage IV (severe) N18.4 2. Other ascites R18.8 Plan - YUNIOR Ruelas Dr. will plan to perform an abdominal wound exploration with fascial suture placement to assist with decreasing/stopping the leaking ascites. Procedure details, risks and benefits have been explained to the patient. He has had the opportunity to ask and have questions answered. Patient verbally understands and agrees to proceed with the proposed procedure. He is currently on his Coumadin. Coding Level of Care Code Global Post Op Diagnoses Chronic renal insufficiency, stage IV (severe) N18.4 Other ascites R18.8 Ascites type: other type Code Visit Inpatient E&M: 17246 Subs Hosp L1 - No charge
[2019-05-11] MEDS: Lactated Ringers 1,000 ML 100 ML IV (14:15)
[2019-05-11 14:21] LABS: Bedside Glucose 168 mg/dL (70-110)
--- NOTE | 2019-05-11 14:48 | HP.PCM_ITS ---
Problem List (1) Ascites Status: Acute Qualifiers: Ascites type: other type Qualified Code(s): R18.8 - Other ascites History and Physical Date of Admission: 05/11/19 Patient Name: EVERETTE WILSON Record Number: [id number] Date of : 1935 Patient Status: Ambulatory Office Visit Attending Provider: Anthony Gloria Date: 05/11/19 11:11 Initialization Date: 05/11/19 11:11 Intake Vital Signs 05/11/19 Body Mass Index (BMI) 25.7 05/11/19 Blood Pressure 185/73 H 05/11/19 Blood Pressure Location Rt brachial 05/11/19 Blood Pressure Position Supine 05/11/19 Respiratory Rate 20 H 05/11/19 Pulse Rate 59 L 05/11/19 Pulse Ox 98 Intake Visit Reasons: check dressing Chief Complaint: wound check--dressing change 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 Is patient in pain?: No Allergies No Known Allergies Allergy (Verified 05/11/19 11:12) Medications Magnesium Oxide [Magnesium] 400 mg PO DAILY 04/01/17 [History Confirmed 05/11/19] coenzyme Q10 100 mg capsule 100 mg PO .3Xweek cap 10/08/17 [History Confirmed 05/11/19] warfarin 4 mg tablet 4.5 mg PO .4XWEEK tab 07/06/18 [History Confirmed 05/11/19] amiodarone 200 mg tablet 200 mg PO QDAY #30 tab 08/02/18 [Rx Confirmed 05/11/19] calcitriol 0.25 mcg capsule 0.25 mcg PO DAILY cap 08/19/18 [History Confirmed 05/11/19] tamsulosin 0.4 mg capsule 0.4 mg PO DAILY 08/19/18 [History Confirmed 05/11/19] metoprolol tartrate 100 mg tablet 150 mg PO BID #270 tab 10/13/18 [Rx Confirmed 05/11/19] amlodipine 5 mg tablet 5 mg PO QDAY #30 tab 12/09/18 [Rx Confirmed 05/11/19] torsemide 20 mg tablet 10 mg PO DAILY #30 tab 03/16/19 [Rx Confirmed 05/11/19] isosorbide mononitrate ER 30 mg tablet,extended release 24 hr 30 mg PO DAILY #90 tab 03/18/19 [Rx Confirmed 05/11/19] milk thistle 150 mg capsule 150 mg PO .2XWEEK 03/31/19 [History Confirmed 05/11/19] turmeric 400 mg capsule 400 mg PO .2XWEEK cap 03/31/19 [History Confirmed 05/11/19] levothyroxine 50 mcg capsule 50 mcg PO DAILY 04/06/19 [History Confirmed 05/11/19] Clotrimazole [Lotrimin] 1 applicatio TOPICAL BID 04/28/19 [History Confirmed 05/11/19] Insulin Detemir [Levemir] 0 unit SQ TID 04/28/19 [History Confirmed 05/11/19] Linagliptin [Tradjenta] 5 mg PO DAILY 04/28/19 [History Confirmed 05/11/19] Warfarin Sodium [Coumadin] 5.5 mg PO .3XWEEK 04/28/19 [History Confirmed 05/11/19] [facility] Medical History 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 (Chronic) Chronic renal insufficiency, stage IV (severe) (Chronic) SVT (supraventricular tachycardia) (Chronic) Right bundle branch block (Chronic) Aortic root dilatation (Chronic) Paroxysmal atrial fibrillation (Chronic) Type II diabetes mellitus (Chronic) Hyperlipidemia (Chronic) Hypertension (Chronic) Fallot tetralogy (Chronic) Hyperkalemia (Acute) GERD (gastroesophageal reflux disease) (Chronic) Neuropathy (Chronic) Renal cell carcinoma (Chronic) Renal insufficiency (Chronic) Vitamin D deficiency (Chronic) History of DVT (deep vein thrombosis) (Resolved) Palpitations (Resolved) Anemia (Inactive) Atrial fibrillation and flutter (Inactive) Hypomagnesemia (Inactive) Surgical History History of partial nephrectomy (Chronic ~02/2019) H/O superior vena cava filter placement (Resolved) History of cholecystectomy (Resolved) History of ventricular septal defect repair (Resolved) Hx of appendectomy (Resolved) Family History Brother Cancer Sister Cancer Sister Hypertension Diabetes Brother Cancer Social History (Updated 05/11/19 @ 12:22 by Laurie Robertson PA-C) Smoking Status: Never smoker alcohol intake: never substance use type: does not use caffeine: Yes Type: coffee Number of servings: 2 what type of physical activity do you participate in: none seatbelt use: always do you feel safe at home: Yes HPI HPI HPI: EVERETTE WILSON is a 83 M who presents to the office today for HPI HPI Surgical H&P: Yes HPI: EVERETTE WILSON is a 83 M who presents to the office today for continued leaking around his peritoneal dialysis catheter. Dr. Gloria placed peritoneal dialysis catheters on 05/05/19. Patient had urinary retention following the procedure and had a catheter placed. Patient noted last Thursday he was leaking for which he thought may have been urine. Patient came into the office and was noted to be leaking ascites around the peritoneal dialysis catheter. Dr. Gloria placed two sutures. Patient called into our office today noting increased leaking despite the sutures being placed. Patient has returned to taking his Coumadin. ROS General General: Yes fatigue; no weight change, appetite, colon cancer, breast cancer or weakness HEENT HEENT: No difficulty swallowing, eye injury, eye surgery, swollen glands or hoarseness Endo Endocrine: Yes diabetes mellitus; no thyroid disease, thyroid cancer, Hair loss, heat intolerance or cold intolerance Skin Skin: No rash or changing moles Breast Breast: No left breast lump, right breast lump, nipple discharge, breast pain, abnormal mammogram, abnormal US or breast enlargement Musc Musculoskeletal: No back problems, arthritis, rheumatoid arthritis, gout or joint pain Cardio Cardiovascular: Yes murmur, heart disease, atrial fibrillation and high blood pressure; no pacemaker, heart attack, heart stent, palpitations, shortness of breat with exertion or chest pain Psych Psychiatric: No depression, anxiety or hearing voices Resp Respiratory: Yes shortness of breath, No sleep apnea, No cough, No COPD, No asthma, No emphysema, No wheezing Gastro Gastrointestinal: No abdominal pain, No nausea or vomiting, No diarrhea, No constipation, No blood in stool, No acid reflux, No hemorrhoids, No ulcers, No gallbladder problem, No black,tarry stools Anup Hematologic: Yes blood thinners, No blood disorders, No bleeding, No anemia, Yes blood clots Neuro Neurologic: No weakness Exam Const General: cooperative, healthy appearing, comfortable, no acute distress [facility] Head: normal to inspection Eyes General: appearance normal, both eyes and all related structures Neck Neck: normal visual inspection Neck mass: No Chest Breast Palpation: No nipple discharge Resp Effort & Inspection: normal respiratory effort Auscultation: clear to auscultation bilaterally Cardio Heart Sounds: murmur GI Inspection: distended Palpation: soft Auscultation: normal bowel sounds Other: Peritoneal dialysis catheters with slow active draining from around the dialysis catheter. He has not utilized the catheter yet. ABD dressing was applied. Skin General: no rashes or lesions noted Neuro General: no focal motor deficits, CN's II-XI intact bilaterally Extrem General: normal to inspection Psych Appearance: grossly normal Affect: normal affect Assessment & Plan Problems 1. Chronic renal insufficiency, stage IV (severe) N18.4 2. Other ascites R18.8 Plan - YUNIOR Ruelas Dr. will plan to perform an abdominal wound exploration. Procedure details, risks and benefits have been explained to the patient. He has had the opportunity to ask and have questions answered. Patient verbally understands and agrees to proceed with the proposed procedure. He is currently on his Coumadin. Coding Level of Care Code Global Post Op Diagnoses Chronic renal insufficiency, stage IV (severe) N18.4 Other ascites R18.8 ??Ascites type: other type I have re-examined the patient. There are no clinical changes since date of exam.
[2019-05-11] MEDS: Cefazolin 2 GM in 0.9% Normal Saline 100 ML IV (14:58)
--- NOTE | 2019-05-11 15:07 | DCINST_ITS ---
Discharge Diet: Renal Diet Discharge Activity: May Not Drive, May Not Shower - Resume your previous postoperative orders. Please keep your dressings clean dry and intact. Reschedule your dialysis appointment for 1 week Lifting Restrictions: 10 pounds Call your doctor if your incision/area has: Continuous Slow Oozing, Sudden Increased Bleeding, Increased Pain/ Swelling, Increased Redness, Foul Smelling Discharge Call your doctor if you observe: Fever of 101 or Higher Suture Line Care: Avoid Pulling/Pushing, Avoid Pinching/Bending Allergies/Adverse Reactions: Allergies No Known Allergies Allergy (Verified 05/11/19 13:49) Medications to take at Discharge RX: Magnesium Oxide [Magnesium] 400 mg PO DAILY 04/01/17 coenzyme Q10 100 mg capsule 100 mg PO .3Xweek cap 10/08/17 warfarin 4 mg tablet 4.5 mg PO .4XWEEK tab 07/06/18 amiodarone 200 mg tablet 200 mg PO QDAY #30 tab 08/02/18 calcitriol 0.25 mcg capsule 0.25 mcg PO DAILY cap 08/19/18 tamsulosin 0.4 mg capsule 0.4 mg PO DAILY 08/19/18 metoprolol tartrate 100 mg tablet 150 mg PO BID #270 tab 10/13/18 amlodipine 5 mg tablet 5 mg PO QDAY #30 tab 12/09/18 torsemide 20 mg tablet 10 mg PO DAILY #30 tab 03/16/19 isosorbide mononitrate ER 30 mg tablet,extended release 24 hr 30 mg PO DAILY #90 tab 03/18/19 milk thistle 150 mg capsule 150 mg PO .2XWEEK 03/31/19 turmeric 400 mg capsule 400 mg PO .2XWEEK cap 03/31/19 levothyroxine 50 mcg capsule 50 mcg PO DAILY 04/06/19 RX: Clotrimazole [Lotrimin] 1 applicatio TOPICAL BID 04/28/19 RX: Insulin Detemir [Levemir] 0 unit SQ TID 04/28/19 RX: Linagliptin [Tradjenta] 5 mg PO DAILY 04/28/19 RX: Warfarin Sodium [Coumadin] 5.5 mg PO .3XWEEK 04/28/19 Primary Care Physician: Jose Raul Garcia Chi, MD [Primary Care Provider] - Test Results: Test results from this visit will be discussed in further detail at your follow- up appointment, if applicable. Please Follow Up With: Anthony Gloria MD - [phone] When: Call to make an appointment to be seen in about 7 days.
[2019-05-11] MEDS: Bupivacaine Mpf 0.5% 30 ML VIAL (15:18)
[2019-05-11] MEDS: Heparin Injection (Vial) 5,000 UNIT/ML VIAL 5000 UNIT (15:25)
--- NOTE | 2019-05-11 15:35 | PCM.OPRPT ---
Problem List (1) Ascites Status: Acute Qualifiers: Ascites type: other type Qualified Code(s): R18.8 - Other ascites Report of Operation Date of Procedure: 05/11/19 Pre-Operative Diagnosis: Pericatheter ascitic fluid leakage Post-Operative Diagnosis: Same Surgery/Procedure Performed:: Catheter exploration with pursestring securement Description of Surgical Findings:: Timeout and informed consent was obtained. 83-year-old gentleman was taken to the operating placement table. Ancef 2 g given intravenously. The abdomen was sterilely prepped and draped. He underwent monitored anesthesia care local anesthetic. 10 cc of 1% lidocaine mixed 50-50 with 0.5% Marcaine was used. The incision inferior into the left of the umbilicus was reopened. Identified the catheter. I identified rectus fascia. I then used a 2-0 Vicryl in a pursestring fashion I resecured around the catheter. I actually did that twice with 2 separate 2-0 Vicryl sutures. I could not detect any ongoing leak. That wound was closed with a running subcuticular 4-0 Monocryl. Steri-Strips Telfa OpSite dressing applied. The catheter was flushed with heparinized saline 40 cc and flushed easily. Silver impregnated dressings were applied followed by 4 x 4's and ABDs and OpSite. Blood loss was very minimal. No apparent complications. He was taken to the recovery area in satisfactory condition. Specimens none. Drains none. Blood loss minimal. Anthony Gloria M.D., F.A.C.S. Type of Anesthesia:: Local MAC Anesthesiologist: Tato Lindsay
== END 2019-05-11 17:19 | disposition home or self-care (01) ==
LOC: SDC 13:28 → AC 13:29
PROVIDERS: Family Provider Family Medicine Geriatric Medicine; PCP Family Medicine Geriatric Medicine; Referring Provider Surgery; Visit Provider Surgery
PROC: (CPT 49999; principal; 2019-05-11 14:50)
DX: T85.898A Other specified complication of other internal prosthetic devices, implants and grafts, initial encounter (principal); R18.8 Other ascites; I12.9 Hypertensive chronic kidney disease with stage 1 through stage 4 chronic kidney disease, or unspecified chronic kidney disease; E11.22 Type 2 diabetes mellitus with diabetic chronic kidney disease; N18.4 Chronic kidney disease, stage 4 (severe); I48.0 Paroxysmal atrial fibrillation; E78.5 Hyperlipidemia, unspecified; K21.9 Gastro-esophageal reflux disease without esophagitis; E11.40 Type 2 diabetes mellitus with diabetic neuropathy, unspecified; E55.9 Vitamin D deficiency, unspecified; E06.9 Thyroiditis, unspecified; I25.2 Old myocardial infarction; Z99.2 Dependence on renal dialysis; Z86.718 Personal history of other venous thrombosis and embolism; Z85.528 Personal history of other malignant neoplasm of kidney; Z79.4 Long term (current) use of insulin; Z79.01 Long term (current) use of anticoagulants; Z79.899 Other long term (current) drug therapy
CPT/HCPCS: 49999; 82962; J7120; J2405

== ENCOUNTER 2019-05-20 13:56 | Outpatient (RCR) | payer MEDICARE, OTHER, SELFPAY ==
[2019-04-06 12:44] VITALS: BMI 26.2
[2019-05-13 13:50] VITALS: BMI 26.1
[2019-05-20 15:22] LABS: International Normalized Ratio 2.1; Prothrombin Time (Protime)PT. 23.7 SECONDS (11.7-14.9)
== END 2019-05-20 18:00 | disposition home or self-care (01) ==
LOC: LAB 13:56
PROVIDERS: Family Provider Family Medicine Geriatric Medicine; PCP Family Medicine Geriatric Medicine; Referring Provider Physician Assistant Medical; Visit Provider Physician Assistant Medical
DX: I50.9 Heart failure, unspecified (principal); E03.9 Hypothyroidism, unspecified
CPT/HCPCS: 36415; 84443; 85610

== ENCOUNTER 2019-06-17 12:57 | Outpatient (RCR) | payer MEDICARE, OTHER, SELFPAY ==
[2019-05-13 13:50] VITALS: BMI 26.1
[2019-06-17 13:39] LABS: International Normalized Ratio 1.8; Prothrombin Time (Protime)PT. 20.4 SECONDS (11.7-14.9)
[2019-06-17 13:49] LABS: Albumin, Serum 2.9 g/dL (3.2-5.0); BUN 49 mg/dL (7-18); BUN/Creat Ratio 13.6 RATIO (10-20); Calcium,Total 8.6 mg/dL (8.5-10.1); Chloride 109 mmol/L (98-107); EST Glomerular Filtration Rate 17 mL/min (>60); Est Glom Filt Rate - Afr Amer 21 mL/min (>60); Glucose 192 mg/dL (74-106); Phosphorus 3.8 mg/dL (2.5-4.9); Sodium Level 140 mmol/L (136-145)
[2019-06-17 13:52] LABS: Hematocrit 35.6 % (40-54); Mean Corp Hgb Conc 30.9 g/dL (32-36); Mean Corpuscular Hgb 29.7 pg (27.0-32.0); Mean Corpuscular Volume 96.2 fL (80-94); Mean Platelet Vol. 11.9 fl (6.2-12.0); Platelet Count 129 K/mm3 (150-450); RBC Distribution Width CV 13.5 % (11.6-14.6); RBC Distribution Width SD 48.2 fl (35.1-43.9); White Blood Count 6.5 K/mm3 (4.4-11.0)
[2019-06-17 13:57] LABS: PTHIN 144.1 pg/mL (18.4-80.1)
== END 2019-06-17 18:00 | disposition home or self-care (01) ==
LOC: LAB 12:57
PROVIDERS: Family Provider Family Medicine Geriatric Medicine; PCP Family Medicine Geriatric Medicine; Referring Provider Physician Assistant Medical; Visit Provider Physician Assistant Medical
DX: I50.9 Heart failure, unspecified (principal); N18.5 Chronic kidney disease, stage 5; D63.8 Anemia in other chronic diseases classified elsewhere; N25.81 Secondary hyperparathyroidism of renal origin
CPT/HCPCS: 36415; 80069; 83970; 85027; 85610

== ENCOUNTER → 2019-06-23 | Outpatient (CLI) | payer MEDICARE, OTHER, SELFPAY ==
[2019-05-13 13:50] VITALS: BMI 26.1
[2019-06-23 12:40] LABS: Absolute Lymphocyte Count 1.12 X10^3/uL (0.83-4.51); Absolute Neutrophil Count 6.1 X10^3/uL (2.0-7.7); Basophil% 1.2 % (0-1); Eosinophils% 4.8 % (0-5); Hematocrit 35.5 % (40-54); Hemoglobin 11.1 g/dL (13.0-16.5); Lymphocyte # 1.12 X10^3/ul (4.0); Lymphocyte % 13.4 % (19-41); Mean Corp Hgb Conc 31.3 g/dL (32-36); Mean Corpuscular Volume 95.9 fL (80-94); Mean Platelet Vol. 11.8 fl (6.2-12.0); Monocyte# 0.51 X10^3/uL; Monocyte% 6.1 % (0-10); NRBC Flagged by Analyzer 0 % (0-5); Neutrophil # 6.14 X10^3/uL (2.7-7.7); Neutrophil % 73.8 % (47-70); Platelet Count 155 K/mm3 (150-450); RBC Distribution Width CV 13.5 % (11.6-14.6); RBC Distribution Width SD 47.2 fl (35.1-43.9); White Blood Count 8.3 K/mm3 (4.4-11.0)
[2019-06-23 12:57] LABS: ALB/GLOB Ratio 0.8 RATIO (0.9-2.4); AST(SGOT) 49 U/L (15-37); Alanine Aminotransfer ALT/SGPT 37 U/L (16-61); Albumin, Serum 2.9 g/dL (3.2-5.0); Alkaline Phosphatase 124 U/L (45-117); Anion Gap 7 (5-15); BUN 39 mg/dL (7-18); BUN/Creat Ratio 11.4 RATIO (10-20); Calcium,Total 8.5 mg/dL (8.5-10.1); Chloride 107 mmol/L (98-107); Creatinine, Serum 3.42 mg/dL (0.70-1.30); EST Glomerular Filtration Rate 18 mL/min (>60); Est Glom Filt Rate - Afr Amer 22 mL/min (>60); Globulin 3.8 g/dL (2.2-4.2); Glucose 181 mg/dL (74-106); Potassium 5.1 mmol/L (3.5-5.1); Protein, Total 6.7 g/dL (6.4-8.2); Sodium Level 138 mmol/L (136-145); Thyroid Stim Hormone (TSH) 4.63 uIU/mL (0.358-3.74)
[2019-06-23 13:00] LABS: Vitamin D,25 Hydroxy 22.3 ng/mL (29.95-100.01)
== END | disposition home or self-care (01) ==
LOC: POLAB3 10:50
PROVIDERS: Family Provider Family Medicine Geriatric Medicine; PCP Family Medicine Geriatric Medicine; Visit Provider Family Medicine Geriatric Medicine
DX: E11.9 Type 2 diabetes mellitus without complications (principal); E55.9 Vitamin D deficiency, unspecified; I10 Essential (primary) hypertension
CPT/HCPCS: 36415; 80053; 82306; 84443; 85025

== ENCOUNTER → 2019-07-18 11:54 | Outpatient (CLI) | payer MEDICARE, OTHER, SELFPAY ==
[2019-05-13 13:50] VITALS: BMI 26.1
[2019-07-18 12:43] LABS: International Normalized Ratio 2.1; Prothrombin Time (Protime)PT. 23.4 SECONDS (11.7-14.9)
== END ==
PROVIDERS: Family Provider Family Medicine Geriatric Medicine; PCP Family Medicine Geriatric Medicine; Visit Provider Internal Medicine Cardiovascular Disease
DX: I50.9 Heart failure, unspecified (principal)
CPT/HCPCS: 36415; 85610

== ENCOUNTER → 2019-08-08 11:26 | Outpatient (CLI) | payer MEDICARE, OTHER, SELFPAY ==
[2019-05-13 13:50] VITALS: BMI 26.1
--- NOTE | 2019-08-08 11:41 | RAD_ITS ---
STUDY: X-RAY CHEST REASON FOR EXAM: Male, 83 years old. KIDNEY CANCER TECHNIQUE: PA and lateral views of the chest. COMPARISON: 02/10/2018. FINDINGS: The lungs are normally expanded with bilateral apical pleural thickening, left worse than right and stable in the interval. Lungs otherwise are clear. There is no other demonstrated pleural abnormality. No pneumothorax or pleural effusion. There is borderline cardiomegaly. Midline sternotomy wires noted. Normal mediastinum and cass. Normal visualized pulmonary arteries. There is atherosclerotic calcification of the aortic arch with tortuosity. There is demineralization of the osseous structures. There is degenerative osteoarthritis of the bilateral shoulders. Right upper quadrant cholecystectomy clips. RAD/Chest PA and Lateral IMPRESSION: No acute cardiopulmonary disease. Electronically Signed: Tameka Kim MD at 1:16 EST , Service support ,
[2019-08-08 12:32] LABS: Hemoglobin 11.7 g/dL (13.0-16.5); Mean Corp Hgb Conc 30.8 g/dL (32-36); Mean Corpuscular Volume 94.3 fL (80-94); Mean Platelet Vol. 11.5 fl (6.2-12.0); Platelet Count 168 K/mm3 (150-450); RBC Distribution Width CV 13.5 % (11.6-14.6); RBC Distribution Width SD 46.9 fl (35.1-43.9); Red Blood Count 4.03 M/mm3 (4.6-6.2); White Blood Count 8.9 K/mm3 (4.4-11.0)
[2019-08-08 13:00] LABS: Albumin, Serum 2.9 g/dL (3.2-5.0); BUN 41 mg/dL (7-18); BUN/Creat Ratio 12.1 RATIO (10-20); Calcium,Total 8.6 mg/dL (8.5-10.1); Chloride 108 mmol/L (98-107); EST Glomerular Filtration Rate 18 mL/min (>60); Est Glom Filt Rate - Afr Amer 22 mL/min (>60); Glucose 126 mg/dL (74-106); Phosphorus 3.4 mg/dL (2.5-4.9); Potassium 5.3 mmol/L (3.5-5.1); Sodium Level 139 mmol/L (136-145); Thyroid Stim Hormone (TSH) 4.25 uIU/mL (0.358-3.74)
[2019-08-08 13:02] LABS: Vitamin D,25 Hydroxy 15.4 ng/mL (29.95-100.01)
== END ==
LOC: LAB.FUTURE 11:28 → LAB 11:55
PROVIDERS: Family Provider Family Medicine Geriatric Medicine; PCP Family Medicine Geriatric Medicine; Referring Provider Internal Medicine Nephrology; Visit Provider Internal Medicine Nephrology
DX: C64.1 Malignant neoplasm of right kidney, except renal pelvis (principal); N18.5 Chronic kidney disease, stage 5; E03.9 Hypothyroidism, unspecified; N25.81 Secondary hyperparathyroidism of renal origin; D63.8 Anemia in other chronic diseases classified elsewhere; E55.9 Vitamin D deficiency, unspecified
CPT/HCPCS: 36415; 71046; 80069; 82306; 83970; 84443; 85027

== ENCOUNTER → 2019-08-25 10:16 | Outpatient (CLI) | payer MEDICARE, OTHER, SELFPAY ==
[2019-05-13 13:50] VITALS: BMI 26.1
[2019-08-25 12:56] LABS: Anion Gap 4 (5-15); BUN 40 mg/dL (7-18); BUN/Creat Ratio 10.2 RATIO (10-20); Calcium,Total 8.5 mg/dL (8.5-10.1); Chloride 109 mmol/L (98-107); Creatinine, Serum 3.92 mg/dL (0.70-1.30); EST Glomerular Filtration Rate 16 mL/min (>60); Est Glom Filt Rate - Afr Amer 19 mL/min (>60); Glucose 205 mg/dL (74-106); Potassium 5.2 mmol/L (3.5-5.1); Sodium Level 138 mmol/L (136-145)
== END ==
PROVIDERS: Family Provider Family Medicine Geriatric Medicine; PCP Family Medicine Geriatric Medicine; Visit Provider Internal Medicine Nephrology
DX: E87.5 Hyperkalemia (principal)
CPT/HCPCS: 36415; 80048

== ENCOUNTER → 2019-09-22 | Outpatient (CLI) | payer MEDICARE, OTHER, SELFPAY ==
[2019-05-13 13:50] VITALS: BMI 26.1
[2019-09-12 08:37] VITALS: BMI 26.4
[2019-09-22 12:17] LABS: Absolute Lymphocyte Count 1.15 X10^3/uL (0.83-4.51); Absolute Neutrophil Count 5.5 X10^3/uL (2.0-7.7); Basophil# 0.09 X10^3/uL; Basophil% 1.2 % (0-1); Eosinophil# 0.46 X10^3/uL; Hematocrit 35.8 % (40-54); Hemoglobin 11.2 g/dL (13.0-16.5); Lymphocyte # 1.15 X10^3/ul (4.0); Lymphocyte % 14.9 % (19-41); Mean Corp Hgb Conc 31.3 g/dL (32-36); Mean Corpuscular Hgb 29.1 pg (27.0-32.0); Monocyte# 0.49 X10^3/uL; Monocyte% 6.3 % (0-10); NRBC Flagged by Analyzer 0 % (0-5); Neutrophil % 71.2 % (47-70); Platelet Count 152 K/mm3 (150-450); RBC Distribution Width CV 13.9 % (11.6-14.6); RBC Distribution Width SD 46.8 fl (35.1-43.9); Red Blood Count 3.85 M/mm3 (4.6-6.2); White Blood Count 7.7 K/mm3 (4.4-11.0)
[2019-09-22 12:31] LABS: International Normalized Ratio 2.5; Prothrombin Time (Protime)PT. 26.8 SECONDS (11.7-14.9)
[2019-09-22 12:48] LABS: Vitamin D,25 Hydroxy 26.3 ng/mL (29.95-100.01)
[2019-09-22 12:56] LABS: ALB/GLOB Ratio 0.7 RATIO (0.9-2.4); AST(SGOT) 42 U/L (15-37); Alanine Aminotransfer ALT/SGPT 34 U/L (16-61); Albumin, Serum 2.6 g/dL (3.2-5.0); Alkaline Phosphatase 138 U/L (45-117); Anion Gap 5 (5-15); BUN 46 mg/dL (7-18); BUN/Creat Ratio 11.6 RATIO (10-20); Calcium,Total 8.5 mg/dL (8.5-10.1); Chloride 108 mmol/L (98-107); Creatinine, Serum 3.97 mg/dL (0.70-1.30); EST Glomerular Filtration Rate 15 mL/min (>60); Est Glom Filt Rate - Afr Amer 19 mL/min (>60); Globulin 3.9 g/dL (2.2-4.2); Glucose 215 mg/dL (74-106); Potassium 5.3 mmol/L (3.5-5.1); Protein, Total 6.5 g/dL (6.4-8.2); Sodium Level 138 mmol/L (136-145); Thyroid Stim Hormone (TSH) 3.19 uIU/mL (0.358-3.74)
== END | disposition home or self-care (01) ==
LOC: POLAB3 10:48
PROVIDERS: Family Provider Family Medicine Geriatric Medicine; PCP Family Medicine Geriatric Medicine; Visit Provider Family Medicine Geriatric Medicine
DX: I50.9 Heart failure, unspecified (principal); E03.9 Hypothyroidism, unspecified; E11.9 Type 2 diabetes mellitus without complications; I10 Essential (primary) hypertension; E55.9 Vitamin D deficiency, unspecified
CPT/HCPCS: 36415; 80053; 82306; 84443; 85025; 85610

== ENCOUNTER → 2019-10-11 | Outpatient (CLI) | payer MEDICARE, OTHER, SELFPAY ==
[2019-04-06 12:44] VITALS: BMI 26.2
[2019-09-12 08:37] VITALS: BMI 26.4
[2019-10-11 15:31] LABS: Hematocrit 34.9 % (40-54); Hemoglobin 10.7 g/dL (13.0-16.5); Mean Corp Hgb Conc 30.7 g/dL (32-36); Mean Corpuscular Hgb 28.7 pg (27.0-32.0); Mean Corpuscular Volume 93.6 fL (80-94); Mean Platelet Vol. 12.1 fl (6.2-12.0); Platelet Count 143 K/mm3 (150-450); RBC Distribution Width CV 14.2 % (11.6-14.6); RBC Distribution Width SD 48.3 fl (35.1-43.9); Red Blood Count 3.73 M/mm3 (4.6-6.2); White Blood Count 7.7 K/mm3 (4.4-11.0)
[2019-10-11 16:00] LABS: Albumin, Serum 2.6 g/dL (3.2-5.0); BUN 37 mg/dL (7-18); BUN/Creat Ratio 10.4 RATIO (10-20); Calcium,Total 8.5 mg/dL (8.5-10.1); Chloride 107 mmol/L (98-107); Creatinine, Serum 3.56 mg/dL (0.70-1.30); EST Glomerular Filtration Rate 18 mL/min (>60); Est Glom Filt Rate - Afr Amer 21 mL/min (>60); Glucose 173 mg/dL (74-106); Phosphorus 3.6 mg/dL (2.5-4.9); Potassium 5.2 mmol/L (3.5-5.1); Sodium Level 139 mmol/L (136-145)
== END | disposition home or self-care (01) ==
LOC: POLAB3 14:39
PROVIDERS: Family Provider Family Medicine Geriatric Medicine; PCP Family Medicine Geriatric Medicine; Visit Provider Internal Medicine Nephrology
DX: N18.5 Chronic kidney disease, stage 5 (principal); D63.1 Anemia in chronic kidney disease; N25.81 Secondary hyperparathyroidism of renal origin
CPT/HCPCS: 36415; 80069; 83970; 85027

== ENCOUNTER → 2019-10-27 | Outpatient (CLI) | payer MEDICARE, OTHER, SELFPAY ==
[2019-09-12 08:37] VITALS: BMI 26.4
[2019-10-27 12:01] LABS: Hematocrit 34.1 % (40-54); Hemoglobin 10.6 g/dL (13.0-16.5); Mean Corp Hgb Conc 31.1 g/dL (32-36); Mean Corpuscular Hgb 29.2 pg (27.0-32.0); Mean Corpuscular Volume 93.9 fL (80-94); Mean Platelet Vol. 11.6 fl (6.2-12.0); Platelet Count 169 K/mm3 (150-450); RBC Distribution Width CV 14.6 % (11.6-14.6); Red Blood Count 3.63 M/mm3 (4.6-6.2); White Blood Count 8.3 K/mm3 (4.4-11.0)
[2019-10-27 12:16] LABS: Albumin, Serum 2.8 g/dL (3.2-5.0); BUN 56 mg/dL (7-18); BUN/Creat Ratio 14.6 RATIO (10-20); Calcium,Total 8.3 mg/dL (8.5-10.1); Chloride 109 mmol/L (98-107); Creatinine, Serum 3.83 mg/dL (0.70-1.30); EST Glomerular Filtration Rate 16 mL/min (>60); Est Glom Filt Rate - Afr Amer 19 mL/min (>60); Glucose 262 mg/dL (74-106); Potassium 5.2 mmol/L (3.5-5.1); Sodium Level 139 mmol/L (136-145)
[2019-10-27 12:30] LABS: PTHIN 256.6 pg/mL (18.4-80.1)
== END | disposition home or self-care (01) ==
LOC: POLAB3 09:56
PROVIDERS: PCP Family Medicine Geriatric Medicine; Visit Provider Internal Medicine Nephrology
DX: N18.5 Chronic kidney disease, stage 5 (principal); D63.1 Anemia in chronic kidney disease
CPT/HCPCS: 36415; 80069; 83970; 85027

== ENCOUNTER → 2019-10-31 | Outpatient (CLI) | payer MEDICARE, OTHER, SELFPAY ==
[2019-09-12 08:37] VITALS: BMI 26.4
[2019-10-31 17:31] LABS: Hematocrit 35.1 % (40-54); Hemoglobin 10.7 g/dL (13.0-16.5)
== END | disposition home or self-care (01) ==
LOC: POLAB3 14:56
PROVIDERS: PCP Family Medicine Geriatric Medicine; Visit Provider Family Medicine Geriatric Medicine
DX: D64.9 Anemia, unspecified (principal)
CPT/HCPCS: 36415; 85014; 85018

== ENCOUNTER 2019-11-22 10:42 | Outpatient (RCR) | payer MEDICARE, OTHER, SELFPAY ==
[2019-05-13 13:50] VITALS: BMI 26.1
[2019-09-12 08:37] VITALS: BMI 26.4
[2019-11-22 11:29] LABS: Hematocrit 34.5 % (40-54); Hemoglobin 10.9 g/dL (13.0-16.5); Mean Corp Hgb Conc 31.6 g/dL (32-36); Mean Corpuscular Hgb 29.5 pg (27.0-32.0); Mean Corpuscular Volume 93.5 fL (80-94); Mean Platelet Vol. 11.5 fl (6.2-12.0); Platelet Count 131 K/mm3 (150-450); RBC Distribution Width CV 14.5 % (11.6-14.6); RBC Distribution Width SD 49.3 fl (35.1-43.9); Red Blood Count 3.69 M/mm3 (4.6-6.2)
[2019-11-22 11:33] LABS: International Normalized Ratio 2.2; Prothrombin Time (Protime)PT. 23.9 SECONDS (11.7-14.9)
[2019-11-22 11:55] LABS: Albumin, Serum 2.8 g/dL (3.2-5.0); BUN 65 mg/dL (7-18); BUN/Creat Ratio 14.8 RATIO (10-20); Calcium,Total 8.6 mg/dL (8.5-10.1); Chloride 109 mmol/L (98-107); Creatinine, Serum 4.39 mg/dL (0.70-1.30); EST Glomerular Filtration Rate 14 mL/min (>60); Est Glom Filt Rate - Afr Amer 17 mL/min (>60); Glucose 171 mg/dL (74-106); Phosphorus 4.3 mg/dL (2.5-4.9); Potassium 4.9 mmol/L (3.5-5.1); Sodium Level 139 mmol/L (136-145)
[2019-11-22 11:57] LABS: PTHIN 176.2 pg/mL (18.4-80.1)
== END 2019-12-15 18:00 | disposition home or self-care (01) ==
LOC: LAB 10:42
PROVIDERS: Internal Medicine Nephrology; Family Provider Family Medicine Geriatric Medicine; PCP Family Medicine Geriatric Medicine; Referring Provider Physician Assistant Medical; Visit Provider Physician Assistant Medical
DX: I48.0 Paroxysmal atrial fibrillation (principal); Z79.01 Long term (current) use of anticoagulants; N18.5 Chronic kidney disease, stage 5; D63.8 Anemia in other chronic diseases classified elsewhere; N25.81 Secondary hyperparathyroidism of renal origin
CPT/HCPCS: 36415; 80069; 83970; 85027; 85610

== ENCOUNTER → 2019-12-01 | Outpatient (CLI) | payer MEDICARE, OTHER, SELFPAY ==
[2019-09-12 08:37] VITALS: BMI 26.4
[2019-12-01 15:38] LABS: Albumin, Serum 2.8 g/dL (3.2-5.0); BUN 55 mg/dL (7-18); BUN/Creat Ratio 13.9 RATIO (10-20); Calcium,Total 8.4 mg/dL (8.5-10.1); Chloride 106 mmol/L (98-107); Creatinine, Serum 3.96 mg/dL (0.70-1.30); EST Glomerular Filtration Rate 16 mL/min (>60); Est Glom Filt Rate - Afr Amer 19 mL/min (>60); Glucose 214 mg/dL (74-106); Phosphorus 3.6 mg/dL (2.5-4.9); Potassium 5.4 mmol/L (3.5-5.1); Sodium Level 138 mmol/L (136-145)
== END | disposition home or self-care (01) ==
LOC: POLAB3 13:54
PROVIDERS: PCP Family Medicine Geriatric Medicine; Visit Provider Internal Medicine Nephrology
DX: N18.5 Chronic kidney disease, stage 5 (principal)
CPT/HCPCS: 36415; 80069

== ENCOUNTER 2019-12-29 16:36 | Outpatient (RCR) | payer MEDICARE, OTHER, SELFPAY ==
[2019-09-12 08:37] VITALS: BMI 26.4
[2019-12-29 15:07] VITALS: BMI 25.9
[2019-12-29 17:40] LABS: Hematocrit 35.5 % (40-54); Hemoglobin 11.3 g/dL (13.0-16.5); Mean Corp Hgb Conc 31.8 g/dL (32-36); Mean Corpuscular Hgb 30.1 pg (27.0-32.0); Mean Corpuscular Volume 94.7 fL (80-94); Mean Platelet Vol. 11.1 fl (6.2-12.0); Platelet Count 164 K/mm3 (150-450); RBC Distribution Width CV 14.8 % (11.6-14.6); RBC Distribution Width SD 50.7 fl (35.1-43.9); Red Blood Count 3.75 M/mm3 (4.6-6.2)
[2019-12-29 17:47] LABS: International Normalized Ratio 2.4; Prothrombin Time (Protime)PT. 25.8 SECONDS (11.7-14.9)
[2019-12-29 17:58] LABS: Albumin, Serum 2.9 g/dL (3.2-5.0); BUN 62 mg/dL (7-18); BUN/Creat Ratio 14.1 RATIO (10-20); Calcium,Total 8.1 mg/dL (8.5-10.1); Chloride 106 mmol/L (98-107); EST Glomerular Filtration Rate 14 mL/min (>60); Est Glom Filt Rate - Afr Amer 17 mL/min (>60); Glucose 147 mg/dL (74-106); Phosphorus 4.7 mg/dL (2.5-4.9); Potassium 4.6 mmol/L (3.5-5.1); Sodium Level 139 mmol/L (136-145)
[2019-12-30 10:52] LABS: PTHIN 329.1 pg/mL (18.4-80.1)
== END 2019-12-29 18:00 | disposition home or self-care (01) ==
LOC: LAB 16:36
PROVIDERS: Internal Medicine Nephrology; Family Provider Family Medicine Geriatric Medicine; PCP Family Medicine Geriatric Medicine; Referring Provider Physician Assistant Medical; Visit Provider Physician Assistant Medical
DX: N18.5 Chronic kidney disease, stage 5 (principal); D63.8 Anemia in other chronic diseases classified elsewhere; N25.81 Secondary hyperparathyroidism of renal origin; I48.0 Paroxysmal atrial fibrillation; Z79.01 Long term (current) use of anticoagulants
CPT/HCPCS: 36415; 80069; 83970; 85027; 85610

== ENCOUNTER 2020-01-19 10:34 | Outpatient (RCR) | payer MEDICARE, OTHER, SELFPAY ==
[2020-01-19 12:45] LABS: International Normalized Ratio 2.1
== END 2020-01-19 18:00 | disposition home or self-care (01) ==
LOC: MTLAB 10:34
PROVIDERS: Family Provider Family Medicine Geriatric Medicine; PCP Family Medicine Geriatric Medicine; Referring Provider Physician Assistant Medical; Visit Provider Physician Assistant Medical
DX: I48.0 Paroxysmal atrial fibrillation (principal); Z79.01 Long term (current) use of anticoagulants
CPT/HCPCS: 36415; 85610

== ENCOUNTER → 2020-01-26 13:11 | Outpatient (CLI) | payer MEDICARE, OTHER, SELFPAY ==
[2019-12-29 15:07] VITALS: BMI 25.9
[2020-01-26 15:18] LABS: Absolute Neutrophil Count 4.6 X10^3/uL (2.0-7.7); Basophil# 0.09 X10^3/uL; Basophil% 1.3 % (0-1); Eosinophil# 0.81 X10^3/uL; Hematocrit 36.1 % (40-54); Hemoglobin 11.1 g/dL (13.0-16.5); Lymphocyte % 11.8 % (19-41); Mean Corp Hgb Conc 30.7 g/dL (32-36); Mean Corpuscular Hgb 29.5 pg (27.0-32.0); Mean Platelet Vol. 11.6 fl (6.2-12.0); Monocyte# 0.47 X10^3/uL; NRBC Flagged by Analyzer 0 % (0-5); Neutrophil # 4.57 X10^3/uL (2.7-7.7); Neutrophil % 67.6 % (47-70); Platelet Count 152 K/mm3 (150-450); RBC Distribution Width CV 14.3 % (11.6-14.6); Red Blood Count 3.76 M/mm3 (4.6-6.2); White Blood Count 6.8 K/mm3 (4.4-11.0)
[2020-01-26 15:26] LABS: International Normalized Ratio 1.7
[2020-01-26 15:44] LABS: ALB/GLOB Ratio 0.8 RATIO (0.9-2.4); AST(SGOT) 34 U/L (15-37); Alanine Aminotransfer ALT/SGPT 38 U/L (16-61); Alkaline Phosphatase 107 U/L (45-117); Anion Gap 8 (5-15); BUN 68 mg/dL (7-18); BUN/Creat Ratio 13.5 RATIO (10-20); Calcium,Total 8.7 mg/dL (8.5-10.1); Chloride 105 mmol/L (98-107); Creatinine, Serum 5.05 mg/dL (0.70-1.30); EST Glomerular Filtration Rate 12 mL/min (>60); Est Glom Filt Rate - Afr Amer 14 mL/min (>60); Glucose 192 mg/dL (74-106); Phosphorus 4.4 mg/dL (2.5-4.9); Potassium 5.4 mmol/L (3.5-5.1); Sodium Level 138 mmol/L (136-145); Thyroid Stim Hormone (TSH) 2.61 uIU/mL (0.358-3.74)
[2020-01-27 08:23] LABS: PTHIN 173.5 pg/mL (18.4-80.1)
[2020-01-27 09:07] LABS: Hepatitis B Surface Antigen Non-Reactive (Nonreactive)
== END ==
PROVIDERS: PCP Family Medicine Geriatric Medicine; Referring Provider Internal Medicine Nephrology; Visit Provider Internal Medicine Nephrology
DX: E11.22 Type 2 diabetes mellitus with diabetic chronic kidney disease (principal); I12.0 Hypertensive chronic kidney disease with stage 5 chronic kidney disease or end stage renal disease; N18.5 Chronic kidney disease, stage 5; D63.8 Anemia in other chronic diseases classified elsewhere; I48.0 Paroxysmal atrial fibrillation; E55.9 Vitamin D deficiency, unspecified; N25.81 Secondary hyperparathyroidism of renal origin; Z79.01 Long term (current) use of anticoagulants
CPT/HCPCS: 36415; 80053; 82306; 83970; 84100; 84443; 85025; 85610; 87340

== ENCOUNTER → 2020-01-31 | Outpatient (CLI) | payer MEDICARE, OTHER, SELFPAY ==
[2020-01-31 11:03] LABS: Potassium 5.7 mmol/L (3.5-5.1)
== END | disposition home or self-care (01) ==
PROVIDERS: PCP Family Medicine Geriatric Medicine; Visit Provider Internal Medicine Nephrology
DX: E87.5 Hyperkalemia (principal)
CPT/HCPCS: 36415; 84132

== ENCOUNTER → 2020-02-23 | Outpatient (CLI) | payer MEDICARE, OTHER, SELFPAY ==
[2020-01-31 16:05] VITALS: BMI 24.9
--- NOTE | 2020-02-23 16:30 | RAD_ITS ---
STUDY: X-RAY - CERVICAL SPINE REASON FOR EXAM: Male, 84 years old. Pain TECHNIQUE: 2 view(s) of the cervical spine were obtained. COMPARISON: CT dated 07/13/2018 FINDINGS: There is no evidence of fracture or dislocation in the cervical spine. The dens is intact. The vertebral body heights are well-maintained. There is stable moderate multilevel degenerative changes. The prevertebral soft tissues are unremarkable. There is no radiodense foreign body. RAD/Cerv Spine 2 or 3 Views IMPRESSION: No fracture or dislocation in the cervical spine. Stable moderate degenerative change. Electronically Signed: Hong Pena, at 16:30 EDT Tel , Service support ,
== END | disposition home or self-care (01) ==
LOC: RAD 16:22
PROVIDERS: PCP Family Medicine Geriatric Medicine; Referring Provider Family Medicine Geriatric Medicine; Visit Provider Family Medicine Geriatric Medicine
DX: M54.2 Cervicalgia (principal)
CPT/HCPCS: 72040

== ENCOUNTER → 2020-03-15 | Outpatient (CLI) | payer MEDICARE, OTHER, SELFPAY ==
[2020-01-31 16:05] VITALS: BMI 24.9
--- NOTE | 2020-03-15 14:02 | VDLE_ITS ---
Reason For Study: edema Procedure LEFT Exam performed in department. CFV is compressible, spontaneous, phasic, The exam was abbreviated due to the COVID 19 competent, and demonstrates normal protocol. augmentation. The exam was diagnostic. FV is compressible, spontaneous, phasic, A preliminary report was called and/or faxed competent and demonstrates normal to Dr. Garcia's office. augmentation. POP V is compressible, spontaneous, phasic, competent and demonstrates normal augmentation. T/P Trunk is compressible. LT PerV is compressible. PTVand Soleus V are dilated and noncompressible. GSV is dilated and noncompressible from the ankle to the knee. Interpretation Summary Acute deep vein thrombosis is noted in the left posterior tibial vein. Acute deep vein thrombosis is noted in the left soleus vein. The remainder of the left lower extremity deep venous system is patent and compressible. Valvular competence appears intact within the proximal deep venous system on the left . Acute superficial thrombophlebitis is noted in the left great saphenous vein from the ankle to the knee. Ordering Physician: Jose Raul Garcia Performed By: Bo Pavon RVGermain
== END | disposition home or self-care (01) ==
LOC: CVS 13:59
PROVIDERS: PCP Family Medicine Geriatric Medicine; Referring Provider Family Medicine Geriatric Medicine; Visit Provider Family Medicine Geriatric Medicine
DX: R60.0 Localized edema (principal)
CPT/HCPCS: 93971

== ENCOUNTER → 2020-03-29 | Outpatient (CLI) | payer MEDICARE, OTHER, SELFPAY ==
[2019-09-12 08:37] VITALS: BMI 26.4
[2020-01-31 16:05] VITALS: BMI 24.9
[2020-03-29 18:03] LABS: Vitamin D,25 Hydroxy 48.3 ng/mL
[2020-03-29 18:09] LABS: Thyroid Stim Hormone (TSH) 2.59 uIU/mL (0.358-3.74)
== END | disposition home or self-care (01) ==
LOC: POLAB3 15:40
PROVIDERS: PCP Family Medicine Geriatric Medicine; Visit Provider Family Medicine Geriatric Medicine
DX: E55.9 Vitamin D deficiency, unspecified (principal); N25.81 Secondary hyperparathyroidism of renal origin; I12.0 Hypertensive chronic kidney disease with stage 5 chronic kidney disease or end stage renal disease; E11.22 Type 2 diabetes mellitus with diabetic chronic kidney disease; N18.5 Chronic kidney disease, stage 5; D63.1 Anemia in chronic kidney disease
CPT/HCPCS: 36415; 82306; 84443

== ENCOUNTER 2020-04-26 13:26 | Outpatient (RCR) | payer MEDICARE, OTHER, SELFPAY ==
[2020-01-31 16:05] VITALS: BMI 24.9
[2020-04-24 12:15] VITALS: BMI 23.4
[2020-04-26 15:28] LABS: International Normalized Ratio 1.1
== END 2020-05-16 23:59 ==
LOC: BIMLAB 13:26
PROVIDERS: Family Provider Family Medicine Geriatric Medicine; PCP Family Medicine Geriatric Medicine; Referring Provider Physician Assistant Medical; Visit Provider Physician Assistant Medical
DX: I48.0 Paroxysmal atrial fibrillation (principal); Z79.01 Long term (current) use of anticoagulants
CPT/HCPCS: 36415; 85610

== ENCOUNTER → 2020-05-09 13:49 | Outpatient (CLI) | payer MEDICARE, OTHER, SELFPAY ==
[2020-04-12 15:33] VITALS: BMI 23.4
[2020-04-24 12:15] VITALS: BMI 23.4
--- NOTE | 2020-05-09 13:49 | VDLE_ITS ---
Reason For Study: History of DVT RIGHT LEFT GSV is normal. CFV is compressible, spontaneous, phasic, CFV is compressible, spontaneous, phasic, competent, and demonstrates normal competent and demonstrates normal augmentation. augmentation. FV is compressible, spontaneous, phasic, FV is compressible, spontaneous, phasic, competent and demonstrates normal competent and demonstrates normal augmentation. augmentation. POP V is compressible, spontaneous, phasic, POP V is compressible, spontaneous, phasic, competent and demonstrates normal competent and demonstrates normal augmentation. augmentation. T/P Trunk is compressible. T/P Trunk is compressible. PTV is compressible. PTV is compressible. LT PerV is compressible. RT PerV is compressible. GSV is partially compressible with right Procedure intraluminal echoes noted, consistent with Exam performed in department. chronic DVT. Compared to 03/15/2020. Soleus vein is compressible. A preliminary report was called and/or faxed to [facility]. Interpretation Summary Deep veins of the lower extremities are bilaterally patent and compressible segmentally. There is no evidence of deep vein thrombosis on either side. Valvular competence appears intact within the proximal deep venous systems bilaterally. The right great saphenous vein appears patent and compressible segmentally. Chronic venous changes are noted in the left great saphenous vein, which is partially compressible and demonstrates bright intraluminal echogenicity. There has been resolution of the acute deep vein thrombosis in the left lower extremity which was noted in a prior study on 03/15/2020. Ordering Physician: Zia Salas Referring Physician: Jose Raul Garcia Chi Performed By: Reema Sanchez RVT
== END ==
PROVIDERS: PCP Family Medicine Geriatric Medicine; Referring Provider Internal Medicine Medical Oncology; Visit Provider Internal Medicine Medical Oncology
DX: I82.4Z9 Acute embolism and thrombosis of unspecified deep veins of unspecified distal lower extremity (principal); Z85.528 Personal history of other malignant neoplasm of kidney; Z86.718 Personal history of other venous thrombosis and embolism
CPT/HCPCS: 93970

== ENCOUNTER → 2020-05-17 | Outpatient (CLI) | payer MEDICARE, OTHER, SELFPAY ==
[2020-04-24 12:15] VITALS: BMI 23.4
--- NOTE | 2020-05-17 17:35 | RAD_ITS ---
STUDY: X-RAY - ABDOMEN/PELVIS REASON FOR EXAM: Male, 84 years old. DIARRHEA TECHNIQUE: 3 frontal views of the abdomen. COMPARISON: 10/26/2018 CT scan. FINDINGS: Normal visualized lung bases. Median sternotomy wires. Abandoned cardiac leads. IVC filter. Right upper quadrant clips. There is an unremarkable bowel gas pattern. There is no demonstrated free abdominal air. A drainage catheter seen coiled in the pelvis. Normal soft tissue structures. Normal visualized osseous structures. RAD/Abd Inc Decub and/or Erect IMPRESSION: No evidence for obstruction or free air. Drainage catheter coiled within the pelvis. Electronically Signed: Teddy Taylor, at 19:16 EDT Tel , Service support ,
== END | disposition home or self-care (01) ==
PROVIDERS: PCP Family Medicine Geriatric Medicine; Visit Provider Family Medicine Geriatric Medicine
DX: I10 Essential (primary) hypertension (principal); R10.9 Unspecified abdominal pain; Z85.528 Personal history of other malignant neoplasm of kidney; Z79.01 Long term (current) use of anticoagulants
CPT/HCPCS: 36415; 74019; 80053; 83615; 84443; 85025; 85610

== ENCOUNTER → 2020-05-17 | Outpatient (CLI) | payer MEDICARE, OTHER, SELFPAY ==
[2019-09-12 08:37] VITALS: BMI 26.4
[2020-04-24 12:15] VITALS: BMI 23.4
[2020-05-17 17:25] LABS: Absolute Neutrophil Count 7.8 X10^3/uL (2.0-7.7); Basophil# 0.11 X10^3/uL; Basophil% 1.1 % (0-1); Eosinophil# 0.27 X10^3/uL; Eosinophils% 2.7 % (0-5); Hematocrit 41.5 % (40-54); Hemoglobin 13.8 g/dL (13.0-16.5); Lymphocyte % 11.8 % (19-41); Mean Corp Hgb Conc 33.3 g/dL (32-36); Mean Corpuscular Hgb 31.7 pg (27.0-32.0); Mean Corpuscular Volume 95.2 fL (80-94); Mean Platelet Vol. 11.3 fl (6.2-12.0); Monocyte# 0.73 X10^3/uL; Monocyte% 7.2 % (0-10); NRBC Flagged by Analyzer 0 % (0-5); Neutrophil # 7.83 X10^3/uL (2.7-7.7); Neutrophil % 76.8 % (47-70); Platelet Count 239 K/mm3 (150-450); RBC Distribution Width CV 13.2 % (11.6-14.6); RBC Distribution Width SD 47.2 fl (35.1-43.9); Red Blood Count 4.36 M/mm3 (4.6-6.2); White Blood Count 10.2 K/mm3 (4.4-11.0)
[2020-05-17 18:39] LABS: ALB/GLOB Ratio 0.6 RATIO (0.9-2.4); AST(SGOT) 47 U/L (15-37); Alanine Aminotransfer ALT/SGPT 37 U/L (16-61); Albumin, Serum 2.5 g/dL (3.2-5.0); Alkaline Phosphatase 152 U/L (45-117); Anion Gap 6 (5-15); BUN 48 mg/dL (7-18); BUN/Creat Ratio 7.8 RATIO (10-20); Calcium,Total 8.3 mg/dL (8.5-10.1); Chloride 100 mmol/L (98-107); Creatinine, Serum 6.14 mg/dL (0.70-1.30); EST Glomerular Filtration Rate 9 mL/min (>60); Est Glom Filt Rate - Afr Amer 11 mL/min (>60); Globulin 4.5 g/dL (2.2-4.2); Glucose 148 mg/dL (74-106); Potassium 3.4 mmol/L (3.5-5.1); Sodium Level 136 mmol/L (136-145); Thyroid Stim Hormone (TSH) 0.19 uIU/mL (0.358-3.74)
== END | disposition home or self-care (01) ==
LOC: POLAB3 17:09
PROVIDERS: PCP Family Medicine Geriatric Medicine; Visit Provider Family Medicine Geriatric Medicine
DX: I10 Essential (primary) hypertension (principal)
CPT/HCPCS: 36415; 80053; 84443; 85025

== ENCOUNTER → 2020-05-18 | Outpatient (CLI) | payer MEDICARE, OTHER, SELFPAY ==
[2020-04-24 12:15] VITALS: BMI 23.4
== END | disposition home or self-care (01) ==
LOC: LABSPEC 12:10
PROVIDERS: PCP Family Medicine Geriatric Medicine; Visit Provider Family Medicine Geriatric Medicine
DX: R19.7 Diarrhea, unspecified (principal)
CPT/HCPCS: 82274; 83630; 87177; 87209; 87493; 87506

== ENCOUNTER → 2020-05-29 | Outpatient (CLI) | payer MEDICARE, OTHER, SELFPAY ==
[2020-04-24 12:15] VITALS: BMI 23.4
[2020-05-29 17:42] LABS: Absolute Lymphocyte Count 1.01 X10^3/uL (0.83-4.51); Absolute Neutrophil Count 6.3 X10^3/uL (2.0-7.7); Basophil# 0.06 X10^3/uL; Basophil% 0.7 % (0-1); Eosinophil# 0.26 X10^3/uL; Eosinophils% 3.2 % (0-5); Hematocrit 42.7 % (40-54); Hemoglobin 13.7 g/dL (13.0-16.5); Lymphocyte # 1.01 X10^3/ul (4.0); Lymphocyte % 12.3 % (19-41); Mean Corp Hgb Conc 32.1 g/dL (32-36); Mean Corpuscular Hgb 31.6 pg (27.0-32.0); Mean Corpuscular Volume 98.6 fL (80-94); Mean Platelet Vol. 11.3 fl (6.2-12.0); Monocyte# 0.46 X10^3/uL; Monocyte% 5.6 % (0-10); NRBC Flagged by Analyzer 0 % (0-5); Neutrophil # 6.34 X10^3/uL (2.7-7.7); Neutrophil % 77.6 % (47-70); Platelet Count 208 K/mm3 (150-450); RBC Distribution Width CV 12.7 % (11.6-14.6); RBC Distribution Width SD 46.1 fl (35.1-43.9); Red Blood Count 4.33 M/mm3 (4.6-6.2); White Blood Count 8.2 K/mm3 (4.4-11.0)
[2020-05-29 17:57] LABS: International Normalized Ratio 1.1; Prothrombin Time (Protime)PT. 13.6 SECONDS (11.7-14.9)
[2020-05-29 18:30] LABS: ALB/GLOB Ratio 0.5 RATIO (0.9-2.4); AST(SGOT) 24 U/L (15-37); Alanine Aminotransfer ALT/SGPT 38 U/L (16-61); Albumin, Serum 2.4 g/dL (3.2-5.0); Alkaline Phosphatase 154 U/L (45-117); Anion Gap 10 (5-15); BUN 41 mg/dL (7-18); BUN/Creat Ratio 6.9 RATIO (10-20); Calcium,Total 8.3 mg/dL (8.5-10.1); Chloride 95 mmol/L (98-107); EST Glomerular Filtration Rate 10 mL/min (>60); Est Glom Filt Rate - Afr Amer 12 mL/min (>60); Globulin 4.4 g/dL (2.2-4.2); Glucose 235 mg/dL (74-106); Potassium 3.1 mmol/L (3.5-5.1); Protein, Total 6.8 g/dL (6.4-8.2); Sodium Level 133 mmol/L (136-145)
[2020-05-31 16:08] LABS: PROEL- A/G Ratio 0.9 (0.7-1.7); PROEL- Albumin 2.6 g/dL (2.9-4.4); PROEL- Alpha-1 Globulin 0.3 g/dL (0.0-0.4); PROEL- Alpha-2 Globulin 1.1 g/dL (0.4-1.0); PROEL- Gamma Globulin 0.6 g/dL (0.4-1.8); PROEL- TOTAL PROTEIN 5.6 g/dL (6.0-8.5)
== END | disposition home or self-care (01) ==
LOC: MTLAB 14:48
PROVIDERS: Physician Assistant Medical; PCP Family Medicine Geriatric Medicine; Referring Provider Dermatology; Visit Provider Dermatology
DX: L20.89 Other atopic dermatitis (principal); I48.0 Paroxysmal atrial fibrillation; Z79.899 Other long term (current) drug therapy; Z79.01 Long term (current) use of anticoagulants
CPT/HCPCS: 36415; 80053; 84165; 85025; 85610

== ENCOUNTER → 2020-06-27 13:59 | Outpatient (CLI) | payer MEDICARE, OTHER, SELFPAY ==
[2020-06-27 18:14] LABS: Vitamin D,25 Hydroxy 33.3 ng/mL
[2020-06-27 18:26] LABS: International Normalized Ratio 1.1; Prothrombin Time (Protime)PT. 13.9 SECONDS (11.7-14.9)
[2020-06-27 18:33] LABS: Thyroid Stim Hormone (TSH) 0.02 uIU/mL (0.358-3.74)
== END ==
PROVIDERS: PCP Family Medicine Geriatric Medicine; Visit Provider Family Medicine Geriatric Medicine
DX: E55.9 Vitamin D deficiency, unspecified (principal); I10 Essential (primary) hypertension; Z79.01 Long term (current) use of anticoagulants; I48.0 Paroxysmal atrial fibrillation
CPT/HCPCS: 36415; 82306; 84443; 85610

== ENCOUNTER → 2020-07-27 11:06 | Outpatient (CLI) | payer MEDICARE, OTHER, SELFPAY ==
[2020-07-18 11:39] VITALS: BMI 20.9
[2020-07-27 11:47] LABS: Anion Gap 7 (5-15); BUN 21 mg/dL (7-18); BUN/Creat Ratio 3.8 RATIO (10-20); Calcium,Total 8.1 mg/dL (8.5-10.1); Chloride 99 mmol/L (98-107); EST Glomerular Filtration Rate 11 mL/min (>60); Est Glom Filt Rate - Afr Amer 13 mL/min (>60); Glucose 201 mg/dL (74-106); Potassium 2.2 mmol/L (3.5-5.1); Sodium Level 137 mmol/L (136-145)
[2020-07-27 19:17] LABS: Xtra Tube EP Lab EXTRA TUBE
[2020-07-27 19:18] LABS: Xtra Tube EP Lab EXTRA TUBE
== END ==
PROVIDERS: PCP Family Medicine Geriatric Medicine; Visit Provider Internal Medicine Medical Oncology
DX: E87.6 Hypokalemia (principal); I82.409 Acute embolism and thrombosis of unspecified deep veins of unspecified lower extremity; Z85.528 Personal history of other malignant neoplasm of kidney
CPT/HCPCS: 36415; 80048; 96365; 96366; J7050; A4216

== ENCOUNTER → 2020-07-28 12:59 | Outpatient (CLI) | payer MEDICARE, OTHER, SELFPAY ==
[2020-07-18 11:39] VITALS: BMI 20.9
[2020-07-27 12:17] VITALS: BMI 20.9
--- NOTE | 2020-07-28 13:05 | US_ITS ---
STUDY: ABDOMINAL ULTRASOUND REASON FOR EXAM: Male, 84 years old. DIARRHEA TECHNIQUE: Transabdominal ultrasound was performed with real-time and static mora scale imaging. TECHNICAL QUALITY: Limited. Bowel gas COMPARISON: None. FINDINGS: Liver: The liver measures 14.9 cm. There is increased echogenicity of the liver. The bile ducts are within normal limits. There is hepatic color flow. The direction of portal flow is hepatopetal. There is no demonstrated mass lesion. Portal vein measurement: 10 mm. There is mild ascitic fluid. Gallbladder: The patient is status post cholecystectomy. Common Bile Duct (C.B.D.): The common bile duct measures 4 mm. Pancreas: There is no demonstrated pancreatic mass or cyst. Spleen: Normal size of the spleen. The spleen measures 12.4 x 4.1 x 4.5 cm. Right Kidney: Normal size of the right kidney. The right kidney measures 8.3 x 3.4 x 4.5 cm. There is thinning of the renal cortex. The right cortex measures 0.7 cm. No suspicious solid renal masses. Anechoic cyst measures 1.5 cm. There is no right hydronephrosis. Left Kidney: Normal size of the left kidney. The left kidney measures 8.8 x 3.9 x 4.4 cm. There is thinning of the renal cortex. The left cortex measures 0.9 cm. Anechoic cyst measures 4.26 cm. No suspicious solid renal masses. There is no left hydronephrosis. Aorta: Nonaneurysmal I.V.C.: The IVC is obscured. US/Abdomen Complete IMPRESSION: 1. Increased echogenicity of the liver is nonspecific and can be associated with hepatic states ptosis, hepatitis or early cirrhosis. Mild abdominal ascites. 2. Bilateral renal cortical atrophy. 3. Bilateral simple renal cysts. Benign, incidental finding; no specific imaging workup recommended according to current ACR guidelines. Electronically Signed: Kenny Richmond MD (Brooks) at 17:34 EST , Service support ,
== END ==
PROVIDERS: PCP Family Medicine Geriatric Medicine
DX: R19.7 Diarrhea, unspecified (principal); R68.81 Early satiety
CPT/HCPCS: 76700

== ENCOUNTER 2020-07-30 20:12 | Emergency (ER) | payer MEDICARE, OTHER, SELFPAY ==
[2020-07-27 12:17] VITALS: BMI 20.9
[2020-07-30 20:13] VITALS: BP 107/65; PULSE 100; RESP 16; TEMP 35.9; O2SAT 95; BMI 20.1
--- NOTE | 2020-07-30 20:28 | EKG12_ITS ---
Test Reason : ABN LABS Blood Pressure : / mmHG Vent. Rate : 092 BPM Atrial Rate : 092 BPM P-R Int : 208 ms QRS Dur : 142 ms QT Int : 416 ms P-R-T Axes : 093 079 040 degrees QTc Int : 514 ms Normal sinus rhythm with sinus arrhythmia Right bundle branch block Abnormal ECG Confirmed by HERBERT SANCHEZ, FAUZIA ([id number]), newspaper photo editor YANI WARE ([id number]) on 08/08/2020 9:54:05 A M Referred By: JEREMIAH Confirmed By:JUDAH GODINEZ MD
--- NOTE | 2020-07-30 20:53 | ED.VIS.GEN ---
History of Present Illness Chief Complaint: Abn Labs Informant: Patient Narrative: 84-year-old male on peritoneal dialysis was sent due to potassium of 2.5. He states he is on oral potassium supplementation but does not know the amount. He states he does not feel any different than normal. No chest pain palpitation shortness of breath. He states that he has not been experiencing any muscle spasm or weakness. 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 (10) Paroxysmal atrial fibrillation Status: Chronic (11) Right bundle branch block Status: Chronic (12) SVT (supraventricular tachycardia) Status: Chronic (13) Type II diabetes mellitus Status: Chronic Past Medical History - Allergies and Home Meds Allergies/Adverse Reactions: Allergies No Known Allergies Allergy (Verified 07/18/20 11:37) Primary Care Physician: Jose Raul Garcia Chi, MD [Primary Care Provider] - Prior records reviewed: Yes Surgical History: appendectomy, cholecystectomy, - Smoking Status: Never smoker Drugs: None - Family History Maternal Family History: Family History (Last Reviewed 07/18/20 @ 11:37 by Darya Espinoza) Brother Cancer Sister Cancer Sister Hypertension Diabetes Brother Cancer Family History: Reports: No pertinent history Paternal Family History: Family History (Last Reviewed 07/18/20 @ 11:37 by Darya Espinoza) Brother Cancer Sister Cancer Sister Hypertension Diabetes Brother Cancer Family History: Reports: No pertinent history Review of Systems General: Denies: Chills, Fever, Sweats Eyes: Denies: Visual changes - bilaterally, Diplopia ENT: Denies: Rhinorrhea, Sore throat Cardiovascular: Denies: Chest pain, Palpitations Respiratory: Denies: Dyspnea, Cough, Dyspnea on exertion Gastrointestinal: Denies: Abdominal pain, Nausea, Vomiting, Diarrhea, Melena, Hematochezia Genitourinary: Denies: Dysuria, Hematuria, Frequency Musculoskeletal: Denies: Back pain, Extremity Pain Skin: Denies: Rash, Wounds Neurological: Denies: Headache, Weakness, Numbness Physical Exam Vital Signs/Narrative: Vital Signs Temp Pulse Resp BP Pulse Ox 07/30/20 20:13 96.7 F L 100 16 107/65 95 Inital Vital Signs reviewed: Yes General: Well nourished, Well developed, No Acute Distress Head: Normocephalic, Atraumatic Eyes: Perrl, EOMI ENT: Moist mucous membranes, No rhinorrhea Neck: Supple, Nontender Cardiovascular: Regular rate, Regular rhythm, No murmurs Respiratory: No distress, CTA bilaterally, Chest nontender Abdomen: Soft, Nontender, Nondistended, Normal bowel sounds, - - Peritoneal dialysis catheter present on the abdomen Back: Nontender, Normal Inspection Extremities: Nontender, No edema Skin: Normal color, No rash Neurological: Alert, Oriented x3, Cranial nerves II-XII grossly intact, Normal Strength, Normal Sensation Psychological: Normal affect, Normal Mood Diagnostic/Tx/Re-eval Laboratory Last Values Sodium 137 mmol/L (136-145) 07/30/20 21:10 Potassium 2.8 mmol/L (3.5-5.1) L 07/30/20 21:10 Chloride 99 mmol/L (98-107) 07/30/20 21:10 Carbon Dioxide 31.0 mmol/L (21.0-32.0) 07/30/20 21:10 Anion Gap 7 (5-15) 07/30/20 21:10 BUN 28 mg/dL (7-18) H 07/30/20 21:10 Creatinine 6.88 mg/dL (0.70-1.30) H 07/30/20 21:10 Estim Creat Clear Calc 6.59 ml/min 07/30/20 21:10 Est GFR (MDRD) Af Amer 10 mL/min (>60) L 07/30/20 21:10 Est GFR (MDRD) Non-Af 8 mL/min (>60) L 07/30/20 21:10 BUN/Creatinine Ratio 4.1 RATIO (10-20) L 07/30/20 21:10 Glucose 185 mg/dL (74-106) H 07/30/20 21:10 Calcium 8.0 mg/dL (8.5-10.1) L 07/30/20 21:10 Magnesium 1.3 mg/dL (1.6-2.6) L 07/30/20 21:10 - EKG Initial EKG Interpretation: Sinus Rhythm - EKG demonstrates a normal sinus rhythm with sinus arrhythmia with a right bundle branch block at a rate of 92. No concerning features of ACS or ectopy. He does have a known right bundle branch block - Medical Decision Making Potassium here 2.8 magnesium 1.3. He received an infusion of 10 mEq of potassium as well as magnesium. His EKG does not show features concerning for hypokalemia or hypomagnesemia. Patient feels well he will be discharged home with supplementation. Instructions to receive a repeat test about 5 days ED Disposition - Plan for ED Patient: Disposition: Home or Assisted Living Diagnosis: Hypokalemia, Hypomagnesemia Instructions: ED Hypokalemia Prescriptions: Potassium Chloride [K-Dur] 20 meq PO BID #10 tab Prescription Printed Magnesium Oxide 400 mg PO DAILY #5 tab Prescription Printed Referrals: Jose Raul Garcia Chi, MD [Primary Care Provider] - (in 5 days for repeat potassium and magnesium test) Additional Instructions: Since we are not 100% sure of your current dose of potassium I am recommending that you take at least 40 mEq a day for 5 days. I am also writing you for magnesium which was low today. You should have these levels checked in about 5 days.
[2020-07-30 21:30] LABS: Anion Gap 7 (5-15); BUN 28 mg/dL (7-18); BUN/Creat Ratio 4.1 RATIO (10-20); Chloride 99 mmol/L (98-107); Creatinine, Serum 6.88 mg/dL (0.70-1.30); EST Glomerular Filtration Rate 8 mL/min (>60); Est Glom Filt Rate - Afr Amer 10 mL/min (>60); Estimated Creatinine Clearance 6.59 ml/min; Glucose 185 mg/dL (74-106); Magnesium 1.3 mg/dL (1.6-2.6); Potassium 2.8 mmol/L (3.5-5.1); Sodium Level 137 mmol/L (136-145)
[2020-07-31 00:10] VITALS: BP 98/59; PULSE 87; RESP 14; O2SAT 97
[2020-07-31 02:38] VITALS: BP 107/44; PULSE 85; RESP 18; O2SAT 95
== END 2020-07-31 02:38 | disposition home or self-care (01) ==
PROVIDERS: Emergency Provider Emergency Medicine; PCP Family Medicine Geriatric Medicine
DX: E87.6 Hypokalemia (principal); E83.42 Hypomagnesemia; I13.0 Hypertensive heart and chronic kidney disease with heart failure and stage 1 through stage 4 chronic kidney disease, or unspecified chronic kidney disease; I50.32 Chronic diastolic (congestive) heart failure; E11.22 Type 2 diabetes mellitus with diabetic chronic kidney disease; N18.4 Chronic kidney disease, stage 4 (severe); E78.5 Hyperlipidemia, unspecified; I48.0 Paroxysmal atrial fibrillation; Z99.2 Dependence on renal dialysis; Z79.01 Long term (current) use of anticoagulants; Z79.4 Long term (current) use of insulin; Z79.899 Other long term (current) drug therapy
CPT/HCPCS: 80048; 83735; 93005; 96365; 96366; 99283; J7030; A4216

== ENCOUNTER → 2020-08-01 15:54 | Outpatient (CLI) | payer MEDICARE, OTHER, SELFPAY ==
[2020-07-30 20:13] VITALS: BMI 20.1
[2020-08-01 15:01] LABS: Potassium 3.3 mmol/L (3.5-5.1)
[2020-08-01 15:06] VITALS: BMI 20.2
[2020-08-01 15:06] LABS: International Normalized Ratio 1.1; Prothrombin Time (Protime)PT. 13.4 SECONDS (11.7-14.9)
[2020-08-01] MEDS: 0.9% NaCl Peripheral Flush Adult/Peds IV (16:33)
[2020-08-01] MEDS: 0.9% NaCl IVPB Med Flush (250 mL) 15 ML IV (16:33)
[2020-08-01 16:35] VITALS: BP 96/51; PULSE 79; RESP 16; TEMP 36.3; O2SAT 98; BMI 20.2
[2020-08-01 20:52] VITALS: BP 128/62; PULSE 68
== END ==
PROVIDERS: PCP Family Medicine Geriatric Medicine; Referring Provider Internal Medicine Nephrology; Visit Provider Internal Medicine Nephrology
DX: N18.6 End stage renal disease (principal); E87.6 Hypokalemia; I48.0 Paroxysmal atrial fibrillation; Z79.01 Long term (current) use of anticoagulants
CPT/HCPCS: 96365; 96366; 36415; 84132; 85610; J7040; J7050; A4216

== ENCOUNTER 2020-08-28 14:46 | Emergency (ER) | payer MEDICARE, OTHER, SELFPAY ==
[2020-08-01 16:35] VITALS: BMI 20.2
[2020-08-28 14:47] VITALS: BP 119/70; PULSE 98; RESP 15; TEMP 36.3; O2SAT 96; BMI 21.4
--- NOTE | 2020-08-28 15:03 | CT_ITS ---
STUDY: CT CHEST WITHOUT CONTRAST REASON FOR EXAM: Male, 84 years old. RIGHT RIB INJURY- FALL TODAY RADIATION DOSAGE (If Supplied By Facility): CTDIvol = ( 11.69 ) mGy, DLP = ( 458.64 ) mGycm TECHNIQUE: Transaxial imaging was performed without the administration of intravenous contrast material. Multiplanar coronal and sagittal images were reformatted. Individualized dose optimization techniques were used for this CT. COMPARISON: Comparison is made with prior study dated 01/29/2017. FINDINGS: Heterogeneous enlargement of the thyroid gland. Mild linear scarring at the lung bases. Calcified pleural plaques in the left hemithorax. Sternal cerclage wires and vascular clips are present from a prior sternotomy and coronary artery bypass graft procedure (CABG). There are calcifications of the coronary arteries. There are multiple small lymph nodes within the mediastinum, which are normal in size and morphology most compatible with reactive lymph hyperplasia. Normal hilar regions. Normal unenhanced pulmonary arteries. There is atherosclerotic calcification of the aortic arch with tortuosity and elongation of the aortic arch and descending thoracic aorta. There are multi-level degenerative changes of the thoracic spine. Healed right rib fractures. There is evidence of free intraperitoneal air on the limited visualization of the upper abdomen. A filter is seen in the inferior vena cava. There is a 1.8 cm calcified nodule in the right adrenal gland. There is a 3.8 cm cyst in the upper pole of the left kidney. CT/Chest without Contrast IMPRESSION: Small amount of free intraperitoneal air. Calcified pleural plaques in the left hemithorax. Calcified right adrenal mass as well as left renal cyst. Electronically Signed: Yg Martinez, at 15:57 EST , Service support ,
--- NOTE | 2020-08-28 16:06 | ED.DCSUM_ITS ---
History of Present Illness Chief Complaint: Chest Other Informant: Patient Narrative: 84-year-old male sustained a fall today while going up stairs at a restaurant. He struck the back left ribs. He notes pain. He ate lunch but due to the pain came to emergency to be evaluated. He notes a small abrasion to his RMF. Hemoptysis. No significant dyspnea. Pain is worse with movement and deep breathing. 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 (7) Paroxysmal atrial fibrillation Status: Chronic (8) Right bundle branch block Status: Chronic (9) SVT (supraventricular tachycardia) Status: Chronic (10) Type II diabetes mellitus Status: Chronic Past Medical History - Allergies and Home Meds Allergies/Adverse Reactions: Allergies No Known Allergies Allergy (Verified 08/01/20 15:03) Primary Care Physician: Jose Raul Garcia Chi, MD [Primary Care Provider] - Surgical History: appendectomy, cholecystectomy, - Lives: Spouse/ Significant Other Smoking Status: Never smoker Drugs: None - Family History Maternal Family History: Family History (Last Reviewed 07/18/20 @ 11:37 by Darya Espinoza) Brother Cancer Sister Cancer Sister Hypertension Diabetes Brother Cancer Family History: Reports: No pertinent history Paternal Family History: Family History (Last Reviewed 07/18/20 @ 11:37 by Darya Espinoza) Brother Cancer Sister Cancer Sister Hypertension Diabetes Brother Cancer Family History: Reports: No pertinent history Review of Systems General: Denies: Chills, Fever, Sweats Eyes: Denies: Visual changes - bilaterally, Diplopia ENT: Denies: Rhinorrhea, Sore throat Cardiovascular: Reports: Chest pain. Denies: Palpitations Respiratory: Denies: Dyspnea, Cough, Dyspnea on exertion Gastrointestinal: Denies: Abdominal pain, Nausea, Vomiting, Diarrhea, Melena, Hematochezia Genitourinary: Denies: Dysuria, Hematuria, Frequency Musculoskeletal: Denies: Back pain, Extremity Pain Skin: Denies: Rash, Wounds Neurological: Denies: Headache, Weakness, Numbness Physical Exam Vital Signs/Narrative: Vital Signs Temp Pulse Resp BP Pulse Ox 08/28/20 14:47 97.3 F L 98 15 119/70 96 Inital Vital Signs reviewed: Yes General: Well nourished, Well developed, No Acute Distress Head: Normocephalic, Atraumatic Eyes: Perrl, EOMI ENT: Moist mucous membranes, No rhinorrhea Neck: Supple, Nontender Cardiovascular: Regular rate, Regular rhythm, No murmurs Respiratory: No distress, CTA bilaterally, Chest nontender Abdomen: Soft, Nontender, Nondistended, Normal bowel sounds Back: - - To palpation along the angle of the ribs posteriorly on the left. Mild ecchymosis noted Extremities: Nontender, No edema Skin: Normal color, No rash Neurological: Alert, Oriented x3, Cranial nerves II-XII grossly intact, Normal Strength, Normal Sensation Psychological: Normal affect, Normal Mood Diagnostic/Tx/Re-eval - Medical Decision Making Upon my review of the CT I see 3 rib fractures posteriorly on the left. I do not see associated pneumothorax or pulmonary contusion. Patient does not wish to stay in the hospital. He states if he had some pain medication besides Tylenol that would probably help him out. We talked about incentive spirometry. We talked about constipation altered mental status amongst some of the other side effects of narcotic pain medicine. Patient notes understanding. Will return if worsening or concerns ED Disposition - Plan for ED Patient: Disposition: Home or Assisted Living Diagnosis: Multiple fractures of ribs of left side Instructions: ED Rib Fracture Prescriptions: Oxycodone [Oxyir] 5 mg PO Q6H 3 Days #12 tablet Transmission Status: Received by [facility]/pharmacy #[id number] Referrals: Jose Raul Garcia Chi, MD [Primary Care Provider] - 1 Week Additional Instructions: Please use the incentive spirometry device at least once an hour while awake. You may take Tylenol with the pain medication. Please note that all narcotic pain medications have potential side effects such as confusion, constipation, nausea, etc
[2020-08-28] MEDS: oxyCODONE 5 MG Tablet PO (16:11)
[2020-08-28] MEDS: Acetaminophen 500 MG Tablet 1000 MG PO (16:12)
== END 2020-08-28 16:26 | disposition home or self-care (01) ==
PROVIDERS: Emergency Provider Emergency Medicine; PCP Family Medicine Geriatric Medicine
DX: S22.42XA Multiple fractures of ribs, left side, initial encounter for closed fracture (principal); I13.0 Hypertensive heart and chronic kidney disease with heart failure and stage 1 through stage 4 chronic kidney disease, or unspecified chronic kidney disease; I50.32 Chronic diastolic (congestive) heart failure; N18.4 Chronic kidney disease, stage 4 (severe); E11.22 Type 2 diabetes mellitus with diabetic chronic kidney disease; E78.5 Hyperlipidemia, unspecified; I48.0 Paroxysmal atrial fibrillation; Z79.01 Long term (current) use of anticoagulants; W10.9XXA Fall (on) (from) unspecified stairs and steps, initial encounter; Y93.01 Activity, walking, marching and hiking; Y92.511 Restaurant or cafe as the place of occurrence of the external cause; Y99.8 Other external cause status
CPT/HCPCS: 71250; 99283

== ENCOUNTER → 2020-10-17 11:25 | Outpatient (CLI) | payer MEDICARE, OTHER, SELFPAY ==
[2020-10-17 12:20] LABS: Absolute Lymphocyte Count 1.13 X10^3/uL (0.83-4.51); Absolute Neutrophil Count 6.4 X10^3/uL (2.0-7.7); Basophil# 0.12 X10^3/uL; Basophil% 1.4 % (0-1); Eosinophils% 1.2 % (0-5); Hemoglobin 11.6 g/dL (13.0-16.5); Lymphocyte # 1.13 X10^3/ul (4.0); Lymphocyte % 13.2 % (19-41); Mean Corp Hgb Conc 30.5 g/dL (32-36); Mean Corpuscular Hgb 29.7 pg (27.0-32.0); Mean Corpuscular Volume 97.2 fL (80-94); Mean Platelet Vol. 10.8 fl (6.2-12.0); Monocyte# 0.77 X10^3/uL; NRBC Flagged by Analyzer 0 % (0-5); Neutrophil # 6.39 X10^3/uL (2.7-7.7); Neutrophil % 74.3 % (47-70); Platelet Count 268 K/mm3 (150-450); RBC Distribution Width CV 14.8 % (11.6-14.6); Red Blood Count 3.91 M/mm3 (4.6-6.2); White Blood Count 8.6 K/mm3 (4.4-11.0)
[2020-10-17 12:35] LABS: Vitamin D,25 Hydroxy 55.9 ng/mL
[2020-10-17 12:41] LABS: ALB/GLOB Ratio 0.5 RATIO (0.9-2.4); AST(SGOT) 22 U/L (15-37); Alanine Aminotransfer ALT/SGPT 27 U/L (16-61); Alkaline Phosphatase 228 U/L (45-117); Anion Gap 13 (5-15); BUN 33 mg/dL (7-18); Calcium,Total 8.7 mg/dL (8.5-10.1); Chloride 97 mmol/L (98-107); Creatinine, Serum 6.54 mg/dL (0.70-1.30); EST Glomerular Filtration Rate 9 mL/min (>60); Est Glom Filt Rate - Afr Amer 11 mL/min (>60); Globulin 4.3 g/dL (2.2-4.2); Glucose 200 mg/dL (74-106); Potassium 3.4 mmol/L (3.5-5.1); Protein, Total 6.3 g/dL (6.4-8.2); Sodium Level 136 mmol/L (136-145); Thyroid Stim Hormone (TSH) 0.04 uIU/mL (0.358-3.74)
== END ==
PROVIDERS: PCP Family Medicine Geriatric Medicine; Visit Provider Family Medicine Geriatric Medicine
DX: E11.9 Type 2 diabetes mellitus without complications (principal); E55.9 Vitamin D deficiency, unspecified; I10 Essential (primary) hypertension
CPT/HCPCS: 36415; 80053; 82306; 84443; 85025

== ENCOUNTER 2020-10-20 12:50 | Inpatient (IN) | payer MEDICARE, OTHER, SELFPAY ==
[2020-10-20] VITALS (11 sets, daily range): BP systolic 70–113; BP diastolic 37–64; PULSE 62–99; RESP 14–21; TEMP 36.4–36.7; O2SAT 95–100; BMI 19.5; BMI 17.9
--- NOTE | 2020-10-20 13:26 | RAD_ITS ---
STUDY: X-RAY CHEST REASON FOR EXAM: Male, 84 years old. chest pain TECHNIQUE: Single AP portable view of the chest. COMPARISON: 08/08/2019. FINDINGS: The lungs are hyperexpanded. There are coarsened interstitial markings suggestive of mild chronic fibrosis. No gross focal infiltrates. No gross effusions. Normal size heart. Previous CABG. Normal mediastinum and cass. Normal visualized pulmonary arteries. Normal visualized aortic arch and descending thoracic aorta. There are diffuse degenerative changes of the visualized thoracic spine. Old right rib fractures are seen. There is diffuse demineralization. There is no demonstrated abnormality of the visualized soft tissue structures of the upper abdomen. RAD/Chest 1 View (Portable) IMPRESSION: No definite acute or significant abnormality seen. Electronically Signed: Wes Oakes MD at 14:06 EST , Service support ,
--- NOTE | 2020-10-20 13:26 | EKG12_ITS ---
Test Reason : WEAKNESS Blood Pressure : / mmHG Vent. Rate : 099 BPM Atrial Rate : 099 BPM P-R Int : 000 ms QRS Dur : 128 ms QT Int : 402 ms P-R-T Axes : 000 061 005 degrees QTc Int : 515 ms Atrial fibrillation Right bundle branch block Abnormal ECG Confirmed by TIKI SANCHEZ, MAINOR ([id number]), makeup editor YANI WARE ([id number]) on 10/23/2020 12:34:27 PM Referred By: LISSY Confirmed By:MAINOR FAIRBANKS MD
--- NOTE | 2020-10-20 13:27 | ED.VIS.GEN ---
History of Present Illness Chief Complaint: Weakness Informant: Patient Narrative: 84-year-old male presenting with decreased appetite and generalized weakness. He also complains of some shortness of breath with exertion. He feels like there is something wrong with his heart and states that sometimes he has chest pain. Patient has end-stage renal disease on daily dialysis. Patient's family member states that at the end of August he was invited to come stay with them because he was not eating and drinking well and not taking care of himself. He ended up doing poorly and admitted to [facility]. When discharged back to care home facility he started doing poorly again and had to go back to the hospital. Patient has been run down for the last couple of weeks. He does not have any fever or chills. He is previously had COVID-19. His chief complaint is that he is short of breath with exertion and having some intermittent chest pains. - Past Medical History (1) DVT, lower extremity, distal Status: Resolved (2) Essential hypertension Status: Chronic (3) 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 Status: Chronic Past Medical History - Allergies and Home Meds Allergies/Adverse Reactions: Allergies No Known Allergies Allergy (Verified 10/20/20 12:53) Primary Care Physician: Jose Raul Garcia Chi, MD [Primary Care Provider] - Prior records reviewed: Yes Past Medical History: - - Viewed in problem list Surgical History: appendectomy, cholecystectomy, - Lives: With Family Smoking Status: Never smoker Alcohol: None Drugs: None - Family History Maternal Family History: Family History (Last Reviewed 07/18/20 @ 11:37 by Darya Espinoza) Brother Cancer Sister Cancer Sister Hypertension Diabetes Brother Cancer Family History: Reports: No pertinent history Paternal Family History: Family History (Last Reviewed 07/18/20 @ 11:37 by Darya Espinoza) Brother Cancer Sister Cancer Sister Hypertension Diabetes Brother Cancer Family History: Reports: No pertinent history Review of Systems General: Reports: Malaise. Denies: Chills, Fever Eyes: Denies: Visual changes - bilaterally, Diplopia ENT: Denies: Rhinorrhea, Sore throat Cardiovascular: Reports: Chest pain. Denies: Palpitations, Heart racing Respiratory: Reports: Dyspnea, Dyspnea on exertion Gastrointestinal: Denies: Abdominal pain, Nausea, Vomiting Genitourinary: Denies: Dysuria, Hematuria Musculoskeletal: Denies: Myalgias, Arthralgias Skin: Denies: Rash, Abscess Neurological: Denies: Headache, Weakness, Parasthesia Psych: Denies: Depression, Anxiety, Suicidal thoughts Physical Exam Vital Signs/Narrative: Vital Signs Temp Pulse Resp BP Pulse Ox 10/20/20 12:53 97.8 F 62 18 78/48 L 95 Inital Vital Signs reviewed: Yes General: Cachectic, No Acute Distress Head: Normocephalic, Atraumatic Eyes: Perrl, EOMI ENT: Moist mucous membranes, No rhinorrhea Cardiovascular: Regular rate, Regular rhythm Respiratory: No distress, CTA bilaterally Abdomen: Soft, Nontender, Nondistended Extremities: Nontender, No edema Skin: Normal color, No rash Neurological: Alert, Oriented x3, Cranial nerves II-XII grossly intact Psychological: Normal affect, Normal Mood Diagnostic/Tx/Re-eval Clinical Impression(s) from Imaging Studies Chest X-Ray 10/20/20 13:26 IMPRESSION: No definite acute or significant abnormality seen. Electronically Signed: Wes Oakes MD at 14:06 EST , Service support , Laboratory Data 10/20/20 10/20/20 10/20/20 14:00 14:00 14:00 WBC 9.7 RBC 4.18 L Hgb 12.3 L Hct 40.6 MCV 97.1 H MCH 29.4 MCHC 30.3 L RDW Std Deviation 52.5 H RDW Coeff of Pamela 14.6 Plt Count 219 MPV 10.5 Immature Gran % (Auto) 0.500 Neut % (Auto) 80.1 H Lymph % (Auto) 10.2 L [place] % (Auto) 7.5 Eos % (Auto) 0.5 Baso % (Auto) 1.2 H Absolute Neuts (auto) 7.8 H Absolute Lymphs (auto) 0.99 Nucleated RBC % 0 PT 17.2 H INR 1.5 Sodium 138 Potassium 3.1 L Chloride 98 Carbon Dioxide 28.0 Anion Gap 12 BUN 27 H Creatinine 6.65 H Estim Creat Clear Calc 6.63 Est GFR (MDRD) Af Amer 10 L Est GFR (MDRD) Non-Af 9 L BUN/Creatinine Ratio 4.1 L Glucose 232 H Calcium 8.5 Troponin I 0.042 - Medical Decision Making 84-year-old male presenting with intermittent chest pain and generalized weakness. He states he is short of breath with exertion. Patient states his blood pressure has been low for the last few weeks as well. Patient had EKG performed on arrival which [id number] fibrillation at 99 bpm without signs of ischemia as interpreted by myself. Chest x-ray interpreted by myself shows no acute process. Lab work shows white blood cell count is 9.7, hemoglobin is 12.3, creatinine is 6.65 which is baseline for him. Potassium is 3.1. Troponin negative. Given the potassium is low I will add on a magnesium level. Patient was discussed with the hospitalist who will admit the patient for his chest pains. The patient's son-in-law approached me in private stating that the patient was having a problem with his penis. I did asked if he wanted me to assess this and he refused. Impression: 1. Shortness of breath 2. Chest pain 3. Hypokalemia 4. Subtherapeutic INR ED Disposition - Plan for ED Patient: Referrals: Jose Raul Garcia Chi, MD [Primary Care Provider] -
[2020-10-20 14:18] LABS: Absolute Lymphocyte Count 0.99 X10^3/uL (0.83-4.51); Absolute Neutrophil Count 7.8 X10^3/uL (2.0-7.7); Basophil# 0.12 X10^3/uL; Basophil% 1.2 % (0-1); Eosinophil# 0.05 X10^3/uL; Eosinophils% 0.5 % (0-5); Hematocrit 40.6 % (40-54); Hemoglobin 12.3 g/dL (13.0-16.5); Lymphocyte # 0.99 X10^3/ul (4.0); Lymphocyte % 10.2 % (19-41); Mean Corp Hgb Conc 30.3 g/dL (32-36); Mean Corpuscular Hgb 29.4 pg (27.0-32.0); Mean Corpuscular Volume 97.1 fL (80-94); Mean Platelet Vol. 10.5 fl (6.2-12.0); Monocyte# 0.73 X10^3/uL; Monocyte% 7.5 % (0-10); NRBC Flagged by Analyzer 0 % (0-5); Neutrophil % 80.1 % (47-70); Platelet Count 219 K/mm3 (150-450); RBC Distribution Width CV 14.6 % (11.6-14.6); RBC Distribution Width SD 52.5 fl (35.1-43.9); Red Blood Count 4.18 M/mm3 (4.6-6.2); White Blood Count 9.7 K/mm3 (4.4-11.0)
[2020-10-20 14:29] LABS: Anion Gap 12 (5-15); BUN 27 mg/dL (7-18); BUN/Creat Ratio 4.1 RATIO (10-20); Calcium,Total 8.5 mg/dL (8.5-10.1); Chloride 98 mmol/L (98-107); Creatinine, Serum 6.65 mg/dL (0.70-1.30); EST Glomerular Filtration Rate 9 mL/min (>60); Est Glom Filt Rate - Afr Amer 10 mL/min (>60); Estimated Creatinine Clearance 6.63 ml/min; Glucose 232 mg/dL (74-106); Potassium 3.1 mmol/L (3.5-5.1); Sodium Level 138 mmol/L (136-145)
[2020-10-20 14:44] LABS: International Normalized Ratio 1.5; Prothrombin Time (Protime)PT. 17.2 SECONDS (11.7-14.9)
--- NOTE | 2020-10-20 15:30 | PCM.HP.STD ---
History of Present Illness Date of Admission: 10/20/20 Chief Complaint: Weakness and chest pain The patient is a 84 year old M with a PMH as below who who presents to the hospital with shortness of breath on exertion. He recently had Covid and spent some time in the [facility], at that point he was discharged to a [place] [facility] facility currently he is home with family and started to complain about chest pain as well as some shortness of breath. The chest pain and shortness of breath was on exertion. Troponin was unremarkable in the ER, he does have an history of end-stage renal disease and is on peritoneal dialysis. Shortness of breath started this last week and has been getting worse. He says that he continues to feel just washed out and weak from Covid in August. 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) use of anticoagulants (Chronic) Chronic renal insufficiency, stage IV (severe) (Chronic) SVT (supraventricular tachycardia) (Chronic) Right bundle branch block (Chronic) Aortic root dilatation (Chronic) Paroxysmal atrial fibrillation (Chronic) Type II diabetes mellitus (Chronic) Hyperlipidemia (Chronic) Fallot tetralogy (Chronic) S/P repair; Medical History: Medical History (Last Reviewed 07/18/20 @ 11:37 by Darya Espinoza) Infected sebaceous cyst (Acute) L72.3, L08.9 Chronic diastolic heart failure (Chronic) I50.32 Essential hypertension (Chronic) I10 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 (Chronic) Z85.528 Chronic renal insufficiency, stage IV (severe) (Chronic) N18.4 SVT (supraventricular tachycardia) (Chronic) I47.1 Right bundle branch block (Chronic) I45.10 Aortic root dilatation (Chronic) I77.810 Paroxysmal atrial fibrillation (Chronic) I48.0 Type II diabetes mellitus (Chronic) E11.9 Hyperlipidemia (Chronic) E78.5 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; Hyperkalemia E87.5 GERD (gastroesophageal reflux disease) K21.9 Neuropathy G62.9 Renal cell carcinoma C64.9 Renal insufficiency N28.9 Vitamin D deficiency E55.9 History of DVT (deep vein thrombosis) Z86.718 Palpitations R00.2 Anemia (Inactive) D64.9 Atrial fibrillation and flutter (Inactive) I48.91, I48.92 Hypomagnesemia (Inactive) E83.42 Allergies No Known Allergies Allergy (Verified 10/20/20 12:53) Home Medications: Ambulatory Orders Medication Instructions Recorded levothyroxine 50 mcg capsule 50 mcg PO DAILY 04/06/19 Calcitriol 0.5 mcg PO DAILY 10/20/20 Colesevelam HCl 3.75 gm PO QODAY 10/20/20 Fludrocortisone Acetate [Florinef] 0.1 mg PO DAILY@0800 10/20/20 Insulin Glargine [Lantus (BKC)] 12 units SC QHS 10/20/20 Insulin Lispro [Humalog KwikPen] 3 unit SQ BID 10/20/20 Lactobacillus Acidophilus 1 ea PO DAILY 10/20/20 [Acidophilus Lactobacilli] Magnesium Oxide 800 mg PO BID 10/20/20 Midodrine HCl 10 mg PO Q6H 10/20/20 Ubidecarenone [Coenzyme Q-10] 100 mg PO DAILY 10/20/20 Warfarin [Coumadin (PBKC)] 3 mg PO DAILY 10/20/20 Surgical History: Surgical History (Last Reviewed 07/18/20 @ 11:37 by Darya Espinoza) History of partial nephrectomy Onset Date: ~02/2019 Z90.5 H/O superior vena cava filter placement Z95.828 History of cholecystectomy Z98.890, Z90.49 History of ventricular septal defect repair Z98.890, Z87.74 Hx of appendectomy Z98.890, Z90.49 Surgical History: appendectomy, cholecystectomy, - Psychiatric History: No pertinent psych hx Lives: With Family Smoking Status: Never smoker Alcohol: None Drugs: None - *Family History Maternal Family History: Family History (Last Reviewed 07/18/20 @ 11:37 by Darya Espinoza) Brother Cancer Sister Cancer Sister Hypertension Diabetes Brother Cancer History Items: No pertinent history Paternal Family History: Family History (Last Reviewed 07/18/20 @ 11:37 by Darya Espinoza) Brother Cancer Sister Cancer Sister Hypertension Diabetes Brother Cancer History Items: No pertinent history Review of Systems Constitutional: Reports: Weakness, Fatigue. Denies: Chills, Fever, Weight Change HEENT: Denies: Head Aches, Sinus Congestion, Sinus Drainage Cardiovascular: Reports: Chest Pain. Denies: Palpitations Respiratory: Reports: Shortness of breath upon exertion. Denies: Cough, Shortness of breath at rest, Sputum production Gastrointestinal: Denies: Abdominal Pain, Nausea, Vomiting Genitourinary: Denies: Dysuria Musculoskeletal: Denies: Joint Pain, Joint Tenderness Skin: Denies: Rash, Wounds Neurological: Denies: Numbness, Tingling, Focal weakness Psychiatric: Denies: Anxiety, Depression Hematologic/ Lymphatic: Denies: Easy Bruising, Easy Bleeding VTE Information - Inpt Only VTE Present on Admission: No - Physical Exam Vitals/I&O's: Vital Signs Temp Pulse Resp BP Pulse Ox 97.8 F 98 19 H 94/64 100 10/20/20 12:53 10/20/20 14:28 10/20/20 14:28 10/20/20 14:28 10/20/20 13:57 Oxygen Delivery Method Room Air Weight: 125 lb Body Mass Index (BMI) 19.5 Finger Stick Blood Glucose 156 General: Alert, Oriented x3, Cooperative, No apparent distress HEENT: Atraumatic, PERRLA, EOMI, Normocephalic Oral: Moist Mucosa Neck: Supple, No JVD Lungs: Clear to auscultation, Normal air movement, No rhonchi, No wheeze, No rales Cardiovascular: Regular rate, Regular Rhythm, Normal S1, Normal S2, No murmurs Abdomen: Soft, Non Tender, Non-Distended, No Hepato-splenomegaly Extremities: No edema, Capillary Refill Less than 3 Seconds Skin: No rashes, No breakdown Musculoskeletal: No Tenderness to Palpation of Joints or Extremities Neurological: Neuro grossly intact, Sensory exam intact to light touch and pain Psych/Mental Status: Normal Affect, Appropriate Laboratory Results 10/20/20 14:00: WBC 9.7, RBC 4.18 L, Hgb 12.3 L, Hct 40.6, MCV 97.1 H, MCH 29.4, MCHC 30.3 L, RDW Std Deviation 52.5 H, RDW Coeff of Pamela 14.6, Plt Count 219, MPV 10.5, Immature Gran % (Auto) 0.500, Neut % (Auto) 80.1 H, Lymph % (Auto) 10.2 L, [place] % (Auto) 7.5, Eos % (Auto) 0.5, Baso % (Auto) 1.2 H, Absolute Neuts (auto) 7.8 H, Absolute Lymphs (auto) 0.99, Nucleated RBC % 0 10/20/20 14:00: Sodium 138, Potassium 3.1 L, Chloride 98, Carbon Dioxide 28.0, Anion Gap 12, BUN 27 H, Creatinine 6.65 H, Estim Creat Clear Calc 6.63, Est GFR (MDRD) Af Amer 10 L, Est GFR (MDRD) Non-Af 9 L, BUN/Creatinine Ratio 4.1 L, Glucose 232 H, Calcium 8.5, Troponin I 0.042 10/20/20 14:00: PT 17.2 H, INR 1.5 Assessment/Plan All Active Problems (Last Reviewed 07/18/20 @ 11:37 by Darya Espinoza) DVT, lower extremity, distal (Resolved) Hypokalemia (Acute) Infected sebaceous cyst (Acute) 1. Chest pain with dyspnea on exertion/paroxysmal A. fib/HLD/chronic diastolic CHF -Initial troponin was unremarkable, will trend -He is on midodrine and Florinef for low BP -We will plan for stress test on Thursday -We will hold his Coumadin in case he needs to have a cardiac cath, will place him on just VTE prophylaxis -He does have a history of a DVT but appears to have IVC filter in place 2. End-stage renal disease secondary to renal cell carcinoma status post partial nephrectomy as well as DM 2 -We will consult nephrology to assist with peritoneal dialysis -Continue with his home insulin regimen, will place him on sliding scale insulin -Accu-Cheks AC at bedtime 3. Hypothyroidism -Last TSH was 0.04 -We will hold Synthroid DVT: Heparin OBSV E&M: [id number] Initial observation care L2
[2020-10-20] MEDS: Aspirin 81 MG TAB.CHEW 324 MG PO (15:40)
[2020-10-20 16:26] LABS: Magnesium 1.3 mg/dL (1.6-2.6)
--- NOTE | 2020-10-20 17:06 | EKG12_ITS ---
Test Reason : MORNING EKG Blood Pressure : / mmHG Vent. Rate : 083 BPM Atrial Rate : 048 BPM P-R Int : 000 ms QRS Dur : 140 ms QT Int : 440 ms P-R-T Axes : 000 063 050 degrees QTc Int : 517 ms Atrial fibrillation Right bundle branch block Abnormal ECG When compared with ECG of 20-OCT-2020 17:14, MANUAL COMPARISON REQUIRED, DATA IS UNCONFIRMED Confirmed by PRERNA SANCHEZ, ZULAY ([id number]), editor producer YANI WARE ([id number]) on 10/23/2020 12:38:52 PM Referred By: YARELI Confirmed By:ZULAY GRAFF MD
[2020-10-20] MEDS: Acetaminophen 325 MG Tablet 650 MG PO (21:14)
[2020-10-20] MEDS: Heparin Injection (Vial) 5,000 UNIT/ML VIAL 5000 UNIT SC (21:29)
[2020-10-20] MEDS: Mupirocin Ointment 22gm Tube 1 APPLIC TOPICAL (21:29)
[2020-10-20 21:46] LABS: Bedside Glucose 109 mg/dL (70-110)
[2020-10-21] VITALS (12 sets, daily range): BP systolic 104–117; BP diastolic 41–63; PULSE 80–107; RESP 12–16; TEMP 36.2–36.9; O2SAT 94–100
[2020-10-21] MEDS: Potassium Chloride Oral Soln 20 MEQ/15 ML UDC 40 MEQ PO (00:02)
[2020-10-21] MEDS: Midodrine HCl 5 MG Tablet 10 MG PO ×4 (00:02→17:44)
--- NOTE | 2020-10-21 01:39 | PCM.PN.BLA ---
Progress Note Nurse reports painful ulcer on penis. Order to cleanse daily and apply Bactroban. Later nurse reported that with Tylenol patient pain still persist. Oxycodone ordered. STROKE Vital Signs/Narrative: Vital Signs Temp Pulse Resp BP Pulse Ox 10/21/20 00:12 98.4 F 100 16 107/63 97
[2020-10-21] MEDS: oxyCODONE 5 MG Tablet PO ×2 (01:54→21:43)
[2020-10-21 06:14] LABS: Absolute Lymphocyte Count 0.95 X10^3/uL (0.83-4.51); Absolute Neutrophil Count 8.5 X10^3/uL (2.0-7.7); Basophil# 0.11 X10^3/uL; Basophil% 1.1 % (0-1); Eosinophil# 0.05 X10^3/uL; Eosinophils% 0.5 % (0-5); Hematocrit 34.8 % (40-54); Lymphocyte # 0.95 X10^3/ul (4.0); Lymphocyte % 9.3 % (19-41); Mean Corp Hgb Conc 31.6 g/dL (32-36); Mean Corpuscular Hgb 30.2 pg (27.0-32.0); Mean Corpuscular Volume 95.6 fL (80-94); Mean Platelet Vol. 10.7 fl (6.2-12.0); Monocyte# 0.57 X10^3/uL; Monocyte% 5.6 % (0-10); NRBC Flagged by Analyzer 0 % (0-5); Neutrophil # 8.52 X10^3/uL (2.7-7.7); Neutrophil % 82.9 % (47-70); Platelet Count 216 K/mm3 (150-450); RBC Distribution Width CV 14.6 % (11.6-14.6); RBC Distribution Width SD 51.2 fl (35.1-43.9); Red Blood Count 3.64 M/mm3 (4.6-6.2); White Blood Count 10.3 K/mm3 (4.4-11.0)
[2020-10-21] MEDS: Heparin Injection (Vial) 5,000 UNIT/ML VIAL 5000 UNIT SC ×3 (06:36→21:43)
[2020-10-21] MEDS: Insulin Lispro 100 UNIT/ML INSULN.PEN SC ×3 (06:36→16:29)
[2020-10-21 06:43] LABS: Anion Gap 13 (5-15); BUN 26 mg/dL (7-18); BUN/Creat Ratio 4.1 RATIO (10-20); Calcium,Total 7.8 mg/dL (8.5-10.1); Chloride 98 mmol/L (98-107); Creatinine, Serum 6.29 mg/dL (0.70-1.30); EST Glomerular Filtration Rate 9 mL/min (>60); Est Glom Filt Rate - Afr Amer 11 mL/min (>60); Estimated Creatinine Clearance 6.41 ml/min; Glucose 259 mg/dL (74-106); Magnesium 1.2 mg/dL (1.6-2.6); Phosphorus 4.5 mg/dL (2.5-4.9); Potassium 2.9 mmol/L (3.5-5.1); Sodium Level 137 mmol/L (136-145)
[2020-10-21 06:50] LABS: Bedside Glucose 255 mg/dL (70-110)
[2020-10-21] MEDS: Fludrocortisone Acetate 0.1 MG Tablet PO (09:33)
[2020-10-21] MEDS: Calcitriol 0.25 MCG Capsule 0.5 MCG PO (09:33)
[2020-10-21] MEDS: Folic Acid/Vitamin B Comp W-C 1 Capsule 1 CAP PO (09:33)
[2020-10-21] MEDS: Mupirocin Ointment 22gm Tube 1 APPLIC TOPICAL ×2 (09:34→20:00)
--- NOTE | 2020-10-21 09:49 | PN_ITS ---
Subjective: Doing well, no issues while resting. Still has some pressure when he tries to sit up or is mobile Vitals/I&O's: Vital Signs Temp Pulse Resp BP Pulse Ox 97.1 F L 102 H 14 108/55 L 94 10/21/20 06:15 10/21/20 06:54 10/21/20 06:15 10/21/20 06:15 10/21/20 06:15 Oxygen Delivery Method Room Air Weight: 114 lb 3.191 oz Body Mass Index (BMI) 17.9 Finger Stick Blood Glucose 156 Intake and Output for Last 24 Hours 10/19/20 10/20/20 10/21/20 23:59 23:59 23:59 Intake Total 600 / 600 Output Total 0 / 0 Balance 600 / 600 General: Alert, Oriented x3, Cooperative, No apparent distress HEENT: Atraumatic, PERRLA, EOMI, Normocephalic Oral: Moist Mucosa Neck: Supple, No JVD Lungs: Clear to auscultation, Normal air movement, No rhonchi, No wheeze, No rales Cardiovascular: Regular rate, Regular Rhythm, Normal S1, Normal S2, No murmurs Abdomen: Soft, Non Tender, Non-Distended, No Hepato-splenomegaly Extremities: No edema, Capillary Refill Less than 3 Seconds Skin: No rashes, No breakdown. There is an ulceration on the tip of his penis states that that occurred at [facility] Musculoskeletal: No Tenderness to Palpation of Joints or Extremities Neurological: Neuro grossly intact, Sensory exam intact to light touch and pain Psych/Mental Status: Normal Affect, Appropriate Laboratory Results 10/20/20 14:00: WBC 9.7, RBC 4.18 L, Hgb 12.3 L, Hct 40.6, MCV 97.1 H, MCH 29.4, MCHC 30.3 L, RDW Std Deviation 52.5 H, RDW Coeff of Pamela 14.6, Plt Count 219, MPV 10.5, Immature Gran % (Auto) 0.500, Neut % (Auto) 80.1 H, Lymph % (Auto) 10.2 L, [place] % (Auto) 7.5, Eos % (Auto) 0.5, Baso % (Auto) 1.2 H, Absolute Neuts (auto) 7.8 H, Absolute Lymphs (auto) 0.99, Nucleated RBC % 0 10/20/20 14:00: Sodium 138, Potassium 3.1 L, Chloride 98, Carbon Dioxide 28.0, Anion Gap 12, BUN 27 H, Creatinine 6.65 H, Estim Creat Clear Calc 6.63, Est GFR (MDRD) Af Amer 10 L, Est GFR (MDRD) Non-Af 9 L, BUN/Creatinine Ratio 4.1 L, Glucose 232 H, Calcium 8.5, Troponin I 0.042 10/20/20 14:00: PT 17.2 H, INR 1.5 10/20/20 14:00: Magnesium 1.3 L 10/20/20 17:40: Troponin I 0.042 10/20/20 19:50: Troponin I 0.043 10/20/20 21:28: POC Glucose 109 10/21/20 06:03: WBC 10.3, RBC 3.64 L, Hgb 11.0 L, Hct 34.8 L, MCV 95.6 H, MCH 30.2, MCHC 31.6 L, RDW Std Deviation 51.2 H, RDW Coeff of Pamela 14.6, Plt Count 216, MPV 10.7, Immature Gran % (Auto) 0.600, Neut % (Auto) 82.9 H, Lymph % (Auto) 9.3 L, [place] % (Auto) 5.6, Eos % (Auto) 0.5, Baso % (Auto) 1.1 H, Absolute Neuts (auto) 8.5 H, Absolute Lymphs (auto) 0.95, Nucleated RBC % 0 10/21/20 06:03: Sodium 137, Potassium 2.9 L, Chloride 98, Carbon Dioxide 26.0, Anion Gap 13, BUN 26 H, Creatinine 6.29 H, Estim Creat Clear Calc 6.41, Est GFR (MDRD) Af Amer 11 L, Est GFR (MDRD) Non-Af 9 L, BUN/Creatinine Ratio 4.1 L, Glucose 259 H, Calcium 7.8 L 10/21/20 06:03: Phosphorus 4.5, Magnesium 1.2 L 10/21/20 06:29: POC Glucose 255 H Current Medications Acetaminophen (Acetaminophen 325 Mg Tablet) 650 mg PO Q6H PRN PRN PRN Reason: Pain Score 1-10/Temp > 100.7 F Last Admin: 03/06/21 21:14 Dose: 650 mg Documented by: Calcitriol (Calcitriol 0.25 Mcg Capsule) 0.5 mcg PO DAILY [facility] Dextrose (Dextrose 50%-Water 25 Gm/50 Ml Disp.Syrin) 0 gm IV X1 PRN; Protocol PRN Reason: Hypoglycemia Fludrocortisone Acetate (Fludrocortisone Acetate 0.1 Mg Tablet) 0.1 mg PO DAILY@0800 [facility] Glucagon (Glucagon 1 Mg/Ml Syringe) 1 mg IM .X1 PRN PRN Reason: Hypoglycemia Heparin Sodium (Porcine) (Heparin Injection (Vial) 5,000 Unit/Ml Vial) 5,000 unit SC Q8 [facility] Last Admin: 10/21/20 06:36 Dose: 5,000 unit Documented by: Magnesium Sulfate () 4 gm in 100 mls @ 25 mls/hr IV X1 ONE Stop: 10/21/20 11:29 Insulin Glargine (Insulin Glargine 100 Units/Ml Pen) 12 units SC QHS [facility] Last Admin: 10/20/20 22:29 Dose: Not Given Documented by: Insulin Human Lispro (Insulin Lispro 100 Unit/Ml Insuln.Pen) 0 unit SC ACHS [facility]; Protocol Last Admin: 10/21/20 06:36 Dose: 4 units Documented by: Lactobacillus Acidophilus (Lactobacillus Acidophilus) 1 tablet PO DAILY [facility] Melatonin (Melatonin 3 Mg Tablet) 3 mg PO QHS PRN PRN PRN Reason: INSOMNIA Midodrine (Midodrine Hcl 5 Mg Tablet) 10 mg PO Q6 [facility] Last Admin: 10/21/20 06:36 Dose: 10 mg Documented by: Multivit/Ca Carb/B Cmplx/FA/Prenat (Folic Acid/Vitamin B Comp W-C 1 Capsule) 1 capsule PO DAILY [facility] Mupirocin (Mupirocin Ointment 22gm Tube) 1 applic TOPICAL BID [facility]; Protocol Last Admin: 10/20/20 21:29 Dose: 1 applic Documented by: Nitroglycerin (Nitroglycerin (Inpatient Use) 0.4 Mg Tab.Subl) 0.4 mg SUBLINGUAL Q5M PRN PRN Reason: CARDIAC/CHEST PAIN Non-Formulary Medication (Colesevelam Hcl) 3.75 gm PO QODAY [facility] Ondansetron HCl (Ondansetron 4 Mg/2 Ml Vial) 4 mg IV Q8H PRN PRN PRN Reason: NAUSEA/VOMITING Oxycodone HCl (Oxycodone 5 Mg Tablet) 5 mg PO Q4H PRN PRN PRN Reason: Pain Score 6-10 Last Admin: 10/21/20 01:54 Dose: 5 mg Documented by: Sodium Chloride (0.9% Saline Lock 10 Ml Syringe) 10 - 40 ml IV UD PRN PRN Reason: SALINE FLUSH STROKE Vital Signs/Narrative: Vital Signs Temp Pulse Resp BP Pulse Ox 10/21/20 06:54 102 H 10/21/20 06:15 97.1 F L 80 14 108/55 L 94 Medical Necessity - Tobacco Use Smoking Status: Never smoker Assessment/Plan All Active Problems (Last Reviewed 07/18/20 @ 11:37 by Darya Espinoza) DVT, lower extremity, distal (Resolved) Hypokalemia (Acute) Infected sebaceous cyst (Acute) 1. Chest pain with dyspnea on exertion/paroxysmal A. fib/HLD/chronic diastolic CHF -Initial troponin was unremarkable, will trend -He is on midodrine and Florinef for low BP -We will plan for stress test on Thursday -We will hold his Coumadin in case he needs to have a cardiac cath, will place him on just VTE prophylaxis -He does have a history of a DVT but appears to have IVC filter in place 2. End-stage renal disease secondary to renal cell carcinoma status post partial nephrectomy as well as DM 2 -We will consult nephrology to assist with peritoneal dialysis -Continue with his home insulin regimen, will place him on sliding scale insulin -Accu-Cheks AC at bedtime 3. Hypothyroidism -Last TSH was 0.04 -We will hold Synthroid 4. Penile lesion -States that this occurred while at the [facility], he is uncircumcised and they did not provide routine cleaning -We will provide Vaseline for lubrication to allow healing. Does not appear infected DVT: Heparin OBSV E&M: [id number] Subsequent observation care L2
[2020-10-21] MEDS: Magnesium Sulfate 4gm/100mL 4 GM/100 ML IV.SOLN. IV (10:03)
--- NOTE | 2020-10-21 10:21 | DIALYSIS ---
CCPD tx completed upon arrival to bedside. Pt denies any complications with tx overnight. Tx discontinued using aseptic technique, catheter clamped, capped, and secured to abdomen. Effluent benign, clear yellow, without fibrin. Pt retained 176ml for entire PD tx. Vitals stable post tx, BP 108/51. Verbal report given to ELKE Lackey prior to departure
[2020-10-21] MEDS: Potassium Chloride 10mEq/100mL 10 MEQ/100 ML IV.SOLN. 100 MEQ IV BOLUS ×4 (10:57→15:04)
--- NOTE | 2020-10-21 12:24 | CON.PCM_ITS ---
Consultation - Renal 10/21/20 PCP/ Referring MD: Requesting physician: [] Primary care physician: Dr. 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 He has been COVID postivie at [facility] for weakness, followed by rehab at [facility] in [place]. He was discharged to home, now admitted with hypotension. He is on midodrine and florinef. BP stable today. Remains weak which is his baseline. Appetite poor with hypokalemia currently receiving replacement. He received dialysis last night without incident. - Allergies Allergies: Allergies No Known Allergies Allergy (Verified 10/20/20 12:53) - Current Medications Current Medications: Current Medications Acetaminophen (Acetaminophen 325 Mg Tablet) 650 mg PO Q6H PRN PRN PRN Reason: Pain Score 1-10/Temp > 100.7 F Last Admin: 10/20/20 21:14 Dose: 650 mg Documented by: Calcitriol (Calcitriol 0.25 Mcg Capsule) 0.5 mcg PO DAILY [facility] Last Admin: 10/21/20 09:33 Dose: 0.5 mcg Documented by: Dextrose (Dextrose 50%-Water 25 Gm/50 Ml Disp.Syrin) 0 gm IV X1 PRN; Protocol PRN Reason: Hypoglycemia Fludrocortisone Acetate (Fludrocortisone Acetate 0.1 Mg Tablet) 0.1 mg PO DAILY@0800 [facility] Last Admin: 10/21/20 09:33 Dose: 0.1 mg Documented by: Glucagon (Glucagon 1 Mg/Ml Syringe) 1 mg IM .X1 PRN PRN Reason: Hypoglycemia Heparin Sodium (Porcine) (Heparin Injection (Vial) 5,000 Unit/Ml Vial) 5,000 unit SC Q8 [facility] Last Admin: 10/21/20 06:36 Dose: 5,000 unit Documented by: Potassium Chloride () 10 meq in 100 mls @ 100 mls/hr IV BOLUS Q1H [facility] Stop: 10/21/20 14:14 Last Admin: 10/21/20 12:20 Dose: 100 mls/hr Documented by: Insulin Glargine (Insulin Glargine 100 Units/Ml Pen) 12 units SC QHS [facility] Last Admin: 10/20/20 22:29 Dose: Not Given Documented by: Insulin Human Lispro (Insulin Lispro 100 Unit/Ml Insuln.Pen) 0 unit SC ACHS [facility]; Protocol Last Admin: 10/21/20 06:36 Dose: 4 units Documented by: Lactobacillus Acidophilus (Lactobacillus Acidophilus) 1 tablet PO DAILY [facility] Last Admin: 10/21/20 09:34 Dose: 1 tablet Documented by: Melatonin (Melatonin 3 Mg Tablet) 3 mg PO QHS PRN PRN PRN Reason: INSOMNIA Midodrine (Midodrine Hcl 5 Mg Tablet) 10 mg PO Q6 [facility] Last Admin: 10/21/20 06:36 Dose: 10 mg Documented by: Multivit/Ca Carb/B Cmplx/FA/Prenat (Folic Acid/Vitamin B Comp W-C 1 Capsule) 1 capsule PO DAILY [facility] Last Admin: 10/21/20 09:33 Dose: 1 capsule Documented by: Mupirocin (Mupirocin Ointment 22gm Tube) 1 applic TOPICAL BID [facility]; Protocol Last Admin: 10/21/20 09:34 Dose: 1 applic Documented by: Nitroglycerin (Nitroglycerin (Inpatient Use) 0.4 Mg Tab.Subl) 0.4 mg SUBLINGUAL Q5M PRN PRN Reason: CARDIAC/CHEST PAIN Non-Formulary Medication (Colesevelam Hcl) 3.75 gm PO QODAY [facility] Ondansetron HCl (Ondansetron 4 Mg/2 Ml Vial) 4 mg IV Q8H PRN PRN PRN Reason: NAUSEA/VOMITING Oxycodone HCl (Oxycodone 5 Mg Tablet) 5 mg PO Q4H PRN PRN PRN Reason: Pain Score 6-10 Last Admin: 10/21/20 01:54 Dose: 5 mg Documented by: Sodium Chloride (0.9% Saline Lock 10 Ml Syringe) 10 - 40 ml IV UD PRN PRN Reason: SALINE FLUSH - 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) 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 (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) Chronic renal insufficiency, stage IV (severe) (Chronic) SVT (supraventricular tachycardia) (Chronic) Right bundle branch block (Chronic) Aortic root dilatation (Chronic) Paroxysmal atrial fibrillation (Chronic) Type II diabetes mellitus (Chronic) Hyperlipidemia (Chronic) Fallot tetralogy (Chronic) S/P repair; - Past Surgical History Surgical History: appendectomy, cholecystectomy, - - Social History Smoking Status: Never smoker Alcohol: None Drugs: None - Family History Maternal Family History: Family History (Last Reviewed 07/18/20 @ 11:37 by Darya Espinoza) Brother Cancer Sister Cancer Sister Hypertension Diabetes Brother Cancer History Items: No pertinent history Paternal Family History: Family History (Last Reviewed 07/18/20 @ 11:37 by Darya Espinoza) Brother Cancer Sister Cancer Sister Hypertension Diabetes Brother Cancer History Items: No pertinent history Review of Systems Constitutional: Reports: Weakness, Fatigue. Denies: Anorexia Cardiovascular: Denies: Chest Pain, Edema, Syncope Respiratory: Reports: Shortness of breath upon exertion. Denies: Cough Gastrointestinal: Reports: - - anorexia. Denies: Nausea, Vomiting Psychiatric: Reports: Anxiety, Depression Hematologic/ Lymphatic: Reports: Anemia - Physical Exam Vitals/I&O's: Vital Signs Temp Pulse Resp BP Pulse Ox 97.7 F L 96 16 108/51 L 94 10/21/20 10:24 10/21/20 11:00 10/21/20 10:24 10/21/20 10:24 10/21/20 10:24 Oxygen Delivery Method Room Air Weight: 51.8 kg Body Mass Index (BMI) 17.9 Finger Stick Blood Glucose 156 Intake and Output for Last 24 Hours 10/19/20 10/20/20 10/21/20 23:59 23:59 23:59 Intake Total 700 / 700 Output Total 0 / 0 Balance 700 / 700 General: Alert, Oriented x3, Cooperative, - - debilitated, thin Oral: Dry Mucosa Lungs: Clear to auscultation Cardiovascular: Regular rate Abdomen: Bowel Sounds Present, Soft, Non Tender, Non-Distended Extremities: No edema Musculoskeletal: Muscle Wasting Neurological: Neuro grossly intact, - - gen weakness, debilitated Psych/Mental Status: Alert and oriented to time, place, person, mood and affect Laboratory Results 10/20/20 14:00: WBC 9.7, RBC 4.18 L, Hgb 12.3 L, Hct 40.6, MCV 97.1 H, MCH 29.4, MCHC 30.3 L, RDW Std Deviation 52.5 H, RDW Coeff of Pamela 14.6, Plt Count 219, MPV 10.5, Immature Gran % (Auto) 0.500, Neut % (Auto) 80.1 H, Lymph % (Auto) 10.2 L, [place] % (Auto) 7.5, Eos % (Auto) 0.5, Baso % (Auto) 1.2 H, Absolute Neuts (auto) 7.8 H, Absolute Lymphs (auto) 0.99, Nucleated RBC % 0 10/20/20 14:00: Sodium 138, Potassium 3.1 L, Chloride 98, Carbon Dioxide 28.0, Anion Gap 12, BUN 27 H, Creatinine 6.65 H, Estim Creat Clear Calc 6.63, Est GFR (MDRD) Af Amer 10 L, Est GFR (MDRD) Non-Af 9 L, BUN/Creatinine Ratio 4.1 L, Glucose 232 H, Calcium 8.5, Troponin I 0.042 10/20/20 14:00: PT 17.2 H, INR 1.5 10/20/20 14:00: Magnesium 1.3 L 10/20/20 17:40: Troponin I 0.042 10/20/20 19:50: Troponin I 0.043 10/20/20 21:28: POC Glucose 109 10/21/20 06:03: WBC 10.3, RBC 3.64 L, Hgb 11.0 L, Hct 34.8 L, MCV 95.6 H, MCH 30.2, MCHC 31.6 L, RDW Std Deviation 51.2 H, RDW Coeff of Pamela 14.6, Plt Count 216, MPV 10.7, Immature Gran % (Auto) 0.600, Neut % (Auto) 82.9 H, Lymph % (Auto ) 9.3 L, [place] % (Auto) 5.6, Eos % (Auto) 0.5, Baso % (Auto) 1.1 H, Absolute Neuts (auto) 8.5 H, Absolute Lymphs (auto) 0.95, Nucleated RBC % 0 10/21/20 06:03: Sodium 137, Potassium 2.9 L, Chloride 98, Carbon Dioxide 26.0, Anion Gap 13, BUN 26 H, Creatinine 6.29 H, Estim Creat Clear Calc 6.41, Est GFR (MDRD) Af Amer 11 L, Est GFR (MDRD) Non-Af 9 L, BUN/Creatinine Ratio 4.1 L, Glucose 259 H, Calcium 7.8 L 10/21/20 06:03: Phosphorus 4.5, Magnesium 1.2 L 10/21/20 06:29: POC Glucose 255 H Clinical Impression(s) from Imaging Studies Chest X-Ray 10/20/20 13:26 IMPRESSION: No definite acute or significant abnormality seen. Electronically Signed: Wes Oakes MD at 14:06 EST , Service support , Current Medications Acetaminophen (Acetaminophen 325 Mg Tablet) 650 mg PO Q6H PRN PRN PRN Reason: Pain Score 1-10/Temp > 100.7 F Last Admin: 10/20/20 21:14 Dose: 650 mg Documented by: Calcitriol (Calcitriol 0.25 Mcg Capsule) 0.5 mcg PO DAILY [facility] Last Admin: 10/21/20 09:33 Dose: 0.5 mcg Documented by: Dextrose (Dextrose 50%-Water 25 Gm/50 Ml Disp.Syrin) 0 gm IV X1 PRN; Protocol PRN Reason: Hypoglycemia Fludrocortisone Acetate (Fludrocortisone Acetate 0.1 Mg Tablet) 0.1 mg PO DAILY@0800 [facility] Last Admin: 10/21/20 09:33 Dose: 0.1 mg Documented by: Glucagon (Glucagon 1 Mg/Ml Syringe) 1 mg IM .X1 PRN PRN Reason: Hypoglycemia Heparin Sodium (Porcine) (Heparin Injection (Vial) 5,000 Unit/Ml Vial) 5,000 unit SC Q8 [facility] Last Admin: 10/21/20 06:36 Dose: 5,000 unit Documented by: Potassium Chloride () 10 meq in 100 mls @ 100 mls/hr IV BOLUS Q1H [facility] Stop: 10/21/20 14:14 Last Admin: 10/21/20 12:20 Dose: 100 mls/hr Documented by: Insulin Glargine (Insulin Glargine 100 Units/Ml Pen) 12 units SC QHS [facility] Last Admin: 10/20/20 22:29 Dose: Not Given Documented by: Insulin Human Lispro (Insulin Lispro 100 Unit/Ml Insuln.Pen) 0 unit SC ACHS [facility]; Protocol Last Admin: 10/21/20 06:36 Dose: 4 units Documented by: Lactobacillus Acidophilus (Lactobacillus Acidophilus) 1 tablet PO DAILY [facility] Last Admin: 10/21/20 09:34 Dose: 1 tablet Documented by: Melatonin (Melatonin 3 Mg Tablet) 3 mg PO QHS PRN PRN PRN Reason: INSOMNIA Midodrine (Midodrine Hcl 5 Mg Tablet) 10 mg PO Q6 [facility] Last Admin: 10/21/20 06:36 Dose: 10 mg Documented by: Multivit/Ca Carb/B Cmplx/FA/Prenat (Folic Acid/Vitamin B Comp W-C 1 Capsule) 1 capsule PO DAILY [facility] Last Admin: 10/21/20 09:33 Dose: 1 capsule Documented by: Mupirocin (Mupirocin Ointment 22gm Tube) 1 applic TOPICAL BID [facility]; Protocol Last Admin: 10/21/20 09:34 Dose: 1 applic Documented by: Nitroglycerin (Nitroglycerin (Inpatient Use) 0.4 Mg Tab.Subl) 0.4 mg SUBLINGUAL Q5M PRN PRN Reason: CARDIAC/CHEST PAIN Non-Formulary Medication (Colesevelam Hcl) 3.75 gm PO QODAY [facility] Ondansetron HCl (Ondansetron 4 Mg/2 Ml Vial) 4 mg IV Q8H PRN PRN PRN Reason: NAUSEA/VOMITING Oxycodone HCl (Oxycodone 5 Mg Tablet) 5 mg PO Q4H PRN PRN PRN Reason: Pain Score 6-10 Last Admin: 10/21/20 01:54 Dose: 5 mg Documented by: Sodium Chloride (0.9% Saline Lock 10 Ml Syringe) 10 - 40 ml IV UD PRN PRN Reason: SALINE FLUSH Assessment/Plan All Active Problems (Last Reviewed 07/18/20 @ 11:37 by Darya Espinoza) DVT, lower extremity, distal (Resolved) Hypokalemia (Acute) Infected sebaceous cyst (Acute) 1. ESRD continue CCPD use all 1.5% 2. weakness, SOB due to hypotension. On midodrine and florinef 3. Debilitation 4. Hypokalemia replaced 5. Hypomagnesemia replaced. 6. Tetrology of Fallot
[2020-10-21 12:35] LABS: Bedside Glucose 232 mg/dL (70-110)
[2020-10-21 16:56] LABS: Bedside Glucose 260 mg/dL (70-110)
--- NOTE | 2020-10-21 20:00 | DIALYSIS ---
CCPD initiated using 2 bags of 1.5% dextrose solution. pt was supposed to have 3 bags, but pharmacy only had 2 bags available. RX adjusted to 2000ml fill volume. first drain and first fill completed without difficulty. effluent clear pale yellow. left abd PD dressing changed. Report to Carolyn.
[2020-10-21 21:55] LABS: Bedside Glucose 113 mg/dL (70-110)
[2020-10-22] VITALS (7 sets, daily range): BP systolic 100–111; BP diastolic 41–61; PULSE 65–91; RESP 12–16; TEMP 36.1–36.8; O2SAT 93–100
[2020-10-22] MEDS: Midodrine HCl 5 MG Tablet 10 MG PO ×4 (00:27→16:17)
[2020-10-22] MEDS: Acetaminophen 325 MG Tablet 650 MG PO (00:27)
--- NOTE | 2020-10-22 05:55 | EKG12_ITS ---
Test Reason : CP ADMIT Blood Pressure : / mmHG Vent. Rate : 094 BPM Atrial Rate : 094 BPM P-R Int : 144 ms QRS Dur : 134 ms QT Int : 410 ms P-R-T Axes : 000 065 029 degrees QTc Int : 512 ms Sinus rhythm with sinus arrhythmia with occasional Premature ventricular complexes Right bundle branch block Abnormal ECG When compared with ECG of 20-OCT-2020 13:42, MANUAL COMPARISON REQUIRED, DATA IS UNCONFIRMED Confirmed by PRERNA SANCHEZ, ZULAY ([id number]), story editor YANI WARE ([id number]) on 10/23/2020 12:50:06 PM Referred By: Confirmed By:ZULAY GRAFF MD
[2020-10-22 05:57] LABS: Anion Gap 10 (5-15); BUN 22 mg/dL (7-18); BUN/Creat Ratio 3.9 RATIO (10-20); Chloride 98 mmol/L (98-107); Creatinine, Serum 5.66 mg/dL (0.70-1.30); EST Glomerular Filtration Rate 10 mL/min (>60); Est Glom Filt Rate - Afr Amer 12 mL/min (>60); Estimated Creatinine Clearance 7.12 ml/min; Glucose 196 mg/dL (74-106); Magnesium 2.5 mg/dL (1.6-2.6); Potassium 3.2 mmol/L (3.5-5.1); Sodium Level 132 mmol/L (136-145)
[2020-10-22 07:05] LABS: Bedside Glucose 172 mg/dL (70-110)
--- NOTE | 2020-10-22 09:26 | DIALYSIS ---
CCPD treatment completed without complications, UF 550mL, catheter clamped, staysafe cap applied, catheter secured to abdomen, effluent clear pale yellow, no fibrin, dressing clean dry intact
--- NOTE | 2020-10-22 09:39 | CASEMGMT ---
LW/Healthcare POA forms scanned into summary tab of echart. Jony Sam is listed as Healthcare POA. GIORGI Jain
[2020-10-22] MEDS: Fludrocortisone Acetate 0.1 MG Tablet PO (11:13)
[2020-10-22] MEDS: Mupirocin Ointment 22gm Tube 1 APPLIC TOPICAL (11:13)
[2020-10-22] MEDS: Insulin Lispro 100 UNIT/ML INSULN.PEN SC (11:20)
[2020-10-22] MEDS: Ondansetron 4 MG/2 ML Vial IV (11:31)
[2020-10-22 11:36] LABS: Bedside Glucose 173 mg/dL (70-110)
--- NOTE | 2020-10-22 11:45 | STRESSREP_ITS ---
Stress Test Report Pharmacologic myocardial perfusion stress test. 84-year-old man with a history of chest pain with electrolyte abnormalities noted. Stress protocol: Resting EKG demonstrates NSR with a rate of 90 bpm right bundle branch block is noted. The resting blood pressure is 101/58 mmHg. 0.4 mg of regadenoson was infused per usual protocol followed by rapid intravenous saline flush injection continuous EKG monitoring was performed. The patient maintained sinus rhythm throughout the recording. The maximum heart rate attained was 126 bpm which was 92% of max impacted heart rate the maximum workload was [address] changes were noted we did not meet the criteria for abnormal flow reserve. The resting blood pressure was 101/58 with the same blood pressure recorded at the final. Myocardial perfusion protocol. 11.1 mCi of technetium 99m sestamibi was injected at rest. 0.4 mg of regadenoson was infused per usual protocol. At peak infusion 31.8 mCi of technetium 99m sestamibi was injected stress images were obtained stress and rest images were reconstructed and compared in the short axis vertical and hor izontal long axis. Gated images were also obtained to Perfusion SPECT analysis: Review of the images demonstrate normal uptake of tracer noted in all areas of myocardium the resting images similarly demonstrate normal uptake of tracer noted in all areas of myocardium. No areas of reversibility are noted to suggest ischemia. Gated SPECT analysis: The gated ejection fraction is noted to be over 90%. Conclusion: Pharmacologic myocardial perfusion stress test with no evidence of ischemia. Right bundle branch block noted.
--- NOTE | 2020-10-22 12:06 | PN.RENAL_ITS ---
Subjective: can't tolerate KDUR pills too large to swallow. Will try smaller dose. K 3.2. UF 550 cc today on CCPD - Physical Exam Vitals/I&O's: Vital Signs Temp Pulse Resp BP Pulse Ox 96.9 F L 80 16 100/56 L 93 10/22/20 11:53 10/22/20 11:53 10/22/20 11:53 10/22/20 11:53 10/22/20 11:53 Oxygen Delivery Method Room Air Weight: 51.8 kg Body Mass Index (BMI) 17.9 Finger Stick Blood Glucose 156 Intake and Output for Last 24 Hours 10/20/20 10/21/20 10/22/20 23:59 23:59 23:59 Intake Total 1600 / 1840 240 / 240 Output Total 0 / 0 550 / 550 Balance 1600 / 1840 -310 / -310 General: Alert, Oriented x3, - - gen weakness,debilitated Lungs: Clear to auscultation Cardiovascular: Regular rate Abdomen: Bowel Sounds Present, Soft, Non Tender Extremities: No edema Psych/Mental Status: Alert and oriented to time, place, person, mood and affect Laboratory Results 10/21/20 12:19: POC Glucose 232 H 10/21/20 16:29: POC Glucose 260 H 10/21/20 21:42: POC Glucose 113 H 10/22/20 05:12: Sodium 132 L, Potassium 3.2 L, Chloride 98, Carbon Dioxide 24.0, Anion Gap 10, BUN 22 H, Creatinine 5.66 H, Estim Creat Clear Calc 7.12, Est GFR (MDRD) Af Amer 12 L, Est GFR (MDRD) Non-Af 10 L, BUN/Creatinine Ratio 3.9 L, Glucose 196 H, Calcium 8.0 L, Magnesium 2.5 10/22/20 06:46: POC Glucose 172 H 10/22/20 11:19: POC Glucose 173 H Current Medications Acetaminophen (Acetaminophen 325 Mg Tablet) 650 mg PO Q6H PRN PRN PRN Reason: Pain Score 1-10/Temp > 100.7 F Last Admin: 10/22/20 00:27 Dose: 650 mg Documented by: Calcitriol (Calcitriol 0.25 Mcg Capsule) 0.5 mcg PO DAILY MYLES Last Admin: 10/21/20 09:33 Dose: 0.5 mcg Documented by: Dextrose (Dextrose 50%-Water 25 Gm/50 Ml Disp.Syrin) 0 gm IV X1 PRN; Protocol PRN Reason: Hypoglycemia Fludrocortisone Acetate (Fludrocortisone Acetate 0.1 Mg Tablet) 0.1 mg PO DAILY@0800 [facility] Last Admin: 10/22/20 11:13 Dose: 0.1 mg Documented by: Glucagon (Glucagon 1 Mg/Ml Syringe) 1 mg IM .X1 PRN PRN Reason: Hypoglycemia Heparin Sodium (Porcine) (Heparin Injection (Vial) 5,000 Unit/Ml Vial) 5,000 u nit SC Q8 [facility] Last Admin: 10/22/20 06:47 Dose: Not Given Documented by: Insulin Glargine (Insulin Glargine 100 Units/Ml Pen) 12 units SC QHS [facility] Last Admin: 10/21/20 21:46 Dose: Not Given Documented by: Insulin Human Lispro (Insulin Lispro 100 Unit/Ml Insuln.Pen) 0 unit SC ACHS [facility]; Protocol Last Admin: 10/22/20 11:20 Dose: 2 units Documented by: Lactobacillus Acidophilus (Lactobacillus Acidophilus) 1 tablet PO DAILY [facility] Last Admin: 10/21/20 09:34 Dose: 1 tablet Documented by: Melatonin (Melatonin 3 Mg Tablet) 3 mg PO QHS PRN PRN PRN Reason: INSOMNIA Midodrine (Midodrine Hcl 5 Mg Tablet) 10 mg PO Q6 [facility] Last Admin: 10/22/20 11:13 Dose: 10 mg Documented by: Multivit/Ca Carb/B Cmplx/FA/Prenat (Folic Acid/Vitamin B Comp W-C 1 Capsule) 1 capsule PO DAILY [facility] Last Admin: 10/21/20 09:33 Dose: 1 capsule Documented by: Mupirocin (Mupirocin Ointment 22gm Tube) 1 applic TOPICAL BID [facility]; Protocol Last Admin: 10/22/20 11:13 Dose: 1 applic Documented by: Nitroglycerin (Nitroglycerin (Inpatient Use) 0.4 Mg Tab.Subl) 0.4 mg SUBLINGUAL Q5M PRN PRN Reason: CARDIAC/CHEST PAIN Ondansetron HCl (Ondansetron 4 Mg/2 Ml Vial) 4 mg IV Q8H PRN PRN PRN Reason: NAUSEA/VOMITING Last Admin: 10/22/20 11:31 Dose: 4 mg Documented by: Oxycodone HCl (Oxycodone 5 Mg Tablet) 5 mg PO Q4H PRN PRN PRN Reason: Pain Score 6-10 Last Admin: 10/21/20 21:43 Dose: 5 mg Documented by: Potassium Chloride (Potassium Chloride Oral Tablet 20 Meq) 40 meq PO DAILYCM MYLES Last Admin: 10/22/20 11:57 Dose: Not Given Documented by: Sodium Chloride (0.9% Saline Lock 10 Ml Syringe) 10 - 40 ml IV UD PRN PRN Reason: SALINE FLUSH Medical Necessity - Tobacco Use Smoking Status: Never smoker Assessment/Plan All Active Problems (Last Reviewed 07/18/20 @ 11:37 by Darya Espinoza) Debility (Acute) Hypomagnesemia (Acute) Hypotension (Acute) DVT, lower extremity, distal (Resolved) Hypokalemia (Acute) Infected sebaceous cyst (Acute) 1. ESRD continue CCPD use all 1.5%. UF 550cc 2. weakness, SOB due to hypotension. On midodrine and florinef., 3. Debilitation 4. Hypokalemia replace po on discharge, iv kcl today 5. Hypomagnesemia replaced. 6. Tetralogy of Fallot
[2020-10-22] MEDS: Potassium Chloride 10mEq/100mL 10 MEQ/100 ML IV.SOLN. 100 MEQ IV BOLUS ×4 (13:01→16:45)
--- NOTE | 2020-10-22 13:10 | ECHOD_ITS ---
Reason For Study: Afib, Aflutter Procedure This was a 2D Doppler, Color Flow transthoracic echocardiogram. The study was technically difficult. Exam performed portable in patient room. Left Ventricle Normal LV size. Left ventricular systolic function is hyperdynamic. The estimated ejection fraction is 75 %. No evidence for diastolic dysfunction. No regional wall motion abnormalities noted. Right Ventricle Mildly dilated right ventricle. Mild global right ventricular systolic dysfunction. Atria Normal left atrium. The right atrium is mildly enlarged. No doppler evidence for ASD. Mitral Valve There is no mitral annular calcification. Normal mitral valve. Trivial mitral valve insufficiency. Tricuspid Valve Normal tricuspid valve. Trivial tricuspid valve insufficiency. Right ventricular systolic pressure estimated to be 35 mmHg. Aortic Valve Trisinus/trileaflet aortic valve. Mild focal aortic valve calcification. Pulmonic Valve The pulmonic valve is not well visualized. Trivial pulmonic valve insufficiency. Great Vessels Normal sized aortic root. Pericardium/Pleural No pericardial effusion. MMode/2D Measurements & Calculations LVIDd: 2.9 cm IVSd: 1.1 cm Ao root diam: 3.0 cm LVIDs: 2.3 cm LVPWd: 1.1 cm RVDd: 3.3 cm FS: 20.2 % LAV(MOD-bp): 22.1 ml LA A4 area: 9.8 cm2 LA dimension(2D): 4.0 cm LAV(MOD-bp) Indexed: 14.1 ml/m2 LAV(MOD-sp2): 25.0 ml LAV(MOD-sp4): 16.3 ml RA A4 area: 12.9 cm2 Doppler Measurements & Calculations MV E max marin: 48.5 cm/sec Lat Peak E' Marin: 9.7 cm/sec Med Peak E' Marin: 7.4 cm/sec MV A max marin: 80.9 cm/sec E/E' lat: 5.0 E/E' med: 6.6 MV E/A: 0.60 Ao V2 max: 93.3 cm/sec LV V1 max: 67.9 cm/sec PA V2 max: 108.7 cm/sec Ao max P.5 mmHg LV V1 max P.8 mmHg Ao V2 mean: 65.5 cm/sec Ao mean P.8 mmHg Ao V2 VTI: 10.7 cm TR max marin: 281.3 cm/sec TR max P.6 mmHg Interpretation Summary The study was technically difficult. Left ventricular systolic function is hyperdynamic. The estimated ejection fraction is 75 %. Mildly dilated right ventricle. Mild global right ventricular systolic dysfunction. The right atrium is mildly enlarged. Trivial mitral valve insufficiency. Trivial tricuspid valve insufficiency. Mild focal aortic valve calcification. Trivial pulmonic valve insufficiency. Right ventricular systolic pressure estimated to be 35 mmHg. No evidence for diastolic dysfunction. Ordering Physician: Daniele Patel Referring Physician: Jose Raul Garcia Chi Performed By: Darya Tsai, MARISELA, RVT
--- NOTE | 2020-10-22 13:19 | CASEMGMT ---
ELKE CABRAL Assessment: Face to Face with patient for initial transition planning/care coordination assessment. ELKE CABRAL introduced self and role at [facility], pt voices understanding and consents to assessment. Pt is lying in bed in no distress. PT is A/Ox4 and answers all questions appropriately at this time. Care providers, pharmacy, and demographics verified/updated. Presentation: increased generalized weakness Admitting dx: CP PCP: Jose Specialists: [place], cardio; John, nephro Preferred Pharmacy:[facility] Insurance: [employer] Prescription Benefit: yes Living Will/HPOA: Pt reports he has a LW. HPOA is Navya Knight dtr. It is on file with [facility]. LNOK: Navya Knight dtr and Hiram Sam, son Living Arrangements:Pt lives alone in a house with no steps on main level. Pt has basement with stairs where his laundry is. Pt reports he is independent with ADL's. Pt only concerns at home is needing assistance with ironing and washing clothes. Transportation: Pt states drives self and states no transportation issues. If unable to drive, he states his family would be able to assist him. DME/HHC: Pt states he has a 4 wheeled walker and grab bars at home. Denies need for further DME. He is independent with peritoneal dialysis. Pt has an [employer] lady who comes every 2 weeks to cook and clean. She will not iron. Pt requesting assistance with ironing. Private Duty list provided. Pt reports he was recently in [facility] for rehab and was to start home PT and ST. Pt unsure of who this is through. Pt states no concerns with going home at time of dc. Pt is retired and states he does not smoke or drink ETOH. Pt states no further concerns/needs. CM to follow for any further dc planning/needs. Advised pt to ask for CM if any further questions/concerns/needs arise, voices understanding. Pt goal: Home Plan: Home
--- NOTE | 2020-10-22 14:53 | CASEMGMT ---
RN MARIANNA spoke with pt fransisca Mendosa via tc. She reports pt was active with [facility]. She is aware of the private duty list provided to pt. TC to [facility], spoke with Kavitha. Pt active with PT, OT, ST and [employer]. Order for resumption, H&P, face sheet, med list faxed to [facility] at this time.
[2020-10-22] MEDS: Folic Acid/Vitamin B Comp W-C 1 Capsule 1 CAP PO (14:54)
[2020-10-22] MEDS: Calcitriol 0.25 MCG Capsule 0.5 MCG PO (14:54)
[2020-10-22] MEDS: Potassium Chloride Oral Tablet 10 MEQ PO ×2 (14:54→16:20)
[2020-10-22] MEDS: Heparin Injection (Vial) 5,000 UNIT/ML VIAL 5000 UNIT SC (14:55)
[2020-10-22 16:31] LABS: Bedside Glucose 148 mg/dL (70-110)
--- NOTE | 2020-10-22 17:16 | DCINST_ITS ---
- Discharge Diagnoses Current Active Problems: Current Active and Chronic Problems (Last Reviewed 07/18/20 @ 11:37 by Darya Espinoza) Essential hypertension (Chronic) 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 (Chronic) You will use the following diet at home:: Other - resume home diet Your food should be the consistency of: Regular Your liquids should be the consistency of: Regular/Thin Discharge Activity: Return to Normal Activity Weight Bearing Status: Weight bearing as tolerated, - - use walker if needed Allergies/Adverse Reactions: Allergies No Known Allergies Allergy (Verified 10/20/20 12:53) Medications to take at Discharge levothyroxine 50 mcg capsule 50 mcg PO DAILY 04/06/19 Calcitriol 0.5 mcg PO DAILY 10/20/20 Colesevelam HCl 3.75 gm PO QODAY 10/20/20 Fludrocortisone Acetate [Florinef] 0.1 mg PO DAILY@0800 10/20/20 Insulin Glargine [Lantus SoloStar Pen] 12 units SC QHS 10/20/20 Insulin Lispro [Humalog KwikPen] 3 unit SQ BID 10/20/20 Lactobacillus Acidophilus [Acidophilus Lactobacilli] 1 ea PO DAILY 10/20/20 Magnesium Oxide 800 mg PO BID 10/20/20 Midodrine HCl 10 mg PO Q6H 10/20/20 Ubidecarenone [Coenzyme Q-10] 100 mg PO DAILY 10/20/20 Warfarin [Coumadin] 3 mg PO DAILY 10/20/20 Potassium Chloride 10 meq PO BID #60 capsule.er 10/22/20 Sertraline HCl [Zoloft] 25 mg PO UD #60 tab 10/22/20 The following prescriptions were given: Potassium Chloride 10 meq PO BID #60 capsule.er Transmission Status[id number] Sertraline HCl [Zoloft] 25 mg PO UD #60 tab Transmission Status: [id number] Primary Care Physician: Jose Raul Garcia Chi, MD [Primary Care Provider] - Please follow up with your Primary Care Physician in: in 7-10 days Test Results: Test results from this visit will be discussed in further detail at your follow- up appointment, if applicable. Please Follow Up With: Sandy Lopez DO When: as scheduled
--- NOTE | 2020-10-23 10:00 | CASEMGMT ---
DC instructions faxed to [facility] at this time.
--- NOTE | 2020-10-23 14:04 | CASEMGMT ---
Addendum entered by Alaina Ricks 10/23/20 14:16: Pt returned call. He reports he has not set up his appt with Dr. Garcia yet, but he will do so. Also his appt with Dr. Lopez was supposed to have been yesterday but since he was in the hospital, he will reschedule. Pt states his rx was not ready yet so he has not picked it up. Pt has been in touch with [facility] and they plan to visit him tomorrow. Pt denies further questions/concerns. Original Note: RN CM Discharge Follow Up Phone Call: KAILEY:Samantha Strata: 3 Call Date: 10/23/2020 Discharge Date: 10/22/2020 Time of Call: 1404 Duration: <1 min Admitting diagnosis: CP RN MARIANNA attempted to complete FU tc after recent hospitalization. No answer. Left with call back number if pt is able.
--- NOTE | 2020-10-24 18:09 | DS.PCM_ITS ---
Discharge Date and Diagnosis Date of Admission: 10/20/20 Date of Discharge: 10/22/20 - Primary Discharge Diagnosis Acute Problems: #1 musculoskeletal chest pain #2 dyspnea on exertion-secondary to deconditioning #3 deconditioning/generalized debility #4 severe protein caloric malnutrition #5 end-stage renal disease on peritoneal dialysis #6 hypothyroidism #7 type 2 diabetes #8 chronic hypotension #9 paroxysmal atrial fibrillation #10 hypokalemia #11 hypomagnesemia - Secondary Discharge Diagnosis Chronic Problems: Chronic Problems (Last Reviewed 07/18/20 @ 11:37 by Darya Espinoza) Pruritus (Chronic) Chronic diastolic heart failure (Chronic) Essential hypertension (Chronic) Ascites (Chronic) 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 (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) 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 (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) Chronic renal insufficiency, stage IV (severe) (Chronic) SVT (supraventricular tachycardia) (Chronic) Right bundle branch block (Chronic) Aortic root dilatation (Chronic) Paroxysmal atrial fibrillation (Chronic) Type II diabetes mellitus (Chronic) Hyperlipidemia (Chronic) Fallot tetralogy (Chronic) S/P repair; Hospital Course and Treatment Operations: None Procedures: 2-D Echocardiogram, Nuclear stress test Summary of Care Provided: The patient is a 84 year old M who was seen in the emergency room at [facility] with complaints of generalized weakness, shortness of breath with exertion and precordial chest discomfort with exertion. Patient has multiple medical problems including end-stage renal disease and is on daily peritoneal dialysis. Patient has not been eating well at home and had not been taking care of himself according to his family. Cup in the emergency room included labs which were remarkable for hemoglobin of 12.3, patient's potassium was low at 3.1, creatinine was 6.65, BUN was 27, troponin was unremarkable, magnesium was low at 1.3, chest x-ray was unremarkable. EKG showed a normal sinus rhythm without evidence of ischemic changes. Patient was admitted to PCU, serial cardiac enzymes were obtained and these remain normal, patient was seen in consultation by nephrology, on 10/24/2020, patient underwent a nuclear stress test which showed no evidence of reversible ischemia. He also underwent an echocardiogram which showed a normal EF with mild pulmonary hypertension. I had discussions with the patient concerning his generalized weakness, it was my opinion that the patient was not eating properly at home and was deconditioned. Patient states that he was due to be seen by physical therapy at home as well as speech therapy-this has been set up while he was in a rehab facility recently. On 10/22/2020, patient was seen and examined: On examination he appeared frail. Vital signs as documented. Skin warm and dry and without overt rashes. Neck without JVD, neck was supple, trachea midline, thyroid was normal. Lungs clear bilaterally, normal air movement was noted. Heart exam notable for regular rhythm, normal sounds and absence of murmurs, rubs or gallops. Abdomen unremarkable and without evidence of organomegaly, masses, or abdominal aortic enlargement. Bowel sounds are present, abdomen is not distended. Extremities nonedematous, no cyanosis was noted, no clubbing was noted. Neuro: Cranial nerves II through XII are grossly intact, no focal motor deficits were noted, sensation to light touch and pinprick intact, motor exam 5/5 throughout. Psych: Patient is alert and oriented x3, patient had flat affect On 10/22/2020, patient was discharged home in stable condition, I talked with his family by phone before he was discharged and they were aware of his medical condition. Patient was assured that he had no cardiac problems that needed to be addressed any further at this time. - Physical Exam Vitals/I&O's: Vital Signs Temp Pulse Resp BP Pulse Ox 98.0 F 65 16 105/41 L 93 10/22/20 16:42 10/22/20 16:42 10/22/20 16:42 10/22/20 16:42 10/22/20 16:42 Oxygen Delivery Method Room Air Weight: 51.8 kg Body Mass Index (BMI) 17.9 Finger Stick Blood Glucose 156 Intake and Output for Last 24 Hours 10/22/20 10/23/20 10/24/20 23:59 23:59 23:59 Intake Total 935 / 935 Output Total 1050 / 1050 Balance -115 / -115 Discharge Activity: Return to Normal Activity Weight Bearing Status: Weight bearing as tolerated, - - use walker if needed Home Medications: Medications to take at Discharge levothyroxine 50 mcg capsule 50 mcg PO DAILY 04/06/19 Calcitriol 0.5 mcg PO DAILY 10/20/20 Colesevelam HCl 3.75 gm PO QODAY 10/20/20 Fludrocortisone Acetate [Florinef] 0.1 mg PO DAILY@0800 10/20/20 Insulin Glargine [Lantus SoloStar Pen] 12 units SC QHS 10/20/20 Insulin Lispro [Humalog KwikPen] 3 unit SQ BID 10/20/20 Lactobacillus Acidophilus [Acidophilus Lactobacilli] 1 ea PO DAILY 10/20/20 Magnesium Oxide 800 mg PO BID 10/20/20 Midodrine HCl 10 mg PO Q6H 10/20/20 Ubidecarenone [Coenzyme Q-10] 100 mg PO DAILY 10/20/20 Warfarin [Coumadin] 3 mg PO DAILY 10/20/20 Potassium Chloride 10 meq PO BID #60 capsule.er 10/22/20 Sertraline HCl [Zoloft] 25 mg PO UD #60 tab 10/22/20 Following Prescriptions Were Given to Patient: Potassium Chloride 10 meq PO BID #60 capsule.er Transmission Status: Received by [facility] #[id number] Sertraline HCl [Zoloft] 25 mg PO UD #60 tab Transmission Status: Received by [id number] Primary Care Physician: Jose Raul Garcia Chi, MD [Primary Care Provider] - Please follow up with your Primary Care Physician in: in 7-10 days Please Follow Up With: Sandy Lopez DO When: as scheduled Disposition: Home Minutes spent on discharge:: 31 Patient Condition:: Stable Medical Necessity - Tobacco Use Smoking Status: Never smoker Meaningful Use Info Meaningful Use Diagnoses (Choose all that apply): None applicable Inpatient E&M: 18056 Disch Hosp
== END 2020-10-22 18:14 | disposition home or self-care (01) | DRG 313 ==
LOC: ED 15:29 → PCU 16:23
PROVIDERS: Internal Medicine Nephrology; Admitting Provider Family Medicine; Emergency Provider Student in an Organized Health Care Education/Training Program; PCP Family Medicine Geriatric Medicine; Visit Provider Internal Medicine
DX: R07.89 Other chest pain (principal); N18.6 End stage renal disease; E43 Unspecified severe protein-calorie malnutrition; I50.32 Chronic diastolic (congestive) heart failure; I11.0 Hypertensive heart disease with heart failure; I48.0 Paroxysmal atrial fibrillation; R06.09 Other forms of dyspnea; Z86.718 Personal history of other venous thrombosis and embolism; E11.22 Type 2 diabetes mellitus with diabetic chronic kidney disease; Z85.528 Personal history of other malignant neoplasm of kidney; Z90.5 Acquired absence of kidney; Z79.4 Long term (current) use of insulin; E03.9 Hypothyroidism, unspecified; N48.5 Ulcer of penis; Z79.899 Other long term (current) drug therapy; Z99.2 Dependence on renal dialysis; Z86.16 Personal history of COVID-19; E87.6 Hypokalemia; E78.5 Hyperlipidemia, unspecified; R53.81 Other malaise; E83.42 Hypomagnesemia; I95.89 Other hypotension
CPT/HCPCS: 36415; 71045; 78452; 80048; 82962; 83735; 84100; 84484; 85025; 85610; 90947; 92610; 93005; 93017; 93306; 97162; 97165; 97802; 99285; A9500; J7040; A4216; G0257; J2405; J2785